=== PATIENT | female | born 1945 | race Caucasian/White ===

== ENCOUNTER → 2021-07-27 14:04 | Outpatient (BNVA) | payer OTHER, SELFPAY | PROVIDERS: PCP Internal Medicine; Visit Provider Nurse Practitioner Family | DX: R25.1 Tremor, unspecified (principal); R51.9 Headache, unspecified; R41.3 Other amnesia; R93.0 Abnormal findings on diagnostic imaging of skull and head, not elsewhere classified | CPT/HCPCS: 99212 ==

== ENCOUNTER 2024-04-16 05:37 | Emergency (ER) | payer MEDICARE, SELFPAY ==
--- NOTE | ~2024-04-16 | XR_ITS ---
EXAMINATION: XR RIGHT KNEE XR RIGHT HAND XR CHEST CLINICAL INFORMATION: Fall, patient unable to hold oblique or lateral view, angled sponge artifacts shown on oblique, best images obtained with tape and sponge to help hold per technologist's note. TECHNIQUE: 4 views right knee, 3 views right hand, AP upright view of the chest. COMPARISON: None available. FINDINGS: RIGHT KNEE: Small joint effusion. Diffuse demineralization. Vascular calcifications. Mild degenerative changes in the medial compartment with small medial marginal osteophytes. RIGHT HAND: There is a comminuted, displaced fracture at the proximal aspect of the first proximal phalanx with swelling of the adjacent soft tissues. Ulnar minus variance. Diffuse demineralization. Moderate degenerative changes in the first carpometacarpal joint with joint space narrowing and hypertrophic change. CHEST: Surgical clips in the left neck. Left electronic device with 3 leads overlying the heart. Cardiac silhouette and left base partially obscured by electronic device, limiting visualization. There is no gross pneumothorax. Mild prominence of the central vasculature and possible bibasilar hazy opacities are difficult to evaluate due to portable technique, low lung volumes and overlying devices, particularly on the left. XR/XR knee RT 3V IMPRESSION: 1. Small right knee joint effusion with mild degenerative changes. 2. Comminuted, displaced fracture at the proximal aspect of the right hand first proximal phalanx. 3. Left electronic device with 3 leads overlying the heart. Cardiac silhouette and left base partially obscured by an electronic device, limiting visualization. 4. Mild prominence of the central vasculature and possible bibasilar hazy opacities are difficult to evaluate due to portable technique, low lung volumes and overlying devices, particularly on the left. This study was presented today, April 16, 2024, for interpretation. Stat results provided at this time as requested by referring provider. Electronically signed by: Nancy Urbano MD 04/16/2024 11:03 AM [facility]
--- NOTE | ~2024-04-16 | CT_ITS ---
EXAMINATION: CT CERVICAL SPINE WITHOUT CONTRAST CLINICAL INFORMATION: Neck pain, trauma. COMPARISON: None available. TECHNIQUE: Multiple helical unenhanced images were acquired through the cervical spine. Multiplanar computer reformatted images were acquired from the dataset in the sagittal and coronal plane. This CT examination was performed using dose optimization techniques as appropriate, variously including the following: *Automated exposure control *Adjustment of mA and/or kV according to patient size (this includes techniques or standardized protocols for targeted exams where dose is matched to indication/reason for exam; i.e. extremities or head) *Use of iterative reconstruction technique DLP: 845 mGy-cm FINDINGS: CT examination of the cervical spine shows no prevertebral soft tissue swelling. Vertebral body height and alignment are maintained. No acute fracture or subluxation is evident. The odontoid process, cervicothoracic and cervical medullary junctions are normal. There are no bone lesions. Emphysematous changes are noted in both lung apices. Extensive atherosclerotic changes are noted within within great vessels of both the left and right neck. There are postsurgical changes in the left neck. CT/CT cervical spine wo IV con IMPRESSION: 1. No acute cervical spine fracture or subluxation. Fleischner guidelines were followed. Electronically signed by: Hilario Dao MD 04/16/2024 08:02 AM [facility]
--- NOTE | ~2024-04-16 | XR_ITS ---
EXAMINATION: XR RIGHT KNEE XR RIGHT HAND XR CHEST CLINICAL INFORMATION: Fall, patient unable to hold oblique or lateral view, angled sponge artifacts shown on oblique, best images obtained with tape and sponge to help hold per technologist's note. TECHNIQUE: 4 views right knee, 3 views right hand, AP upright view of the chest. COMPARISON: None available. FINDINGS: RIGHT KNEE: Small joint effusion. Diffuse demineralization. Vascular calcifications. Mild degenerative changes in the medial compartment with small medial marginal osteophytes. RIGHT HAND: There is a comminuted, displaced fracture at the proximal aspect of the first proximal phalanx with swelling of the adjacent soft tissues. Ulnar minus variance. Diffuse demineralization. Moderate degenerative changes in the first carpometacarpal joint with joint space narrowing and hypertrophic change. CHEST: Surgical clips in the left neck. Left electronic device with 3 leads overlying the heart. Cardiac silhouette and left base partially obscured by electronic device, limiting visualization. There is no gross pneumothorax. Mild prominence of the central vasculature and possible bibasilar hazy opacities are difficult to evaluate due to portable technique, low lung volumes and overlying devices, particularly on the left. XR/XR hand RT min 3V IMPRESSION: 1. Small right knee joint effusion with mild degenerative changes. 2. Comminuted, displaced fracture at the proximal aspect of the right hand first proximal phalanx. 3. Left electronic device with 3 leads overlying the heart. Cardiac silhouette and left base partially obscured by an electronic device, limiting visualization. 4. Mild prominence of the central vasculature and possible bibasilar hazy opacities are difficult to evaluate due to portable technique, low lung volumes and overlying devices, particularly on the left. This study was presented today, April 16, 2024, for interpretation. Stat results provided at this time as requested by referring provider. Electronically signed by: Nancy Urbano MD 04/16/2024 11:03 AM [facility]
--- NOTE | ~2024-04-16 | CT_ITS ---
EXAMINATION: CT HEAD WITHOUT CONTRAST CLINICAL INFORMATION: Head trauma COMPARISON: 08/31/2021 TECHNIQUE: Contiguous axial imaging was performed from the skull base to vertex without intravenous administration of contrast. This CT examination was performed using dose optimization techniques as appropriate, variously including the following: *Automated exposure control *Adjustment of mA and/or kV according to patient size (this includes techniques or standardized protocols for targeted exams where dose is matched to indication/reason for exam; i.e. extremities or head) *Use of iterative reconstruction technique DLP: 845 mGy-cm FINDINGS: CT examination of the brain again shows ventriculomegaly disproportionate atrophy, suggesting communicating hydrocephalus. No acute hemorrhage, mass effect or shift is detected. Mild periventricular white matter disease is again noted, likely on the basis of microvascular angiopathy. In the posterior fossa, the brainstem and cerebellum are stable. Considerable vertebrobasilar and carotid arterial calcifications are noted. No acute hemorrhage, mass effect or shift is evident. In the posterior fossa, the brainstem, cerebellum and fourth ventricle are unremarkable. The orbits and bony calvarium are intact. The paranasal sinuses and mastoid air cells are well pneumatized and clear. CT/CT head/brain wo IV con IMPRESSION: 1. No acute hemorrhage, mass effect or shift. 2. Ventriculomegaly disproportionate to atrophy, suggesting communicating hydrocephalus. 3. Stable periventricular white matter disease, likely on the basis of microvascular angiopathy. Electronically signed by: Hilario Dao MD 04/16/2024 07:59 AM [facility]
--- NOTE | ~2024-04-16 | XR_ITS ---
EXAMINATION: XR RIGHT KNEE XR RIGHT HAND XR CHEST CLINICAL INFORMATION: Fall, patient unable to hold oblique or lateral view, angled sponge artifacts shown on oblique, best images obtained with tape and sponge to help hold per technologist's note. TECHNIQUE: 4 views right knee, 3 views right hand, AP upright view of the chest. COMPARISON: None available. FINDINGS: RIGHT KNEE: Small joint effusion. Diffuse demineralization. Vascular calcifications. Mild degenerative changes in the medial compartment with small medial marginal osteophytes. RIGHT HAND: There is a comminuted, displaced fracture at the proximal aspect of the first proximal phalanx with swelling of the adjacent soft tissues. Ulnar minus variance. Diffuse demineralization. Moderate degenerative changes in the first carpometacarpal joint with joint space narrowing and hypertrophic change. CHEST: Surgical clips in the left neck. Left electronic device with 3 leads overlying the heart. Cardiac silhouette and left base partially obscured by electronic device, limiting visualization. There is no gross pneumothorax. Mild prominence of the central vasculature and possible bibasilar hazy opacities are difficult to evaluate due to portable technique, low lung volumes and overlying devices, particularly on the left. XR/XR chest 1V IMPRESSION: 1. Small right knee joint effusion with mild degenerative changes. 2. Comminuted, displaced fracture at the proximal aspect of the right hand first proximal phalanx. 3. Left electronic device with 3 leads overlying the heart. Cardiac silhouette and left base partially obscured by an electronic device, limiting visualization. 4. Mild prominence of the central vasculature and possible bibasilar hazy opacities are difficult to evaluate due to portable technique, low lung volumes and overlying devices, particularly on the left. This study was presented today, April 16, 2024, for interpretation. Stat results provided at this time as requested by referring provider. Electronically signed by: Nancy Urbano MD 04/16/2024 11:03 AM [facility]
--- NOTE | ~2024-04-16 | XR_ITS ---
EXAMINATION: XR ELBOW, RIGHT CLINICAL INFORMATION: fall COMPARISON: None available. TECHNIQUE: AP, lateral, and oblique views of the right elbow. FINDINGS: No fracture, dislocation or destructive lesion or joint effusion. XR/XR elbow RT min 3V IMPRESSION: Negative Electronically signed by: Ra Anna MD 04/16/2024 10:45 AM [facility]
[2024-04-16 05:46] VITALS: BP 154/80; PULSE 65; O2SAT 98
[2024-04-16 05:51] VITALS: BMI 20.9
--- NOTE | 2024-04-16 05:51 | ECG_ITS ---
Test Reason : FALL Blood Pressure : / mmHG Vent. Rate : 060 BPM Atrial Rate : 060 BPM P-R Int : 000 ms QRS Dur : 144 ms QT Int : 526 ms P-R-T Axes : 000 233 083 degrees QTc Int : 526 ms Ventricular-paced rhythm Underlying AF Abnormal ECG No previous ECGs available Referred By: Aggie Nelson Electronically Signed By:CYNTHIA SERRA MD
[2024-04-16 05:57] VITALS: BP 187/74; PULSE 59; RESP 16; TEMP 36.6; O2SAT 96
--- NOTE | 2024-04-16 06:37 | ED_ITS ---
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 Unknown total downtime and unknown if she had LOC. + headstrike , patient has had many complaints such as neck pain, then wandering elbow pain that goes away, L rib pain, R knee pain. Staff did not to EMS she seems more confused. The patient has no recollection other than she fell but she states she fell at home not [facility]. MD complaint: fall Onset (ago): hour(s) (5am) Fall from: other Fall witnessed: no Place fall occurred: longterm[facility] Loss of consciousness: unsure Prolonged down time: no Symptoms prior to fall: none Context: history of frequent falls Location of injury: head and neck Location of injury - extremities: right: knee Severity: mild Quality: aching Associated symptoms (after fall): denies Related Data Home Medications ?Medication ?Instructions ?Recorded ?Confirmed aspirin 81 mg tablet,delayed 81 mg PO DAILY 07/27/21 07/27/21 release atorvastatin 40 mg tablet 40 mg PO BEDTIME 07/27/21 07/27/21 cholecalciferol (vitamin D3) 25 25 mcg PO DAILY 07/27/21 07/27/21 mcg (1,000 unit) tablet clopidogrel 75 mg tablet 75 mg PO DAILY 07/27/21 07/27/21 isosorbide mononitrate 30 mg 30 mg PO DAILY 07/27/21 07/27/21 tablet,extended release 24 hr loratadine 10 mg tablet 10 mg PO DAILY 07/27/21 07/27/21 metoprolol succinate 50 mg 50 mg PO DAILY 07/27/21 07/27/21 tablet,extended release 24 hr nitrofurantoin 1 cap PO DAILY 07/27/21 07/27/21 monohydrate/macrocrystals 100 mg capsule sacubitril 49 mg-valsartan 51 mg 1 tab PO BID 07/27/21 07/27/21 tablet (Entresto) spironolactone 25 mg tablet 25 mg PO DAILY 07/27/21 07/27/21 torsemide 20 mg tablet 20 mg PO DAILY 07/27/21 07/27/21 Previous Rx's ?Medication ?Instructions ?Recorded azelastine 137 mcg (0.1 %) nasal 2 spray intranasal BID 28 days #30 07/27/21 spray mL fluticasone propionate 50 2 spray intranasal DAILY 28 days 07/27/21 mcg/actuation nasal #16 grams spray,suspension (Flonase Allergy Relief) omfiucflgd-vakcxlwdsriph-jgyhosex 1 - 2 tab PO Q4-6H PRN post lumbar 09/02/21 50 mg-325 mg-40 mg tablet puncture headache 7 days #24 tabs magnesium oxide 400 mg (241.3 mg 400 mg PO BEDTIME 30 days #28 tabs 09/21/23 magnesium) tablet riboflavin (vitamin B2) 100 mg 200 mg (2 x 100 mg) PO BID 30 days 09/21/23 tablet (Vitamin B-2) #112 tabs cyclobenzaprine 5 mg tablet 5 mg PO BEDTIME 28 days #28 tabs 11/13/23 Allergies Allergy/AdvReac Type Severity Reaction Status Date / Time No Known Allergies Allergy Verified 04/16/24 05:55 Review of Systems 2 Review of Systems: ROS unable to be obtained due to altered mental status [facility] Past Medical History Attestation statement: The following information was validated with the patient. Source: old records reviewed Medical History Hydrocephalus Abnormal findings on diagnostic imaging of skull and head, not elsewhere classified Memory difficulties Headache Tremor Social History Social History Alcohol intake: never Patient Tobacco Use Status: Never used Tobacco Smoked in Last 30 Days: No Use of substances other than those prescribed or required for medical reasons: No Advance Directives: No Physical Exam 2 Vital Signs: Vital Signs: Last Vital Signs Temp 97.8 F 04/16/24 05:57 Pulse 60 04/16/24 07:49 Resp 18 04/16/24 07:49 BP 169/63 H 04/16/24 07:49 Pulse Ox 98 04/16/24 07:49 O2 Del Method Room Air 04/16/24 07:49 BMI result Body Mass Index 20.9 Appearance: Alert. confused. No acute distress. Eyes: Pupils equal, round and reactive to light. ENT: Pharynx normal. atraumatic Neck: c collar in place CVS: Normal heart rate and rhythm. Pulses normal. Respiratory: No respiratory distress. Breath sounds normal. Abdomen: Soft and non-tender. Skin: Skin warm and dry. Normal skin color. Extremities: No lower extremity edema. R knee ttp contusion noted, normal ROM of both arms, she reports ttp to R thumb Neuro: confused. No motor deficit. No sensory deficit. Course Course Course Narrative: just admitted to [facility] 03/23-03/25 for same thing falls, UTI, troponin was high as well at that time, Cr 1.6, L sided 2nd and 3rd rib fracture Reevaluation(s) Reevaluation #1: signed out to Nilson MCCLENDON pending further workup 840am Medications Administered Discontinued Medications Generic Name Dose Route Start Last Admin Trade Name Freq PRN Reason Stop Dose Admin Sodium Chloride 1,000 mls @ 999 mls/hr 04/16/24 07:16 04/16/24 08:02 Ns IV 04/16/24 08:16 999 mls/hr .Q1H1M ONE Administration Medical Decision Making Medical Decision Making [facility] Narrative: 79 yo female with PMH of headaches, hydrocephalus, cognitive impairmentHLD, HTN, UTI here with recurrent falls at this time plan for labs, CT scans of head and neck, trauma xrays of ext, UA, possible falls, syncope, rhabdo, encephalopathy Differential Diagnosis Differential Diagnoses: The differential diagnosis associated with the presentation includes falls, rhabdo, encephalopathy, head injury, neck injury, strain, ext trauma Admission/Observation Consideration of admission/observation: Escalation of care including admission/observation considered Lab Data [facility] [place] Lab Attestation statement: I reviewed the patient's lab results. 04/16/24 06:37 04/16/24 06:37 Labs: Lab Results 04/16/24 04/16/24 04/16/24 Range/Units 06:37 07:33 08:21 WBC 7.5 (4.8-10.8) X10*3/uL RBC 4.74 (4.20-5.50) X10*6/uL Hgb 12.6 (12.0-16.0) g/dl Hct 40.6 (37.0-47.0) % MCV 85.7 (80.0-98.0) fL MCH 26.6 L (27.0-33.0) pg MCHC 31.0 (31.0-35.0) g/dl RDW 16.6 H (11.0-16.0) % Plt Count 240 (160-400) X10*3/uL MPV 11.3 (9.4-12.3) fL Immature Gran % (Auto) 0.3 (0.0-0.4) % Neut % (Auto) 72.9 (45-73) % Lymph % (Auto) 14.6 L (20-40) % [place] % (Auto) 9.6 (2-11) % Eos % (Auto) 1.9 (0-4) % Baso % (Auto) 0.7 (0-2) % Lymph # (Auto) 1.1 L (1.2-4.9) X10*3/uL [place] # (Auto) 0.7 (0.1-1.2) X10*3/uL Eos # (Auto) 0.1 (0.0-0.4) X10*3/uL Baso # (Auto) 0.1 (0.0-0.2) X10*3/uL Abs Immat Gran (auto) 0.02 (0.00-0.03) X10*3/uL Absolute Neuts (auto) 5.5 (2.0-8.3) x10*3/uL Absolute Nucleated RBC 0.000 (0.0-0.012) X10*3/uL Nucleated RBC % (auto) 0.0 (0.0-0.2) /100WBC PT 17.8 H (10.9-12.4) SEC INR 1.5 H (0.9-1.1) Sodium 142 (135-145) mmol/L Potassium 4.4 (3.3-5.1) mmol/L Chloride 105 (96-108) mmol/L Carbon Dioxide 28 (22-29) mmol/L Anion Gap 13 (12-20) BUN 56 H (9-16) mg/dL Creatinine 1.68 H (0.5-1.4) mg/dL Estim Creat Clear Calc 23.4 Estimated GFR 29 Random Glucose 156 H (60-115) mg/dL Calcium 10.0 (8.4-10.2) mg/dL Magnesium 2.4 (1.6-2.6) mg/dL Total Bilirubin 0.5 (0.0-1.0) mg/dL Direct Bilirubin 0.2 (0.0-0.5) mg/dL AST 32 H (5-31) U/L ALT 23 (0-31) U/L Alkaline Phosphatase 132 H (39-117) U/L Total Creatine Kinase 38 (26-140) U/L Troponin I High Sens 56.7 H* 51.3 H* (<3.5-17.0) ng/L Total Protein 7.8 (6.5-8.0) g/dL Albumin 3.6 (3.5-5.0) g/dL Lipase 17 (8-78) U/L Urine Color Yellow Urine Appearance Cloudy Urine pH 6.5 (5.0-9.0) Ur Specific [place] 1.015 (1.005-1.025) Urine Protein 30 (1+) H (Neg-Trace) mg/dL Urine Glucose (UA) Negative (Negative) mg/dL Urine Ketones Negative (Negative) mg/dL Urine Blood Small (1+) H (Negative) Urine Nitrite Negative (Negative) Ur Leukocyte Esterase Large (3+) H (Negative) Independent Interpretation I performed an independent interpretation of an: EKG, Plain X-Ray and CT Scan Interpretation: Rate: 60 Rhythm: paced [place]: left wide QRS complex. ST T wave : no DEBRA, poor tracking qTC: 526 prior studies: hx of paced rhythm The study has been interpreted contemporaneously by me. . Discharge Plan Discharge Clinical Impression: Fall Qualifiers: Encounter type: initial encounter Qualified Code(s): W19.XXXA - Unspecified fall, initial encounter Patient Disposition: Still a Patient Instructions: Fall Prevention (ED) Additional Instructions: CT head, cspine negative no acute change from baseline kidney function Prescriptions: No Action iyqhdixkal-kgczisiyozjsg-ndsz 50-325-40 mg tablet 1 - 2 tab PO Q4-6H PRN (Reason: post lumbar puncture headache) 7 Days Qty: 24 1RF Rx Instructions: do not exceed 6 tabs per 24 hrs magnesium oxide 400 mg (241.3 mg magnesium) tablet 400 mg PO BEDTIME 30 Days Qty: 28 6RF Rx Instructions: may hold for loose stools riboflavin (vitamin B2) [Vitamin B-2] 100 mg tablet 200 mg PO BID 30 Days Qty: 112 6RF cyclobenzaprine 5 mg tablet 5 mg PO BEDTIME 28 Days Qty: 28 4RF cholecalciferol (vitamin D3) 25 mcg (1,000 unit) tablet 25 mcg PO DAILY Entresto 49-51 mg tablet 1 tab PO BID loratadine 10 mg tablet 10 mg PO DAILY spironolactone 25 mg tablet 25 mg PO DAILY aspirin 81 mg tablet,delayed release (DR/EC) 81 mg PO DAILY clopidogrel 75 mg tablet 75 mg PO DAILY isosorbide mononitrate 30 mg tablet extended release 24 hr 30 mg PO DAILY metoprolol succinate 50 mg tablet extended release 24 hr 50 mg PO DAILY torsemide 20 mg tablet 20 mg PO DAILY atorvastatin 40 mg tablet 40 mg PO BEDTIME nitrofurantoin monohyd/m-cryst 100 mg capsule 1 cap PO DAILY fluticasone propionate [Flonase Allergy Relief] 50 mcg/actuation spray,suspension 2 spray intranasal DAILY 28 Days Qty: 16 4RF Rx Instructions: administer into each nostril- qhs azelastine 137 mcg (0.1 %) aerosol,spray 2 spray intranasal BID 28 Days Qty: 30 4RF Rx Instructions: administer into each nostril Print Language: Macanese
[2024-04-16 06:41] LABS: MANUAL DIFF FLAG NO
[2024-04-16 06:42] LABS: Basophils Absolute Auto 0.1 X10*3/uL (0.0-0.2); Basophils Percent Auto 0.7 % (0-2); Eosinophils Absolute Auto 0.1 X10*3/uL (0.0-0.4); Eosinophils Percent Auto 1.9 % (0-4); Hematocrit 40.6 % (37.0-47.0); Hemoglobin 12.6 g/dl (12.0-16.0); Imm Gran Abs Auto 0.02 X10*3/uL (0.00-0.03); Imm Gran Pct Auto 0.3 % (0.0-0.4); Lymphocytes Absolute Auto 1.1 X10*3/uL (1.2-4.9); Lymphocytes Percent Auto 14.6 % (20-40); Mean Corpuscular Hemoglobin 26.6 pg (27.0-33.0); Mean Corpuscular Volume 85.7 fL (80.0-98.0); Mean Platelet Volume 11.3 fL (9.4-12.3); Monocytes Absolute Auto 0.7 X10*3/uL (0.1-1.2); Monocytes Percent Auto 9.6 % (2-11); Neutrophils Absolute Auto 5.5 x10*3/uL (2.0-8.3); Neutrophils Percent Auto 72.9 % (45-73); Platelet Count 240 X10*3/uL (160-400); Red Blood Count 4.74 X10*6/uL (4.20-5.50); Red Cell Distribution Width 16.6 % (11.0-16.0); White Blood Count 7.5 X10*3/uL (4.8-10.8)
[2024-04-16 06:50] LABS: INTERNATIONAL NORM RATIO 1.5 (0.9-1.1); Prothrombin Time 17.8 SEC (10.9-12.4)
[2024-04-16 07:02] LABS: Alanine Aminotransferase 23 U/L (0-31); Albumin Level 3.6 g/dL (3.5-5.0); Alkaline Phosphatase 132 U/L (39-117); Anion Gap 13 (12-20); Aspartate Amino Transferase 32 U/L (5-31); Bilirubin Direct 0.2 mg/dL (0.0-0.5); Bilirubin Total 0.5 mg/dL (0.0-1.0); Blood Urea Nitrogen 56 mg/dL (9-16); Carbon Dioxide 28 mmol/L (22-29); Chloride 105 mmol/L (96-108); Creatinine Clr Calc Pharmacy 23.4; Estimated Glomerular Filt Rate 29; Glucose Random 156 mg/dL (60-115); Lipase 17 U/L (8-78); Magnesium 2.4 mg/dL (1.6-2.6); Potassium 4.4 mmol/L (3.3-5.1); Sodium 142 mmol/L (135-145); Total Protein 7.8 g/dL (6.5-8.0)
[2024-04-16 07:05] LABS: Troponin-I High Sensitivity 56.7 ng/L (<3.5-17.0)
[2024-04-16 07:49] VITALS: BP 169/63; PULSE 60; RESP 18; O2SAT 98
[2024-04-16] MEDS: 0.9 % Sodium Chloride 1,000 ML 999 ML IV (08:02)
[2024-04-16 08:03] LABS: Troponin-I High Sensitivity 51.3 ng/L (<3.5-17.0)
[2024-04-16 08:27] LABS: Appearance Urine Cloudy; Color Urine Yellow; Glucose Urine UA Negative (Negative); Leukocyte Esterase Urine Large (3+) (Negative); Nitrite Urine Negative (Negative); PH 6.5 (5.0-9.0); Specific Gravity - Urine 1.015 (1.005-1.025); UMIC TRIGGER UACC YES; Urine Blood Small (1+) (Negative); Urine Ketones Negative (Negative); Urine Protein 30 (1+) mg/dL (Neg-Trace)
[2024-04-16 08:42] LABS: Bacteria Urine 3+ (None Seen); Hyaline Casts Urine 0-2 /LPF (0-2); Squamous Epithelial Cell Urine 0-2 /HPF (0-2); UACC Culture Trigger YES; WBC Clumps Urine Present; WBC Urine >50 /HPF (0-5)
[2024-04-16 10:29] VITALS: BP 125/99; PULSE 60; RESP 16; TEMP 36.8; O2SAT 96
[2024-04-16] MEDS: cefTRIAXone sodium 1 GM VIAL IVPUSH (10:41)
[2024-04-16 11:32] LABS: Influenza A PCR NEGATIVE (Negative); Influenza B PCR NEGATIVE (Negative); Resp Syncy Virus RNA Qual PCR NEGATIVE (Negative); SARS COV2 PCR INHOUSE NEGATIVE (Negative)
--- NOTE | 2024-04-16 11:54 | MHC.CM.ED ---
Addendum entered by Ernestina Bhagat 04/16/24 15:29: [facility] choice per daughter. [facility] would be 2nd choice. Addendum entered by Ernestina Bhagat 04/16/24 14:25: [facility], [facility], [facility], [facility], and [facility] are able to offer a bed. [facility], [facility], [facility] and [facility] are still reviewing. These options were discussed with Aisha. Aisha will review these facilities and provide CM with 1st choice. Original Note: Received case management consult from Julianne MCCLENDON. Patient came to the ER after a fall at [facility]. Family does not want patient to return. Met with patient and daughter, Aisha in regards to discharge planning. Patient has been at [facility] since d/c from [facility] on 03/25. Aisha does not patient to return to [facility] because she feels facility is short staffed and feels that's why patient fell. 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 Aisha also stated Covid is currently in the building and her mother hasn't been tested. Aisha stated on that patient c/o urinary burning and requested UA be performed. Per Aisha she is unsure if UA was done. Aisha states she didn't speak to anyone about her concerns because she hasn't met with the drug abuse social worker since patient was admitted to their facility. Patient has been to [facility] in the past. Aisha requesting referral there. Aisha aware referral will be made. If [facility] does not have a bed available, referral will be broadcasted and bed offers will be discussed with Aisha. Aisha verbalized understanding. Per Naomie at [facility], family did not attend plan of care meeting that they were invited to. UA was done and Covid swab was also done. Continue to monitor for d/c needs.
[2024-04-16 13:08] VITALS: BP 144/80; PULSE 60; RESP 18; O2SAT 97
--- NOTE | 2024-04-16 13:41 | PC.NURSE ---
Late entry: pt had presented to ED via EMS from [facility] after a fall at facility with positive head strike. Pt reported general body pain and burning with urination. Found to have UTI and right thumb fx here in ED. Pt is confused at baseline, breathing even and unlabored. Purewick used for incontinence. Paced rhythm on hospital monitor. Family had asked to speak with case management about new placement, CM consulted, per them plan is to be CM/PT in hospital while they find new placement.
[2024-04-16] MEDS: cefuroxime axetiL 250 MG TABLET PO ×2 (14:41→21:52)
--- NOTE | 2024-04-16 18:03 | MHC.CM.ED ---
PT evaluation obtained and uploaded to [facility]. Awaiting auth.
[2024-04-16 18:24] VITALS: BP 146/37; PULSE 64; RESP 18; TEMP 36.5; O2SAT 97
--- NOTE | 2024-04-16 21:29 | PHA.MEDREC ---
Pharmacy Consult ? Medication Reconciliation Pharmacy has completed the medication reconciliation. Med list obtained from Marybeth lizarraga [facility]
[2024-04-17 02:16] VITALS: BP 159/77; PULSE 69; RESP 16; TEMP 36.2; O2SAT 98
[2024-04-17 05:43] VITALS: BP 168/65; PULSE 67; RESP 16; TEMP 36.1; O2SAT 99
--- NOTE | 2024-04-17 07:18 | PC.NURSE ---
Resumed care of patient at 0700, She is up resting in ed comfortable at this time, pt remains at baseline neuro. Pt has call lovett within reach with frequent rounding to assess pt safety. Pt is awaiting PTCM at this time
--- NOTE | 2024-04-17 08:17 | PC.NURSE ---
report given to overflow RN pt to be transferred once room ready. Code status entered by SHOW WORKER
[2024-04-17] MEDS: cefuroxime axetiL 250 MG TABLET PO ×2 (09:12→21:57)
--- NOTE | 2024-04-17 09:12 | PC.NURSE ---
Pt. arrived from main ED to Overflow bed 2. Incontinence care provided and Purewick applied by Overflow [employer]. Pt. medicated per MAR with PO antibiotic. Denies any complaints and/or concerns at this time. Plan of care ongoing.
[2024-04-17 14:00] VITALS: BP 182/81; PULSE 60; RESP 18; TEMP 37; O2SAT 95
[2024-04-17 23:09] VITALS: BP 175/77; PULSE 59; RESP 19; O2SAT 95
--- NOTE | 2024-04-18 00:47 | MHC.EDTECH ---
Complete bed change. Patient incontinent of urine. Purewick placed.
[2024-04-18 06:23] VITALS: BP 166/77; PULSE 60; RESP 18; TEMP 36.6; O2SAT 96
--- NOTE | 2024-04-18 08:41 | MHC.CM.ED ---
Patient remains in ER overflow. Insurance auth has been obtained by Keily Corcoran. Patient can leave at 10am. Reta BOOTH booked. Patient, Belgica CAICEDO and Maria Victoria MCCLENDON aware. Spoke with patient's daughter/HCP, Aisha via telephone at [phone]. Aisha's daughter will meet patient at [facility]. Continue to monitor for d/c needs.
[2024-04-18 08:43] VITALS: BP 179/80; PULSE 62; RESP 18; TEMP 36.5; O2SAT 96
[2024-04-18 08:55] LABS: Glucose, Whole Blood 231 mg/dL (60-115)
[2024-04-18] MEDS: Lidocaine 4 % Patch ADH..PATCH 2 PATCH TRANSDERMA (10:22)
[2024-04-18] MEDS: Spironolactone 25 MG TABLET PO (10:23)
[2024-04-18] MEDS: Clopidogrel Bisulfate 75 MG TABLET PO (10:23)
[2024-04-18] MEDS: Loratadine 10 MG TABLET PO (10:23)
[2024-04-18] MEDS: Cholecalciferol (Vitamin D3) 25 MCG TABLET PO (10:24)
[2024-04-18] MEDS: Insulin Lispro 100 UNIT/ML 3 ML VIAL SUBCUT (10:24)
[2024-04-18] MEDS: cefuroxime axetiL 250 MG TABLET PO (10:25)
[2024-04-18] MEDS: Apixaban 5 MG TABLET PO (10:25)
[2024-04-18] MEDS: Ammonium Lactate 12 % Cream 140 GM TUBE 1 APPL TOPICAL (10:26)
[2024-04-18 10:27] VITALS: BP 162/82
[2024-04-18] MEDS: Torsemide 20 MG TABLET 40 MG PO (10:27)
[2024-04-18 10:54] VITALS: BP 162/82; PULSE 62; RESP 18; TEMP 36.5; O2SAT 96
== END 2024-04-18 10:51 | disposition skilled nursing facility (03) ==
PROVIDERS: Physician Assistant Medical; Emergency Provider Emergency Medicine; PCP Internal Medicine
DX: S62.511A Displaced fracture of proximal phalanx of right thumb, initial encounter for closed fracture (principal); W19.XXXA Unspecified fall, initial encounter; N39.0 Urinary tract infection, site not specified; R51.9 Headache, unspecified; M54.2 Cervicalgia; M25.561 Pain in right knee; R79.1 Abnormal coagulation profile; R29.6 Repeated falls; Z91.81 History of falling; I10 Essential (primary) hypertension; E78.5 Hyperlipidemia, unspecified; R25.1 Tremor, unspecified; G91.9 Hydrocephalus, unspecified; Z03.818 Encounter for observation for suspected exposure to other biological agents ruled out; Y93.9 Activity, unspecified; Y92.122 Bedroom in nursing home as the place of occurrence of the external cause; Y99.9 Unspecified external cause status; Z79.82 Long term (current) use of aspirin; Z79.02 Long term (current) use of antithrombotics/antiplatelets; Z79.899 Other long term (current) drug therapy
CPT/HCPCS: 0241U; 29130; 36415; 70450; 71045; 72125; 73080; 73130; 73562; 80048; 80076; 81001; 82550; 82947; 83690; 83735; 84484; 85025; 85610; 87040; 87086; 93005; 96361; 96374; 97162; 99285; J0696

== ENCOUNTER → 2024-04-16 05:51 | Outpatient (BNV) | payer MEDICARE, SELFPAY | PROVIDERS: Emergency Provider Emergency Medicine; PCP Internal Medicine; Visit Provider Internal Medicine Cardiovascular Disease | DX: R94.31 Abnormal electrocardiogram [ECG] [EKG] (principal) | CPT/HCPCS: 93010 ==

== ENCOUNTER 2024-05-08 08:16 | Outpatient (REF) | payer OTHER, SELFPAY ==
--- NOTE | ~2024-05-08 | XR_ITS ---
EXAMINATION: XR HAND 3 OR MORE VIEWS RIGHT HISTORY: M79.641 - Pain in right hand COMPARISON: Comparison is made with the prior examination dated 04/16/2024. FINDINGS: Three views of the right hand are submitted. Osseous mineralization is normal. Again seen is a fracture of the base of the proximal phalanx of the thumb. The appearance is not significantly changed from the prior study. The joint spaces are preserved. The soft tissues are unremarkable. XR/XR hand RT min 3V IMPRESSION: Fracture of the base of the proximal phalanx of the thumb without significant change. Electronically signed by: Roman Guerrero MD 05/14/2024 08:24 AM [facility]
== END 2024-05-08 08:17 | disposition home or self-care (01) ==
LOC: HO.HOSX 08:16
DX: M79.641 Pain in right hand (principal); S62.511A Displaced fracture of proximal phalanx of right thumb, initial encounter for closed fracture
CPT/HCPCS: 26720; 73130; 99202

== ENCOUNTER 2024-05-08 09:30 | Outpatient (AMB) | payer OTHER, SELFPAY ==
--- NOTE | 2024-05-08 09:37 | A.OFFVIS_ITS ---
Intake Visit Reasons: FC- RT thumb displaced fx DOI 04/16/24 Intake Note: Danisha is a 79 year old right hand dominant female who presents today as a new patient for a fracture care visit of her right hand first digit s/p fall DOI: 04/16/24. Patient states she does not have memory of how she fell. She has contusions on her right arm from the fall. She expresses she has mild discomfort when she over uses the right hand. Unable to lift heavy objects due to pain. Denies numbness and tingling. Allergies fish derived [fish] Allergy (Verified 05/08/24 09:41) Rash HPI HPI FC- RT thumb displaced fx DOI 04/16/24: Details: Patient is a 79-year-old female who presents for evaluation of fracture of the proximal phalanx of the right thumb, date of injury 04/16/2024. The patient reports that she did fall at that time, but is unable to recall any other details of her injury, and expresses surprise that she has a fracture of the thumb. Today, the patient reports that she is experiencing minimal discomfort in her right hand, and states that she is only experiencing very mild pain when she overuses her right hand. Patient expresses that she has noticed a mild deformity in her right thumb, but states she is unbothered by this. Patient expresses she would like to avoid surgical intervention if at all possible. No other acute complaints or concerns at this time. [facility] Medical History Hydrocephalus Abnormal findings on diagnostic imaging of skull and head, not elsewhere classified Memory difficulties Headache Tremor Social History Alcohol intake: never Patient Tobacco Use Status: Never used Tobacco Review of Systems Const All systems reviewed & are unremarkable except as noted in HPI and below Physical Exam Extrem Other: Patient is alert, oriented, and in no acute distress. Neuro: Normal sensation of the tips of all digits of the right hand at this time Vascular: Cap refill brisk Pain: No tenderness to palpation about the right thumb, particularly at the level of the fracture No pain with range of motion of the right hand ROM: Patient is able to make a closed fist and extend all digits of the right hand fully and without difficulty Skin: No lacerations or abrasions. General: No ecchymosis, erythema, or evidence of infection. There is noted to be a deformity of the right thumb consistent with apex volar fracture of the proximal phalanx. Psych: Appears grossly normal Affect normal Attitude cooperative Office Procedures AMB Fracture Care Details: Proximal phalanx of right thumb fracture Fracture Billing Code: Fracture Billing Code Casting/Splints 66049-Kdsq/Wrist Cast Application Procedure code (CPT) selection complete Results Reviewed Results Reviewed: X-rays obtained in the office today and independently reviewed by me, Umair Vences PA-C, demonstrate apex volar displaced fracture of the proximal phalanx of the right thumb with evidence of interval bony healing. Assessment & Plan Assessment & Plan (1) Displaced fracture of proximal phalanx of right thumb: Code(s): S62.511A - Displaced fracture of proximal phalanx of right thumb, initial encounter for closed fracture Category: Medical Plan 1. Displaced fracture of proximal phalanx of right thumb Date of injury 04/16/2024 After long discussion with both the patient and Dr. Betancourt, the decision was made that the patient can be managed nonoperatively Patient expresses that she is not bothered by the deformity of her right thumb, and would like to avoid surgery if at all possible Patient will replaced in the thumb spica cast for 2 weeks today Patient is educated on proper cast care and precautions Patient is also provided with a note to bring to Keily Corcoran describing proper cast care and precautions Patient was advised she should continue to avoid any heavy lifting in the right hand, but that she should work on range of motion of the other digits of the right hand Patient was amenable to this plan Patient will follow-up in 2 weeks with repeat x-rays for reassessment, sooner with any acute concerns Orders: Orders XR hand RT min 3V Today M79.641 - Pain in right hand Coding Level of Care Code New Pt Level 3 (32306) Diagnoses Displaced fracture of proximal phalanx of right thumb S62.511A CPT Codes Fracture Care - Fracture Billing Code: Fracture Billing Code ([id number]) Casting - CPT: 14258-Dfhe/Wrist Cast Application ([id number])
== END 2024-05-08 10:35 | disposition home or self-care (01) ==
PROVIDERS: PCP Internal Medicine
DX: S62.511A Displaced fracture of proximal phalanx of right thumb, initial encounter for closed fracture (principal)
CPT/HCPCS: 26720; 99203

== ENCOUNTER 2024-05-23 08:26 | Outpatient (REF) | payer OTHER, SELFPAY ==
--- NOTE | ~2024-05-23 | XR_ITS ---
EXAMINATION: XR HAND 3 OR MORE VIEWS RIGHT HISTORY: M79.641 - Pain in right hand COMPARISON: Comparison is made with the prior examination dated 05/08/2024. FINDINGS: Three views of the right hand are submitted. Osseous mineralization is normal. Again seen is a fracture of the proximal phalanx of the thumb. The appearance is not significantly changed from the prior study. The joint spaces are preserved. The soft tissues are unremarkable. XR/XR hand RT min 3V IMPRESSION: Fracture of the proximal phalanx of the right thumb without change. Electronically signed by: Roman Guerrero MD 05/26/2024 10:46 AM [facility]
== END 2024-05-23 08:27 | disposition home or self-care (01) ==
LOC: HO.HOSX 08:26
DX: M79.641 Pain in right hand (principal); S62.511A Displaced fracture of proximal phalanx of right thumb, initial encounter for closed fracture
CPT/HCPCS: 29085; 73130; 99212

== ENCOUNTER 2024-05-23 09:54 | Outpatient (AMB) | payer OTHER, SELFPAY ==
--- NOTE | 2024-05-23 10:08 | A.OFFVIS_ITS ---
Intake Visit Reasons: OV- RT thumb displaced fx DOI 04/16/24 Intake Note: Danisha is a 79 year old right hand dominant female who presents today for follow up status post displaced fracture of proximal phalanx of right thumb after taking a fall, DOI:04/16/24. At her last visit she was placed in a thumb spica cast. Cast removed and xrays updated in office. States she has some stiffness in wrist but has no pain. Allergies fish derived [fish] Allergy (Verified 05/23/24 10:09) Rash HPI HPI OV- RT thumb displaced fx DOI 04/16/24: Details: Patient is a 79-year-old female who presents for evaluation of fracture of the proximal phalanx of the right thumb, date of injury 04/16/2024. The patient reports that she did fall at that time, but is unable to recall any other details of her injury, and expresses surprise that she has a fracture of the thumb. Today, the patient reports that she is experiencing no discomfort in her right hand. Patient expresses that she has noticed a mild deformity in her right thumb, but states she is unbothered by this. Patient expresses she would like to avoid surgical intervention if at all possible. No other acute complaints or concerns at this time. [facility] Medical History Hydrocephalus Abnormal findings on diagnostic imaging of skull and head, not elsewhere classified Memory difficulties Headache Tremor Social History Alcohol intake: never Patient Tobacco Use Status: Never used Tobacco Review of Systems Const All systems reviewed & are unremarkable except as noted in HPI and below Physical Exam Extrem Other: Patient is alert, oriented, and in no acute distress. Neuro: Normal sensation of the tips of all digits of the right hand at this time Vascular: Cap refill brisk Pain: No tenderness to palpation about the right thumb, particularly at the level of the fracture No pain with range of motion of the right hand ROM: Patient is able to make a closed fist and extend all digits of the right hand fully and without difficulty Skin: No lacerations or abrasions. General: No ecchymosis, erythema, or evidence of infection. There is noted to be a deformity of the right thumb consistent with apex volar fracture of the proximal phalanx. Psych: Appears grossly normal Affect normal Attitude cooperative Office Procedures Casting/Splints 38442-Wpbx/Wrist Cast Application Procedure code (CPT) selection complete Results Reviewed Results Reviewed: X-rays obtained in the office today and independently reviewed by me, Umair Vences PA-C, demonstrate apex volar displaced fracture of the proximal phalanx of the right thumb with evidence of minimal interval bony healing. Assessment & Plan Assessment & Plan (1) Displaced fracture of proximal phalanx of right thumb: Code(s): S62.511A - Displaced fracture of proximal phalanx of right thumb, initial encounter for closed fracture Category: Medical Plan 1. Displaced fracture of proximal phalanx of right thumb Date of injury 04/16/2024 After long discussion with both the patient and Dr. Betancourt, the decision was made that the patient can be managed nonoperatively Patient expresses that she is not bothered by the deformity of her right thumb, and would like to avoid surgery if at all possible Patient will replaced in the thumb spica cast for a further 2 weeks today Patient is educated on proper cast care and precautions Patient is also provided with a note to bring to Keily Corcoran describing proper cast care and precautions Patient was advised she should continue to avoid any heavy lifting in the right hand, but that she should work on range of motion of the other digits of the right hand Patient was amenable to this plan Patient will follow-up in 2 weeks with repeat x-rays for reassessment, sooner with any acute concerns. Anticipate cast removal at that time Orders: Orders XR hand RT min 3V Today M79.641 - Pain in right hand Coding Level of Care Code Global (61723) Diagnoses Displaced fracture of proximal phalanx of right thumb S62.511A CPT Codes Casting - CPT: 73338-Ssob/Wrist Cast Application ([id number])
== END 2024-05-23 10:57 | disposition home or self-care (01) ==
PROVIDERS: PCP Internal Medicine
DX: S62.511A Displaced fracture of proximal phalanx of right thumb, initial encounter for closed fracture (principal)
CPT/HCPCS: 29085; 99024

== ENCOUNTER 2024-06-03 09:55 | Outpatient (REF) | payer OTHER, SELFPAY ==
--- NOTE | ~2024-06-03 | XR_ITS ---
CLINICAL HISTORY: M79.641 - Pain in right hand 3 view right hand Comparison: DX/SR - XR HAND RT MIN 3V - 05/23/24 09:56 EST Findings: Similar-appearing angulated fracture involving the base of the proximal phalanx of the right thumb. Early callus formation suggested. IMPRESSION: Similar-appearing angulated fracture of the base of the proximal phalanx of the right thumb. Early callus formation suggested. This document has been electronically signed by: Shar Collazo MD on 06/03/2024 12:59:30
--- OUTSIDE RECORDS SUMMARY | 2024-06-03 10:37 | XMS_ITS | Encounter Summary ---
Author Organization [facility] Address [address] [place] [address] Care Team Providers Care Audit Clerk Name Role Phone Aroldo Morgan MD Primary Care Provider Encounter Details Date Type Department Care Team (Late st Contact Info) Description 04/26/2024 Lab Requisition [facility] - Main Lab [address] [facility] [place] [address] Aroldo Morgan MD [address] [place] [address] [address] [facility] [id number] Chronic kidney disease, unspecified; Anemia, unspecified Social History Tobacco Use Types Packs/Day Years Used Date Smoking Tobacco: Never Assessed Sex and Gender Information Value Date Recorded Sex Assigned at Not on file Gender Identity Not on file Sexual Orientation Not on file documented as of this encounter Plan of Treatment Not on file documented as of this encounter Visit Diagnoses Diagnosis Chronic kidney disease, unspecified Anemia, unspecified documented in this encounter Care Teams Audit Clerk Relationship Specialty Start Date End Date Aroldo Morgan MD [address] [place] [address] [address] [place], [id number] PCP - General Family Medicine 03/31/24 documented as of this encounter
--- OUTSIDE RECORDS SUMMARY | 2024-06-03 10:37 | XMS_ITS | Encounter Summary ---
Author Organization [facility], Address [address] [place] [address] Phone Care Team Providers Care Glued Wood Tester Name Role Phone Bryan Fontanez MD Primary Care Provider [phone] Encounter Details Date Type Department Care Team ([facility] st Contact Info) Description 08/29/2023 Documentation Only [facility], [address] [place] [address] Osorio Burgos, [address] [place] [address] Social History Tobacco Use Types Packs/Day Years Used Date Smoking Tobacco: Never Smokeless Tobacco: Never Alcohol Use Standard Drinks/Week Comments No 0 (1 standard drink = 0.6 oz pur e alcohol) Comments Unknown Sex and Gender Information Value Date Recorded Sex Assigned at Not on file Legal Sex Female 4:56 PM EST Gender Identity Not on file Sexual Orientation Not on file documented as of this encounter Plan of Treatment Not on file documented as of this encounter Visit Diagnoses Not on filedocumented in this encounter Care Teams Glued Wood Tester Relationship Specialty Start Date End Date Bryan Fontanez MD [address] [place] [address] PCP - General 05/17/20 documented as of this encounter
--- OUTSIDE RECORDS SUMMARY | 2024-06-03 10:37 | XMS_ITS | Data Portability ---
Author Organization [facility], Main Office Address [address], [address] [place] [address] Care Team Providers Care Retail Grocer Name Role Phone PÉREZ SULTANA - 2ND FLOOR OTHER RACHAEL MAHMOOD Primary Care Provider Assessment No assessment recorded. Plan of Treatment Reminders Order Date Submit Date Provider Last Modified By Organization Details Last Modified Time Details Appointments None record ed. Lab None record ed. Referral None record ed. Procedures None record ed. Surgeries None record ed. Imaging None record ed. Medication Orders None record ed. Patient TargetsNo targets recorded. Patient InstructionsNo instructions recorded. Reason for Referral None Reported. Problems Name Problem SNOMED Code Status Onset Date Resolution Date Notes Provider Name and Address Organization Details Recorded Time Recurrent falls 606258244 Active 2023 Joan Shah NP [address], [address], [place], [address], [facility] 14:23:46 Asthenia 13040749 Active 2023 Joan Shah NP [address], [address], [place], [address], [facility] 14:23:52 Anemia 849805824 Active 2023 Joan Shah NP [address], [address], [place], [address], [facility] 14:23:59 Atrial flutter 4347231 Active 2023 Joan Shah NP [address], [address], [place], [address], [facility] 14:24:25 Dementia 69856539 Active 2023 Joan Shah NP [address], [place], [address], [facility] 4 14:24:42 Type 2 diabetes mellitus 94609420 Active 2023 Joan Shah NP [address], [address], [place], [address], [facility] 4 14:25:01 Depressive disorder 79291658 Active 2023 Joan Shah NP [address], [place], [address], [facility] 4 14:25:09 Fracture of multiple ribs 7985865 Active 2023 Joan Shah NP [address], [place], [address], [facility] 4 19:03:44 Peripheral vascular disease 348358355 Active 2023 Joan Shah NP [address], [address], [place], [address], [facility] 4 19:04:26 Congestive heart failure 33641000 Active 2023 Joan Shah NP [address], [address], [place], [address], [facility] 4 19:04:45 Hypertensive disorder 57503276 Active 2023 Joan Shah NP [address], [place], [address], [facility] 4 19:05:00 Hyperlipidemia 68167961 Active 2023 Joan Shah NP [address], [place], [address], [facility] 4 19:19:08 Seasonal allergy 424717198 Active 2023 Joan Shah NP [address], [place], [address], [place] - [facility] 4 19:25:46 Urinary tract infectious disease 50402213 Active 2023 Sammie Gamble MD [address], [address], [place], [address] , [facility] - [facility] 4 14:37:32 Problem Notes None recorded. Medical Equipment None Reported. Allergies Allergen ID Allergen Name Allergen Category Reaction Reaction Severity Criticality Documentation Date Start Date Code Code System Note Provider Name and Address Organization Details Recorded Time [id number] 29b50 erythromy tamara medicatio n other Not available unabletoasse ss 03/26/2024 4053 RxNorm unkno wn Not Available Not Available Not Available [id number] 29b50 Substance with sulfonami de structure and antibacte rial mechanism of action (substanc e) medicatio n other Not available unabletoasse ss 03/26/2024 84486 8003 SNOMED unkno wn Not Available Not Available Not Available [id number] 29b50 lactose food,medi cation other Not available unabletoasse ss 03/26/2024 6211 RxNorm unkno wn Not Available Not Available Not Available [id number] 29b50 shellfish derived food,medi cation other Not available unabletoasse ss 03/26/2024 92758 UNK seafo od Not Available Not Available Not Available Vitals Date Recorded Heart rate Respiratory rate Body temperature Oxygen saturation Oxygen saturation in Arterial blood by Pulse oximetry Systolic blood pressure Diastolic blood pressure Provider Name and Address Organization Details Last Updated DateTime 4 68 /min 17 /min 97.6 [degF] 94 % 94 % 104 mm[Hg] 78 mm[Hg] Joan Shah NP [address], [address], [place], [address], [place] - [facility] 4 14:22:12 Date Recorded Heart rate Respiratory rate Body temperature Oxygen saturation Oxygen saturation in Arterial blood by Pulse oximetry Systolic blood pressure Diastolic blood pressure Provider Name and Address Organization Details Last Updated DateTime 4 72 /min 16 /min 97.3 [degF] 92 % 92 % 104 mm[Hg] 74 mm[Hg] Joan Shah NP [address], [place], [address], [facility] 4 09:54:01 Date Recorded Heart rate Respiratory rate Body temperature Oxygen saturation Oxygen saturation in Arterial blood by Pulse oximetry Body weight Body mass index (BMI) Body height Systolic blood pressure Diastolic blood pressure Provider Name and Address Organization Details Last Updated DateTime 4 72 /min 18 /min 98.7 [degF] 96 % 96 % 67373.0 5 g 25.2 kg/m2 149.86 cm 104 mm[Hg] 74 mm[Hg] Sammie Gamble MD [address], [place], [address], [facility] 4 17:40:16 Date Recorded Body height Heart rate Respiratory rate Body temperature Oxygen saturation Oxygen saturation in Arterial blood by Pulse oximetry Body mass index (BMI) Body weight Systolic blood pressure Diastolic blood pressure Provider Name and Address Organization Details Last Updated DateTime 4 149.86 cm 76 /min 16 /min 97 [degF] 97 % 97 % 24 kg/m2 53992.4 9 g 142 mm[Hg] 81 mm[Hg] Sammie Gamble MD [address], [place], [address], [facility] 4 20:59:29 Date Recorded Body height Body weight Body mass index (BMI) Heart rate Respiratory rate Body temperature Oxygen saturation Oxygen saturation in Arterial blood by Pulse oximetry Systolic blood pressure Diastolic blood pressure Provider Name and Address Organization Details Last Updated DateTime 4 149.86 cm 74712.0 8 g 24.2 kg/m2 76 /min 16 /min 97.7 [degF] 97 % 97 % 142 mm[Hg] 81 mm[Hg] Joan Shah NP [address], [place], [address], [facility] 4 09:24:10 Social History Question Answer Notes LastModified by Organizat ion Details LastModified Time Tobacco Smoking Status Never Smoker Joan Shah NP [address], [address], [place], [address], [facility] 03/26/2024 18:41:14 Do You Have An Advance Directive? Yes Information not available 04/01/2024 What Is Your Level Of Alcohol Consumption? None Information not available 03/26/2024 What Is Your Code Status? DNR/DNI Information not available 04/01/2024 Where Do You Live? Apartment Information not available 03/26/2024 Legal Guardian? No Informati on not available 04/01/2024 Do You Have A Medical Power Of Obstetrician? Yes Invoked Information not available 04/01/2024 What Was The Date Of Your Most Recent Tobacco Screening? 03/26/2024 Information not available 03/26/2024 Do You Have An Out Of Hospital DNR? Yes Information not available 04/01/2024 What Is Your Relationship Status? Information not available 03/26/2024 Do You Use Any Illicit Or Recreational Drugs? No Information not available 03/26/2024 Has Tobacco Cessation Counseling Been Provided? No Information not available 03/26/2024 Do You Or Have You Ever Used Any Other Forms Of Tobacco Or Nicotine? No Information not available 03/26/2024 Sex: Unknown Functional Status None recorded. Mental Status None recorded. Family History Nothing Reported Notes:n/c Medical History No medical history recorded. Gynecological HistoryNo gynecological history recorded. Obstetrics History GPAL:G 0 P 0 0 0 0 Immunizations Vaccine Type Date Status Note Provider Nam e and Address Organization Details Recorded Time Respiratory syncytial virus (RSV) vaccine, unspecified 4 completed Stacey [facility] 03/26/2024 13:39:00 Tdap 4 completed Stacey [facility] 03/26/2024 13:39:14 Td(adult) unspecified formulation 2 completed Stacey [facility] 03/26/2024 13:39:28 Pneumococcal conjugate PCV20, polysaccharide [id number] conjugate, adjuvant, PF 3 [facility] 13:39:54 influenza, unspecified formulation 2 completed Stacey [facility]oul[facility] 03/26/2024 13:40:07 influenza, unspecified formulation 3 completed Staceysangeetha [facility] 03/26/2024 13:40:14 SARS-COV-2 (COVID-19) vaccine, UNSPECIFIED 1 completed Staceysangeetha [facility] 03/26/2024 13:40:26 SARS-COV-2 (COVID-19) vaccine, UNSPECIFIED 1 completed Stacey [facility] 03/26/2024 13:40:32 SARS-COV-2 (COVID-19) vaccine, UNSPECIFIED 1 completed Stacey [facility] 03/26/2024 13:40:40 SARS-COV-2 (COVID-19) vaccine, UNSPECIFIED 4 completed Stacey [facility] 03/26/2024 13:40:46 Past Encounters Encounter ID Performer Location Encounter Start Date Encounter Closed Date Diagnosis/Indication Diagnosis SNOMED-CT Code Diagnosis ICD10 Code Diagnosis Note [id number] Joan Shah NP [address] [address] 03/26/2024 14:19:37 03/27/2024 09:14:17 Fracture of multiple ribs 7250673 S22.42XD see hpi2nd and 3rd left rib fractures eval'd by trauma and rec conservati ve therapy, IS, acapella valve, and pain management and WBAT105/26a nd start lidocaine patch % to ribs and right thighcontt yl 975 mg po tidcyclobe nzaprine 5 mg po qhs and tyl prnoxycodo ne 5 mg po q 6 hours prn painmonito r Asthenia 05505550 R53.1 PT OT eval and treat for strengthen ing, gait, balance, mobility, romsupport evelin caremonito r Recurrent falls 09624087 2 R29.6 PT OT eval and treat for strengthen ing, gait, balance, mobility, romsupport evelin caremonito r Urinary tr act infectious disease 57577186 N39.0 treated with abx and will continue cefpodoxim e 200 mg po bid here for 7 daysmonito r for sequlae Dementia 19675049 F01.C2 with severe dementiamo nitor for improvemen t from uti or baselineda naya feels dementia may be baseline, although states she never refuses food or meds or states she is being held hostage today and now that daughter is here she is eating drinking and will see if she can take meds today, may be situationa l being new here, will need to monitor closelypys ch to eval and treatwill invokemoni tor Atrial flutter 1299867 I 48.92 clopidogre l 75 mg po dailymetop rolol xl 25 mg po dailyeliqu is 5 mg po bidmonitor Type 2 flora betes mellitus 92913918 E11.9 BS stable 100-200s todayinsul in decreased to lantus 15 units qhsmonitor bs with meals tid ac Depressive disorder 3548 9007 F32.A pt with hx ofsee dementia above Anemia 434671677 D64.9 vit b2 daily bidmonitor cbc weekly x3 for anemia with hx and recent fx on eliquis Congestive heart failure 53631863 I50.9 hx ofconttopr ol xl 25 mg qdentresto is on hold with cefpodoxim e(consider resuming)s pirolacton e 25 mg po qdtorsemid e 40 mg qdfu outpt cardiology 04/01/24 at 2:15 pm [facility] outpt device clinic 05/23/2024 07:40 am Peripheral vascular disease 762429870 I73.9 hx ofmonitor Fracture o f inferior pubic ramus 829888761 S32.592G pt with ? of fx of inferior left pubic ramussee hpi, felt not to be a fracture by ortho and WBATmontio rfu with Dr Haja burger at [facility] as needed in 1-2 weeks for ? pelvic fracture Hypertensive disorder 38 101140 I10 hx ofconttopr ol xl 25 mg qdentresto is on hold with cefpodoxim e(consider resuming)s pirolacton e 25 mg po qdtorsemid e 40 mg qdmonitor vitals, cardiac status Hyperlipidemia 30866764 E78.5 contliptor 40 mg po qdmonitor Seasonal allergy 4584162 04 J30.2 claritin 10 mg po dailymonit or [id number] Joan Shah NP [address] [place] [address] 03/27/2024 09:50:43 03/28/2024 10:17:23 Fracture of multiple ribs 2759474 S22.42XD see hpi2nd and 3rd left rib fractures eval'd by trauma and rec conservati ve therapy, IS, acapella valve, and pain management and WBAT1 nd start lidocaine patch % to ribs and right thighcontt yl 975 mg po tidcyclobe nzaprine 5 mg po qhs and tyl prnoxycodo ne 5 mg po q 6 hours prn painmonito r Fracture o f inferior pubic ramus 053114783 S32.592G pt with ? of fx of inferior left pubic ramussee hpi, felt not to be a fracture by ortho and WBATmontio rfu with Dr Haja burger at [facility] as needed in 1-2 weeks for ? pelvic fracture Asthenia 62856991 R53.1 PT OT eval and treat for strengthen ing, gait, balance, mobility, romsupport evelin caremonito r Recurrent falls 32554393 2 R29.6 PT OT eval and treat for strengthen ing, gait, balance, mobility, romsupport evelin caremonito r Urinary tr act infectious disease 23986975 N39.0 treated with abx and will continue cefpodoxim e 200 mg po bid here for 7 daysunclea r if dementia is worse with UTI and on abx?questi on if her not taking meds and delusions related to the UTI and seems to be more receptive to staff todaymonit or for sequlae Dementia 41620564 F01.C2 with severe dementiamo nitor for improvemen t from uti or baselineda naya feels dementia may be baseline,u nclear if dementia is worse with UTI and on abx?questi on if her not taking meds and delusions related to the UTI and seems to be more receptive to staff todaypysch to eval and treatwill invokemoni tor and supportive care and reassuranc e to take meds and eat, seems showing name badge and medication s from package also helpful to her today Atrial flutter 0176268 I 48.92 clopidogre l 75 mg po dailymetop rolol xl 25 mg po dailyeliqu is 5 mg po bidmonitor Type 2 flora betes mellitus 74548791 E11.9 BS stable 100-200s todayinsul in decreased to lantus 15 units qhsmonitor bs with meals tid ac Depressive disorder 3548 9007 F32.A pt with hx ofsee dementia above Anemia 498283508 D64.9 vit b2 daily bidmonitor cbc weekly x3 for anemia with hx and recent fx on eliquis Congestive heart failure 31661147 I50.9 hx ofconttopr ol xl 25 mg qdentresto is on hold with cefpodoxim e(consider resuming)s pirolacton e 25 mg po qdtorsemid e 40 mg qdfu outpt cardiology 04/01/24 at 2:15 pm [facility] cardiology [facility] outpt device clinic 05/23/2024 07:40 am Peripheral vascular disease 572529374 I73.9 hx ofmonitor Hypertensive disorder 38 995271 I10 bp stablecont toprol xl 25 mg qdentresto is on hold with cefpodoxim e(consider resuming)s pirolacton e 25 mg po qdtorsemid e 40 mg qdmonitor vitals, cardiac status Hyperlipidemia 15343369 E78.5 contliptor 40 mg po qdmonitor Seasonal allergy 9685503 04 J30.2 claritin 10 mg po dailymonit or [id number] Sammie Gamble MD [address] [address] 03/28/2024 15:02:00 04/02/2024 08:32:26 Dementia 52516072 F01.C2 Mod/severe at baseline.C ommunicati ng pretty well tonight.Co ntinue supportive care, expect decline.HC P invokedMon itor mood and behaviors. Psych consult. Urinary tr act infectious disease 63190878 N30.00 Urine cx grew mixed dwayne.Txed with cefpodoxim e 200 mg BID, will complete 7 day course on 03/30.Uncl ear if true UTI, but will complete tx.Monitor for sxs. Depressive disorder 4626 9007 F33.8 Tearful and worried.On no meds.Will get psych consult. Fracture o f multiple ribs 7946076 S22.42XD With continued pain.Destinee nue lidocaine patch % to ribs and right thigh, APAP 975 mg TID, cyclobenza gregg 5 mg qhs and oxycodone 5 mg q 6 hs prn.Encour age acappella, I jeremy, and cough and deep breaths.Mo nitor sxs. Fracture o f inferior pubic ramus 658869334 S32.592G Not thought to be fx per ortho.WBAT , pain meds as above and monitor.Ne eds PT/OT for strengthen ing, balance, gait training, safety and function.C ontinue fall precaution s.Monitor for safety. Asthenia 90572632 R53.1 As above. Recurrent falls 14571425 2 R29.6 As above. Atrial flutter 5266029 I 48.92 Rate in good control on metoprolol 25 mg qd.Continu e clopidogre l 75 mg po qd and eliquis 5 mg BIDMonitor HR and bleeding risk.F/U with cardio as planned. Type 2 flora betes mellitus 53839595 E11.9 BS in adequate control.Co ntinue lantus 15U qd and SSI.Monito r fingerstic ks TI and HgA1C q 3-6 months. Anemia 126331613 D64.89 Stable.Mon itor Congestive heart failure 16953929 I50.9 Appears euvolemic. Continue meds as above.Gale tor resp. status, fluid status, wts and labs.F/U with cardio 04/01/24 at 2:15 pm and at device clinic 05/23/2024 at 7:40 am Peripheral vascular disease 232963232 I73.89 hx ofmonitor Hypertensive disorder 38 715127 I10 BP in good control since here.Destinee nue metoprolol 25 mg qd, spironolac tone 25 mg qd and torsemide 40 mg qdMonitor BP and labs. Hyperlipidemia 54298636 E78.49 Continue atorvastat in 40 mg qdMonitor yearly. Seasonal allergy 0129243 04 J30.2 Continue claritin 10 mg qdMonitor sxs. [id number] Sammie Gamble MD [address] [address] 04/01/2024 14:21:58 05/02/2024 11:50:25 Dementia 84386378 F01.C2 Mod/severe at baseline.C ommunicati ng pretty well tonight.Co ntinue supportive care, expect decline.HC P invokedMon itor mood and behaviors. Psych consult. Urinary tr act infectious disease 51136658 N30.00 Urine cx grew mixed dwayne.Txed with cefpodoxim e 200 mg BID, will complete 7 day course on 03/30.Uncl ear if true UTI, but will complete tx.Monitor for sxs. Depressive disorder 3548 9007 F33.8 Tearful and worried.On no meds.Will get psych consult. Fracture o f multiple ribs 6337723 S22.42XD With continued pain.Destinee nue lidocaine patch % to ribs and right thigh, APAP 975 mg TID, cyclobenza gregg 5 mg qhs and oxycodone 5 mg q 6 hs prn.Encour age acappella, I jeremy, and cough and deep breaths.Mo nitor sxs. Fracture o f inferior pubic ramus 866328819 S32.592G Not thought to be fx per ortho.WBAT , pain meds as above and monitor.Ne eds PT/OT for strengthen ing, balance, gait training, safety and function.C ontinue fall precaution s.Monitor for safety. Asthenia 80518996 R53.1 As above. Recurrent falls 36406080 2 R29.6 As above. Atrial flutter 7368454 I 48.92 Rate in good control on metoprolol 25 mg qd.Continu e clopidogre l 75 mg po qd and eliquis 5 mg BIDMonitor HR and bleeding risk.F/U with cardio as planned. Type 2 flora betes mellitus 37732946 E11.9 BS in adequate control.Co ntinue lantus 15U qd and SSI.Monito r fingerstic ks TI and HgA1C q 3-6 months. Anemia 619824776 D64.89 Stable.Mon itor Hypertensive disorder 38 630086 I10 BP in good control since here.Destinee nue metoprolol 25 mg qd, spironolac tone 25 mg qd and torsemide 40 mg qdMonitor BP and labs. Congestive heart failure 37163370 I50.9 Appears euvolemic. Continue meds as above.Gale tor resp. status, fluid status, wts and labs.F/U with cardio 04/01/24 at 2:15 pm and at device clinic 05/23/2024 at 7:40 am Peripheral vascular disease 336718702 I73.89 hx ofmonitor Hyperlipidemia 67247333 E78.49 Continue atorvastat in 40 mg qdMonitor yearly. Seasonal allergy 8639259 04 J30.2 Continue claritin 10 mg qdMonitor sxs. [id number] Joan Shah, EVELYN [address] [address] 04/10/2024 09:23:02 04/11/2024 11:26:37 Dementia 46202681 F01.C2 Mod/severe at baseline. seems to be trusting staff and improvingC ontinue supportive care, expect decline.HC P invokedMon itor mood and behaviors. Psych consult. Depressive disorder 3548 9007 F33.8 appears tearful at times, improving while hereOn no meds.Will get psych consult. Has not seen her yet Fracture o f multiple ribs 3819576 S22.42XD pain managed and leaving her Contin uelidocain e patch % to ribs and right thigh, APAP 975 mg TID, cyclobenza gregg 5 mg qhs and oxycodone 5 mg q 6 hs prn.Encour age acappella, I jeremy, and cough and deep breaths.Mo nitor sxs. Fracture o f inferior pubic ramus 561972835 S32.592G Not thought to be fx per ortho.WBAT , pain meds as above and monitor.Ne eds PT/OT for strengthen ing, balance, gait training, safety and function.C ontinue fall precaution s.Monitor for safety. Asthenia 77304732 R53.1 As above. Recurrent falls 37985394 2 R29.6 As above. Atrial flutter 8449444 I 48.92 Rate in good control on metoprolol 25 mg qd.Continu eclopidogr el 75 mg po qd and eliquis 5 mg BIDMonitor HR and bleeding risk.F/U with cardio as planned. Type 2 flora betes mellitus 50540914 E11.9 BS in adequate control, 100s 200s mostlyCont inuelantus 15U qd and SSI.Monito r fingerstic ks TI and HgA1C q 3-6 months. Anemia 651748441 D64.89 Stable.Mon itor Hypertensive disorder 38 645234 I10 BP in good control since here.Destinee nuemetopro lol 25 mg qd, spironolac tone 25 mg qd and torsemide 40 mg qdMonitor BP and labs. Congestive heart failure 55100135 I50.9 Appears euvolemic. Continue meds as above.Gale tor resp. status, fluid status, wts and labs.F/U with cardio 04/01/24 at 2:15 pm and at device clinic 05/23/2024 at 7:40 am. ? if she went to this appt-need notes Health Concerns Section Related Observation LastModified by Organization Detai ls LastModified Time None Recorded Concern Status LastModified by Organization Details LastModified Time None Recorded Advance Directives Directive Y: Payers Encounter Date Sequence Insurance Name Policy Number Policy Vásquez Covered Member ID Vásquez Member ID Guarantor Name 03/26/2024 1 [employer] - DOS ON OR AFTER 2022 - MEDICARE [place]AGE [place]MEDICARE [place]ACEMENT/AD VANTAGE - PPO) Danisha Dan [id number] Danisha Dan 03/27/2024 1 [employer] - DOS ON OR AFTER 2022 - [place]ANTAGE - [place]PO) Danisha Dan [id number] Danisha Dan 03/28/2024 1 [employer] - DOS ON OR AFTER 2022 - [place]ANTAGE - [place]PO) Danisha Dan [id number] Danisha Dan 04/01/2024 1 [employer] - DOS ON OR AFTER 2022 - [place]ANTAGE - PPO) Danisha Dan [id number] Danisha Dan 04/10/2024 1 [employer] - DOS ON OR AFTER 2022 - [place]ANTAGE - PPO) Danisha Dan [id number] Danisha Sy Notes Date Note Type Note Provider Name and Address Organization Details Recorded Time 4 text/html Pt is seen for an initial intake visit. PMH: Afib on eliquis, dementia, DM, falls, HTN, HLD, PVD, UTI Danisha was seen at [facility] for a fall and sent to here for continued care and rehab diagnosed with UTI and Fracture to left ribs. Workup included labs, UA positive for UTI and treated with abx now continues on cefpodoxime.Xray shows left hip left inferior pubic rami fracture reviewed by ortho and felt no evidence of fracture and pt is WBAT. LEft sided second and third rib fracture. Evaluated by trauma and IS, acapella valve, and pain management On exam, Danisha is an elderly Tajik speaking female lying in bed with her daughter at bedside. Danisha is currently eating a peanut butter and jelly sandwich and drinking water. Her daughter is getting her to take her medications as Danisha told her daughter this am I am being held hostage here . She seems to be improving since daughter is familiar and here helping and she is cooperative and pleasant with this CRIMINAL INTELLIGENCE ANALYST. She states she hurts all over but refuses meds lately, muscle rub cream offered and she refuses as it burned her skin in the past. She is willing to trial 2 lidocaine patches today. She has scattered bruises to notable to her right thigh, right upper arm, left forearm. Left rib area without notable bruising or deformity. STEIN: High fall riskBIMS 11/18, will invoke todayMOLST: DNR/DNI/okay to transfer to hospital, no dialysis, short term feeding tube, IVF okay. per HCP daughter Joan Shah, CRIMINAL INTELLIGENCE ANALYST [address], [address], [place], [address], [facility] - [employer] 03/26/2024 19:34:16 4 text/html Pt is seen for an acute rounding visit. PMH: Afib on eliquis, dementia, DM, falls, HTN, HLD, PVD, UTI Danisha was seen at [facility] for a fall and sent to here for continued care and rehab diagnosed with UTI and Fracture to left ribs.-of note; Workup included labs, UA positive for UTI and treated with abx now continues on cefpodoxime.Xray shows left hip left inferior pubic rami fracture reviewed by ortho and felt no evidence of fracture and pt is WBAT. LEft sided second and third rib fracture. Evaluated by trauma and IS, acapella valve, and pain management She is seen today for refusing her pills this am and complaint of I will faster if I don't take them per nursing last night. After visiting with her this am and nurse at bedside she is open to taking all pills this am. She has ate most of her breakfast and seems to be doing a little better. On exam, She is alert and pleasant and smiles when she is reassured of her meds. This CRIMINAL INTELLIGENCE ANALYST went through each medication and reviewed it with her and showed her the name and she was satisfied with that and took all meds and ate breakfast. She is agreeable to lidocaine patch placed today to left rib area. STEIN: High fall riskBIMS 11/18, will invoke todayMOLST: DNR/DNI/okay to transfer to hospital, no dialysis, short term feeding tube, IVF okay. per HCP daughter Joan Chauslow, CRIMINAL INTELLIGENCE ANALYST [address], [address], [place], [address], [facility] [employer] 03/27/2024 10:02:06 4 text/html This is a woman who is here for rehab and possible LTC after an acute hospitalization for frequent falls, found to have UTI. Per d/c summary:79-year-old female with a past medical history of atrial flutter/fib, CKD stage III, depression, diabetes, dilated cardiomyopathy, failure with reduced ejection fraction, hypertension, hyperlipidemia, advanced dementia, frequent UTIs who is presenting to the hospital after fall at home. Patient was found on the floor of the bathroom by her daughter on the morning of 03/23.Because of patient's advanced dementia, difficult to obtain any reliable history from the patient. Patient does mention that she has been having frequent falls lately. She denies any significant pain or tenderness currently. Does not know whether she passed out or not. Trauma evaluation was completed in the ED with CT head, CT cervical spine, x-ray left shoulder, x-ray left hip, CT thoracic spine, CT lumbar spine. The only positive finding was left second and third rib fracture. There was mentioned that patient might have left inferior pubic rami fracture. Patient denies any pain or tenderness in that area. Trauma surgery recommended Ortho evaluation, requested Ortho to go through the scans. Ortho do not feel that she has any significant evidence of displaced fracture. Recommended weightbearing as tolerated. Blood work in the ED showed mild leukocytosis of 11.8. 3 sets of high-sensitivity troponin of 22-22-28 with nonsignificant delta. UA tested positive for pyuria, heavy bacteriuria, 3+ leukocyte esterase, nitrite was negative, 1+ hemoglobin consistent with UTI. Patient received cephalexin in the ED, changed to ceftriaxone on the morning of 03/23. U cultures, blood cultures negative till date. Patient's antibiotic changed to cefpodoxime on 03/25 which she will continue for 5 more days to complete course. Patient was cleared by trauma surgery, orthopedic surgery. Outpatient follow-up with orthopedic surgery. Plan for rehab discharge on 03/25/2024Fracture of rib of left side (S22.32XA):Fall (W19.XXXA): .Recurrent falls(R29.6):Trauma evaluation was completed, left-sided second and third rib fracture, Xray right humerus ordered by trauma on 03/24, will followX-ray left hip showed possible left inferior pubic rami fracture. Orthopedic evaluated the x-ray, scans, no evidence of fracture as per them, weightbearing as toleratedIncentive spirometry, Acapella valve, pain management with IV morphine 1 mg every 4 hours as needed for severe pain, oxycodone 5 mg every 6 hours as needed for moderate pain, Tylenol for mild painWas cleared by orthopedics for weightbearing as tolerated to left lower extremity, plan for SNF rehab placementUrinary tract infection(N39.0):UA tested positive for pyuria, 3+ leukocyte esterase, 1+ hemoglobin, nitrite was negativeAwait urine cultures, mild leukocytosis of 11.8 on presentation which is improved and leukocytosis has resolvedWas managed with IV ceftriaxone which was changed to cefpodoxime 200 mg 3 times a day which patient will continue for 7 more days to complete course.Dementia(F03.90): Delirium precaution, fall precautionsPVD (peripheral vascular disease) (I73.9):Continue Plavix, Eliquis, LipitorHeart failure with reduced ejection fractionContinue Toprol-XL, discontinued entresto, continue spironolactone, torsemide 20 mg dailyDoes not look to be in overt volume overload, BP within normal rangeHyperlipidemia(E78. 5):Continue LipitorHTN(hypertension) (I10): .Diabetes mellitus(E11.9): .Continue Lantus, lispro sliding scalePOCT AC, at bedtimeA-fib(I48.91):Rat e vcojwobcxi-Tfwbde-UDYlzm coagulation-on Eliquis Tonight she is in bed, awake. She tells me she's feeling ok, but is scared because she doesn't know if she's going to get better. Gets tearful at times.I see her with a sudanese speaking staff member, but she answers in beninese often, and sometimes answers my questions before he translates them. Her PMH includes HTN, Afib on Eliquis, dementia, AODM, HLD, PVD, UTIs and frequent falls. Sammie Gamble MD [address], [facility] [address], [place], [address], [employer] 04/01/2024 14:55:48 4 text/html I am seeing this 79 yo woman today for an acute visit to f/u rib pain and progress in rehab .She denies pain, but often gets tearful. When I ask her what kind of place this is, she tells me it's a place people come to .I see her with a sudanese speaking staff member, but she answers in beninese often, and sometimes answers my questions before he translates them. Her PMH includes HTN, Afib on Eliquis, dementia, AODM, HLD, PVD, UTIs and frequent falls. Sammie Gamble MD [address], [address], [place], [address], [employer] 05/01/2024 16:10:08 4 text/html Pt is seen for an acute rounding visit. Her PMH includes HTN, Afib on Eliquis, dementia, AODM, HLD, PVD, UTIs and frequent falls.I Danisha is a 79 yo woman who was seen at [facility] for a fall and sent to here for continued care and rehab diagnosed with UTI and Fracture to left ribs. Danisha is seen today in the activity room after lunch. She is smiling and happy her hair was washed and styled. She honestly seems like a different lady from a few weeks ago. She states she is okay and trusting staff to take her meds and meals. She reports the therapy team is wonderful and very nice. She reports her pain is controlled and leaving her A care plan meeting was had on 04/09: Danisha is currently incontinent of bowel/bladder, min assist with transfers and ambulating up to 150 feet with RW. She has had no recent falls. She is on a Heart Healthy diet, regular texture with thin liquids. She receives a supplement 1x daily and prefers chocolate. Her current weight is 120 lbs. Danisha has an order for barrier cream to her evan prominences, a lidocaine patch to her back/left thigh for pain and Oxycodone for sever pain.Danisha's mood and/or behaviors have been stable, She is on no psych medications and has had no [facility] [address] involvement. Ordered of note; [facility] Workup included labs, UA positive for UTI and treated with abx now continues on cefpodoxime.Xray shows left hip left inferior pubic rami fracture reviewed by ortho and felt no evidence of fracture and pt is WBAT. LEft sided second and third rib fracture. Evaluated by trauma and IS, acapella valve, and pain management STEIN: High fall riskBIMS 11/18, will invoke todayMOLST: DNR/DNI/okay to transfer to hospital, no dialysis, short term feeding tube, IVF okay. per HCP daughter Joan Shah, CRIMINAL INTELLIGENCE ANALYST [address], [address], [place], [address], [facility] - [employer] 04/10/2024 20:17:01 OBGyn Episode No OBEpisode recorded.
--- OUTSIDE RECORDS SUMMARY | 2024-06-03 10:37 | XMS_ITS | Encounter Summary ---
Author Organization [facility], Address [address] [place] [address] Phone Care Team Providers Care Bevel Operator Name Role Phone Bryan Fontanez MD Primary Care Provider [phone] Encounter Details Date Type Department Care Team (Late st Contact Info) Description 08/08/2022 Documentation Only [facility], [address] [place] [address] Bryan Fontanez MD [address] [place] [address] Social History Tobacco Use Types Packs/Day Years [...] on filedocumented in this encounter Care Teams Bevel Operator Relationship Specialty Start Date End Date Bryan Fontanez MD [address] [place] [address] PCP - General 05/17/20 documented as of this encounter
--- OUTSIDE RECORDS SUMMARY | 2024-06-03 10:37 | XMS_ITS | Encounter Summary ---
Author Organization [facility], Address [address] [place] [address] Phone Care Team Providers Care Rotary Engraver Name Role Phone Bryan Fontanez MD Primary Care Provider [phone] Encounter Details Date Type Department Care Team ([facility] st Contact Info) Description 08/29/2023 Documentation Only [facility], [address] [place] [address] Osorio Burgos, [address] [place] [address] Social History Tobacco Use Types [...] on filedocumented in this encounter Care Teams Rotary Engraver Relationship Specialty Start Date End Date Bryan Fontanez MD [address] [place] [address] PCP - General 05/17/20 documented as of this encounter
--- OUTSIDE RECORDS SUMMARY | 2024-06-03 10:37 | XMS_ITS | Encounter Summary ---
Author Organization [facility], Address [address] [place] [address] Phone Care Team Providers Care Program Manager Slp Name Role Phone Bryan Fontanez MD Primary Care Provider [phone] Encounter Details Date Type Department Care Team ([facility] st Contact Info) Description 08/29/2023 Documentation Only [facility], [address] [place] [address] Osorio Burgos, [address] [place] [address] Social History Tobacco Use Types [...] on filedocumented in this encounter Care Teams Program Manager Slp Relationship Specialty Start Date End Date Bryan Fontanez MD [address] [place] [address] PCP - General 05/17/20 documented as of this encounter
--- OUTSIDE RECORDS SUMMARY | 2024-06-03 10:37 | XMS_ITS | Encounter Summary ---
Author Organization [facility], Address [address] [place] [address] Phone Care Team Providers Care Medical Photographer Name Role Phone Bryan Fontanez MD Primary Care Provider [phone] Encounter Details Date Type Department Care Team ([facility] st Contact Info) Description 10/25/2023 Documentation Only [facility], [address] [place] [address] Osorio Burgos, [address] [place] [address] Social History Tobacco Use Types [...] on filedocumented in this encounter Care Teams Medical Photographer Relationship Specialty Start Date End Date Bryan Fontanez MD [address] [place] [address] PCP - General 05/17/20 documented as of this encounter
--- OUTSIDE RECORDS SUMMARY | 2024-06-03 10:37 | XMS_ITS | Clinical Summary ---
Author Organization [address] Address [address] [place] [phone] Phone Care Team Providers Care Database Security Administrator Name Role Phone Aroldo Morgan MD Primary Care Provider [phone] Encounters Date Type Department Care Team Description 04/26/2024 Lab Requisition [facility] [address] [place] [phone] Aroldo Morgan MD Chronic kidney disease, unspecified; Anemia, unspecified 04/18/2024 Lab Requisition [facility] [address] [place] [phone] Aroldo Morgan MD Chronic kidney disease, unspecified; Anemia, unspecified 04/16/2024 Lab Requisition [facility] [address] [place] [phone] Aroldo Morgan MD Urinary tract infection, site not specified 04/12/2024 Lab Requisition [facility] [address] [place] [phone] Aroldo Morgan MD Chronic kidney disease, unspecified; Anemia, unspecified 04/04/2024 Lab Requisition [facility] [address] [place] [phone] Aroldo Morgan MD Chronic kidney disease, unspecified; Anemia, unspecified 03/31/2024 Lab Requisition [facility] [address] [place] [phone] Aroldo Morgan MD Type 2 diabetes mellitus without complications (CMS/HCC) from Last 3 Months Social History Tobacco Use Types Packs/Day Years Used Date Smoking Tobacco: Never Assessed Sex and Gender Information Value Date Recorded Sex Assigned at Not on file Gender Identity Not on file Sexual Orientation Not on file Plan of Treatment Health Maintenance Due Date Last Done Comments Diabetes: Annual Foot Exam 1955 Diabetes: Annual Retina Eye Exam 1955 Zoster Vaccines (2 of 3) 06/06/2011 04/11/2011 RSV Immunization Patients 60+ Years Old (1 - 1-dose 75+ series) 02/03/2020 COVID-19 Vaccine ( - 2023- season) 2024 02/22/2021, 07/02/2020, 06/11/2020 Influenza Vaccine (#1) 2024 , 02/14/2022, 02/22/2021, Additional history exists Cholesterol Screening (Lipid Panel) 03/31/2024 Depression Screening 03/31/2024 Diabetes: Annual Urine Albumin-Creatinine Ratio (uACR) 03/31/2024 Falls Risk Assessment 03/31/2024 Hepatitis C Screening 03/31/2024 Osteoporosis Screening (Bone Density Screening) 03/31/2024 Social Influencers of Health Screening 03/31/2024 Diabetes: Blood Sugar Control Test (HGBA1C) 09/28/2024 03/31/2024, 05/12/2019 Diabetes: Annual GFR (Glomerular Filtration Rate) 04/14/2025 04/14/2024, 04/07/2024, 03/31/2024 Hypertension/CHF/CAD Annual BMP Blood Test 04/14/2025 04/14/2024, 04/07/2024, 03/31/2024 DTaP,Tdap,and Td Vaccines (4 - Td or Tdap) 12/30/2033 12/31/2023, 07/19/2018, 02/20/2012 Pneumococcal Vaccine: 65+ Years Completed 04/24/2023, 06/15/2017, 04/27/2015, Additional history exists HIB Vaccines Aged Out No longer eligi ble based on patient's age to complete this topic HPV Vaccines Aged Out No longer eligi ble based on patient's age to complete this topic Hepatitis A Vaccines Aged Out No long er eligible based on patient's age to complete this topic Hepatitis B Vaccines Aged Out No long er eligible based on patient's age to complete this topic IPV Vaccines Aged Out No longer eligi ble based on patient's age to complete this topic MMR Vaccines Aged Out No longer eligi ble based on patient's age to complete this topic Meningococcal ACWY Vaccine Aged Out N o longer eligible based on patient's age to complete this topic RSV Immunization Patients Under 20 months Aged Out No longer eligible based on patient's age to complete this topic Varicella Vaccines Aged Out No longer eligible based on patient's age to complete this topic Procedures Procedure Name Priority Date/Time Associated Diagnosis Comments FAUST URINE CULTURE TUBE Routine 04/16/2024 1:00 AM EST Urinary tract infection, site not specified URINALYSIS WITH REFLEX MICROSCOPIC Routine 04/16/2024 1:00 AM EST Urinary tract infection, site not specified URINALYSIS WITH REFLEX MICROSCOPIC Routine 04/16/2024 1:00 AM EST Urinary tract infection, site not specified BASIC METABOLIC PANEL Routine 04/14/2024 5:23 AM EST Chronic kidney disease, unspecified Anemia, unspecified COMPLETE BLOOD COUNT Routine 04/14/2024 5:23 AM EST Chronic kidney disease, unspecified Anemia, unspecified BASIC METABOLIC PANEL Routine 04/07/2024 4:55 AM EST Chronic kidney disease, unspecified Anemia, unspecified COMPLETE BLOOD COUNT Routine 04/07/2024 4:55 AM EST Chronic kidney disease, unspecified Anemia, unspecified HEMOGLOBIN A1C Routine 03/31/2024 6:29 AM EST Type 2 diabetes mellitus without complications (CMS/HCC) COMPREHENSIVE METABOLIC PANEL Routine 03/31/2024 6:29 AM EST Type 2 diabetes mellitus without complications (CMS/HCC) COMPLETE BLOOD COUNT Routine 03/31/2024 6:29 AM EST Type 2 diabetes mellitus without complications (CMS/HCC) from Last 3 Months Results * (ABNORMAL) Urinalysis with reflex microscopic (04/16/2024 1:00 AM EST) Specific [place] Urine 1.009 1.003 - 1.030 LAB URINALYSIS - AUTOMATED METHOD 04/16/2024 11:29 AM [facility] pH, Urine 5.5 5.0 - 8.0 pH LAB URINALYSIS - AUTOMATED METHOD 04/16/2024 11:29 AM [facility] Leukocytes, Urine Large(A) Negative LAB URINALYSIS - AUTOMATED METHOD 04/16/2024 11:29 AM [facility] Nitrite, Urine Negative Negative LAB URINALYSIS - AUTOMATED METHOD 04/16/2024 11:29 AM [facility] Protein, Urine Negative <=Trace mg/dL LAB URINALYSIS - AUTOMATED METHOD 04/16/2024 11:29 AM [facility] Glucose, Urine Negative Negative mg/dL LAB URINALYSIS - AUTOMATED METHOD 04/16/2024 11:29 AM [facility] Ketones, Urine Negative Negative mg/dL LAB URINALYSIS - AUTOMATED METHOD 04/16/2024 11:29 AM [facility] Urobilinogen, Urine 0.2 0.2 - 1.0 mg/dL LAB URINALYSIS - AUTOMATED METHOD 04/16/2024 11:29 AM [facility] Bilirubin, Urine Negative Negative LAB URINALYSIS - AUTOMATED METHOD 04/16/2024 11:29 AM [facility] Blood, Urine Negative Negative LAB URINALYSIS - AUTOMATED METHOD 04/16/2024 11:29 AM [facility] RBC, Urine 1.0 0 - 4 /HPF LAB URINALYSIS - AUTOMATED METHOD 04/16/2024 11:29 AM [facility] WBC, Urine 152.9(H) 0 - 4 /HPF LAB URINALYSIS - AUTOMATED METHOD 04/16/2024 11:29 AM [facility] Squamous Epithelial, Urine 8 0 - 60 /LPF LAB URINALYSIS - AUTOMATED METHOD 04/16/2024 11:29 AM [facility] Bacteria, Urine Few(A) Negative /HPF LAB URINALYSIS - AUTOMATED METHOD 04/16/2024 11:29 AM [facility] Hyaline Casts, Urine 2.5 0 - 3 /LPF LAB URINALYSIS - AUTOMATED METHOD 04/16/2024 11:29 AM [facility] Urine Urine specimen obtained by clean catch procedure / Unknown Non-blood Collection / Unknown 04/16/2024 1:00 AM EST 04/16/2024 11:02 AM EST Aroldo Morgan MD LAB URINE ORDERABLES Performing Organization Address City/[facility]/ZIP Co de Phone Number [facility] [address] [place] [address], [place] [phone] * Faust urine culture tube (04/16/2024 1:00 AM EST) Extra Tube Hold for add-ons. 04/16/2024 1:01 PM [facility] Comment:Auto resulted. Urine Urine specimen obtained by clean catch procedure / Unknown 04/16/2024 1:00 AM EST 04/16/2024 11:03 AM EST Aroldo Morgan MD LAB URINE ORDERABLES [facility] [address] [place] [address], [place] [phone] * (ABNORMAL) Complete blood count (04/14/2024 5:23 AM EST) Only the most recent of3 resultswithin the time period is included. WBC 6.2 4.8 - 10.8 K/mcL LAB HEMETOLOGY METHOD 04/14/2024 9:43 AM [facility] RBC 4.50 3.80 - 4.80 M/mcL LAB HEMETOLOGY METHOD 04/14/2024 9:43 AM [facility] Hemoglobin 11.8 11.5 - 16.0 g/dL LAB HEMETOLOGY METHOD 04/14/2024 9:43 AM [facility] Hematocrit 40.5 35.0 - 47.0 % LAB HEMETOLOGY METHOD 04/14/2024 9:43 AM [facility] MCV 89.2 79.0 - 98.0 FL LAB HEMETOLOGY METHOD 04/14/2024 9:43 AM [facility] MCH 26.0(L) 27.0 - 32.0 pcg LAB HEMETOLOGY METHOD 04/14/2024 9:43 AM [facility] MCHC 29.1(L) 32.0 - 37.0 g/dL LAB HEMETOLOGY METHOD 04/14/2024 9:43 AM [facility] RDW 16.7(H) 11.0 - 15.0 % LAB HEMETOLOGY METHOD 04/14/2024 9:43 AM [facility] Platelets 273 130 - 400 K/mcL LAB HEMETOLOGY METHOD 04/14/2024 9:43 AM [facility] MPV 12.3(H) 7.0 - 11.0 FL LAB HEMETOLOGY METHOD 04/14/2024 9:43 AM [facility] NRBC 0.0 <1.0 % LAB HEMETOLOGY METHOD 04/14/2024 9:43 AM [facility] NRBC Absolute 0.00 <0.10 K/mcL LAB HEMETOLOGY METHOD 04/14/2024 9:43 AM [facility] Blood Venous blood specimen / Unknown Venipuncture / Unknown 04/14/2024 5:23 AM EST 04/14/2024 9:14 AM EST Aroldo Morgan MD LAB BLOOD ORDERABLES [facility] [address] [place] [address], * (ABNORMAL) Basic metabolic panel (04/14/2024 5:23 AM EST) Only the most recent of2 resultswithin the time period is included. Sodium 139 133 - 145 mmol/L LAB CHEMISTRY METHOD 04/14/2024 10:07 AM [facility] Potassium 4.5 3.5 - 5.5 mmol/L LAB CHEMISTRY METHOD 04/14/2024 10:07 AM [facility] Chloride 102 96 - 110 mmol/L LAB CHEMISTRY METHOD 04/14/2024 10:07 AM [facility] CO2 31 21 - 32 mmol/L LAB CHEMISTRY METHOD 04/14/2024 10:07 AM [facility] Anion Gap 6 3 - 11 LAB CHEMISTRY METHOD 04/14/2024 10:07 AM [facility] Glucose 230(H) 70 - 100 mg/dL LAB CHEMISTRY METHOD 04/14/2024 10:07 AM [facility] BUN 53(H) 5 - 25 mg/dL LAB CHEMISTRY METHOD 04/14/2024 10:07 AM [facility] Creatinine 1.69(H) 0.50 - 1.10 mg/dL LAB CHEMISTRY METHOD 04/14/2024 10:07 AM [facility] eGFR 31(L) >=60 mL/min/1. 73m2 LAB CHEMISTRY METHOD 04/14/2024 10:07 AM [facility] Comment:Calculation based on the??Chronic Kidney Disease Epidemiology Collaboration (CKD-EPI) equation refit??without adjustment for race. BUN/Creatinine Ratio 31.4 LAB CHEMISTRY METHOD 04/14/2024 10:07 AM [facility] Calcium 9.6 8.5 - 10.5 mg/dL LAB CHEMISTRY METHOD 04/14/2024 10:07 AM EST [facility] Blood Venous blood specimen / Unknown Venipuncture / Unknown 04/14/2024 5:23 AM EST 04/14/2024 9:12 AM EST Aroldo Morgan MD LAB BLOOD ORDERABLES Performing Organization Address City/[facility]/ZIP Co de Phone Number [facility] [address] [place] [address], [place] [phone] * (ABNORMAL) Hemoglobin A1c (03/31/2024 6:29 AM EST) Hemoglobin A1C 6.5(H) <6.5 % LAB CHEMISTRY METHOD 03/31/2024 1:59 PM EST [facility] Mean Bld Glu Estim. 140 mg/dL LAB CHEMISTRY METHOD 03/31/2024 1:59 PM [facility] Blood Venous blood specimen / Unknown Venipuncture / Unknown 03/31/2024 6:29 AM EST 03/31/2024 9:47 AM EST Aroldo Morgan MD LAB BLOOD ORDERABLES Performing Organization Address [facility]/ZIP Co de Phone Number [facility] [address] [place] [address], [place] [phone] * (ABNORMAL) Comprehensive metabolic panel (03/31/2024 6:29 AM EST) Sodium 140 133 - 145 mmol/L LAB CHEMISTRY METHOD 03/31/2024 12:08 PM [facility] Potassium 5.0 3.5 - 5.5 mmol/L LAB CHEMISTRY METHOD 03/31/2024 12:08 PM [facility] Chloride 104 96 - 110 mmol/L LAB CHEMISTRY METHOD 03/31/2024 12:08 PM [facility] CO2 30 21 - 32 mmol/L LAB CHEMISTRY METHOD 03/31/2024 12:08 PM [facility] Anion Gap 6 3 - 11 LAB CHEMISTRY METHOD 03/31/2024 12:08 PM [facility] Glucose 137(H) 70 - 100 mg/dL LAB CHEMISTRY METHOD 03/31/2024 12:08 PM [facility] BUN 37(H) 5 - 25 mg/dL LAB CHEMISTRY METHOD 03/31/2024 12:08 PM [facility] Creatinine 1.33(H) 0.50 - 1.10 mg/dL LAB CHEMISTRY METHOD 03/31/2024 12:08 PM [facility] eGFR 41(L) >=60 mL/min/1. 73m2 LAB CHEMISTRY METHOD 03/31/2024 12:08 PM [facility] Comment:Calculation based on the??Chronic Kidney Disease Epidemiology Collaboration (CKD-EPI) equation refit??without adjustment for race. BUN/Creatinine Ratio 27.8 LAB CHEMISTRY METHOD 03/31/2024 12:08 PM [facility] Calcium 9.8 8.5 - 10.5 mg/dL LAB CHEMISTRY METHOD 03/31/2024 12:08 PM [facility] AST (SGOT) 21 10 - 42 unit/L LAB CHEMISTRY METHOD 03/31/2024 12:08 PM [facility] ALT (SGPT) 11 10 - 60 unit/L LAB CHEMISTRY METHOD 03/31/2024 12:08 PM [facility] Alkaline Phosphatase 110 42 - 121 unit/L LAB CHEMISTRY METHOD 03/31/2024 12:08 PM [facility] Total Protein 6.7 6.0 - 8.0 g/dL LAB CHEMISTRY METHOD 03/31/2024 12:08 PM [facility] Albumin 2.8(L) 3.2 - 5.0 g/dL LAB CHEMISTRY METHOD 03/31/2024 12:08 PM EST [facility] Total Bilirubin 0.6 0.0 - 1.4 mg/dL LAB CHEMISTRY METHOD 03/31/2024 12:08 PM EST [facility] Blood Venous blood specimen / Unknown Venipuncture / Unknown 03/31/2024 6:29 AM EST 03/31/2024 9:47 AM EST Aroldo Morgan MD LAB BLOOD ORDERABLES [facility] [address] [place] [address], from Last 3 Months Care Teams Database Security Administrator Relationship Specialty Start Date End Date Aroldo Morgan MD [address] [place] [address] [address] [place], [phone] PCP - General Family Medicine 03/31/24
--- OUTSIDE RECORDS SUMMARY | 2024-06-03 10:37 | XMS_ITS | Encounter Summary ---
Author Organization [facility] Address [address] [place] [address] Care Team Providers Care Able Seaman Name Role Phone Aroldo Morgan MD Primary Care Provider [phone] Encounter Details Date Type Department Care Team (Late st Contact Info) Description 04/16/2024 Lab Requisition [facility] [address] [place] [phone] Aroldo Morgan MD [address] [facility] [address] [facility] [phone] Urinary tract infection, site not specified Social History Tobacco Use Types Packs/Day Years Used Date Smoking Tobacco: Never Assessed Sex and Gender Information Value Date Recorded Sex Assigned at Not on file Gender Identity Not on file Sexual Orientation Not on file documented as of this encounter Plan of Treatment Not on file documented as of this encounter Procedures Procedure Name Priority Date/Time Associated Diagnosis Comments URINALYSIS WITH REFLEX MICROSCOPIC Routine 04/16/2024 1:00 AM EST Urinary tract infection, site not specified FAUST URINE CULTURE TUBE Routine 04/16/2024 1:00 AM EST Urinary tract infection, site not specified URINALYSIS WITH REFLEX MICROSCOPIC Routine 04/16/2024 1:00 AM EST Urinary tract infection, site not specified documented in this encounter Results * Faust urine culture tube (04/16/2024 1:00 AM EST) Extra Tube Hold for add-ons. 04/16/2024 1:01 PM EST [facility] Comment:Auto resulted. Urine Urine specimen obtained by clean catch procedure / Unknown 04/16/2024 1:00 AM EST 04/16/2024 11:03 AM EST Aroldo Morgan MD LAB URINE ORDERABLES [facility] [address] [place] [address], * (ABNORMAL) Urinalysis with reflex microscopic (04/16/2024 1:00 AM EST) Specific [address] Urine 1.009 1.003 - 1.030 LAB URINALYSIS - AUTOMATED METHOD 04/16/2024 11:29 AM [facility] pH, Urine 5.5 5.0 - 8.0 pH LAB URINALYSIS - AUTOMATED METHOD 04/16/2024 11:29 AM [facility] Leukocytes, Urine Large(A) Negative LAB URINALYSIS - AUTOMATED METHOD 04/16/2024 11:29 AM [facility] Nitrite, Urine Negative Negative LAB URINALYSIS - AUTOMATED METHOD 04/16/2024 11:29 AM [facility] Protein, Urine Negative <=Trace mg/dL LAB URINALYSIS - AUTOMATED METHOD 04/16/2024 11:29 AM [facility] Glucose, Urine Negative Negative mg/dL LAB URINALYSIS - AUTOMATED METHOD 04/16/2024 11:29 AM [facility] Ketones, Urine Negative Negative mg/dL LAB URINALYSIS - AUTOMATED METHOD 04/16/2024 11:29 AM [facility] Urobilinogen, Urine 0.2 0.2 - 1.0 mg/dL LAB URINALYSIS - AUTOMATED METHOD 04/16/2024 11:29 AM [facility] Bilirubin, Urine Negative Negative LAB URINALYSIS - AUTOMATED METHOD 04/16/2024 11:29 AM [facility] Blood, Urine Negative Negative LAB URINALYSIS - AUTOMATED METHOD 04/16/2024 11:29 AM [facility] RBC, Urine 1.0 0 - 4 /HPF LAB URINALYSIS - AUTOMATED METHOD 04/16/2024 11:29 AM [facility] WBC, Urine 152.9(H) 0 - 4 /HPF LAB URINALYSIS - AUTOMATED METHOD 04/16/2024 11:29 AM [facility] Squamous Epithelial, Urine 8 0 - 60 /LPF LAB URINALYSIS - AUTOMATED METHOD 04/16/2024 11:29 AM [facility] Bacteria, Urine Few(A) Negative /HPF LAB URINALYSIS - AUTOMATED METHOD 04/16/2024 11:29 AM [facility] Hyaline Casts, Urine 2.5 0 - 3 /LPF LAB URINALYSIS - AUTOMATED METHOD 04/16/2024 11:29 AM [facility] Urine Urine specimen obtained by clean catch procedure / Unknown Non-blood Collection / Unknown 04/16/2024 1:00 AM EST 04/16/2024 11:02 AM EST Aroldo Morgan MD LAB URINE ORDERABLES [facility] [address] [place] [address], documented in this encounter Visit Diagnoses Diagnosis Urinary tract infection, site not specified documented in this encounter Care Teams Able Seaman Relationship Specialty Start Date End Date Aroldo Morgan MD [address] [place] [address], [phone] PCP - General Family Medicine 03/31/24 documented as of this encounter
--- OUTSIDE RECORDS SUMMARY | 2024-06-03 10:37 | XMS_ITS ---
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) ACTIVE 08/22/2023 TYPE 2 DIABETES MELLITUS WIT H DIABETIC CHRONIC KIDNEY DISEASE (E11.22 - ICD-10-CM) ACTIVE 08/22/2023 CHRONIC ATRIAL FIBRILLATION, UNSPECIFIED (I48.20 - ICD-10-CM) ACTIVE 08/22/2023 ESSENTIAL (PRIMARY) HYPERTENSION (I10 - ICD-10-CM) ACT TANIA 08/22/2023 HYPERLIPIDEMIA, UNSPECIFIED (E78.5 - ICD-10-CM) ACTIVE 08/22/2023 CONSTIPATION, UNSPECIFIED (K59.00 - ICD-10-CM) ACTIVE 08/22/2023 ACUTE SYSTOLIC (CONGESTIVE) HEART FAILURE (I50.21 - ICD-10-CM) ACTIVE 08/22/2023 OCCLUSION AND STENOSIS OF UN SPECIFIED CAROTID ARTERY (I65.29 - ICD-10-CM) ACTIVE 08/22/2023 PERIPHERAL VASCULAR DISEASE, UNSPECIFIED (I73.9 - ICD-10-CM) ACTIVE 08/22/2023 CHRONIC KIDNEY DISEASE, STAG E 3 UNSPECIFIED (N18.30 - ICD-10-CM) ACTIVE 08/22/2023 ACUTE PULMONARY EDEMA (J81.0 - ICD-10-CM) ACTIVE 08/22/2023 HYPOTENSION, UNSPECIFIED (I95.9 - ICD-10-CM) ACTIVE 08/22/2023 PRESENCE OF CARDIAC AND VASC ULAR IMPLANT AND GRAFT, UNSPECIFIED (Z95.9 - ICD-10-CM) ACTIVE 08/22/2023 ANEMIA, UNSPECIFIED (D64.9 - ICD-10-CM) ACTIVE 0 08/22/2023 ACUTE RESPIRATORY FAILURE WI TH HYPOXIA (J96.01 - ICD-10-CM) ACTIVE 08/22/2023 STRESS INCONTINENCE (FEMALE) (MALE) (N39.3 - ICD-10-CM) ACTIVE 08/22/2023 DIFFICULTY IN WALKING, NOT E LSEWHERE CLASSIFIED (R26.2 - ICD-10-CM) ACTIVE 08/22/2023 NEED FOR ASSISTANCE WITH PER YUDY CARE (Z74.1 - ICD-10-CM) ACTIVE 08/22/2023 URINARY TRACT INFECTION, SIT E NOT SPECIFIED (N39.0 - ICD-10-CM) ACTIVE 08/22/2023 Encounters Encounter Performer Performer Role Encounter Diagnoses Location Date Discharge - Discharged to home or self care - [facility] - Private home/apt. with home health services [facility] 08/22/2023 06:20 pm EDT - 08/30/2023 03:12 pm EDT Immunizations Vaccine Date Pneumococcal Conjugate Vaccine (PCV13) 0 06/15/2017 12:00 am EST Pneumococcal Polysaccharide Vaccine (PPS V23) 09/12/2010 12:00 am EDT Prevnar 20 Pneumococcal conjugate (PCV20 ) 04/24/2023 12:00 am EST Influenza vaccine, quadrivalent, adjuvan guy 04/24/2023 12:00 am EST COVID-19, mRNA, LNP-S, bivalent, PF, 30 mcg/0.3 mL dose 02/14/2022 12:00 am EDT COVID-19, mRNA, LNP-S, bivalent, PF, 30 mcg/0.3 mL dose 02/22/2021 12:00 am EDT COVID-19, mRNA, LNP-S, bivalent, PF, 30 mcg/0.3 mL dose 07/02/2020 12:00 am EST COVID-19, mRNA, LNP-S, bivalent, PF, 30 mcg/0.3 mL dose 06/11/2020 12:00 am EST Social History
--- OUTSIDE RECORDS SUMMARY | 2024-06-03 10:37 | XMS_ITS | Encounter Summary ---
Author Organization [facility] Address [address] [place] [address] Care Team Providers Care Machine Edge Bander Name Role Phone Aroldo Morgan MD Primary Care Provider [phone] Encounter Details Date Type Department Care Team (Late st Contact Info) Description 04/12/2024 Lab Requisition [facility] - Main Lab 299 [facility] [place] [address] Aroldo Morgan MD 38 [facility] 204 [facility] [address] Chronic kidney disease, unspecified; Anemia, unspecified Social [...] Procedure Name Priority Date/Time Associated Diagnosis Comments COMPLETE BLOOD COUNT Routine 04/14/2024 5:23 AM EST Chronic kidney disease, unspecified Anemia, unspecified BASIC METABOLIC PANEL Routine 04/14/2024 5:23 AM EST Chronic kidney disease, unspecified Anemia, unspecified documented in this encounter Results * (ABNORMAL) Basic metabolic panel (04/14/2024 5:23 AM EST) Sodium 139 133 - 145 mmol/L LAB CHEMISTRY METHOD 04/14/2024 10:07 AM EST [facility] ([facility] LAB Potassium 4.5 3.5 - 5.5 mmol/L LAB CHEMISTRY METHOD 04/14/2024 10:07 AM [facility] LAB Chloride 102 96 - 110 mmol/L LAB CHEMISTRY METHOD 04/14/2024 10:07 AM [facility] LAB CO2 31 21 - 32 mmol/L LAB CHEMISTRY METHOD 04/14/2024 10:07 AM [facility] LAB Anion Gap 6 3 - 11 LAB CHEMISTRY METHOD 04/14/2024 10:07 AM [facility] LAB Glucose 230(H) 70 - 100 mg/dL LAB CHEMISTRY METHOD 04/14/2024 10:07 AM [facility] LAB BUN 53(H) 5 - 25 mg/dL LAB CHEMISTRY METHOD 04/14/2024 10:07 AM [facility] LAB Creatinine 1.69(H) 0.50 - 1.10 mg/dL LAB CHEMISTRY METHOD 04/14/2024 10:07 AM [facility] LAB eGFR 31(L) >=60 mL/min/1. 73m2 LAB CHEMISTRY METHOD 04/14/2024 10:07 AM [facility] LAB Comment:Calculation based on the??Chronic Kidney Disease Epidemiology Collaboration (CKD-EPI) equation refit??without adjustment for race. BUN/Creatinine Ratio 31.4 LAB CHEMISTRY METHOD 04/14/2024 10:07 AM [facility] LAB Calcium 9.6 8.5 - 10.5 mg/dL LAB CHEMISTRY METHOD 04/14/2024 10:07 AM [facility] LAB Blood Venous blood specimen / Unknown Venipuncture / Unknown 04/14/2024 5:23 AM EST 04/14/2024 9:12 AM EST Aroldo Morgan MD LAB BLOOD ORDERABLES [facility] LAB [address] [place] [address], * (ABNORMAL) Complete blood count (04/14/2024 5:23 AM EST) WBC 6.2 4.8 - 10.8 K/mcL LAB HEMETOLOGY METHOD 04/14/2024 9:43 AM [facility] LAB RBC 4.50 3.80 - 4.80 M/mcL LAB HEMETOLOGY METHOD 04/14/2024 9:43 AM [facility] LAB Hemoglobin 11.8 11.5 - 16.0 g/dL LAB HEMETOLOGY METHOD 04/14/2024 9:43 AM [facility] LAB Hematocrit 40.5 35.0 - 47.0 % LAB HEMETOLOGY METHOD 04/14/2024 9:43 AM [facility] LAB MCV 89.2 79.0 - 98.0 FL LAB HEMETOLOGY METHOD 04/14/2024 9:43 AM [facility] LAB MCH 26.0(L) 27.0 - 32.0 pcg LAB HEMETOLOGY METHOD 04/14/2024 9:43 AM [facility] LAB MCHC 29.1(L) 32.0 - 37.0 g/dL LAB HEMETOLOGY METHOD 04/14/2024 9:43 AM [facility] LAB RDW 16.7(H) 11.0 - 15.0 % LAB HEMETOLOGY METHOD 04/14/2024 9:43 AM [facility] LAB Platelets 273 130 - 400 K/[facility] LAB HEMETOLOGY METHOD 04/14/2024 9:43 AM [facility] LAB MPV 12.3(H) 7.0 - 11.0 FL LAB HEMETOLOGY METHOD 04/14/2024 9:43 AM [facility] LAB NRBC 0.0 <1.0 % LAB HEMETOLOGY METHOD 04/14/2024 9:43 AM [facility] LAB NRBC Absolute 0.00 <0.10 K/[facility] LAB HEMETOLOGY METHOD 04/14/2024 9:43 AM [facility] LAB Blood Venous blood specimen / Unknown Venipuncture / Unknown 04/14/2024 5:23 AM EST 04/14/2024 9:14 AM EST Aroldo Morgan MD LAB BLOOD ORDERABLES [facility] [address] [place], [place] [address] [phone] documented in this encounter Visit Diagnoses Diagnosis Chronic kidney disease, unspecified Anemia, unspecified documented in this encounter Care Teams Machine Edge Bander Relationship Specialty Start Date End Date Aroldo Morgan MD [address] [place] [address] [phone] PCP - General Family Medicine 03/31/24 documented as of this encounter
--- OUTSIDE RECORDS SUMMARY | 2024-06-03 10:37 | XMS_ITS | Encounter Summary ---
Author Organization [facility], Address [address] [place] [address] Phone Care Team Providers Care Superintendent Construction Name Role Phone Bryan Fontanez MD Primary Care Provider [phone] Encounter Details Date Type Department Care Team ([facility] st Contact Info) Description 11/21/2022 Documentation Only [facility], [address] [place] [address] Osorio Burgos, [address] [place] [address] Social History Tobacco Use Types [...] on filedocumented in this encounter Care Teams Superintendent Construction Relationship Specialty Start Date End Date Bryan Fontanez MD [address] [place] [address] PCP - General 05/17/20 documented as of this encounter
--- OUTSIDE RECORDS SUMMARY | 2024-06-03 10:37 | XMS_ITS | Encounter Summary ---
Author Organization [facility], Address [address] [place] [address] Phone Care Team Providers Care Veterinary Dentist Name Role Phone Bryan Fontanez MD Primary Care Provider [phone] Encounter Details Date Type Department Care Team (Late st Contact Info) Description 05/26/2024 Office Communication [facility] - [address] [place] [address] Francesca Gentile, MARIFER [address] [facility] [place] [address] Social History Tobacco Use Types Packs/Day Years [...] on filedocumented in this encounter Care Teams Veterinary Dentist Relationship Specialty Start Date End Date Bryan Fontanez MD [address] [place] [address] PCP - General 05/17/20 documented as of this encounter
--- OUTSIDE RECORDS SUMMARY | 2024-06-03 10:37 | XMS_ITS | Encounter Summary ---
Author Organization [facility] Address [address] [place] [address] Care Team Providers Care B2B Sales Representative Name Role Phone Aroldo Morgan MD Primary Care Provider [phone] Encounter Details Date Type Department Care Team (Late st Contact Info) Description 03/31/2024 Lab Requisition [facility] - Main Lab 299 [facility] [place] [address] Aroldo Morgan MD 38 [facility] 204 [facility] [address] Type 2 diabetes mellitus without complications (CMS/HCC) Social History Tobacco Use Types Packs/Day Years [...] Associated Diagnosis Comments COMPLETE BLOOD COUNT Routine 03/31/2024 6:29 AM EST Type 2 diabetes mellitus without complications (CMS/HCC) HEMOGLOBIN A1C Routine 03/31/2024 6:29 AM EST Type 2 diabetes mellitus without complications (CMS/HCC) COMPREHENSIVE METABOLIC PANEL Routine 03/31/2024 6:29 AM EST Type 2 diabetes mellitus without complications (CMS/HCC) documented in this encounter Results * (ABNORMAL) Hemoglobin A1c (03/31/2024 6:29 AM EST) Hemoglobin A1C 6.5(H) <6.5 % LAB CHEMISTRY METHOD 03/31/2024 1:59 PM [facility] LAB Mean Bld Glu Estim. 140 mg/dL LAB CHEMISTRY METHOD 03/31/2024 1:59 PM [facility] LAB Blood Venous blood specimen / Unknown Venipuncture / Unknown 03/31/2024 6:29 AM EST 03/31/2024 9:47 AM EST Aroldo Morgan MD LAB BLOOD ORDERABLES [facility] LAB [address] [place] [address], * (ABNORMAL) Comprehensive metabolic panel (03/31/2024 6:29 [...] 12:08 PM [facility] LAB Total Bilirubin 0.6 0.0 - 1.4 mg/dL LAB CHEMISTRY METHOD 03/31/2024 12:08 PM [facility] LAB Blood Venous blood specimen / Unknown Venipuncture / Unknown 03/31/2024 6:29 AM EST 03/31/2024 9:47 AM EST Aroldo Morgan MD LAB BLOOD ORDERABLES [facility] LAB [address] [place] [address], * (ABNORMAL) Complete blood count (03/31/2024 6:29 AM EST) WBC 6.6 4.8 - 10.8 K/mcL LAB HEMETOLOGY METHOD 03/31/2024 10:40 AM [facility] LAB RBC 4.60 3.80 - 4.80 M/mcL LAB HEMETOLOGY METHOD 03/31/2024 10:40 AM [facility] LAB Hemoglobin 11.9 11.5 - 16.0 g/dL LAB HEMETOLOGY METHOD 03/31/2024 10:40 AM [facility] LAB Hematocrit 41.5 35.0 - 47.0 % LAB HEMETOLOGY METHOD 03/31/2024 10:40 AM [facility] LAB MCV 91.0 79.0 - 98.0 FL LAB HEMETOLOGY METHOD 03/31/2024 10:40 AM [facility] LAB MCH 26.1(L) 27.0 - 32.0 pcg LAB HEMETOLOGY METHOD 03/31/2024 10:40 AM [facility] LAB MCHC 28.7(L) 32.0 - 37.0 g/dL LAB HEMETOLOGY METHOD 03/31/2024 10:40 AM [facility] LAB RDW 18.0(H) 11.0 - 15.0 % LAB HEMETOLOGY METHOD 03/31/2024 10:40 AM [facility] LAB Platelets 309 130 - 400 K/mcL LAB HEMETOLOGY METHOD 03/31/2024 10:40 AM [facility] LAB MPV 11.6(H) 7.0 - 11.0 FL LAB HEMETOLOGY METHOD 03/31/2024 10:40 AM [facility] LAB NRBC 0.0 <1.0 % LAB HEMETOLOGY METHOD 03/31/2024 10:40 AM [facility] LAB NRBC Absolute 0.00 <0.10 K/mcL LAB HEMETOLOGY METHOD 03/31/2024 10:40 AM [facility] LAB Blood Venous blood specimen / Unknown Venipuncture / Unknown 03/31/2024 6:29 AM EST 03/31/2024 9:47 AM EST Aroldo Morgan MD LAB BLOOD ORDERABLES [facility] ([facility] LAB [address] [place] [address], documented in this encounter Visit Diagnoses Diagnosis Type 2 diabetes mellitus without complications (CMS/HCC) documented in this encounter Care Teams B2B Sales Representative Relationship Specialty Start Date End Date Aroldo Morgan MD [address] [place] [address], [phone] PCP - General Family Medicine 03/31/24 documented as of this encounter
--- OUTSIDE RECORDS SUMMARY | 2024-06-03 10:37 | XMS_ITS | Encounter Summary ---
Author Organization [facility] Address [address] [place] [address] Care Team Providers Care Quad Stayer Name Role Phone Aroldo Morgan MD Primary Care Provider [phone] Encounter Details Date Type Department Care Team (Late st Contact Info) Description 04/04/2024 Lab Requisition [facility] - Main Lab 299 [facility] [place] [address] Aroldo Morgan MD 38 [facility] 204 [facility] [address] Chronic kidney disease, unspecified; Anemia, [...] Associated Diagnosis Comments COMPLETE BLOOD COUNT Routine 04/07/2024 4:55 AM EST Chronic kidney disease, unspecified Anemia, unspecified BASIC METABOLIC PANEL Routine 04/07/2024 4:55 AM EST Chronic kidney disease, unspecified Anemia, unspecified documented in this encounter Results * (ABNORMAL) Basic metabolic panel (04/07/2024 4:55 AM EST) Sodium 138 133 - 145 mmol/L LAB CHEMISTRY METHOD 04/07/2024 9:18 AM EST [facility] LAB Potassium 4.5 3.5 - 5.5 mmol/L LAB CHEMISTRY METHOD 04/07/2024 9:18 AM [facility] LAB Chloride 103 96 - 110 mmol/L LAB CHEMISTRY METHOD 04/07/2024 9:18 AM [facility] LAB CO2 30 21 - 32 mmol/L LAB CHEMISTRY METHOD 04/07/2024 9:18 AM [facility] LAB Anion Gap 5 3 - 11 LAB CHEMISTRY METHOD 04/07/2024 9:18 AM [facility] LAB Glucose 235(H) 70 - 100 mg/dL LAB CHEMISTRY METHOD 04/07/2024 9:18 AM [facility] LAB BUN 57(H) 5 - 25 mg/dL LAB CHEMISTRY METHOD 04/07/2024 9:18 AM [facility] LAB Creatinine 1.66(H) 0.50 - 1.10 mg/dL LAB CHEMISTRY METHOD 04/07/2024 9:18 AM [facility] LAB eGFR 31(L) >=60 mL/min/1. 73m2 LAB CHEMISTRY METHOD 04/07/2024 9:18 AM [facility] LAB Comment:Calculation based on the??Chronic Kidney Disease Epidemiology Collaboration (CKD-EPI) equation refit??without adjustment for race. BUN/Creatinine Ratio 34.3 LAB CHEMISTRY METHOD 04/07/2024 9:18 AM [facility] LAB Calcium 9.2 8.5 - 10.5 mg/dL LAB CHEMISTRY METHOD 04/07/2024 9:18 AM [facility] LAB Blood Venous blood specimen / Unknown Venipuncture / Unknown 04/07/2024 4:55 AM EST 04/07/2024 8:09 AM EST Aroldo Morgan MD LAB BLOOD ORDERABLES [facility] LAB [address] [place] [address], * (ABNORMAL) Complete blood count (04/07/2024 4:55 AM EST) WBC 5.9 4.8 - 10.8 K/mcL LAB HEMETOLOGY METHOD 04/07/2024 8:34 AM [facility] LAB RBC 4.20 3.80 - 4.80 M/mcL LAB HEMETOLOGY METHOD 04/07/2024 8:34 AM [facility] LAB Hemoglobin 11.0(L) 11.5 - 16.0 g/dL LAB HEMETOLOGY METHOD 04/07/2024 8:34 AM [facility] LAB Hematocrit 38.0 35.0 - 47.0 % LAB HEMETOLOGY METHOD 04/07/2024 8:34 AM [facility] LAB MCV 90.7 79.0 - 98.0 FL LAB HEMETOLOGY METHOD 04/07/2024 8:34 AM [facility] LAB MCH 26.3(L) 27.0 - 32.0 pcg LAB HEMETOLOGY METHOD 04/07/2024 8:34 AM [facility] LAB MCHC 28.9(L) 32.0 - 37.0 g/dL LAB HEMETOLOGY METHOD 04/07/2024 8:34 AM [facility] LAB RDW 17.4(H) 11.0 - 15.0 % LAB HEMETOLOGY METHOD 04/07/2024 8:34 AM [facility] LAB Platelets 305 130 - 400 K/[facility] LAB HEMETOLOGY METHOD 04/07/2024 8:34 AM [facility] LAB MPV 11.5(H) 7.0 - 11.0 FL LAB HEMETOLOGY METHOD 04/07/2024 8:34 AM [facility] LAB NRBC 0.0 <1.0 % LAB HEMETOLOGY METHOD 04/07/2024 8:34 AM [facility] LAB NRBC Absolute 0.00 <0.10 K/[facility] LAB HEMETOLOGY METHOD 04/07/2024 8:34 AM [facility] LAB Blood Venous blood specimen / Unknown Venipuncture / Unknown 04/07/2024 4:55 AM EST 04/07/2024 8:09 AM EST Aroldo Morgan MD LAB BLOOD ORDERABLES [facility] LAB [address] [place], [place] [address] [phone] documented in this encounter Visit Diagnoses Diagnosis Chronic kidney disease, unspecified Anemia, unspecified documented in this encounter Care Teams Quad Stayer Relationship Specialty Start Date End Date Aroldo Morgan MD [address] [place] [phone] PCP - General Family Medicine 03/31/24 documented as of this encounter
--- OUTSIDE RECORDS SUMMARY | 2024-06-03 10:37 | XMS_ITS | Encounter Summary ---
Author Organization [facility] Address [address] [place] [address] Care Team Providers Care High School Band Teacher Name Role Phone Aroldo Morgan MD Primary Care Provider [phone] Encounter Details Date Type Department Care Team (Late st Contact Info) Description 04/18/2024 Lab Requisition [facility] - Main Lab 299 [facility] [place] [address] Aroldo Morgan MD [address] [place] [address] 204 [facility] [phone] Chronic kidney disease, unspecified; Anemia, unspecified Social [...] unspecified documented in this encounter Care Teams High School Band Teacher Relationship Specialty Start Date End Date Aroldo Morgan MD [address] [place] [address] 204 [place], [phone] PCP - General Family Medicine 03/31/24 documented as of this encounter
--- OUTSIDE RECORDS SUMMARY | 2024-06-03 10:37 | XMS_ITS | Clinical Summary ---
Author Organization [facility], Address [address] [place] [address] [place] [address] Phone Care Team Providers Care Machine Turner Name Role Phone Bryan Fontanez MD Primary Care Provider [phone] Allergies Active Allergy Reactions Criticality Noted Date Comments Erythromycin Other (see comments) 05/24/2021 Fish Allergy Other (see comments) 05/24/2021 Lactose Other (see comments) 05/24/2021 Other 05/25/2021 Sulfa Antibiotics Other (see comments) 05/24/19 22 Medications aspirin (ST COLETTE) 81 MG EC tablet Take 1 tablet by mouth 1 (one) time each day Active atorvastatin (LIPITOR) 80 MG tablet Take 80 mg by mouth at bed time Active clopidogrel (PLAVIX) 75 MG tablet Take 1 tablet by mouth 1 (one) time each day Active sacubitril-valsa rtan (Entresto) 49-51 MG per tablet Take 1 tablet by mouth 2 (two) times a day Active insulin aspart (NovoLOG) 100 UNIT/ML injection 40 Units Active torsemide (DEMADEX) 20 MG tablet Take 2 tablets by mouth 1 (one) time each day Active spironolactone (ALDACTONE) 25 MG tablet Take 1 tablet by mouth 1 (one) time each day Active metOLazone 2.5 MG tablet Take 2.5 mg by mouth Active loratadine (CLARITIN) 10 MG tablet Take 10 mg by mouth 1 (one) time each day Active isosorbide mononitrate (IMDUR) 30 MG 24 hr tablet Take 30 mg by mouth 1 (one) time each day Do not crush or chew. Active Riboflavin (Vitamin B-2) 100 MG tablet 2 Active magnesium oxide 400 (240 Mg) MG tablet 2 Active loperamide (IMODIUM) 2 MG capsule 2 Active lidocaine (XYLOCAINE) 5 % ointment 1 Active ammonium lactate (AMLACTIN) 12 % cream Apply 1 applicator topically 9 Active Eliquis 5 MG tablet 3 Active cholecalciferol (VITAMIN D-3) 25 MCG (1000 UT) capsule Take 1,000 Units by mouth 1 (one) time each day Active Empagliflozin (Jardiance) 10 MG tablet Take 10 mg by mouth 1 (one) time each day in the morning Active insulin glargine (LANTUS) 100 UNIT/ML injection Inject 10 Units under the skin 1 (one) time each day Active insulin glargine (Lantus SoloStar) 100 UNIT/ML injection Inject 25 Units under the skin every night Active Insulin Lispro 100 UNIT/ML solution Inject under the skin 3 (three) times a day before meals 3-8 units-- sliding scale Active metoprolol tartrate 25 MG tablet Take 12.5 mg by mouth in the morning and 12.5 mg in the evening. Active polyethylene glycol (GLYCOLAX) 17 g packet Take 17 g by mouth in the morning and 17 g in the evening. Active Active Problems Problem Noted Date Diagnosed Date Recurrent urinary tract infection 01/31/2023 Stage 3a chronic kidney disease 05/24/2021 Chronic systolic heart failure 05/24/2021 Essential hypertension 05/24/2021 Encounters Date Type Department Care Team Description 05/26/2024 Office Communication [facility] - [address] [place] [address] Francesca Gentile RN from Last 3 Months Family History Relation Status Comments Father Mother Social History Tobacco Use Types Packs/Day Years Used Date Smoking Tobacco: Never Smokeless Tobacco: Never Tobacco Cessation:Counseling Given: Not Answered Alcohol Use Standard Drinks/Week Comments No 0 (1 standard drink = 0.6 oz pur e alcohol) Comments Unknown Sex and Gender Information Value Date Recorded Sex Assigned at Not on file Legal Sex Female 4:56 PM EST Gender Identity Not on file Sexual Orientation Not on file Last Filed Vital Signs Vital Sign Reading Time Taken Comments Blood Pressure 114/68 10/18/2022 3:32 PM EDT Pulse 72 10/18/2022 3:32 PM EDT Temperature - - Respiratory Rate - - Oxygen Saturation 83% 08/10/2021 3:44 PM EDT Inhaled Oxygen Concentration - - Weight 72.2 kg (159 lb 3.2 oz) 08/10/2021 3:44 P M EDT Height 149.9 cm (4' 11 ) 05/25/2021 3:42 PM EST Body Mass Index 32.15 05/25/2021 3:42 PM EST Plan of Treatment Health Maintenance Due Date Last Done Comments Diabetes: Ophthalmology Exam 10/10/2023 Diabetes: Pedal Pulse Checked 10/10/2023 Diabetes: Sensory Foot Exam 10/10/2023 Diabetes: Visual Foot Exam 10/10/2023 Influenza Vaccine (#1) 2024 3, 02/09/2020 Diabetes: Hemoglobin A1C 07/01/2024 024, 05/12/2019 Pneumococcal Vaccine: 65+ Years Completed 06/15/2017, 04/27/2015, 09/12/2010 Hepatitis B Vaccine Aged Out No longe r eligible based on patient's age to complete this topic Procedures Procedure Name Priority Date/Time Associated Diagnosis Comments HEMOGLOBIN A1C Routine 05/12/2019 12:38 PM EST from Last 3 Months or Most Recently Relevant to Health Maintenance Results * (ABNORMAL) Hemoglobin A1c (05/12/2019 12:38 PM EST) Hemoglobin A1C 6.2(H) (4-6) % [facility] 3 Comment: HEMOGLOBIN A1C(%) ?? GLUCOSE CONTROL INDEX ?<6% ? EXCELLENT ?6-7% ?VERY GOOD ?7-8% ?GOOD ?8-10% ? FAIR ?>10% ?POOR Hemoglobin (Hb) A1c testing is performed by Robert Ashleigh-quant immunoassay. Any cause of shortened erythrocyte survival will reduce exposure of erythrocytes to glucose with a consequent decrease in Hb A1c (%). Testing performed or reported by ~[facility], ~a Service of [facility], ~[address] [place] [address]~ Iván Wolf MD, Sewing Machine Operator Zipper~ 05/12/2019 12:3 8 PM EST us Harlan Doss MD LAB BLOOD ORDERABLES Final Res ult [facility] 3 from Last 3 Months or Most Recently Relevant to Health Maintenance Insurance ([id number]) HAKAN CAMPOS [id number] [facility] ([id number]) Care Teams Machine Turner Relationship Specialty Start Date End Date Bryan Fontanez MD [address] [place] [address] PCP - General 05/17/20
== END 2024-06-03 09:56 | disposition home or self-care (01) ==
LOC: HO.HOSX 09:55
DX: M79.641 Pain in right hand (principal); S62.511A Displaced fracture of proximal phalanx of right thumb, initial encounter for closed fracture
CPT/HCPCS: 29085; 73130; 99212

== ENCOUNTER 2024-06-03 10:10 | Outpatient (AMB) | payer OTHER, SELFPAY ==
--- NOTE | 2024-06-03 10:13 | A.OFFVIS_ITS ---
Intake Visit Reasons: OV- RT thumb displaced fx DOI 04/16/24 Intake Note: Danisha is a 79 year old right hand dominant female who presents today for a follow up of right thumb displaced fracture of proximal phalanx s/p fall, DOI:04/16/24. Cast off and x-rays updated. Patient reports that she is doing well, states hav ing pain with moving her thumb. Allergies fish derived [fish] Allergy (Verified 06/03/24 10:31) Rash HPI HPI OV- RT thumb displaced fx DOI 04/16/24: Details: Patient is a 79 year old right hand dominant female who presents today for a follow up of right thumb displaced fracture of proximal phalanx s/p fall, DOI:04/16/24. Cast off and x-rays updated. Patient reports that she is doing well, states having pain with moving her thumb. Patient also reports that she is still having tenderness to palpation of the right thumb at the level of the deformity. Denies any numbness or tingling in the right hand. No other acute complaints or concerns at this time. [facility] Medical History Hydrocephalus Abnormal findings on diagnostic imaging of skull and head, not elsewhere classified Memory difficulties Headache Tremor Social History Alcohol intake: never Patient Tobacco Use Status: Never used Tobacco Review of Systems Const All systems reviewed & are unremarkable except as noted in HPI and below Physical Exam Extrem Other: Patient is alert, oriented, and in no acute distress. Neuro: Normal sensation of the tips of all digits of the right hand at this time Vascular: Cap refill brisk Pain: Very mild tenderness to palpation about the right thumb, particularly at the level of the fracture Minimal pain with range of motion of the right hand ROM: Patient is able to make a closed fist and extend all digits of the right hand fully and without difficulty Skin: No lacerations or abrasions. General: No ecchymosis, erythema, or evidence of infection. There is noted to be a deformity of the right thumb consistent with apex volar fracture of the proximal phalanx. Psych: Appears grossly normal Affect normal Attitude cooperative Office Procedures Casting/Splints 40494-Rvcd/Wrist Cast Application Procedure code (CPT) selection complete Assessment & Plan Assessment & Plan (1) Displaced fracture of proximal phalanx of right thumb: Code(s): S62.511A - Displaced fracture of proximal phalanx of right thumb, initial encounter for closed fracture Category: Medical Plan 1. Displaced fracture of proximal phalanx of right thumb Date of injury 04/16/2024 Patient is educated about this injury Patient was educated about the typical recovery course At this time, due to being almost 7 weeks out from date of injury and demonstrating very limited evidence of healing on x-rays, patient was once again placed into thumb spica cast Patient will also follow up with Dr. Betancourt in 1-2 weeks to acute concern for potential delayed healing of this fracture Patient was amenable Patient was pre educated on proper cast care and precautions Orders: Orders XR hand RT min 3V Today M79.641 - Pain in right hand Coding Level of Care Code Global (56272) Diagnoses Displaced fracture of proximal phalanx of right thumb S62.511A CPT Codes Casting - CPT: 13471-Mfwv/Wrist Cast Application ([id number])
--- OUTSIDE RECORDS SUMMARY | 2024-06-03 10:59 | XMS_ITS | Encounter Summary ---
Author Organization [facility], Address [address] [place] [address] Phone Care Team Providers Care Caramel Candy Maker Name Role Phone Bryan Fontanez MD Primary Care Provider [phone] Encounter Details Date Type Department Care Team ([facility] st Contact Info) Description 08/29/2023 Documentation Only [facility], [address] [place] [address] Osorio Burgos, [address] [place] [address] Social History Tobacco Use Types [...] on filedocumented in this encounter Care Teams Caramel Candy Maker Relationship Specialty Start Date End Date Bryan Fontanez MD [address] [place] [address] PCP - General 05/17/20 documented as of this encounter
--- OUTSIDE RECORDS SUMMARY | 2024-06-03 10:59 | XMS_ITS | Clinical Summary ---
Author Organization [facility], Address [address] [place] [address] [place] [address] Phone Care Team Providers Care Block Mechanic Name Role Phone Bryan Fontanez MD Primary Care Provider [phone] Allergies Active Allergy Reactions Criticality Noted Date [...] Communication [facility] - [address] [place] [address] Francesca Gentile RN from Last 3 Months [...] PM EST) Hemoglobin A1C 6.2(H) (4-6) % [facility] 3 Comment: HEMOGLOBIN A1C(%) ?? GLUCOSE CONTROL INDEX ?<6% ? EXCELLENT ?6-7% ?VERY GOOD ?7-8% ?GOOD ?8-10% ? FAIR ?>10% ?POOR Hemoglobin (Hb) A1c testing is performed by Robert Ashleigh-quant immunoassay. Any cause of shortened erythrocyte survival will reduce exposure of erythrocytes to glucose with a consequent decrease in Hb A1c (%). Testing performed or reported by ~[facility], ~a Service of [facility], ~[address] [place] [address]~ Iván Wolf MD, Grader Meat~ 05/12/2019 12:3 8 PM EST us Harlan Doss MD LAB BLOOD ORDERABLES Final Res ult [facility] 3 from Last 3 Months or Most Recently Relevant to Health Maintenance Insurance ([id number]) [place] [id number] [facility] ([id number]) Care Teams Block Mechanic Relationship Specialty Start Date End Date Bryan Fontanez MD [address] [place] [address] PCP - General 05/17/20
--- OUTSIDE RECORDS SUMMARY | 2024-06-03 10:59 | XMS_ITS | Clinical Summary ---
Author Organization [address] Address [address] [place] [address] Phone Care Team Providers Care Vinyl Welder And Fabricator Name Role Phone Aroldo Morgan MD Primary Care Provider [phone] Encounters Date Type Department Care Team Description 04/26/2024 Lab Requisition [facility] [address] [place] [phone] Aroldo Morgan MD Chronic kidney disease, unspecified; Anemia, unspecified 04/18/2024 Lab Requisition [facility] Lab [address] [place] [phone] Aroldo Morgan MD Chronic kidney disease, unspecified; Anemia, unspecified 04/16/2024 Lab Requisition [facility] Lab [address] [place] [phone] Aroldo Morgan MD Urinary tract infection, site not specified 04/12/2024 Lab Requisition [facility] Lab [address] [place] [phone] Aroldo Morgan MD Chronic kidney disease, unspecified; Anemia, unspecified 04/04/2024 Lab Requisition [facility] Lab [address] [place] [phone] Aroldo Morgan MD Chronic kidney disease, unspecified; Anemia, unspecified 03/31/2024 Lab Requisition [facility] Lab [address] [place] [phone] Aroldo Morgan MD Type 2 diabetes mellitus [...] reflex microscopic (04/16/2024 1:00 AM EST) Specific [place] Urine 1.009 1.003 - 1.030 LAB URINALYSIS - AUTOMATED METHOD 04/16/2024 11:29 AM [facility] pH, Urine 5.5 5.0 - 8.0 pH LAB URINALYSIS - AUTOMATED METHOD 04/16/2024 11:29 AM [facility] Leukocytes, Urine Large(A) Negative LAB URINALYSIS - AUTOMATED METHOD 04/16/2024 11:29 AM [facility] Nitrite, Urine Negative Negative LAB URINALYSIS - AUTOMATED METHOD 04/16/2024 11:29 AM [facility] Protein, Urine Negative <=Trace mg/dL LAB URINALYSIS - AUTOMATED METHOD 04/16/2024 11:29 AM [facility] Glucose, Urine Negative Negative mg/dL LAB URINALYSIS - AUTOMATED METHOD 04/16/2024 11:29 AM [facility] Ketones, Urine Negative Negative mg/dL LAB URINALYSIS - AUTOMATED METHOD 04/16/2024 11:29 AM [facility] Urobilinogen, Urine 0.2 0.2 - 1.0 mg/dL LAB URINALYSIS - AUTOMATED METHOD 04/16/2024 11:29 AM [facility] Bilirubin, Urine Negative Negative LAB URINALYSIS - AUTOMATED METHOD 04/16/2024 11:29 AM [facility] Blood, Urine Negative Negative LAB URINALYSIS - AUTOMATED METHOD 04/16/2024 11:29 AM [facility] RBC, Urine 1.0 0 - 4 /HPF LAB URINALYSIS - AUTOMATED METHOD 04/16/2024 11:29 AM [facility] WBC, Urine 152.9(H) 0 - 4 /HPF LAB URINALYSIS - AUTOMATED METHOD 04/16/2024 11:29 AM [facility] Squamous Epithelial, Urine 8 0 - 60 /LPF LAB URINALYSIS - AUTOMATED METHOD 04/16/2024 11:29 AM [facility] Bacteria, Urine Few(A) Negative /HPF LAB URINALYSIS - AUTOMATED METHOD 04/16/2024 11:29 AM [facility] Hyaline Casts, Urine 2.5 0 - 3 /LPF LAB URINALYSIS - AUTOMATED METHOD 04/16/2024 11:29 AM [facility] Urine Urine specimen obtained by clean catch procedure / Unknown Non-blood Collection / Unknown 04/16/2024 1:00 AM EST 04/16/2024 11:02 AM EST Aroldo Morgan MD LAB URINE ORDERABLES Performing Organization Address City/[facility]/ZIP Co de Phone Number [facility] [address] [place] [address], [place] [phone] * Faust urine culture tube (04/16/2024 1:00 AM EST) Extra Tube Hold for add-ons. 04/16/2024 1:01 PM [facility] Comment:Auto resulted. Urine Urine specimen obtained by clean catch procedure / Unknown 04/16/2024 1:00 AM EST 04/16/2024 11:03 AM EST Aroldo Morgan MD LAB URINE ORDERABLES [facility] [address] [place] [address], [place] [phone] * (ABNORMAL) Complete blood count (04/14/2024 5:23 AM EST) Only the most recent of3 resultswithin the time period is included. WBC 6.2 4.8 - 10.8 K/mcL LAB HEMETOLOGY METHOD 04/14/2024 9:43 AM [facility] RBC 4.50 3.80 - 4.80 M/mcL LAB HEMETOLOGY METHOD 04/14/2024 9:43 AM [facility] Hemoglobin 11.8 11.5 - 16.0 g/dL LAB HEMETOLOGY METHOD 04/14/2024 9:43 AM [facility] Hematocrit 40.5 35.0 - 47.0 % LAB HEMETOLOGY METHOD 04/14/2024 9:43 AM [facility] MCV 89.2 79.0 - 98.0 FL LAB HEMETOLOGY METHOD 04/14/2024 9:43 AM [facility] MCH 26.0(L) 27.0 - 32.0 pcg LAB HEMETOLOGY METHOD 04/14/2024 9:43 AM [facility] MCHC 29.1(L) 32.0 - 37.0 g/dL LAB HEMETOLOGY METHOD 04/14/2024 9:43 AM [facility] RDW 16.7(H) 11.0 - 15.0 % LAB HEMETOLOGY METHOD 04/14/2024 9:43 AM [facility] Platelets 273 130 - 400 K/mcL LAB HEMETOLOGY METHOD 04/14/2024 9:43 AM [facility] MPV 12.3(H) 7.0 - 11.0 FL LAB HEMETOLOGY METHOD 04/14/2024 9:43 AM [facility] NRBC 0.0 <1.0 % LAB HEMETOLOGY METHOD 04/14/2024 9:43 AM [facility] NRBC Absolute 0.00 <0.10 K/mcL LAB HEMETOLOGY METHOD 04/14/2024 9:43 AM [facility] Blood Venous blood specimen / Unknown Venipuncture / Unknown 04/14/2024 5:23 AM EST 04/14/2024 9:14 AM EST Aroldo Morgan MD LAB BLOOD ORDERABLES [facility] [address] [place] [address], * (ABNORMAL) Basic metabolic panel (04/14/2024 5:23 AM EST) Only the most recent of2 resultswithin the time period is included. Sodium 139 133 - 145 mmol/L LAB CHEMISTRY METHOD 04/14/2024 10:07 AM [facility] Potassium 4.5 3.5 - 5.5 mmol/L LAB CHEMISTRY METHOD 04/14/2024 10:07 AM [facility] Chloride 102 96 - 110 mmol/L LAB CHEMISTRY METHOD 04/14/2024 10:07 AM [facility] CO2 31 21 - 32 mmol/L LAB CHEMISTRY METHOD 04/14/2024 10:07 AM [facility] Anion Gap 6 3 - 11 LAB CHEMISTRY METHOD 04/14/2024 10:07 AM [facility] Glucose 230(H) 70 - 100 mg/dL LAB CHEMISTRY METHOD 04/14/2024 10:07 AM [facility] BUN 53(H) 5 - 25 mg/dL LAB CHEMISTRY METHOD 04/14/2024 10:07 AM [facility] Creatinine 1.69(H) 0.50 - 1.10 mg/dL LAB CHEMISTRY METHOD 04/14/2024 10:07 AM [facility] eGFR 31(L) >=60 mL/min/1. 73m2 LAB CHEMISTRY METHOD 04/14/2024 10:07 AM [facility] Comment:Calculation based on the??Chronic Kidney Disease Epidemiology Collaboration (CKD-EPI) equation refit??without adjustment for race. BUN/Creatinine Ratio 31.4 LAB CHEMISTRY METHOD 04/14/2024 10:07 AM [facility] Calcium 9.6 8.5 - 10.5 mg/dL LAB CHEMISTRY METHOD 04/14/2024 10:07 AM EST [facility] Blood Venous blood specimen / Unknown Venipuncture / Unknown 04/14/2024 5:23 AM EST 04/14/2024 9:12 AM EST Aroldo Morgan MD LAB BLOOD ORDERABLES Performing Organization Address City/[facility]/ZIP Co de Phone Number [facility] [address] [place] [address], [place] [phone] * (ABNORMAL) Hemoglobin A1c (03/31/2024 6:29 AM EST) Hemoglobin A1C 6.5(H) <6.5 % LAB CHEMISTRY METHOD 03/31/2024 1:59 PM EST [facility] Mean Bld Glu Estim. 140 mg/dL LAB CHEMISTRY METHOD 03/31/2024 1:59 PM [facility] Blood Venous blood specimen / Unknown Venipuncture / Unknown 03/31/2024 6:29 AM EST 03/31/2024 9:47 AM EST Aroldo Morgan MD LAB BLOOD ORDERABLES Performing Organization Address [facility]/ZIP Co de Phone Number [facility] [address] [place] [address], [place] [phone] * (ABNORMAL) Comprehensive metabolic panel (03/31/2024 6:29 AM EST) Sodium 140 133 - 145 mmol/L LAB CHEMISTRY METHOD 03/31/2024 12:08 PM [facility] Potassium 5.0 3.5 - 5.5 mmol/L LAB CHEMISTRY METHOD 03/31/2024 12:08 PM [facility] Chloride 104 96 - 110 mmol/L LAB CHEMISTRY METHOD 03/31/2024 12:08 PM [facility] CO2 30 21 - 32 mmol/L LAB CHEMISTRY METHOD 03/31/2024 12:08 PM [facility] Anion Gap 6 3 - 11 LAB CHEMISTRY METHOD 03/31/2024 12:08 PM [facility] Glucose 137(H) 70 - 100 mg/dL LAB CHEMISTRY METHOD 03/31/2024 12:08 PM [facility] BUN 37(H) 5 - 25 mg/dL LAB CHEMISTRY METHOD 03/31/2024 12:08 PM [facility] Creatinine 1.33(H) 0.50 - 1.10 mg/dL LAB CHEMISTRY METHOD 03/31/2024 12:08 PM [facility] eGFR 41(L) >=60 mL/min/1. 73m2 LAB CHEMISTRY METHOD 03/31/2024 12:08 PM [facility] Comment:Calculation based on the??Chronic Kidney Disease Epidemiology Collaboration (CKD-EPI) equation refit??without adjustment for race. BUN/Creatinine Ratio 27.8 LAB CHEMISTRY METHOD 03/31/2024 12:08 PM [facility] Calcium 9.8 8.5 - 10.5 mg/dL LAB CHEMISTRY METHOD 03/31/2024 12:08 PM [facility] AST (SGOT) 21 10 - 42 unit/L LAB CHEMISTRY METHOD 03/31/2024 12:08 PM [facility] ALT (SGPT) 11 10 - 60 unit/L LAB CHEMISTRY METHOD 03/31/2024 12:08 PM [facility] Alkaline Phosphatase 110 42 - 121 unit/L LAB CHEMISTRY METHOD 03/31/2024 12:08 PM [facility] Total Protein 6.7 6.0 - 8.0 g/dL LAB CHEMISTRY METHOD 03/31/2024 12:08 PM [facility] Albumin 2.8(L) 3.2 - 5.0 g/dL LAB CHEMISTRY METHOD 03/31/2024 12:08 PM EST [facility] Total Bilirubin 0.6 0.0 - 1.4 mg/dL LAB CHEMISTRY METHOD 03/31/2024 12:08 PM EST [facility] Blood Venous blood specimen / Unknown Venipuncture / Unknown 03/31/2024 6:29 AM EST 03/31/2024 9:47 AM EST Aroldo Morgan MD LAB BLOOD ORDERABLES [facility] [address] [place] [address], from Last 3 Months Care Teams Vinyl Welder And Fabricator Relationship Specialty Start Date End Date Aroldo Morgan MD [address] [place] [address] [address] [place], [phone] PCP - General Family Medicine 03/31/24
--- OUTSIDE RECORDS SUMMARY | 2024-06-03 10:59 | XMS_ITS | Encounter Summary ---
Author Organization [facility], Address [address] [place] [address] Phone Care Team Providers Care Photographic Double Name Role Phone Bryan Fontanez MD Primary Care Provider [phone] Encounter Details Date Type Department Care Team (Late st Contact Info) Description 08/08/2022 Documentation Only [facility], [address] [place] [address] Bryan Fontanez MD [address] [place] [address] Social History Tobacco Use Types Packs/Day Years [...] on filedocumented in this encounter Care Teams Photographic Double Relationship Specialty Start Date End Date Bryan Fontanez MD [address] [place] [address] PCP - General 05/17/20 documented as of this encounter
--- OUTSIDE RECORDS SUMMARY | 2024-06-03 10:59 | XMS_ITS | Encounter Summary ---
Author Organization [facility], Address [address] [place] [address] Phone Care Team Providers Care Orthotic Finish Grinding Technician Name Role Phone Bryan Fontanez MD Primary Care Provider [phone] Encounter Details Date Type Department Care Team ([facility] st Contact Info) Description 08/29/2023 Documentation Only [facility], [address] [place] [address] Osorio Burgos, [address] [place] [address] Social History Tobacco Use Types [...] on filedocumented in this encounter Care Teams Orthotic Finish Grinding Technician Relationship Specialty Start Date End Date Bryan Fontanez MD [address] [place] [address] PCP - General 05/17/20 documented as of this encounter
--- OUTSIDE RECORDS SUMMARY | 2024-06-03 11:00 | XMS_ITS | Encounter Summary ---
Author Organization [facility] Address [address] [place] [address] Care Team Providers Care Wet Process Technician Name Role Phone Aroldo Morgan MD Primary Care Provider [phone] Encounter Details Date Type Department Care Team (Late st Contact Info) Description 04/26/2024 Lab Requisition [facility] - Main Lab [address] [facility] [place] [address] Aroldo Morgan MD [address] [place] [address] 204 [facility] [id number] Chronic kidney disease, unspecified; Anemia, unspecified Social [...] unspecified documented in this encounter Care Teams Wet Process Technician Relationship Specialty Start Date End Date Aroldo Morgan MD [address] [place] [address] [address] [place], [phone] PCP - General Family Medicine 03/31/24 documented as of this encounter
--- OUTSIDE RECORDS SUMMARY | 2024-06-03 11:00 | XMS_ITS | Encounter Summary ---
Author Organization [facility], Address [address] [place] [address] Phone Care Team Providers Care Name Plate Stamping Machine Operator Name Role Phone Bryan Fontanez MD Primary Care Provider [phone] Encounter Details Date Type Department Care Team (Late st Contact Info) Description 05/26/2024 Office Communication [facility] - [address] [place] [address] Francesca Gentile, MARIFER [address] [facility] [place] [address] Social History Tobacco Use Types Packs/Day Years [...] on filedocumented in this encounter Care Teams Name Plate Stamping Machine Operator Relationship Specialty Start Date End Date Bryan Fontanez MD [address] [place] [address] PCP - General 05/17/20 documented as of this encounter
--- OUTSIDE RECORDS SUMMARY | 2024-06-03 11:00 | XMS_ITS | Encounter Summary ---
Author Organization [facility], Address [address] [place] [address] Phone Care Team Providers Care Wooden Barrel Mechanic Name Role Phone Bryan Fontanez MD Primary Care Provider [phone] Encounter Details Date Type Department Care Team ([facility] st Contact Info) Description 10/25/2023 Documentation Only [facility], [address] [place] [address] Osorio Burgos, [address] [place] [address] Social History Tobacco Use Types [...] on filedocumented in this encounter Care Teams Wooden Barrel Mechanic Relationship Specialty Start Date End Date Bryan Fontanez MD [address] [place] [address] PCP - General 05/17/20 documented as of this encounter
--- OUTSIDE RECORDS SUMMARY | 2024-06-03 11:00 | XMS_ITS | Encounter Summary ---
Author Organization [facility], Address [address] [place] [address] Phone Care Team Providers Care Street Roller Engineer Name Role Phone Bryan Fontanez MD Primary Care Provider [phone] Encounter Details Date Type Department Care Team ([facility] st Contact Info) Description 08/29/2023 Documentation Only [facility], [address] [place] [address] Osorio Burgos, [address] [place] [address] Social History Tobacco Use Types [...] on filedocumented in this encounter Care Teams Street Roller Engineer Relationship Specialty Start Date End Date Bryan Fontanez MD [address] [place] [address] PCP - General 05/17/20 documented as of this encounter
--- OUTSIDE RECORDS SUMMARY | 2024-06-03 11:00 | XMS_ITS | Encounter Summary ---
Author Organization [facility], Address [address] [place] [address] Phone Care Team Providers Care Briquette Maker Name Role Phone Bryan Fontanez MD Primary Care Provider [phone] Encounter Details Date Type Department Care Team ([facility] st Contact Info) Description 11/21/2022 Documentation Only [facility], [address] [place] [address] Osorio Burogs, [address] [place] [address] Social History Tobacco Use Types [...] on filedocumented in this encounter Care Teams Briquette Maker Relationship Specialty Start Date End Date Bryan Fontanez MD [address] [place] [address] PCP - General 05/17/20 documented as of this encounter
--- OUTSIDE RECORDS SUMMARY | 2024-06-03 11:00 | XMS_ITS | Encounter Summary ---
Author Organization [facility] Address [address] [place] [address] Care Team Providers Care Carton Filling Machine Operator Name Role Phone Aroldo Morgan MD Primary Care Provider [phone] Encounter Details Date Type Department Care Team (Late st Contact Info) Description 03/31/2024 Lab Requisition [facility] - Main Lab [address] [facility] [place] [address] Aroldo Morgan MD [address] [facility] 204 [facility] [address] Type 2 diabetes mellitus [...] % LAB CHEMISTRY METHOD 03/31/2024 1:59 PM [facility] Mean Bld Glu Estim. 140 mg/dL LAB CHEMISTRY METHOD 03/31/2024 1:59 PM [facility] Blood Venous blood specimen / Unknown Venipuncture / Unknown 03/31/2024 6:29 AM EST 03/31/2024 9:47 AM EST Aroldo Morgan MD LAB BLOOD ORDERABLES [facility] [address] [place] [address], * (ABNORMAL) Comprehensive metabolic panel (03/31/2024 6:29 AM EST) Sodium 140 133 - 145 mmol/L LAB CHEMISTRY METHOD 03/31/2024 12:08 PM [facility] Potassium 5.0 3.5 - 5.5 mmol/L LAB CHEMISTRY METHOD 03/31/2024 12:08 PM [facility] Chloride 104 96 - 110 mmol/L LAB CHEMISTRY METHOD 03/31/2024 12:08 PM [facility] CO2 30 21 - 32 mmol/L LAB CHEMISTRY METHOD 03/31/2024 12:08 PM [facility] Anion Gap 6 3 - 11 LAB CHEMISTRY METHOD 03/31/2024 12:08 PM [facility] Glucose 137(H) 70 - 100 mg/dL LAB CHEMISTRY METHOD 03/31/2024 12:08 PM [facility] BUN 37(H) 5 - 25 mg/dL LAB CHEMISTRY METHOD 03/31/2024 12:08 PM [facility] Creatinine 1.33(H) 0.50 - 1.10 mg/dL LAB CHEMISTRY METHOD 03/31/2024 12:08 PM [facility] eGFR 41(L) >=60 mL/min/1. 73m2 LAB CHEMISTRY METHOD 03/31/2024 12:08 PM [facility] Comment:Calculation based on the??Chronic Kidney Disease Epidemiology Collaboration (CKD-EPI) equation refit??without adjustment for race. BUN/Creatinine Ratio 27.8 LAB CHEMISTRY METHOD 03/31/2024 12:08 PM [facility] Calcium 9.8 8.5 - 10.5 mg/dL LAB CHEMISTRY METHOD 03/31/2024 12:08 PM [facility] AST (SGOT) 21 10 - 42 unit/L LAB CHEMISTRY METHOD 03/31/2024 12:08 PM [facility] ALT (SGPT) 11 10 - 60 unit/L LAB CHEMISTRY METHOD 03/31/2024 12:08 PM [facility] Alkaline Phosphatase 110 42 - 121 unit/L LAB CHEMISTRY METHOD 03/31/2024 12:08 PM [facility] Total Protein 6.7 6.0 - 8.0 g/dL LAB CHEMISTRY METHOD 03/31/2024 12:08 PM [facility] Albumin 2.8(L) 3.2 - 5.0 g/dL LAB CHEMISTRY METHOD 03/31/2024 12:08 PM [facility] Total Bilirubin 0.6 0.0 - 1.4 mg/dL LAB CHEMISTRY METHOD 03/31/2024 12:08 PM [facility] Blood Venous blood specimen / Unknown Venipuncture / Unknown 03/31/2024 6:29 AM EST 03/31/2024 9:47 AM EST Aroldo Morgan MD LAB BLOOD ORDERABLES [facility] [address] [place] [address], * (ABNORMAL) Complete blood count (03/31/2024 6:29 AM EST) WBC 6.6 4.8 - 10.8 K/mcL LAB HEMETOLOGY METHOD 03/31/2024 10:40 AM [facility] RBC 4.60 3.80 - 4.80 M/mcL LAB HEMETOLOGY METHOD 03/31/2024 10:40 AM [facility] Hemoglobin 11.9 11.5 - 16.0 g/dL LAB HEMETOLOGY METHOD 03/31/2024 10:40 AM [facility] Hematocrit 41.5 35.0 - 47.0 % LAB HEMETOLOGY METHOD 03/31/2024 10:40 AM [facility] MCV 91.0 79.0 - 98.0 FL LAB HEMETOLOGY METHOD 03/31/2024 10:40 AM [facility] MCH 26.1(L) 27.0 - 32.0 pcg LAB HEMETOLOGY METHOD 03/31/2024 10:40 AM [facility] MCHC 28.7(L) 32.0 - 37.0 g/dL LAB HEMETOLOGY METHOD 03/31/2024 10:40 AM [facility] RDW 18.0(H) 11.0 - 15.0 % LAB HEMETOLOGY METHOD 03/31/2024 10:40 AM [facility] Platelets 309 130 - 400 K/mcL LAB HEMETOLOGY METHOD 03/31/2024 10:40 AM [facility] MPV 11.6(H) 7.0 - 11.0 FL LAB HEMETOLOGY METHOD 03/31/2024 10:40 AM [facility] NRBC 0.0 <1.0 % LAB HEMETOLOGY METHOD 03/31/2024 10:40 AM [facility] NRBC Absolute 0.00 <0.10 K/mcL LAB HEMETOLOGY METHOD 03/31/2024 10:40 AM [facility] Blood Venous blood specimen / Unknown Venipuncture / Unknown 03/31/2024 6:29 AM EST 03/31/2024 9:47 AM EST Aroldo Morgan MD LAB BLOOD ORDERABLES [facility] [address] [place] [address], documented in this encounter Visit Diagnoses Diagnosis Type 2 diabetes mellitus without complications (CMS/HCC) documented in this encounter Care Teams Carton Filling Machine Operator Relationship Specialty Start Date End Date Aroldo Morgan MD [address] [place] [address], [phone] PCP - General Family Medicine 03/31/24 documented as of this encounter
--- OUTSIDE RECORDS SUMMARY | 2024-06-03 11:00 | XMS_ITS | Encounter Summary ---
Author Organization [facility] Address [address] [place] [address] Care Team Providers Care Cloth Bolt Bander Name Role Phone Aroldo Morgan MD Primary Care Provider [phone] Encounter Details Date Type Department Care Team (Late st Contact Info) Description 04/16/2024 Lab Requisition [facility] - Main Lab [address] [place] [address] Aroldo Morgan MD [address] [facility] 204 [facility] [address] Urinary tract infection, site not specified [...] Hold for add-ons. 04/16/2024 1:01 PM EST [facility] LAB Comment:Auto resulted. Urine Urine specimen obtained by clean catch procedure / Unknown 04/16/2024 1:00 AM EST 04/16/2024 11:03 AM EST Aroldo Morgan MD LAB URINE ORDERABLES [facility] LAB [address] [place] [address], * (ABNORMAL) Urinalysis with reflex microscopic (04/16/2024 1:00 AM EST) Specific [place] Urine 1.009 1.003 - 1.030 LAB URINALYSIS - AUTOMATED METHOD 04/16/2024 11:29 AM [facility] LAB pH, Urine 5.5 5.0 - 8.0 pH LAB URINALYSIS - AUTOMATED METHOD 04/16/2024 11:29 AM [facility] LAB Leukocytes, Urine Large(A) Negative LAB URINALYSIS - AUTOMATED METHOD 04/16/2024 11:29 AM [facility] LAB Nitrite, Urine Negative Negative LAB URINALYSIS - AUTOMATED METHOD 04/16/2024 11:29 AM [facility] LAB Protein, Urine Negative <=Trace mg/dL LAB URINALYSIS - AUTOMATED METHOD 04/16/2024 11:29 AM [facility] LAB Glucose, Urine Negative Negative mg/dL LAB URINALYSIS - AUTOMATED METHOD 04/16/2024 11:29 AM [facility] LAB Ketones, Urine Negative Negative mg/dL LAB URINALYSIS - AUTOMATED METHOD 04/16/2024 11:29 AM [facility] LAB Urobilinogen, Urine 0.2 0.2 - 1.0 mg/dL LAB URINALYSIS - AUTOMATED METHOD 04/16/2024 11:29 AM [facility] LAB Bilirubin, Urine Negative Negative LAB URINALYSIS - AUTOMATED METHOD 04/16/2024 11:29 AM [facility] LAB Blood, Urine Negative Negative LAB URINALYSIS - AUTOMATED METHOD 04/16/2024 11:29 AM [facility] LAB RBC, Urine 1.0 0 - 4 /HPF LAB URINALYSIS - AUTOMATED METHOD 04/16/2024 11:29 AM [facility] LAB WBC, Urine 152.9(H) 0 - 4 /HPF LAB URINALYSIS - AUTOMATED METHOD 04/16/2024 11:29 AM [facility] LAB Squamous Epithelial, Urine 8 0 - 60 /LPF LAB URINALYSIS - AUTOMATED METHOD 04/16/2024 11:29 AM [facility] LAB Bacteria, Urine Few(A) Negative /HPF LAB URINALYSIS - AUTOMATED METHOD 04/16/2024 11:29 AM [facility] LAB Hyaline Casts, Urine 2.5 0 - 3 /LPF LAB URINALYSIS - AUTOMATED METHOD 04/16/2024 11:29 AM [facility] LAB Urine Urine specimen obtained by clean catch procedure / Unknown Non-blood Collection / Unknown 04/16/2024 1:00 AM EST 04/16/2024 11:02 AM EST Aroldo Morgan MD LAB URINE ORDERABLES [facility] [address] [place] [address], documented in this encounter Visit Diagnoses Diagnosis Urinary tract infection, site not specified documented in this encounter Care Teams Cloth Bolt Bander Relationship Specialty Start Date End Date Aroldo Morgan MD [address] [place] [address], [phone] PCP - General Family Medicine 03/31/24 documented as of this encounter
--- OUTSIDE RECORDS SUMMARY | 2024-06-03 11:00 | XMS_ITS | Encounter Summary ---
Author Organization [facility] Address [address] [place] [address] Care Team Providers Care Phlebotomy Supervisor Name Role Phone Aroldo Morgan MD Primary Care Provider [phone] Encounter Details Date Type Department Care Team (Late st Contact Info) Description 04/04/2024 Lab Requisition [facility] - Main Lab 299 [facility] [place] [address] Aroldo Morgan MD 38 [facility] 204 [facility] [address] Chronic kidney disease, unspecified; Anemia, [...] LAB CHEMISTRY METHOD 04/07/2024 9:18 AM EST [facility] ([facility] LAB Potassium 4.5 3.5 - 5.5 mmol/L LAB CHEMISTRY METHOD 04/07/2024 9:18 AM [facility] LAB Chloride 103 96 - 110 mmol/L LAB CHEMISTRY METHOD 04/07/2024 9:18 AM [facility] LAB CO2 30 21 - 32 mmol/L LAB CHEMISTRY METHOD 04/07/2024 9:18 AM [facility] LAB Anion Gap 5 3 - 11 LAB CHEMISTRY METHOD 04/07/2024 9:18 AM [facility] LAB Glucose 235(H) 70 - 100 mg/dL LAB CHEMISTRY METHOD 04/07/2024 9:18 AM [facility] LAB BUN 57(H) 5 - 25 mg/dL LAB CHEMISTRY METHOD 04/07/2024 9:18 AM [facility] LAB Creatinine 1.66(H) 0.50 - 1.10 mg/dL LAB CHEMISTRY METHOD 04/07/2024 9:18 AM [facility] LAB eGFR 31(L) >=60 mL/min/1. 73m2 LAB CHEMISTRY METHOD 04/07/2024 9:18 AM [facility] LAB Comment:Calculation based on the??Chronic Kidney Disease Epidemiology Collaboration (CKD-EPI) equation refit??without adjustment for race. BUN/Creatinine Ratio 34.3 LAB CHEMISTRY METHOD 04/07/2024 9:18 AM [facility] LAB Calcium 9.2 8.5 - 10.5 mg/dL LAB CHEMISTRY METHOD 04/07/2024 9:18 AM [facility] LAB Blood Venous blood specimen / Unknown Venipuncture / Unknown 04/07/2024 4:55 AM EST 04/07/2024 8:09 AM EST Aroldo Morgan MD LAB BLOOD ORDERABLES [facility] LAB [address] [place] [address], * (ABNORMAL) Complete blood count (04/07/2024 4:55 AM EST) WBC 5.9 4.8 - 10.8 K/mcL LAB HEMETOLOGY METHOD 04/07/2024 8:34 AM [facility] LAB RBC 4.20 3.80 - 4.80 M/mcL LAB HEMETOLOGY METHOD 04/07/2024 8:34 AM [facility] LAB Hemoglobin 11.0(L) 11.5 - 16.0 g/dL LAB HEMETOLOGY METHOD 04/07/2024 8:34 AM [facility] LAB Hematocrit 38.0 35.0 - 47.0 % LAB HEMETOLOGY METHOD 04/07/2024 8:34 AM [facility] LAB MCV 90.7 79.0 - 98.0 FL LAB HEMETOLOGY METHOD 04/07/2024 8:34 AM [facility] LAB MCH 26.3(L) 27.0 - 32.0 pcg LAB HEMETOLOGY METHOD 04/07/2024 8:34 AM [facility] LAB MCHC 28.9(L) 32.0 - 37.0 g/dL LAB HEMETOLOGY METHOD 04/07/2024 8:34 AM [facility] LAB RDW 17.4(H) 11.0 - 15.0 % LAB HEMETOLOGY METHOD 04/07/2024 8:34 AM [facility] LAB Platelets 305 130 - 400 K/[facility] LAB HEMETOLOGY METHOD 04/07/2024 8:34 AM [facility] LAB MPV 11.5(H) 7.0 - 11.0 FL LAB HEMETOLOGY METHOD 04/07/2024 8:34 AM [facility] LAB NRBC 0.0 <1.0 % LAB HEMETOLOGY METHOD 04/07/2024 8:34 AM [facility] LAB NRBC Absolute 0.00 <0.10 K/[facility] LAB HEMETOLOGY METHOD 04/07/2024 8:34 AM [facility] LAB Blood Venous blood specimen / Unknown Venipuncture / Unknown 04/07/2024 4:55 AM EST 04/07/2024 8:09 AM EST Aroldo Morgan MD LAB BLOOD ORDERABLES [facility] LAB [address] [place], [place] [address] [phone] documented in this encounter Visit Diagnoses Diagnosis Chronic kidney disease, unspecified Anemia, unspecified documented in this encounter Care Teams Phlebotomy Supervisor Relationship Specialty Start Date End Date Aroldo Morgan MD [address] [place] [phone] PCP - General Family Medicine 03/31/24 documented as of this encounter
--- OUTSIDE RECORDS SUMMARY | 2024-06-03 11:00 | XMS_ITS | Encounter Summary ---
Author Organization [facility] Address [address] [place] [address] Care Team Providers Care Roustabout Crew Name Role Phone Aroldo Morgan MD Primary Care Provider [phone] Encounter Details Date Type Department Care Team (Late st Contact Info) Description 04/18/[address] [facility] - Main Lab 299 [facility] [place] [address] Aroldo Morgan MD [address] [place] [address] 204 [facility] [phone] Chronic kidney disease, unspecified; Anemia, unspecified Social [...] unspecified documented in this encounter Care Teams Roustabout Crew Relationship Specialty Start Date End Date Aroldo Morgan MD [address] [place] [address] 204 [place], [phone] PCP - General Family Medicine 03/31/24 documented as of this encounter
--- OUTSIDE RECORDS SUMMARY | 2024-06-03 11:00 | XMS_ITS | Encounter Summary ---
Author Organization [facility] Address [address] [place] [address] Care Team Providers Care Certified Addiction Counselor Name Role Phone Aroldo Morgan MD Primary Care Provider [phone] Encounter Details Date Type Department Care Team (Late st Contact Info) Description 04/12/[address] [facility] - Main Lab 299 [facility] [place] [address] Aroldo Morgan MD 38 [facility] 204 [facility] [address] Chronic kidney disease, unspecified; Anemia, unspecified [...] LAB CHEMISTRY METHOD 04/14/2024 10:07 AM EST [facility] Potassium 4.5 3.5 - 5.5 mmol/L [...] EST Aroldo Morgan MD LAB BLOOD ORDERABLES [facility] LAB [address] [place] [address], * (ABNORMAL) Complete blood count (04/14/2024 5:23 [...] HOSPITAL LAB Platelets 273 130 - 400 K/[facility] LAB HEMETOLOGY METHOD 04/14/2024 9:43 AM [facility] LAB MPV 12.3(H) 7.0 - 11.0 FL LAB HEMETOLOGY METHOD 04/14/2024 9:43 AM [facility] LAB NRBC 0.0 <1.0 % LAB HEMETOLOGY METHOD 04/14/2024 9:43 AM [facility] LAB NRBC Absolute 0.00 <0.10 K/[facility] LAB HEMETOLOGY METHOD 04/14/2024 9:43 AM [facility] LAB Blood Venous blood specimen / Unknown Venipuncture / Unknown 04/14/2024 5:23 AM EST 04/14/2024 9:14 AM EST Aroldo Morgan MD LAB BLOOD ORDERABLES [facility] LAB [address] [place], [place] [address] [phone] documented in this encounter Visit Diagnoses Diagnosis Chronic kidney disease, unspecified Anemia, unspecified documented in this encounter Care Teams Certified Addiction Counselor Relationship Specialty Start Date End Date Aroldo Morgan MD [address] [place] [phone] PCP - General Family Medicine 03/31/24 documented as of this encounter
== END 2024-06-03 11:24 | disposition home or self-care (01) ==
DX: S62.511A Displaced fracture of proximal phalanx of right thumb, initial encounter for closed fracture (principal)
CPT/HCPCS: 29085; 99024

== ENCOUNTER → 2024-06-03 10:14 | Outpatient (BNV) | payer OTHER, SELFPAY | PROVIDERS: Visit Provider Radiology Vascular & Interventional Radiology | DX: S62.514A Nondisplaced fracture of proximal phalanx of right thumb, initial encounter for closed fracture (principal) | CPT/HCPCS: 73130 ==

== ENCOUNTER 2024-06-24 10:05 | Outpatient (REF) | payer OTHER, SELFPAY ==
--- NOTE | ~2024-06-24 | XR_ITS ---
EXAMINATION: XR HAND, RIGHT CLINICAL INFORMATION: M79.641 - Pain in right hand COMPARISON: 06/03/2024, 05/23/2024. TECHNIQUE: PA, lateral, and oblique views of the right hand. FINDINGS: Osseous mineralization is normal. Again seen is a fracture of the proximal phalanx of the thumb. The appearance and alignment is not significantly changed from the prior study. Mild sclerosis of the fracture margins with mild periostitis/new bone formation seen on the lateral projection. No additional fractures. No malalignment. The joint spaces are preserved. The soft tissues are unremarkable. XR/XR hand RT min 3V IMPRESSION: Fracture of the proximal phalanx of the right thumb without change in alignment. There is evidence for healing. Electronically signed by: Isiah Wagoner MD 06/25/2024 09:58 AM [facility]
--- OUTSIDE RECORDS SUMMARY | 2024-06-24 10:59 | XMS_ITS | Encounter Summary ---
Author Organization [facility], Address [address] [place] [address] Phone Care Team Providers Care Tank Builder Supervisor Name Role Phone Bryan Fontanez MD Primary Care Provider [phone] Encounter Details Date Type Department Care Team (Late st Contact Info) Description 08/08/2022 Documentation Only [facility], [address] [place] [address] Bryan Fontanez MD [address] [place] [address] Social History Tobacco Use Types Packs/Day Years [...] on filedocumented in this encounter Care Teams Tank Builder Supervisor Relationship Specialty Start Date End Date Bryan Fontanez MD [address] [place] [address] PCP - General 05/17/20 documented as of this encounter
--- OUTSIDE RECORDS SUMMARY | 2024-06-24 11:00 | XMS_ITS | Encounter Summary ---
Author Organization [facility], Address [address] [place] [address] Phone Care Team Providers Care Mainframe Developer Name Role Phone Bryan Fontanez MD Primary Care Provider [phone] Encounter Details Date Type Department Care Team ([facility] st Contact Info) Description 08/29/2023 Documentation Only [facility], [address] [place] [address] Osorio Burgos, [address] [place] [address] Social History Tobacco Use Types [...] on filedocumented in this encounter Care Teams Mainframe Developer Relationship Specialty Start Date End Date Bryan Fotnanez MD [address] [place] [address] PCP - General 05/17/20 documented as of this encounter
--- OUTSIDE RECORDS SUMMARY | 2024-06-24 11:00 | XMS_ITS | Encounter Summary ---
Author Organization [facility], Address [address] [place] [address] Phone Care Team Providers Care Tower Hoist Operator Name Role Phone Bryan Fontanez MD Primary Care Provider [phone] Encounter Details Date Type Department Care Team ([facility] st Contact Info) Description 08/29/2023 Documentation Only [facility], [address] [place] [address] Osorio Burgos, [address] [place] [address] Social History Tobacco Use Types [...] on filedocumented in this encounter Care Teams Tower Hoist Operator Relationship Specialty Start Date End Date Bryan Fontanez MD [address] [place] [address] PCP - General 05/17/20 documented as of this encounter
--- OUTSIDE RECORDS SUMMARY | 2024-06-24 11:00 | XMS_ITS | Encounter Summary ---
Author Organization [facility] Address [address] [place] [address] Care Team Providers Care Computer System Validation Specialist Name Role Phone Aroldo Morgan MD Primary Care Provider [phone] Encounter Details Date Type Department Care Team (Late st Contact Info) Description 03/31/2024 Lab Requisition [facility] - Main Lab 299 [facility] [place] [address] Aroldo Morgan MD 38 [facility] 204 [facility] [phone] Type 2 diabetes mellitus without complications (CMS/HCC) Social History Tobacco Use Types Packs/Day Years Used Date Smoking Tobacco: Never Assessed Comments Unknown Sex and Gender Information Value Date Recorded Sex Assigned at Not on file Legal Sex Female 4:50 AM EST Gender Identity Not on file Sexual [...] % LAB CHEMISTRY METHOD 03/31/2024 1:59 PM [facility] LAB Mean Bld Glu Estim. 140 mg/dL LAB CHEMISTRY METHOD 03/31/2024 1:59 PM [facility] LAB Blood Venous blood specimen / Unknown Venipuncture / Unknown 03/31/2024 6:29 AM EST 03/31/2024 9:47 AM EST us Aroldo Morgan MD LAB BLOOD ORDERABLES Final Resul t [facility] LAB [address] [place] [address], [place] [phone] * (ABNORMAL) Comprehensive metabolic panel (03/31/2024 6:29 AM EST) Sodium 140 133 - 145 mmol/L LAB CHEMISTRY METHOD 03/31/2024 12:08 PM [facility] Potassium 5.0 3.5 - 5.5 mmol/L LAB CHEMISTRY METHOD 03/31/2024 12:08 PM [facility] Chloride 104 96 - 110 mmol/L LAB CHEMISTRY METHOD 03/31/2024 12:08 PM [facility] LAB CO2 30 21 - 32 mmol/L LAB CHEMISTRY METHOD 03/31/2024 12:08 PM [facility] LAB Anion Gap 6 3 - 11 LAB CHEMISTRY METHOD 03/31/2024 12:08 PM [facility] Glucose 137(H) 70 - 100 mg/dL LAB CHEMISTRY METHOD 03/31/2024 12:08 PM [facility] BUN 37(H) 5 - 25 mg/dL LAB CHEMISTRY METHOD 03/31/2024 12:08 PM [facility] LAB Creatinine 1.33(H) 0.50 - 1.10 mg/dL LAB CHEMISTRY METHOD 03/31/2024 12:08 PM [facility] LAB eGFR 41(L) >=60 mL/min/1. 73m2 LAB CHEMISTRY METHOD 03/31/2024 12:08 PM [facility] LAB Comment:Calculation based on the??Chronic Kidney Disease Epidemiology Collaboration (CKD-EPI) equation refit??without adjustment for race. BUN/Creatinine Ratio 27.8 LAB CHEMISTRY METHOD 03/31/2024 12:08 PM [facility] LAB Calcium 9.8 8.5 - 10.5 mg/dL LAB CHEMISTRY METHOD 03/31/2024 12:08 PM [facility] AST (SGOT) 21 10 - 42 unit/L LAB CHEMISTRY METHOD 03/31/2024 12:08 PM [facility] ALT (SGPT) 11 10 - 60 unit/L LAB CHEMISTRY METHOD 03/31/2024 12:08 PM [facility] Alkaline Phosphatase 110 42 - 121 unit/L LAB CHEMISTRY METHOD 03/31/2024 12:08 PM [facility] Total Protein 6.7 6.0 - 8.0 g/dL LAB CHEMISTRY METHOD 03/31/2024 12:08 PM [facility] Albumin 2.8(L) 3.2 - 5.0 g/dL LAB CHEMISTRY METHOD 03/31/2024 12:08 PM [facility] Total Bilirubin 0.6 0.0 - 1.4 mg/dL LAB CHEMISTRY METHOD 03/31/2024 12:08 PM [facility] LAB Blood Venous blood specimen / Unknown Venipuncture / Unknown 03/31/2024 6:29 AM EST 03/31/2024 9:47 AM EST us Aroldo Morgan MD LAB BLOOD ORDERABLES Final Resul t [facility] [address] [place] [address], * (ABNORMAL) Complete blood count (03/31/2024 6:29 AM EST) [facility] WBC 6.6 4.8 - 10.8 K/mcL LAB HEMETOLOGY METHOD 03/31/2024 10:40 AM [facility] RBC 4.60 3.80 - 4.80 M/mcL LAB HEMETOLOGY METHOD 03/31/2024 10:40 AM [facility] LAB Hemoglobin 11.9 11.5 - 16.0 g/dL LAB HEMETOLOGY METHOD 03/31/2024 10:40 AM [facility] LAB Hematocrit 41.5 35.0 - 47.0 % LAB HEMETOLOGY METHOD 03/31/2024 10:40 AM [facility] LAB MCV 91.0 79.0 - 98.0 FL LAB HEMETOLOGY METHOD 03/31/2024 10:40 AM [facility] LAB MCH 26.1(L) 27.0 - 32.0 pcg LAB HEMETOLOGY METHOD 03/31/2024 10:40 AM [facility] LAB MCHC 28.7(L) 32.0 - 37.0 g/dL LAB HEMETOLOGY METHOD 03/31/2024 10:40 AM [facility] LAB RDW 18.0(H) 11.0 - 15.0 % LAB HEMETOLOGY METHOD 03/31/2024 10:40 AM [facility] LAB Platelets 309 130 - 400 K/mcL LAB HEMETOLOGY METHOD 03/31/2024 10:40 AM [facility] LAB MPV 11.6(H) 7.0 - 11.0 FL LAB HEMETOLOGY METHOD 03/31/2024 10:40 AM [facility] LAB NRBC 0.0 <1.0 % LAB HEMETOLOGY METHOD 03/31/2024 10:40 AM [facility] LAB NRBC Absolute 0.00 <0.10 K/mcL LAB HEMETOLOGY METHOD 03/31/2024 10:40 AM EST [facility] LAB Blood Venous blood specimen / Unknown Venipuncture / Unknown 03/31/2024 6:29 AM EST 03/31/2024 9:47 AM EST us Aroldo Morgan MD LAB BLOOD ORDERABLES Final Resul t [facility] [address] [place] [address], documented in this encounter Visit Diagnoses Diagnosis Type 2 diabetes mellitus without complications (CMS/HCC) documented in this encounter Care Teams Computer System Validation Specialist Relationship Specialty Start Date End Date Aroldo Morgan MD [address] [place] [address], [phone] PCP - General Family Medicine 03/31/24 documented as of this encounter
--- OUTSIDE RECORDS SUMMARY | 2024-06-24 11:00 | XMS_ITS | Encounter Summary ---
Author Organization [facility] Address [address] [place] [address] Care Team Providers Care Automotive Collision Estimator Name Role Phone Aroldo Morgan MD Primary Care Provider [phone] Encounter Details Date Type Department Care Team (Late st Contact Info) Description 04/16/2024 Lab Requisition [facility] - Main Lab 299 [facility] [place] [address] Aroldo Morgan MD [address] [facility] 204 [facility] [address] Urinary tract infection, site not specified [...] Tube Hold for add-ons. 04/16/2024 1:01 PM [facility] LAB Comment:Auto resulted. Urine Urine specimen obtained by clean catch procedure / Unknown 04/16/2024 1:00 AM EST 04/16/2024 11:03 AM EST us Aroldo Morgan MD LAB URINE ORDERABLES Final Resul t [facility] [address] [place] [address], * (ABNORMAL) Urinalysis with reflex microscopic (04/16/2024 1:00 AM EST) Specific [place] Urine 1.009 1.003 - 1.030 LAB URINALYSIS - AUTOMATED METHOD 04/16/2024 11:29 AM [facility] LAB pH, Urine 5.5 5.0 - 8.0 pH LAB URINALYSIS - AUTOMATED METHOD 04/16/2024 11:29 AM [facility] Leukocytes, Urine Large(A) Negative LAB URINALYSIS - AUTOMATED METHOD 04/16/2024 11:29 AM [facility] Nitrite, Urine Negative Negative LAB URINALYSIS - AUTOMATED METHOD 04/16/2024 11:29 AM [facility] Protein, Urine Negative <=Trace mg/dL LAB URINALYSIS - AUTOMATED METHOD 04/16/2024 11:29 AM [facility] Glucose, Urine Negative Negative mg/dL LAB URINALYSIS - AUTOMATED METHOD 04/16/2024 11:29 AM [facility] Ketones, Urine Negative Negative mg/dL LAB URINALYSIS - AUTOMATED METHOD 04/16/2024 11:29 AM [facility] Urobilinogen, Urine 0.2 0.2 - 1.0 mg/dL LAB URINALYSIS - AUTOMATED METHOD 04/16/2024 11:29 AM [facility] Bilirubin, Urine Negative Negative LAB URINALYSIS - AUTOMATED METHOD 04/16/2024 11:29 AM [facility] Blood, Urine Negative Negative LAB URINALYSIS - AUTOMATED METHOD 04/16/2024 11:29 AM [facility] RBC, Urine 1.0 0 - 4 /HPF LAB URINALYSIS - AUTOMATED METHOD 04/16/2024 11:29 AM [facility] WBC, Urine 152.9(H) 0 - 4 /HPF LAB URINALYSIS - AUTOMATED METHOD 04/16/2024 11:29 AM [facility] Squamous Epithelial, Urine 8 0 - 60 /LPF LAB URINALYSIS - AUTOMATED METHOD 04/16/2024 11:29 AM [facility] Bacteria, Urine Few(A) Negative /HPF LAB URINALYSIS - AUTOMATED METHOD 04/16/2024 11:29 AM [facility] Hyaline Casts, Urine 2.5 0 - 3 /LPF LAB URINALYSIS - AUTOMATED METHOD 04/16/2024 11:29 AM [facility] Urine Urine specimen obtained by clean catch procedure / Unknown Non-blood Collection / Unknown 04/16/2024 1:00 AM EST 04/16/2024 11:02 AM EST us Aroldo Morgan MD LAB URINE ORDERABLES Final Resul t [facility] [address] [place] [address], documented in this encounter Visit Diagnoses Diagnosis Urinary tract infection, site not specified documented in this encounter Care Teams Automotive Collision Estimator Relationship Specialty Start Date End Date Aroldo Morgan MD [address] [place] [address], [phone] PCP - General Family Medicine 03/31/24 documented as of this encounter
--- OUTSIDE RECORDS SUMMARY | 2024-06-24 11:00 | XMS_ITS | Encounter Summary ---
Author Organization [facility], Address [address] [place] [address] Phone Care Team Providers Care Strategy Consultant Name Role Phone Bryan Fontanez MD Primary Care Provider [phone] Encounter Details Date Type Department Care Team ([facility] st Contact Info) Description 10/25/2023 Documentation Only [facility], [address] [place] [address] Osorio Burgos, [address] [place] [address] Social History Tobacco Use Types [...] on filedocumented in this encounter Care Teams Strategy Consultant Relationship Specialty Start Date End Date Bryan Fontanez MD [address] [place] [address] PCP - General 05/17/20 documented as of this encounter
--- OUTSIDE RECORDS SUMMARY | 2024-06-24 11:00 | XMS_ITS | Encounter Summary ---
Author Organization [facility], Address [address] [place] [address] Phone Care Team Providers Care Wood Chopper Name Role Phone Bryan Fontanez MD Primary Care Provider [phone] Encounter Details Date Type Department Care Team ([facility] st Contact Info) Description 11/21/2022 Documentation Only [facility], [address] [place] [address] Osorio Burgos, [address] [place] [address] Social History Tobacco Use Types [...] on filedocumented in this encounter Care Teams Wood Chopper Relationship Specialty Start Date End Date Bryan Fontanez MD [address] [place] [address] PCP - General 05/17/20 documented as of this encounter
--- OUTSIDE RECORDS SUMMARY | 2024-06-24 11:00 | XMS_ITS | Encounter Summary ---
Author Organization [facility], Address [address] [place] [address] Phone Care Team Providers Care Supervisor Feed Mill Name Role Phone Bryan Fontanez MD Primary Care Provider [phone] Encounter Details Date Type Department Care Team ([facility] [place] st Contact Info) Description 08/29/2023 Documentation Only [facility], [address] [place] [place] [address] Osorio Burgos, [address] [place] [address] Social History Tobacco Use Types [...] on filedocumented in this encounter Care Teams Supervisor Feed Mill Relationship Specialty Start Date End Date Bryan Fontanez MD [address] [place] [address] PCP - General 05/17/20 documented as of this encounter
--- OUTSIDE RECORDS SUMMARY | 2024-06-24 11:00 | XMS_ITS | Encounter Summary ---
Author Organization [facility] Address [address] [place] [address] Care Team Providers Care Raw Silk Grader Name Role Phone Aroldo Morgan MD Primary Care Provider [phone] Encounter Details Date Type Department Care Team (Late st Contact Info) Description 04/12/2024 Lab Requisition [facility] - Main Lab [address] [place] [address] Aroldo Morgan MD 38 [facility] 204 [facility] [address] Chronic kidney disease, unspecified; Anemia, [...] LAB CHEMISTRY METHOD 04/14/2024 10:07 AM EST [facility] ([facility]) [facility] Potassium 4.5 3.5 - 5.5 mmol/L LAB CHEMISTRY METHOD 04/14/2024 10:07 AM [facility] Chloride 102 96 - 110 mmol/L LAB CHEMISTRY METHOD 04/14/2024 10:07 AM [facility] CO2 31 21 - 32 mmol/L LAB CHEMISTRY METHOD 04/14/2024 10:07 AM [facility] Anion Gap 6 3 - 11 LAB CHEMISTRY METHOD 04/14/2024 10:07 AM [facility] Glucose 230(H) 70 - 100 mg/dL LAB CHEMISTRY METHOD 04/14/2024 10:07 AM [facility] BUN 53(H) 5 - 25 mg/dL LAB CHEMISTRY METHOD 04/14/2024 10:07 AM [facility] Creatinine 1.69(H) 0.50 - 1.10 mg/dL LAB CHEMISTRY METHOD 04/14/2024 10:07 AM [facility] eGFR 31(L) >=60 mL/min/1. 73m2 LAB CHEMISTRY METHOD 04/14/2024 10:07 AM [facility] Comment:Calculation based on the??Chronic Kidney Disease Epidemiology Collaboration (CKD-EPI) equation refit??without adjustment for race. BUN/Creatinine Ratio 31.4 LAB CHEMISTRY METHOD 04/14/2024 10:07 AM [facility] Calcium 9.6 8.5 - 10.5 mg/dL LAB CHEMISTRY METHOD 04/14/2024 10:07 AM [facility] Blood Venous blood specimen / Unknown Venipuncture / Unknown 04/14/2024 5:23 AM EST 04/14/2024 9:12 AM EST us Aroldo Morgan MD LAB BLOOD ORDERABLES Final Resul t [facility] [address] [place] [address], * (ABNORMAL) Complete blood count (04/14/2024 5:23 AM EST) [facility] [address] WBC 6.2 4.8 - 10.8 K/mcL LAB HEMETOLOGY METHOD 04/14/2024 9:43 AM [facility] RBC 4.50 3.80 - 4.80 M/mcL LAB HEMETOLOGY METHOD 04/14/2024 9:43 AM [facility] Hemoglobin 11.8 11.5 - 16.0 g/dL LAB HEMETOLOGY METHOD 04/14/2024 9:43 AM [facility] Hematocrit 40.5 35.0 - 47.0 % LAB HEMETOLOGY METHOD 04/14/2024 9:43 AM [facility] MCV 89.2 79.0 - 98.0 FL LAB HEMETOLOGY METHOD 04/14/2024 9:43 AM [facility] MCH 26.0(L) 27.0 - 32.0 pcg LAB HEMETOLOGY METHOD 04/14/2024 9:43 AM [facility] MCHC 29.1(L) 32.0 - 37.0 g/dL LAB HEMETOLOGY METHOD 04/14/2024 9:43 AM [facility] RDW 16.7(H) 11.0 - 15.0 % LAB HEMETOLOGY METHOD 04/14/2024 9:43 AM [facility] Platelets 273 130 - 400 K/mcL LAB HEMETOLOGY METHOD 04/14/2024 9:43 AM [facility] MPV 12.3(H) 7.0 - 11.0 FL LAB HEMETOLOGY METHOD 04/14/2024 9:43 AM [facility] NRBC 0.0 <1.0 % LAB HEMETOLOGY METHOD 04/14/2024 9:43 AM [facility] NRBC Absolute 0.00 <0.10 K/mcL LAB HEMETOLOGY METHOD 04/14/2024 9:43 AM EST [facility] Blood Venous blood specimen / Unknown Venipuncture / Unknown 04/14/2024 5:23 AM EST 04/14/2024 9:14 AM EST us Aroldo Morgan MD LAB BLOOD ORDERABLES Final Resul t [facility] [address] [place] [address], documented in this encounter Visit Diagnoses Diagnosis Chronic kidney disease, unspecified Anemia, unspecified documented in this encounter Care Teams Raw Silk Grader Relationship Specialty Start Date End Date Aroldo Morgan MD [address] [place] [address], [phone] PCP - General Family Medicine 03/31/24 documented as of this encounter
--- OUTSIDE RECORDS SUMMARY | 2024-06-24 11:00 | XMS_ITS | Encounter Summary ---
Author Organization [facility] Address [address] [place] [address] Care Team Providers Care Child Care Centre Manager Name Role Phone Aroldo Morgan MD Primary Care Provider [phone] Encounter Details Date Type Department Care Team (Late st Contact Info) Description 04/04/2024 Lab Requisition [facility] - Main Lab [address] [place] [address] Aroldo Morgan MD 38 [facility] 204 [facility] [address] Chronic kidney disease, unspecified; Anemia, unspecified [...] LAB CHEMISTRY METHOD 04/07/2024 9:18 AM EST [facility]) [facility] Potassium 4.5 3.5 - 5.5 mmol/L LAB CHEMISTRY METHOD 04/07/2024 9:18 AM [facility] Chloride 103 96 - 110 mmol/L LAB CHEMISTRY METHOD 04/07/2024 9:18 AM [facility] CO2 30 21 - 32 mmol/L LAB CHEMISTRY METHOD 04/07/2024 9:18 AM [facility] Anion Gap 5 3 - 11 LAB CHEMISTRY METHOD 04/07/2024 9:18 AM [facility] Glucose 235(H) 70 - 100 mg/dL LAB CHEMISTRY METHOD 04/07/2024 9:18 AM [facility] BUN 57(H) 5 - 25 mg/dL LAB CHEMISTRY METHOD 04/07/2024 9:18 AM [facility] Creatinine 1.66(H) 0.50 - 1.10 mg/dL LAB CHEMISTRY METHOD 04/07/2024 9:18 AM [facility] eGFR 31(L) >=60 mL/min/1. 73m2 LAB CHEMISTRY METHOD 04/07/2024 9:18 AM [facility] Comment:Calculation based on the??Chronic Kidney Disease Epidemiology Collaboration (CKD-EPI) equation refit??without adjustment for race. BUN/Creatinine Ratio 34.3 LAB CHEMISTRY METHOD 04/07/2024 9:18 AM [facility] Calcium 9.2 8.5 - 10.5 mg/dL LAB CHEMISTRY METHOD 04/07/2024 9:18 AM [facility] Blood Venous blood specimen / Unknown Venipuncture / Unknown 04/07/2024 4:55 AM EST 04/07/2024 8:09 AM EST us Aroldo Morgan MD LAB BLOOD ORDERABLES Final Resul t [facility] [address] [place] [address], * (ABNORMAL) Complete blood count (04/07/2024 4:55 AM EST) [facility] WBC 5.9 4.8 - 10.8 K/mcL LAB HEMETOLOGY METHOD 04/07/2024 8:34 AM [facility] RBC 4.20 3.80 - 4.80 M/mcL LAB HEMETOLOGY METHOD 04/07/2024 8:34 AM [facility] Hemoglobin 11.0(L) 11.5 - 16.0 g/dL LAB HEMETOLOGY METHOD 04/07/2024 8:34 AM [facility] Hematocrit 38.0 35.0 - 47.0 % LAB HEMETOLOGY METHOD 04/07/2024 8:34 AM [facility] MCV 90.7 79.0 - 98.0 FL LAB HEMETOLOGY METHOD 04/07/2024 8:34 AM [facility] MCH 26.3(L) 27.0 - 32.0 pcg LAB HEMETOLOGY METHOD 04/07/2024 8:34 AM [facility] MCHC 28.9(L) 32.0 - 37.0 g/dL LAB HEMETOLOGY METHOD 04/07/2024 8:34 AM [facility] RDW 17.4(H) 11.0 - 15.0 % LAB HEMETOLOGY METHOD 04/07/2024 8:34 AM [facility] Platelets 305 130 - 400 K/mcL LAB HEMETOLOGY METHOD 04/07/2024 8:34 AM [facility] MPV 11.5(H) 7.0 - 11.0 FL LAB HEMETOLOGY METHOD 04/07/2024 8:34 AM [facility] NRBC 0.0 <1.0 % LAB HEMETOLOGY METHOD 04/07/2024 8:34 AM [facility] NRBC Absolute 0.00 <0.10 K/mcL LAB HEMETOLOGY METHOD 04/07/2024 8:34 AM EST [facility] Blood Venous blood specimen / Unknown Venipuncture / Unknown 04/07/2024 4:55 AM EST 04/07/2024 8:09 AM EST us Aroldo Morgan MD LAB BLOOD ORDERABLES Final Resul t [facility] [address] [place] [address], documented in this encounter Visit Diagnoses Diagnosis Chronic kidney disease, unspecified Anemia, unspecified documented in this encounter Care Teams Child Care Centre Manager Relationship Specialty Start Date End Date Aroldo Morgan MD [address] [place] [address], [phone] PCP - General Family Medicine 03/31/24 documented as of this encounter
--- OUTSIDE RECORDS SUMMARY | 2024-06-24 11:00 | XMS_ITS | Clinical Summary ---
Author Organization [facility], Address [address] [place] [address] [place] [address] Phone Care Team Providers Care Matcher Offbearer Name Role Phone Bryan Fontanez MD Primary Care Provider [phone] Allergies Active Allergy Reactions Criticality Noted Date [...] Communication [facility] - [address] [place] [address] Francesca Gentile RN from Last 3 Months [...] PM EST) Hemoglobin A1C 6.2(H) (4-6) % [facility] 3 Comment: HEMOGLOBIN A1C(%) ?? GLUCOSE CONTROL INDEX ?<6% ? EXCELLENT ?6-7% ?VERY GOOD ?7-8% ?GOOD ?8-10% ? FAIR ?>10% ?POOR Hemoglobin (Hb) A1c testing is performed by Robert Ashleigh-quant immunoassay. Any cause of shortened erythrocyte survival will reduce exposure of erythrocytes to glucose with a consequent decrease in Hb A1c (%). Testing performed or reported by ~[facility], ~a Service of [facility], ~[address] [place] [id number]~ Iván Wolf MD, [employer]uminum [employer]rication Supervisor~ 05/12/2019 12:3 8 PM EST us Harlan Doss MD LAB BLOOD ORDERABLES Final Res ult [facility] 3 from Last 3 Months or Most Recently Relevant to Health Maintenance Insurance ([id number]) [place] [id number] [facility] ([id number]) Care Teams Matcher Offbearer Relationship Specialty Start Date End Date Bryan Fontanez MD [address] [place] [address] PCP - General 05/17/20
--- OUTSIDE RECORDS SUMMARY | 2024-06-24 11:00 | XMS_ITS | Clinical Summary ---
Author Organization [address] Address [address] [place] [phone] Phone Care Team Providers Care Lap Checker Name Role Phone Aroldo Morgan MD Primary Care Provider Encounters Date Type Department Care Team Description 04/26/2024 Lab Requisition [facility] [address] [place] [phone] Aroldo Morgan MD Chronic kidney disease, unspecified; Anemia, unspecified 04/18/2024 Lab Requisition [facility] [address] [place] [phone] Aroldo Morgan MD Chronic kidney disease, unspecified; Anemia, unspecified 04/16/2024 Lab Requisition [facility] [address] [place] [phone] Aroldo Morgan MD Urinary tract infection, site not specified 04/12/2024 Lab Requisition [facility] [address] [place] [phone] Aroldo Morgan MD Chronic kidney disease, unspecified; Anemia, unspecified 04/04/2024 Lab Requisition [facility] [address] [place] [phone] Aroldo Morgan MD Chronic kidney disease, unspecified; Anemia, unspecified 03/31/2024 Lab Requisition [facility] [address] [place] [phone] Aroldo Morgan MD Type 2 diabetes mellitus without complications ([facility]) from Last 3 Months Social History Tobacco [...] 1-dose 75+ series) 02/03/2020 COVID-19 Vaccine ( season) 2024 02/22/2021, 07/02/2020, 06/11/2020 Influenza Vaccine [...] Tdap) 12/30/2033 12/31/2023, 07/19/2018, 02/20/2012 Pneumococcal Vaccine: 50+ Years Completed 04/24/2023, 06/15/2017, 04/27/2015, Additional history [...] patient's age to complete this topic Meningococcal B Vacine Aged Out No lo nger eligible based on patient's age to complete [...] EST Type 2 diabetes mellitus without complications ([facility]) from Last 3 Months Results * (ABNORMAL) Urinalysis with reflex microscopic (04/16/2024 1:00 AM EST) Specific [place] Urine 1.009 1.003 - 1.030 LAB URINALYSIS - AUTOMATED METHOD 04/16/2024 11:29 AM [facility] pH, Urine 5.5 5.0 - 8.0 pH LAB URINALYSIS - AUTOMATED METHOD 04/16/2024 11:29 AM [facility] Leukocytes, Urine Large(A) Negative LAB URINALYSIS - AUTOMATED METHOD 04/16/2024 11:29 AM [facility] Nitrite, Urine Negative Negative LAB URINALYSIS - AUTOMATED METHOD 04/16/2024 11:29 AM [facility] Protein, Urine Negative <=Trace mg/dL LAB URINALYSIS - AUTOMATED METHOD 04/16/2024 11:29 AM [facility] Glucose, Urine Negative Negative mg/dL LAB URINALYSIS - AUTOMATED METHOD 04/16/2024 11:29 AM [facility] Ketones, Urine Negative Negative mg/dL LAB URINALYSIS - AUTOMATED METHOD 04/16/2024 11:29 AM [facility] Urobilinogen, Urine 0.2 0.2 - 1.0 mg/dL LAB URINALYSIS - AUTOMATED METHOD 04/16/2024 11:29 AM [facility] Bilirubin, Urine Negative Negative LAB URINALYSIS - AUTOMATED METHOD 04/16/2024 11:29 AM [facility] Blood, Urine Negative Negative LAB URINALYSIS - AUTOMATED METHOD 04/16/2024 11:29 AM [facility] RBC, Urine 1.0 0 - 4 /HPF LAB URINALYSIS - AUTOMATED METHOD 04/16/2024 11:29 AM [facility] WBC, Urine 152.9(H) 0 - 4 /HPF LAB URINALYSIS - AUTOMATED METHOD 04/16/2024 11:29 AM [facility] Squamous Epithelial, Urine 8 0 - 60 /LPF LAB URINALYSIS - AUTOMATED METHOD 04/16/2024 11:29 AM [facility] Bacteria, Urine Few(A) Negative /HPF LAB URINALYSIS - AUTOMATED METHOD 04/16/2024 11:29 AM [facility] Hyaline Casts, Urine 2.5 0 - 3 /LPF LAB URINALYSIS - AUTOMATED METHOD 04/16/2024 11:29 AM [facility] Urine Urine specimen obtained by clean catch procedure / Unknown Non-blood Collection / Unknown 04/16/2024 1:00 AM EST 04/16/2024 11:02 AM EST Aroldo Morgan MD LAB URINE ORDERABLES Final Resul t Performing Organization Address City/[facility]/ZIP Co de Phone Number [facility] [address] [place] [address], [place] [phone] * Faust urine culture tube (04/16/2024 1:00 AM EST) Extra Tube Hold for add-ons. 04/16/2024 1:01 PM [facility] Comment:Auto resulted. Urine Urine specimen obtained by clean catch procedure / Unknown 04/16/2024 1:00 AM EST 04/16/2024 11:03 AM EST Aroldo Morgan MD LAB URINE ORDERABLES Final Resul t Performing Organization Address City/[facility]/ZIP Co de Phone Number [facility] [address] [place] [address], [place] [phone] * (ABNORMAL) Complete blood count (04/14/2024 5:23 AM EST) Only the most recent of3 resultswithin the time period is included. [facility] Signature WBC 6.2 4.8 - 10.8 K/mcL LAB HEMETOLOGY METHOD 04/14/2024 9:43 AM [facility] RBC 4.50 3.80 - 4.80 M/mcL LAB HEMETOLOGY METHOD 04/14/2024 9:43 AM [facility] Hemoglobin 11.8 11.5 - 16.0 g/dL LAB HEMETOLOGY METHOD 04/14/2024 9:43 AM [facility] Hematocrit 40.5 35.0 - 47.0 % LAB HEMETOLOGY METHOD 04/14/2024 9:43 AM [facility] MCV 89.2 79.0 - 98.0 FL LAB HEMETOLOGY METHOD 04/14/2024 9:43 AM [facility] MCH 26.0(L) 27.0 - 32.0 pcg LAB HEMETOLOGY METHOD 04/14/2024 9:43 AM [facility] MCHC 29.1(L) 32.0 - 37.0 g/dL LAB HEMETOLOGY METHOD 04/14/2024 9:43 AM [facility] RDW 16.7(H) 11.0 - 15.0 % LAB HEMETOLOGY METHOD 04/14/2024 9:43 AM [facility] Platelets 273 130 - 400 K/mcL LAB HEMETOLOGY METHOD 04/14/2024 9:43 AM [facility] MPV 12.3(H) 7.0 - 11.0 FL LAB HEMETOLOGY METHOD 04/14/2024 9:43 AM [facility] NRBC 0.0 <1.0 % LAB HEMETOLOGY METHOD 04/14/2024 9:43 AM [facility] NRBC Absolute 0.00 <0.10 K/mcL LAB HEMETOLOGY METHOD 04/14/2024 9:43 AM [facility] Blood Venous blood specimen / Unknown Venipuncture / Unknown 04/14/2024 5:23 AM EST 04/14/2024 9:14 AM EST us Aroldo Morgan MD LAB BLOOD ORDERABLES Final Resul t [facility] [address] [place] [address], * (ABNORMAL) Basic metabolic panel (04/14/2024 5:23 AM EST) Only the most recent of2 resultswithin the time period is included. Sodium 139 133 - 145 mmol/L LAB CHEMISTRY METHOD 04/14/2024 10:07 AM [facility] Potassium 4.5 3.5 - 5.5 mmol/L LAB CHEMISTRY METHOD 04/14/2024 10:07 AM [facility] Chloride 102 96 - 110 mmol/L LAB CHEMISTRY METHOD 04/14/2024 10:07 AM [facility] CO2 31 21 - 32 mmol/L LAB CHEMISTRY METHOD 04/14/2024 10:07 AM [facility] Anion Gap 6 3 - 11 LAB CHEMISTRY METHOD 04/14/2024 10:07 AM [facility] Glucose 230(H) 70 - 100 mg/dL LAB CHEMISTRY METHOD 04/14/2024 10:07 AM [facility] BUN 53(H) 5 - 25 mg/dL LAB CHEMISTRY METHOD 04/14/2024 10:07 AM [facility] Creatinine 1.69(H) 0.50 - 1.10 mg/dL LAB CHEMISTRY METHOD 04/14/2024 10:07 AM [facility] eGFR 31(L) >=60 mL/min/1. 73m2 LAB CHEMISTRY METHOD 04/14/2024 10:07 AM EST [facility] Comment:Calculation based on the??Chronic Kidney Disease Epidemiology Collaboration (CKD-EPI) equation refit??without adjustment for race. BUN/Creatinine Ratio 31.4 LAB CHEMISTRY METHOD 04/14/2024 10:07 AM [facility] Calcium 9.6 8.5 - 10.5 mg/dL LAB CHEMISTRY METHOD 04/14/2024 10:07 AM [facility] Blood Venous blood specimen / Unknown Venipuncture / Unknown 04/14/2024 5:23 AM EST 04/14/2024 9:12 AM EST us Aroldo Morgan MD LAB BLOOD ORDERABLES Final Resul t Performing Organization Address [facility] Co de Phone Number [facility] [address] [place] [address], [place] [phone] * (ABNORMAL) Hemoglobin A1c (03/31/2024 6:29 AM EST) Hemoglobin A1C 6.5(H) <6.5 % LAB CHEMISTRY METHOD 03/31/2024 1:59 PM [facility] Mean Bld Glu Estim. 140 mg/dL LAB CHEMISTRY METHOD 03/31/2024 1:59 PM [facility] Blood Venous blood specimen / Unknown Venipuncture / Unknown 03/31/2024 6:29 AM EST 03/31/2024 9:47 AM EST us Aroldo Morgan MD LAB BLOOD ORDERABLES Final Resul t Performing Organization Address [facility]/ZIP Co de Phone Number [facility] [address] [place] [address], [place] [phone] * (ABNORMAL) Comprehensive metabolic panel (03/31/2024 6:29 AM EST) Sodium 140 133 - 145 mmol/L LAB CHEMISTRY METHOD 03/31/2024 12:08 PM [facility] Potassium 5.0 3.5 - 5.5 mmol/L LAB CHEMISTRY METHOD 03/31/2024 12:08 PM [facility] Chloride 104 96 - 110 mmol/L LAB CHEMISTRY METHOD 03/31/2024 12:08 PM [facility] CO2 30 21 - 32 mmol/L LAB CHEMISTRY METHOD 03/31/2024 12:08 PM [facility] Anion Gap 6 3 - 11 LAB CHEMISTRY METHOD 03/31/2024 12:08 PM [facility] Glucose 137(H) 70 - 100 mg/dL LAB CHEMISTRY METHOD 03/31/2024 12:08 PM [facility] BUN 37(H) 5 - 25 mg/dL LAB CHEMISTRY METHOD 03/31/2024 12:08 PM [facility] Creatinine 1.33(H) 0.50 - 1.10 mg/dL LAB CHEMISTRY METHOD 03/31/2024 12:08 PM [facility] eGFR 41(L) >=60 mL/min/1. 73m2 LAB CHEMISTRY METHOD 03/31/2024 12:08 PM [facility] Comment:Calculation based on the??Chronic Kidney Disease Epidemiology Collaboration (CKD-EPI) equation refit??without adjustment for race. BUN/Creatinine Ratio 27.8 LAB CHEMISTRY METHOD 03/31/2024 12:08 PM [facility] Calcium 9.8 8.5 - 10.5 mg/dL LAB CHEMISTRY METHOD 03/31/2024 12:08 PM [facility] AST (SGOT) 21 10 - 42 unit/L LAB CHEMISTRY METHOD 03/31/2024 12:08 PM [facility] ALT (SGPT) 11 10 - 60 unit/L LAB CHEMISTRY METHOD 03/31/2024 12:08 PM [facility] Alkaline Phosphatase 110 42 - 121 unit/L LAB CHEMISTRY METHOD 03/31/2024 12:08 PM [facility] Total Protein 6.7 6.0 - 8.0 g/dL LAB CHEMISTRY METHOD 03/31/2024 12:08 PM EST [facility] Albumin 2.8(L) 3.2 - 5.0 g/dL LAB CHEMISTRY METHOD 03/31/2024 12:08 PM EST [facility] Total Bilirubin 0.6 0.0 - 1.4 mg/dL LAB CHEMISTRY METHOD 03/31/2024 12:08 PM EST [facility] Blood Venous blood specimen / Unknown Venipuncture / Unknown 03/31/2024 6:29 AM EST 03/31/2024 9:47 AM EST us Aroldo Morgan MD LAB BLOOD ORDERABLES Final Resul t [facility] [address] [place] [address], from Last 3 Months Insurance Member Subscriber Plan / Payer (Ef fective 2014-Present) Name:Danisha Dan Relation to Subscriber:Self Name:Danisha Dan Payer ID:[id number] Group ID:[id number] Type:Not on file Address: [facility] [place] [phone] Care Teams Lap Checker Relationship Specialty Start Date End Date Aroldo Morgan MD [address] [place] [address], [phone] PCP - General Family Medicine 03/31/24
--- OUTSIDE RECORDS SUMMARY | 2024-06-24 11:00 | XMS_ITS | Data Portability ---
Author Organization [facility], Main Office Address [address], [address] [place] [address] Care Team Providers Care Health Care Administrator Name Role Phone PÉREZ SULTANA - 2ND [...] Address Organization Details Recorded Time Recurrent falls 593548111 Active 2023 Joan Shah NP [address], [address], [place], [address], [facility] [employer] 14:23:46 Asthenia 09737850 Active 2023 Joan Shah NP [address], [address], [place], [address], [facility] 14:23:52 Anemia 846021728 Active 2023 Joan Shah NP [address], [address], [place], [address], [facility] [employer] 14:23:59 Atrial flutter 9488320 Active 2023 Joan Shah NP [address], [address], [place], [address], [facility] [employer] 14:24:25 Dementia 00092940 Active 2023 Joan Shah NP [address], [address], [place], [address], [employer] [facility] 4 14:24:42 Type 2 diabetes mellitus 15264159 Active 2023 Joan Shah NP [address], [address], [place], [address], [facility] 4 14:25:01 Depressive disorder 88419878 Active 2023 Joan Shah NP [address], [address], [place], [address], [facility] - [facility] 4 14:25:09 Fracture of multiple ribs 3868385 Active 2023 Joan Shah NP [address], [address], [place], [address], [employer] [facility] 4 19:03:44 Peripheral vascular disease 583136259 Active 2023 Joan Shah NP [address], [address], [place], [address], [employer] - [facility] 4 19:04:26 Congestive heart failure 56300399 Active 2023 Joan Shah NP [address], [address], [place], [address], [employer] [facility] 4 19:04:45 Hypertensive disorder 38524358 Active 2023 Joan Shah NP [address], [address], [place], [address], [employer] - [facility] 4 19:05:00 Hyperlipidemia 81435849 Active 2023 Joan Shah NP [address], [address], [place], [address], [employer] - [facility] 4 19:19:08 Seasonal allergy 635193873 Active 2023 Joan Shah NP [address], [address], [place], [address], [place] - [facility] 4 19:25:46 Urinary tract infectious disease 75004715 Active 2023 Sammie Gamble MD [address], [address], [place], [address] [facility] 4 14:37:32 Problem Notes None recorded. Medical Equipment None Reported. Allergies Allergen ID Allergen Name Allergen Category Reaction Reaction Severity Criticality Documentation Date Start Date Code Code System Note Provider Name and Address Organization Details Recorded Time 08217 erythromy tamara medicatio n other Not available unabletoasse 03/26/2024 4053 RxNorm unkno wn Not Available Not Available Not Available 56864 Substance with sulfonami de structure and antibacte rial mechanism of action (substanc e) medicatio n other Not available unabletoasse 03/26/2024 20952 8003 SNOMED unkno wn Not Available Not Available Not Available 99654 lactose food,medi cation other Not available unabletoasse 03/26/2024 6211 RxNorm unkno wn Not Available Not Available Not Available 70230 shellfish derived food,medi cation other Not available unabletoasse 03/26/2024 84058 UNK seafo od Not Available Not Available Not Available Vitals Date Recorded Heart rate Respiratory rate Body temperature Oxygen saturation Oxygen saturation in Arterial blood by Pulse oximetry Systolic blood pressure Diastolic blood pressure Provider Name and Address Organization Details Last Updated DateTime 4 68 /min 17 /min 97.6 [degF] 94 % 94 % 104 mm[Hg] 78 mm[Hg] Joan Shah NP [address], [address], [place], [address] , [facility] 4 14:22:12 Date Recorded Heart rate Respiratory rate Body temperature Oxygen saturation Oxygen saturation in Arterial blood by Pulse oximetry Systolic blood pressure Diastolic blood pressure Provider Name and Address Organization Details Last Updated DateTime 4 72 /min 16 /min 97.3 [degF] 92 % 92 % 104 mm[Hg] 74 mm[Hg] Joan Shah NP [address], [address], [place], [address] , [facility] 4 09:54:01 Date Recorded Heart rate Respiratory rate Body temperature Oxygen saturation Oxygen saturation in Arterial blood by Pulse oximetry Body weight Body mass index (BMI) Body height Systolic blood pressure Diastolic blood pressure Provider Name and Address Organization Details Last Updated DateTime 4 72 /min 18 /min 98.7 [degF] 96 % 96 % 82629.0 5 g 25.2 kg/m2 149.86 cm 104 mm[Hg] 74 mm[Hg] Sammie Gamble MD [address], [facility] [address], [place], [address], [facility] 4 17:40:16 Date Recorded Body height Heart rate Respiratory rate Body temperature Oxygen saturation Oxygen saturation in Arterial blood by Pulse oximetry Body mass index (BMI) Body weight Systolic blood pressure Diastolic blood pressure Provider Name and Address Organization Details Last Updated DateTime 4 149.86 cm 76 /min 16 /min 97 [degF] 97 % 97 % 24 kg/m2 67692.4 9 g 142 mm[Hg] 81 mm[Hg] Sammie Gamble MD [address] [facility] [address], [place], [address], [facility] 4 20:59:29 Date Recorded Body height Body weight Body mass index (BMI) Heart rate Respiratory rate Body temperature Oxygen saturation Oxygen saturation in Arterial blood by Pulse oximetry Systolic blood pressure Diastolic blood pressure Provider Name and Address Organization Details Last Updated DateTime 4 149.86 cm 84360.0 8 g 24.2 kg/m2 76 /min 16 /min 97.7 [degF] 97 % 97 % 142 mm[Hg] 81 mm[Hg] Joan Shah NP [address] [facility] [address], [place], [address], [facility] 4 09:24:10 Social History Question Answer Notes LastModified by Organizat ion Details LastModified Time Tobacco Smoking Status Never Smoker Joan Shah NP [address] [facility] [address], [place], [address], [facility] 03/26/2024 18:41:14 Do You Have An Advance Directive? Yes Information not available 04/01/2024 What Is Your Level Of Alcohol Consumption? None Information not available 03/26/2024 What Is Your Code Status? DNR/DNI Information not available 04/01/2024 Where Do You Live? Apartment Information not available 03/26/2024 Legal Guardian? No Informati on not available 04/01/2024 Do You Have A Medical Power Of Brake Lining Maker? Yes Invoked Information not available 04/01/2024 What [...] (RSV) vaccine, unspecified 4 completed [facility] 03/26/2024 13:39:00 Tdap 4 completed [facility] 03/26/2024 13:39:14 Td(adult) unspecified formulation 2 completed [facility] 03/26/2024 13:39:28 Pneumococcal conjugate PCV20, polysaccharide SHP359 conjugate, adjuvant, PF 3 completed [facility] 03/26/2024 13:39:54 influenza, unspecified formulation 2 completed [facility] 03/26/2024 13:40:07 influenza, unspecified formulation 3 completed [facility] 03/26/2024 13:40:14 SARS-COV-2 (COVID-19) vaccine, UNSPECIFIED 1 completed [facility] 03/26/2024 13:40:26 SARS-COV-2 (COVID-19) vaccine, UNSPECIFIED 1 completed [facility] 03/26/2024 13:40:32 SARS-COV-2 (COVID-19) vaccine, UNSPECIFIED 1 completed [facility] 03/26/2024 13:40:40 SARS-COV-2 (COVID-19) vaccine, UNSPECIFIED 4 completed [facility] 03/26/2024 13:40:46 Past Encounters Encounter ID Performer Location Encounter Start Date Encounter Closed Date Diagnosis/Indication Diagnosis SNOMED-CT Code Diagnosis ICD10 Code Diagnosis Note [id number] Joan Shah NP [address] [address] 03/26/2024 14:19:37 03/27/2024 09:14:17 Fracture of multiple ribs 4316178 S22.42XD see hpi2nd and 3rd left rib fractures eval'd by trauma and rec conservati ve therapy, IS, acapella valve, and pain management and WBAT105/26a nd start lidocaine patch % to ribs and right thighcontt yl 975 mg po tidcyclobe nzaprine 5 mg po qhs and tyl prnoxycodo ne 5 mg po q 6 hours prn painmonito r Asthenia 04918663 R53.1 PT OT eval and treat for strengthen ing, gait, balance, mobility, romsupport evelin caremonito r Recurrent falls 65400563 2 R29.6 PT OT eval and treat for strengthen ing, gait, balance, mobility, romsupport evelin caremonito r Urinary tr act infectious disease 59259317 N39.0 treated with abx and will continue cefpodoxim e 200 mg po bid here for 7 daysmonito r for sequlae Dementia 20615842 F01.C2 with severe dementiamo nitor for improvemen t from uti or baselineda ughter feels dementia may be baseline, although states she never refuses food or meds or states she is being held hostage today and now that daughter is here she is eating drinking and will see if she can take meds today, may be situationa l being new here, will need to monitor closelypys ch to eval and treatwill invokemoni tor Atrial flutter 0522474 I 48.92 clopidogre l 75 mg po dailymetop rolol xl 25 mg po dailyeliqu is 5 mg po bidmonitor Type 2 flora betes mellitus 33956901 E11.9 BS stable 100-200s todayinsul in decreased to lantus 15 units qhsmonitor bs with meals tid ac Depressive disorder 3548 9007 F32.A pt with hx ofsee dementia above Anemia 671575581 D64.9 vit b2 daily bidmonitor cbc weekly x3 for anemia with hx and recent fx on eliquis Congestive heart failure 30102994 I50.9 hx ofconttopr ol xl 25 mg qdentresto is on hold with cefpodoxim e(consider resuming)s pirolacton e 25 mg po qdtorsemid e 40 mg qdfu outpt cardiology 04/01/24 at 2:15 pm [facility] outpt device clinic 05/23/2024 07:40 am Peripheral vascular disease 585391823 I73.9 hx ofmonitor Fracture o f inferior pubic ramus 705224226 S32.592G pt with ? of fx of inferior left pubic ramussee hpi, felt not to be a fracture by ortho and WBATmontio rfu with Dr Haja burger at [facility] as needed in 1-2 weeks for ? pelvic fracture Hypertensive disorder 38 731195 I10 hx ofconttopr ol xl 25 mg qdentresto is on hold with cefpodoxim e(consider resuming)s pirolacton e 25 mg po qdtorsemid e 40 mg qdmonitor vitals, cardiac status Hyperlipidemia 02018709 E78.5 contliptor 40 mg po qdmonitor Seasonal allergy 3626347 04 J30.2 claritin 10 mg po dailymonit or [id number] Joan Shah NP [address] [address] 03/27/2024 09:50:43 03/28/2024 10:17:23 Fracture of multiple ribs 6663327 S22.42XD see hpi2nd and 3rd left rib fractures eval'd by trauma and rec conservati ve therapy, IS, acapella valve, and pain management and WBAT1 nd start lidocaine patch % to ribs and right thighcontt yl 975 mg po tidcyclobe nzaprine 5 mg po qhs and tyl prnoxycodo ne 5 mg po q 6 hours prn painmonito r Fracture o f inferior pubic ramus 453286406 S32.592G pt with ? of fx of inferior left pubic ramussee hpi, felt not to be a fracture by ortho and WBATmontio rfu with Dr Haja burger at [facility] as needed in 1-2 weeks for ? pelvic fracture Asthenia 55791272 R53.1 PT OT eval and treat for strengthen ing, gait, balance, mobility, romsupport evelin caremonito r Recurrent falls 08875606 2 R29.6 PT OT eval and treat for strengthen ing, gait, balance, mobility, romsupport evelin caremonito r Urinary tr act infectious disease 77144830 N39.0 treated with abx and will continue cefpodoxim e 200 mg po bid here for 7 daysunclea r if dementia is worse with UTI and on abx?questi on if her not taking meds and delusions related to the UTI and seems to be more receptive to staff todaymonit or for sequlae Dementia 84978933 F01.C2 with severe dementiamo nitor for improvemen t from uti or baselineda ughter feels dementia may be baseline,u nclear if [...] also helpful to her today Atrial flutter 6602128 I 48.92 clopidogre l 75 mg po dailymetop rolol xl 25 mg po dailyeliqu is 5 mg po bidmonitor Type 2 flora betes mellitus 72752002 E11.9 BS stable 100-200s todayinsul in decreased to lantus 15 units qhsmonitor bs with meals tid ac Depressive disorder 3541 9007 F32.A pt with hx ofsee dementia above Anemia 838883968 D64.9 vit b2 daily bidmonitor cbc weekly x3 for anemia with hx and recent fx on eliquis Congestive heart failure 16072913 I50.9 hx ofconttopr ol xl 25 mg qdentresto is on hold with cefpodoxim e(consider resuming)s pirolacton e 25 mg po qdtorsemid e 40 mg qdfu outpt cardiology 04/01/24 at 2:15 pm [facility] cardi[facility] outpt device clinic 05/23/2024 07:40 am Peripheral vascular disease 783501074 I73.9 hx ofmonitor Hypertensive disorder 38 951650 I10 bp stablecont toprol xl 25 mg qdentresto is on hold with cefpodoxim e(consider resuming)s pirolacton e 25 mg po qdtorsemid e 40 mg qdmonitor vitals, cardiac status Hyperlipidemia 77442228 E78.5 contliptor 40 mg po qdmonitor Seasonal allergy 3696999 04 J30.2 claritin 10 mg po dailymonit or [id number] Sammie Gamble MD [address] [address] 03/28/2024 15:02:00 04/02/2024 08:32:26 Dementia 88104870 F01.C2 Mod/severe at baseline.C ommunicati ng pretty well tonight.Co ntinue supportive care, expect decline.HC P invokedMon itor mood and behaviors. Psych consult. Urinary tr act infectious disease 84965327 N30.00 Urine cx grew mixed dwayne.Txed with cefpodoxim e 200 mg BID, will complete 7 day course on 03/30.Uncl ear if true UTI, but will complete tx.Monitor for sxs. Depressive disorder 2358 5547 F33.8 Tearful and worried.On no meds.Will get psych consult. Fracture o f multiple ribs 2870127 S22.42XD With continued pain.Destinee nue lidocaine patch % to ribs and right thigh, APAP 975 mg TID, cyclobenza gregg 5 mg qhs and oxycodone 5 mg q 6 hs prn.Encour age acappella, I jeremy, and cough and deep breaths.Mo nitor sxs. Fracture o f inferior pubic ramus 070515802 S32.592G Not thought to be fx per ortho.WBAT , pain meds as above and monitor.Ne eds PT/OT for strengthen ing, balance, gait training, safety and function.C ontinue fall precaution s.Monitor for safety. Asthenia 99637202 R53.1 As above. Recurrent falls 37757637 2 R29.6 As above. Atrial flutter 3225849 I 48.92 Rate in good control on metoprolol 25 mg qd.Continu e clopidogre l 75 mg po qd and eliquis 5 mg BIDMonitor HR and bleeding risk.F/U with cardio as planned. Type 2 flora betes mellitus 47917030 E11.9 BS in adequate control.Co ntinue lantus 15U qd and SSI.Monito r fingerstic ks TI and HgA1C q 3-6 months. Anemia 462225548 D64.89 Stable.Mon itor Congestive heart failure 14728761 I50.9 Appears euvolemic. Continue meds as above.Gale tor resp. status, fluid status, wts and labs.F/U with cardio 04/01/24 at 2:15 pm and at device clinic 05/23/2024 at 7:40 am Peripheral vascular disease 592019680 I73.89 hx ofmonitor Hypertensive disorder 38 643529 I10 BP in good control since here.Destinee nue metoprolol 25 mg qd, spironolac tone 25 mg qd and torsemide 40 mg qdMonitor BP and labs. Hyperlipidemia 77688693 E78.49 Continue atorvastat in 40 mg qdMonitor yearly. Seasonal allergy 2103024 04 J30.2 Continue claritin 10 mg qdMonitor sxs. [id number] [facility] [address] 04/01/2024 14:21:58 05/02/2024 11:50:25 Dementia 66832025 F01.C2 Mod/severe at baseline.C ommunicati ng pretty well tonight.Co ntinue supportive care, expect decline.HC P invokedMon itor mood and behaviors. Psych consult. Urinary tr act infectious disease 35957099 N30.00 Urine cx grew mixed dwayne.Txed with cefpodoxim e 200 mg BID, will complete 7 day course on 03/30.Uncl ear if true UTI, but will complete tx.Monitor for sxs. Depressive disorder 3548 9007 F33.8 Tearful and worried.On no meds.Will get psych consult. Fracture o f multiple ribs 5243342 S22.42XD With continued pain.Destinee nue lidocaine patch % to ribs and right thigh, APAP 975 mg TID, cyclobenza gregg 5 mg qhs and oxycodone 5 mg q 6 hs prn.Encour age acappella, I jeremy, and cough and deep breaths.Mo nitor sxs. Fracture o f inferior pubic ramus 817217951 S32.592G Not thought to be fx per ortho.WBAT , pain meds as above and monitor.Ne eds PT/OT for strengthen ing, balance, gait training, safety and function.C ontinue fall precaution s.Monitor for safety. Asthenia 27423208 R53.1 As above. Recurrent falls 61112033 2 R29.6 As above. Atrial flutter 0043718 I 48.92 Rate in good control on metoprolol 25 mg qd.Continu e clopidogre l 75 mg po qd and eliquis 5 mg BIDMonitor HR and bleeding risk.F/U with cardio as planned. Type 2 flora betes mellitus 48552207 E11.9 BS in adequate control.Co ntinue lantus 15U qd and SSI.Monito r fingerstic ks TI and HgA1C q 3-6 months. Anemia 537324589 D64.89 Stable.Mon itor Hypertensive disorder 38 314744 I10 BP in good control since here.Destinee nue metoprolol 25 mg qd, spironolac tone 25 mg qd and torsemide 40 mg qdMonitor BP and labs. Congestive heart failure 47416890 I50.9 Appears euvolemic. Continue meds as above.Gale tor resp. status, fluid status, wts and labs.F/U with cardio 04/01/24 at 2:15 pm and at device clinic 05/23/2024 at 7:40 am Peripheral vascular disease 055820900 I73.89 hx ofmonitor Hyperlipidemia 94225623 E78.49 Continue atorvastat in 40 mg qdMonitor yearly. Seasonal allergy 7411232 04 J30.2 Continue claritin 10 mg qdMonitor sxs. [id number] Joan Shah, EVELYN [address] [address] 04/10/2024 09:23:02 04/11/2024 11:26:37 Dementia 74569361 F01.C2 Mod/severe at baseline. seems to be trusting staff and improvingC ontinue supportive care, expect decline.HC P invokedMon itor mood and behaviors. Psych consult. Depressive disorder 3548 9007 F33.8 appears tearful at times, improving while hereOn no meds.Will get psych consult. Has not seen her yet Fracture o f multiple ribs 0057571 S22.42XD pain managed and leaving her Contin uelidocain e patch % to ribs and right thigh, APAP 975 mg TID, cyclobenza gregg 5 mg qhs and oxycodone 5 mg q 6 hs prn.Encour age acappella, I jeremy, and cough and deep breaths.Mo nitor sxs. Fracture o f inferior pubic ramus 150044968 S32.592G Not thought to be fx per ortho.WBAT , pain meds as above and monitor.Ne eds PT/OT for strengthen ing, balance, gait training, safety and function.C ontinue fall precaution s.Monitor for safety. Asthenia 96157573 R53.1 As above. Recurrent falls 74462395 2 R29.6 As above. Atrial flutter 4372821 I 48.92 Rate in good control on metoprolol 25 mg qd.Continu eclopidogr el 75 mg po qd and eliquis 5 mg BIDMonitor HR and bleeding risk.F/U with cardio as planned. Type 2 flora betes mellitus 12635836 E11.9 BS in adequate control, 100s 200s mostlyCont inuelantus 15U qd and SSI.Monito r fingerstic ks TI and HgA1C q 3-6 months. Anemia 421742923 D64.89 Stable.Mon itor Hypertensive disorder 38 489641 I10 BP in good control since here.Destinee nuemetopro lol 25 mg qd, spironolac tone 25 mg qd and torsemide 40 mg qdMonitor BP and labs. Congestive heart failure 60111253 I50.9 Appears euvolemic. Continue meds as above.Gale [...] Vásquez Member ID Guarantor Name 03/26/2024 1 [facility] - DOS ON OR AFTER 2022 - MEDICARE ADVANTAGE [place] (MEDICARE REPLACEMENT/AD VANTAGE - PPO) Danisha Dan [id number] Danisha Dan 03/27/2024 1 [employer] CARE [employer]IANCE - DOS ON OR AFTER 2022 - MEDICARE [place]AGE [place]MEDIC[place]/AD VANTAGE - PPO) Danisha Dan [id number] Danisha Dan 03/28/2024 1 [employer] CARE ALLIANCE - DOS ON OR AFTER 2022 - [place]IC[place]MED[place]/AD VANTAGE - PPO) Danisha Dan [id number] Danisha Dan 04/01/2024 1 [employer] CARE ALLIANCE - DOS ON OR AFTER 2022 - [place]IC[place]AGE [place]MED[place]/AD VANTAGE - PPO) Danisha Dan [id number] Danisha Dan 04/10/2024 1 [employer] CARE ALLIANCE - DOS ON OR AFTER 2022 - MEDICARE [place]AGE [place] (MEDICARE [place]PLACEMENT/AD VANTAGE - PPO) Danisha Dan [id number] Danisha Dan Notes Date Note Type Note Provider Name and Address Organization Details Recorded Time 4 text/html Pt is seen for an initial intake visit. PMH: Afib on eliquis, dementia, DM, falls, HTN, HLD, PVD, UTI Danisha was seen at [facility] for a fall and sent to [...] management On exam, Danisha is an elderly Portuguese speaking female lying in bed with her [...] she is cooperative and pleasant with this [employer]. She states she hurts all over but [...] IVF okay. per HCP daughter Joan Shah, [employer] [address], [address], [place], [address], [facility] [employer] 03/26/2024 19:34:16 4 text/html Pt is seen for an acute rounding visit. PMH: Afib on eliquis, dementia, DM, falls, HTN, HLD, PVD, UTI Danisha was seen at [facility] for a fall and sent to [...] she is reassured of her meds. This [employer] went through each medication and reviewed it [...] IVF okay. per HCP daughter Joan Shah, [employer] [address] [facility], [address], [place], [address], [employer] 03/27/2024 10:02:06 4 text/html This is a [...] .Continue Lantus, lispro sliding scalePOCT AC, at bedtimeA-fib(I48.91):Radha e uzitmkpmsl-Jcejtd-CMIxsj coagulation-on Eliquis Tonight she is in bed, awake. She tells me she's feeling ok, but is scared because she doesn't know if she's going to get better. Gets tearful at times.I see her with a equatorial guinean speaking staff member, but she answers in nepalese often, and sometimes answers my questions before he translates them. Her PMH includes HTN, Afib on Eliquis, dementia, AODM, HLD, PVD, UTIs and frequent falls. Sammie Gamble MD [address] [place] [address], [facility] [address], [place], [address], [facility] 04/01/2024 14:55:48 4 text/html I am seeing this 79 yo woman today for an acute visit to f/u rib pain and progress in rehab .She denies pain, but often gets tearful. When I ask her what kind of place this is, she tells me it's a place people come to .I see her with a equatorial guinean speaking staff member, but she answers in nepalese often, and sometimes answers my questions before he translates them. Her PMH includes HTN, Afib on Eliquis, dementia, AODM, HLD, PVD, UTIs and frequent falls. Sammie Gamble MD [address] [place] [address], [address], [place], [address], [facility] 05/01/2024 16:10:08 4 text/html Pt is seen for an acute rounding visit. Her PMH includes HTN, Afib on Eliquis, dementia, AODM, HLD, PVD, UTIs and frequent falls.I Danisha is a 79 yo woman who was seen at [facility] for a fall and sent to [...] IVF okay. per HCP daughter Joan Shah, [employer] [address] [facility], [address], [place], [address], [facility] - [employer] 04/10/2024 20:17:01 OBGyn Episode No OBEpisode recorded.
--- OUTSIDE RECORDS SUMMARY | 2024-06-24 11:00 | XMS_ITS | Encounter Summary ---
Author Organization [facility], Address [address] [place] [address] Phone Care Team Providers Care Rn Surgical Name Role Phone Bryan Fontanez MD Primary Care Provider [phone] Encounter Details Date Type Department Care Team (Late st Contact Info) Description 05/26/2024 Office Communication [facility] - [address] [place] [address] Francesca Gentile, MARIFER [address] [facility] [place] [address] Social History Tobacco Use Types Packs/Day Years [...] on filedocumented in this encounter Care Teams Rn Surgical Relationship Specialty Start Date End Date Bryan Fontanez MD [address] [place] [address] PCP - General 05/17/20 documented as of this encounter
--- OUTSIDE RECORDS SUMMARY | 2024-06-24 11:00 | XMS_ITS | Encounter Summary ---
Author Organization [facility] Address [address] [place] [address] Care Team Providers Care Hat Finishing Materials Preparer Name Role Phone Aroldo Morgan MD Primary Care Provider [phone] Encounter Details Date Type Department Care Team (Late st Contact Info) Description 04/18/2024 Lab Requisition [facility] - Main Lab [address] [facility] [employer] [place] [address] Aroldo Morgan MD [address] [place] [address] 204 [facility] [phone] Chronic kidney disease, unspecified; Anemia, unspecified Social [...] unspecified documented in this encounter Care Teams Hat Finishing Materials Preparer Relationship Specialty Start Date End Date Aroldo Morgan MD [address] [facility] [address], [phone] PCP - General Family Medicine 03/31/24 documented as of this encounter
--- OUTSIDE RECORDS SUMMARY | 2024-06-24 11:00 | XMS_ITS | Encounter Summary ---
Author Organization [facility] Address [address] [place] [address] Care Team Providers Care Continuity Clerk Name Role Phone Aroldo Morgan MD Primary Care Provider [phone] Encounter Details Date Type Department Care Team (Late st Contact Info) Description 04/26/2024 Lab Requisition [facility] - Main Lab [address] [facility] [employer] [place] [address] Aroldo Morgan MD [address] [place] [address] 204 [facility] [phone] Chronic kidney disease, unspecified; Anemia, unspecified Social [...] unspecified documented in this encounter Care Teams Continuity Clerk Relationship Specialty Start Date End Date Aroldo Morgan MD [address] [place] [facility] [address], [phone] PCP - General Family Medicine 03/31/24 documented as of this encounter
== END 2024-06-24 10:06 | disposition home or self-care (01) ==
LOC: HO.HOSX 10:05
PROVIDERS: Visit Provider Orthopaedic Surgery
DX: M79.641 Pain in right hand (principal); S62.511A Displaced fracture of proximal phalanx of right thumb, initial encounter for closed fracture
CPT/HCPCS: 73130; 99212

== ENCOUNTER 2024-06-24 13:18 | Outpatient (AMB) | payer OTHER, SELFPAY ==
[2024-06-24 13:24] VITALS: BMI 20.8
--- NOTE | 2024-06-24 13:24 | A.OFFVIS_ITS ---
Vital Signs 06/24/24 13:24 Height 5 ft 4 in Weight 121 lb BMI 20.8 Intake Visit Reasons: OV- RT thumb displaced fx DOI 04/16/24 Intake Note: Danisha is a 79 year old right hand dominant female who presents today for a follow up of right thumb displaced fracture of proximal phalanx s/p fall, DOI:04/16/24. During the last visit the patient was once again placed into thumb spica cast. Patient was advised to follow up with Dr. Betancourt for concerns of potential delayed healing of her fracture. Today patient reports pain on her right thumb that only happens with certain movements. She takes Tylenol and Oxycodone for pain. Denies numbness, tingling, finger locking. Allergies fish derived [fish] Allergy (Verified 06/24/24 13:39) Rash HPI HPI OV- RT thumb displaced fx DOI 04/16/24: Details: Danisha is a 79 year old right hand dominant Diabetic Lebanese speaking woman who returns for her right thumb proximal phalanx fracture, from a fall, DOI: 04/16/24. She was 1st seen for this on 05/08/2024. This has been managed non- operatively. She is seen today with her daughter. She had originally been placed in a thumb spica splint but she, reportedly, kept removing the splint at her correction and not following her immobilization instructions. the workers at her home also were not aware of her restrictions. She has been managed in serial thumb spica casts since she was 1st seen on 05/08/2024. She denies any numbness or tingling. Regarding the oxycodone, it sounds like she was taking some after she fell and injured her hip about 2 months ago. She is no longer taking this medication. She resides in [facility]. [facility] Medical History Hydrocephalus Abnormal findings on diagnostic imaging of skull and head, not elsewhere classified Memory difficulties Headache Tremor Social History Alcohol intake: never Patient Tobacco Use Status: Never used Tobacco Review of Systems Const All systems reviewed & are unremarkable except as noted in HPI and below Physical Exam Vital Signs: BMI result Body Mass Index 20.8 Const General: no acute distress and alert Orientation/consciousness: patient oriented x3 Neuro General: patient oriented x3 Extrem Other: Evaluation of Right Upper Extremity: The patient is alert, oriented, and in no acute distress Neuro: Median, Ulnar, Radial nerves motor and sensory intact Vascular: Cap refill brisk ROM: Good flexion & extension at the IP joint She has flexion & extension at the MCP joint, the motion does not appear to be at the fracture site Fracture site non-tender No swelling or ecchymosis Considering she has been in a cast she has pretty good wrist range of motion without pain. She can flex her fingers to a fist and back into extension without difficulty Radiographs: 3 views of the right hand, with attention tot he thumb, were taken and viewed by me today in clinic. They show a displaced thumb proximal phalanx fracture, with about 25-30 degrees apex volar deformity, and about 10 degrees apex ulnar. It does appear that there is some early evidence of interval bony healing centrally within the fracture, but not so much at the cortices Psych Appearance: grossly normal Affect: normal affect Attitude: cooperative Assessment & Plan Assessment & Plan (1) Displaced fracture of proximal phalanx of right thumb: Code(s): S62.511A - Displaced fracture of proximal phalanx of right thumb, initial encounter for closed fracture Category: Medical Plan Assessment & Plan: 1. Right thumb displaced proximal phalanx fracture, with some angular deformity and delayed union From a fall, DOI: 04/16/24 First treated in our clinic and in a cast on 05/08/2024 I educated her about this condition I discussed operative and non-operative treatment options, and we are again going to try to manage this non operatively. I believe she is finally starting to heal. Evidently she has been removing her splint when at home, which likely affected her healing She was placed in a new thumb spica cast I discussed activity modification, she is to lift nothing heavier than a cellphone She should work on gentle finger ROM exercises She will follow up in 3 weeks, with X-rays, 3V R hand I am hopeful that we can get her out of the cast at next visit. Scribed for Keira Betancourt MD by Juan Luis Lucas, medical records supervisor, on 06/24/24 at 2:00 PM, EST. Orders: Orders XR hand RT min 3V Today M79.641 - Pain in right hand Coding Level of Care Code Global (49168) Diagnoses Displaced fracture of proximal phalanx of right thumb S62.511A
--- OUTSIDE RECORDS SUMMARY | 2024-06-24 14:14 | XMS_ITS | Clinical Summary ---
Author Organization [facility], Address [address] [place] [address] [place] [address] Phone Care Team Providers Care Esthetician/Owner Name Role Phone Bryan Fontanez MD Primary Care Provider [phone] Allergies Active Allergy Reactions Criticality Noted Date [...] Communication [facility] - [address] [place] [address] Francesca Gentile RN from Last 3 Months [...] PM EST) Hemoglobin A1C 6.2(H) (4-6) % [facility] 3 Comment: HEMOGLOBIN A1C(%) ?? GLUCOSE CONTROL INDEX ?<6% ? EXCELLENT ?6-7% ?VERY GOOD ?7-8% ?GOOD ?8-10% ? FAIR ?>10% ?POOR Hemoglobin (Hb) A1c testing is performed by Robert Ashleigh-quant immunoassay. Any cause of shortened erythrocyte survival will reduce exposure of erythrocytes to glucose with a consequent decrease in Hb A1c (%). Testing performed or reported by ~[facility], ~a Service of [facility], ~[address] [place] [id number]~ Iván Wolf MD, Director Of Sustainability Programs~ 05/12/2019 12:3 8 PM EST us Harlan Doss MD LAB BLOOD ORDERABLES Final Res ult [facility] 3 from Last 3 Months or Most Recently Relevant to Health Maintenance Insurance ([id number]) [place] [id number] [facility] ([id number]) Care Teams Esthetician/Owner Relationship Specialty Start Date End Date Bryan Fontanez MD [address] [place] [address] PCP - General 05/17/20
--- OUTSIDE RECORDS SUMMARY | 2024-06-24 14:14 | XMS_ITS | Encounter Summary ---
Author Organization [facility], Address [address] [place] [address] Phone Care Team Providers Care Lead Pharmacy Technician Name Role Phone Bryan Fontanez MD Primary Care Provider [phone] Encounter Details Date Type Department Care Team (Late st Contact Info) Description 08/08/2022 Documentation Only [facility], [address] [place] [address] Bryan Fontanez MD [address] [place] [address] Social History Tobacco Use Types Packs/Day Years [...] on filedocumented in this encounter Care Teams Lead Pharmacy Technician Relationship Specialty Start Date End Date Bryan Fontanez MD [address] [place] [address] PCP - General 05/17/20 documented as of this encounter
--- OUTSIDE RECORDS SUMMARY | 2024-06-24 14:14 | XMS_ITS | Clinical Summary ---
Author Organization [address] Address [address] [place] [address] Phone Care Team Providers Care Filenet Admin Name Role Phone Aroldo Morgan MD Primary Care Provider [phone] Encounters Date Type Department Care Team Description 04/26/2024 Lab Requisition [facility] Lab [address] [place] [phone] Aroldo Morgan MD Chronic kidney disease, unspecified; Anemia, unspecified 04/18/2024 Lab Requisition [facility] Lab [address] [place] [phone] Aroldo Morgan MD Chronic kidney disease, unspecified; Anemia, unspecified 04/16/2024 Lab Requisition [facility] Lab [address] [place] [phone] Aroldo Morgan MD Urinary tract infection, site not specified 04/12/2024 Lab Requisition [facility] Lab [address] [place] [phone] Aroldo Morgan MD Chronic kidney disease, unspecified; Anemia, unspecified 04/04/2024 Lab Requisition [facility] Lab [address] [place] [phone] Aroldo Morgan MD Chronic kidney disease, unspecified; Anemia, unspecified 03/31/2024 Lab Requisition [facility] Lab [address] [place] [phone] Aroldo Morgan MD Type 2 diabetes mellitus without complications ([facility]) from Last 3 Months Social History Tobacco [...] EST Type 2 diabetes mellitus without complications ([facility]) from Last 3 Months Results * (ABNORMAL) Urinalysis with reflex microscopic (04/16/2024 1:00 AM EST) Specific [place] Urine 1.009 1.003 - 1.030 LAB URINALYSIS - AUTOMATED METHOD 04/16/2024 11:29 AM [facility] LAB pH, Urine 5.5 5.0 - 8.0 pH LAB URINALYSIS - AUTOMATED METHOD 04/16/2024 11:29 AM [facility] LAB Leukocytes, Urine Large(A) Negative LAB URINALYSIS - AUTOMATED METHOD 04/16/2024 11:29 AM [facility] Nitrite, Urine Negative Negative LAB URINALYSIS - AUTOMATED METHOD 04/16/2024 11:29 AM [facility] Protein, Urine Negative <=Trace mg/dL LAB URINALYSIS - AUTOMATED METHOD 04/16/2024 11:29 AM [facility] LAB Glucose, Urine Negative Negative mg/dL LAB URINALYSIS - AUTOMATED METHOD 04/16/2024 11:29 AM [facility] Ketones, Urine Negative Negative mg/dL LAB URINALYSIS - AUTOMATED METHOD 04/16/2024 11:29 AM [facility] Urobilinogen, Urine 0.2 0.2 - 1.0 mg/dL LAB URINALYSIS - AUTOMATED METHOD 04/16/2024 11:29 AM [facility] Bilirubin, Urine Negative Negative LAB URINALYSIS - AUTOMATED METHOD 04/16/2024 11:29 AM [facility] Blood, Urine Negative Negative LAB URINALYSIS - AUTOMATED METHOD 04/16/2024 11:29 AM [facility] RBC, Urine 1.0 0 - 4 /HPF LAB URINALYSIS - AUTOMATED METHOD 04/16/2024 11:29 AM [facility] WBC, Urine 152.9(H) 0 - 4 /HPF LAB URINALYSIS - AUTOMATED METHOD 04/16/2024 11:29 AM [facility] Squamous Epithelial, Urine 8 0 - 60 /LPF LAB URINALYSIS - AUTOMATED METHOD 04/16/2024 11:29 AM [facility] Bacteria, Urine Few(A) Negative /HPF LAB URINALYSIS - AUTOMATED METHOD 04/16/2024 11:29 AM [facility] Hyaline Casts, Urine 2.5 0 - 3 /LPF LAB URINALYSIS - AUTOMATED METHOD 04/16/2024 11:29 AM [facility] Urine Urine specimen obtained by clean catch procedure / Unknown Non-blood Collection / Unknown 04/16/2024 1:00 AM EST 04/16/2024 11:02 AM EST Aroldo Morgan MD LAB URINE ORDERABLES Final Resul t Performing Organization Address City/[facility]/ZIP Co de Phone Number [facility] [address] [place] [address], [place] [phone] * Faust urine culture tube (04/16/2024 1:00 AM EST) Extra Tube Hold for add-ons. 04/16/2024 1:01 PM [facility] Comment:Auto resulted. Urine Urine specimen obtained by clean catch procedure / Unknown 04/16/2024 1:00 AM EST 04/16/2024 11:03 AM EST Aroldo Morgan MD LAB URINE ORDERABLES Final Resul t Performing Organization Address City/[facility]/ZIP Co de Phone Number [facility] [address] [place] [address], [place] [phone] * (ABNORMAL) Complete blood count (04/14/2024 5:23 AM EST) Only the most recent of3 resultswithin the time period is included. [facility] Signature WBC 6.2 4.8 - 10.8 K/mcL LAB HEMETOLOGY METHOD 04/14/2024 9:43 AM [facility] RBC 4.50 3.80 - 4.80 M/mcL LAB HEMETOLOGY METHOD 04/14/2024 9:43 AM [facility] Hemoglobin 11.8 11.5 - 16.0 g/dL LAB HEMETOLOGY METHOD 04/14/2024 9:43 AM [facility] Hematocrit 40.5 35.0 - 47.0 % LAB HEMETOLOGY METHOD 04/14/2024 9:43 AM [facility] MCV 89.2 79.0 - 98.0 FL LAB HEMETOLOGY METHOD 04/14/2024 9:43 AM [facility] MCH 26.0(L) 27.0 - 32.0 pcg LAB HEMETOLOGY METHOD 04/14/2024 9:43 AM [facility] LAB MCHC 29.1(L) 32.0 - 37.0 g/dL LAB HEMETOLOGY METHOD 04/14/2024 9:43 AM [facility] LAB RDW 16.7(H) 11.0 - 15.0 % LAB HEMETOLOGY METHOD 04/14/2024 9:43 AM [facility] Platelets 273 130 - 400 K/mcL LAB HEMETOLOGY METHOD 04/14/2024 9:43 AM [facility] MPV 12.3(H) 7.0 - 11.0 FL LAB HEMETOLOGY METHOD 04/14/2024 9:43 AM [facility] LAB NRBC 0.0 <1.0 % LAB HEMETOLOGY METHOD 04/14/2024 9:43 AM [facility] LAB NRBC Absolute 0.00 <0.10 K/mcL LAB HEMETOLOGY METHOD 04/14/2024 9:43 AM [facility] Blood Venous blood specimen / Unknown Venipuncture / Unknown 04/14/2024 5:23 AM EST 04/14/2024 9:14 AM EST us Aroldo Morgan MD LAB BLOOD ORDERABLES Final Resul t [facility] [address] [place] [address], * (ABNORMAL) Basic metabolic panel (04/14/2024 5:23 AM EST) Only the most recent of2 resultswithin the time period is included. Sodium 139 133 - 145 mmol/L LAB CHEMISTRY METHOD 04/14/2024 10:07 AM [facility] Potassium 4.5 3.5 - 5.5 mmol/L LAB CHEMISTRY METHOD 04/14/2024 10:07 AM [facility] Chloride 102 96 - 110 mmol/L LAB CHEMISTRY METHOD 04/14/2024 10:07 AM [facility] CO2 31 21 - 32 mmol/L LAB CHEMISTRY METHOD 04/14/2024 10:07 AM [facility] Anion Gap 6 3 - 11 LAB CHEMISTRY METHOD 04/14/2024 10:07 AM [facility] Glucose 230(H) 70 - 100 mg/dL LAB CHEMISTRY METHOD 04/14/2024 10:07 AM [facility] BUN 53(H) 5 - 25 mg/dL LAB CHEMISTRY METHOD 04/14/2024 10:07 AM [facility] Creatinine 1.69(H) 0.50 - 1.10 mg/dL LAB CHEMISTRY METHOD 04/14/2024 10:07 AM [facility] LAB eGFR 31(L) >=60 mL/min/1. 73m2 LAB CHEMISTRY METHOD 04/14/2024 10:07 AM EST [facility] Comment:Calculation based on the??Chronic Kidney Disease Epidemiology Collaboration (CKD-EPI) equation refit??without adjustment for race. BUN/Creatinine Ratio 31.4 LAB CHEMISTRY METHOD 04/14/2024 10:07 AM [facility] Calcium 9.6 8.5 - 10.5 mg/dL LAB CHEMISTRY METHOD 04/14/2024 10:07 AM [facility] Blood Venous blood specimen / Unknown Venipuncture / Unknown 04/14/2024 5:23 AM EST 04/14/2024 9:12 AM EST us Aroldo Morgan MD LAB BLOOD ORDERABLES Final Resul t Performing Organization Address [facility] Co de Phone Number [facility] [address] [place] [address], [place] [phone] * (ABNORMAL) Hemoglobin A1c (03/31/2024 6:29 AM EST) Hemoglobin A1C 6.5(H) <6.5 % LAB CHEMISTRY METHOD 03/31/2024 1:59 PM [facility] Mean Bld Glu Estim. 140 mg/dL LAB CHEMISTRY METHOD 03/31/2024 1:59 PM [facility] Blood Venous blood specimen / Unknown Venipuncture / Unknown 03/31/2024 6:29 AM EST 03/31/2024 9:47 AM EST us Aroldo Morgan MD LAB BLOOD ORDERABLES Final Resul t Performing Organization Address [facility]/ZIP Co de Phone Number [facility] [address] [place] [address], [place] [phone] * (ABNORMAL) Comprehensive metabolic panel (03/31/2024 6:29 AM EST) Sodium 140 133 - 145 mmol/L LAB CHEMISTRY METHOD 03/31/2024 12:08 PM [facility] Potassium 5.0 3.5 - 5.5 mmol/L LAB CHEMISTRY METHOD 03/31/2024 12:08 PM [facility] Chloride 104 96 - 110 mmol/L LAB CHEMISTRY METHOD 03/31/2024 12:08 PM [facility] CO2 30 21 - 32 mmol/L LAB CHEMISTRY METHOD 03/31/2024 12:08 PM [facility] Anion Gap 6 3 - 11 LAB CHEMISTRY METHOD 03/31/2024 12:08 PM [facility] Glucose 137(H) 70 - 100 mg/dL LAB CHEMISTRY METHOD 03/31/2024 12:08 PM [facility] BUN 37(H) 5 - 25 mg/dL LAB CHEMISTRY METHOD 03/31/2024 12:08 PM [facility] Creatinine 1.33(H) 0.50 - 1.10 mg/dL LAB CHEMISTRY METHOD 03/31/2024 12:08 PM [facility] eGFR 41(L) >=60 mL/min/1. 73m2 LAB CHEMISTRY METHOD 03/31/2024 12:08 PM [facility] Comment:Calculation based on the??Chronic Kidney Disease Epidemiology Collaboration (CKD-EPI) equation refit??without adjustment for race. BUN/Creatinine Ratio 27.8 LAB CHEMISTRY METHOD 03/31/2024 12:08 PM [facility] Calcium 9.8 8.5 - 10.5 mg/dL LAB CHEMISTRY METHOD 03/31/2024 12:08 PM [facility] AST (SGOT) 21 10 - 42 unit/L LAB CHEMISTRY METHOD 03/31/2024 12:08 PM [facility] ALT (SGPT) 11 10 - 60 unit/L LAB CHEMISTRY METHOD 03/31/2024 12:08 PM [facility] Alkaline Phosphatase 110 42 - 121 unit/L LAB CHEMISTRY METHOD 03/31/2024 12:08 PM [facility] Total Protein 6.7 6.0 - 8.0 g/dL LAB CHEMISTRY METHOD 03/31/2024 12:08 PM EST [facility] Albumin 2.8(L) 3.2 - 5.0 g/dL LAB CHEMISTRY METHOD 03/31/2024 12:08 PM EST [facility] Total Bilirubin 0.6 0.0 - 1.4 mg/dL LAB CHEMISTRY METHOD 03/31/2024 12:08 PM EST [facility] Blood Venous blood specimen / Unknown Venipuncture / Unknown 03/31/2024 6:29 AM EST 03/31/2024 9:47 AM EST us Aroldo Morgan MD LAB BLOOD ORDERABLES Final Resul t [facility] [address] [place] [address], from Last 3 Months Insurance Member Subscriber Plan / Payer (Ef fective 2014-Present) Name:Danisha Dan Relation to Subscriber:Self Name:Danisha Dan Payer ID:[id number] Group ID:[id number] Type:Not on file Address: [address] [facility] [place] [id number] Care Teams Filenet Admin Relationship Specialty Start Date End Date Aroldo Morgan MD [address] [place] [address], [phone] PCP - General Family Medicine 03/31/24
--- OUTSIDE RECORDS SUMMARY | 2024-06-24 14:14 | XMS_ITS | Encounter Summary ---
Author Organization [facility], Address [address] [place] [address] Phone Care Team Providers Care Datapower Consultant Name Role Phone Bryan Fontanez MD Primary Care Provider [phone] Encounter Details Date Type Department Care Team ([facility] st Contact Info) Description 08/29/2023 Documentation Only [facility], [address] [place] [address] Osorio Burgos, [address] [place] [place] [address] Social History Tobacco Use Types [...] on filedocumented in this encounter Care Teams Datapower Consultant Relationship Specialty Start Date End Date Bryan Fontanez MD [address] [place] [address] PCP - General 05/17/20 documented as of this encounter
--- OUTSIDE RECORDS SUMMARY | 2024-06-24 14:14 | XMS_ITS | Encounter Summary ---
Author Organization [facility], Address [address] [place] [address] Phone Care Team Providers Care Sheriff Name Role Phone Bryan Fontanez MD Primary Care Provider [phone] Encounter Details Date Type Department Care Team ([facility] st Contact Info) Description 08/29/2023 Documentation Only [facility], [address] [place] [address] Osorio Burgos, [address] [place] [address] Social History Tobacco Use Types [...] on filedocumented in this encounter Care Teams Sheriff Relationship Specialty Start Date End Date Bryan Fontanez MD [address] [place] [address] PCP - General 05/17/20 documented as of this encounter
--- OUTSIDE RECORDS SUMMARY | 2024-06-24 14:15 | XMS_ITS | Encounter Summary ---
Author Organization [facility], Address [address] [place] [address] Phone Care Team Providers Care Desk Monitor Name Role Phone Bryan Fontanez MD Primary Care Provider [phone] Encounter Details Date Type Department Care Team ([facility] st Contact Info) Description 10/25/2023 Documentation Only [facility], [address] [place] [address] Osorio Burgos, [address] [place] [address] Social History Tobacco Use Types [...] on filedocumented in this encounter Care Teams Desk Monitor Relationship Specialty Start Date End Date Bryan Fontanez MD [address] [place] [address] PCP - General 05/17/20 documented as of this encounter
--- OUTSIDE RECORDS SUMMARY | 2024-06-24 14:15 | XMS_ITS | Encounter Summary ---
Author Organization [facility] Address [address] [place] [address] Care Team Providers Care Epic [facility] Name Role Phone Aroldo Morgan MD Primary Care Provider [phone] Encounter Details Date Type Department Care Team (Late st Contact Info) Description 04/18/2024 Lab Requisition [facility] - Main Lab 299 [facility] [place] [address] Aroldo Morgan MD [address] [place] [address] 204 [facility] [phone] Chronic kidney disease, unspecified; Anemia, unspecified Social [...] unspecified documented in this encounter Care Teams Epic [facility] Relationship Specialty Start Date End Date Aroldo Morgan MD [address] [facility] [address], [phone] PCP - General Family Medicine 03/31/24 documented as of this encounter
--- OUTSIDE RECORDS SUMMARY | 2024-06-24 14:15 | XMS_ITS | Encounter Summary ---
Author Organization [facility], Address [address] [place] [address] Phone Care Team Providers Care Clinical Laboratory Science Professor Name Role Phone Bryan Fontanez MD Primary Care Provider [phone] Encounter Details Date Type Department Care Team (Late st Contact Info) Description 05/26/2024 Office Communication [facility] - [address] [place] [address] Francesca Gentile, MARIFER [address] [facility] [place] [address] Social History Tobacco Use Types Packs/Day Years [...] on filedocumented in this encounter Care Teams Clinical Laboratory Science Professor Relationship Specialty Start Date End Date Bryan Fontanez MD [address] [place] [address] PCP - General 05/17/20 documented as of this encounter
--- OUTSIDE RECORDS SUMMARY | 2024-06-24 14:15 | XMS_ITS | Encounter Summary ---
Author Organization [facility] Address [address] [place] [address] Care Team Providers Care Slag Mixer Name Role Phone Aroldo Morgan MD Primary Care Provider [phone] Encounter Details Date Type Department Care Team (Late st Contact Info) Description 03/31/[address] [facility] - Main Lab 299 [facility] [place] [address] Aroldo Morgan MD 38 [facility] 204 [facility] [address] Type 2 diabetes mellitus without complications [...] % LAB CHEMISTRY METHOD 03/31/2024 1:59 PM [facility] Mean Bld Glu Estim. 140 mg/dL LAB CHEMISTRY METHOD 03/31/2024 1:59 PM [facility] Blood Venous blood specimen / Unknown Venipuncture / Unknown 03/31/2024 6:29 AM EST 03/31/2024 9:47 AM EST us Aroldo Morgan MD LAB BLOOD ORDERABLES Final Resul t [facility] [address] [place] [address], [place] [phone] * (ABNORMAL) Comprehensive metabolic panel (03/31/2024 6:29 AM EST) Sodium 140 133 - 145 mmol/L LAB CHEMISTRY METHOD 03/31/2024 12:08 PM [facility] Potassium 5.0 3.5 - 5.5 mmol/L LAB CHEMISTRY METHOD 03/31/2024 12:08 PM [facility] Chloride 104 96 - 110 mmol/L LAB CHEMISTRY METHOD 03/31/2024 12:08 PM [facility] CO2 30 21 - 32 mmol/L LAB CHEMISTRY METHOD 03/31/2024 12:08 PM [facility] Anion Gap 6 3 - 11 LAB CHEMISTRY METHOD 03/31/2024 12:08 PM [facility] Glucose 137(H) 70 - 100 mg/dL LAB CHEMISTRY METHOD 03/31/2024 12:08 PM [facility] BUN 37(H) 5 - 25 mg/dL LAB CHEMISTRY METHOD 03/31/2024 12:08 PM [facility] Creatinine 1.33(H) 0.50 - 1.10 mg/dL LAB CHEMISTRY METHOD 03/31/2024 12:08 PM [facility] eGFR 41(L) >=60 mL/min/1. 73m2 LAB CHEMISTRY METHOD 03/31/2024 12:08 PM [facility] Comment:Calculation based on the??Chronic Kidney Disease Epidemiology Collaboration (CKD-EPI) equation refit??without adjustment for race. BUN/Creatinine Ratio 27.8 LAB CHEMISTRY METHOD 03/31/2024 12:08 PM [facility] Calcium 9.8 8.5 - 10.5 mg/dL LAB CHEMISTRY METHOD 03/31/2024 12:08 PM [facility] AST (SGOT) 21 10 - 42 unit/L LAB CHEMISTRY METHOD 03/31/2024 12:08 PM [facility] ALT (SGPT) 11 10 - 60 unit/L LAB CHEMISTRY METHOD 03/31/2024 12:08 PM [facility] Alkaline Phosphatase 110 42 - 121 unit/L LAB CHEMISTRY METHOD 03/31/2024 12:08 PM [facility] Total Protein 6.7 6.0 - 8.0 g/dL LAB CHEMISTRY METHOD 03/31/2024 12:08 PM [facility] Albumin 2.8(L) 3.2 - 5.0 g/dL LAB CHEMISTRY METHOD 03/31/2024 12:08 PM [facility] Total Bilirubin 0.6 0.0 - 1.4 mg/dL LAB CHEMISTRY METHOD 03/31/2024 12:08 PM [facility] Blood Venous blood specimen / Unknown Venipuncture / Unknown 03/31/2024 6:29 AM EST 03/31/2024 9:47 AM EST us Aroldo Morgan MD LAB BLOOD ORDERABLES Final Resul t [facility] [address] [place] [address], * (ABNORMAL) Complete blood count (03/31/2024 6:29 AM EST) [facility] WBC 6.6 4.8 - 10.8 K/mcL LAB HEMETOLOGY METHOD 03/31/2024 10:40 AM [facility] RBC 4.60 3.80 - 4.80 M/mcL LAB HEMETOLOGY METHOD 03/31/2024 10:40 AM [facility] Hemoglobin 11.9 11.5 - 16.0 g/dL LAB HEMETOLOGY METHOD 03/31/2024 10:40 AM [facility] Hematocrit 41.5 35.0 - 47.0 % LAB HEMETOLOGY METHOD 03/31/2024 10:40 AM [facility] MCV 91.0 79.0 - 98.0 FL LAB HEMETOLOGY METHOD 03/31/2024 10:40 AM [facility] MCH 26.1(L) 27.0 - 32.0 pcg LAB HEMETOLOGY METHOD 03/31/2024 10:40 AM [facility] MCHC 28.7(L) 32.0 - 37.0 g/dL LAB HEMETOLOGY METHOD 03/31/2024 10:40 AM [facility] RDW 18.0(H) 11.0 - 15.0 % LAB HEMETOLOGY METHOD 03/31/2024 10:40 AM [facility] Platelets 309 130 - 400 K/mcL LAB HEMETOLOGY METHOD 03/31/2024 10:40 AM [facility] MPV 11.6(H) 7.0 - 11.0 FL LAB HEMETOLOGY METHOD 03/31/2024 10:40 AM [facility] NRBC 0.0 <1.0 % LAB HEMETOLOGY METHOD 03/31/2024 10:40 AM [facility] NRBC Absolute 0.00 <0.10 K/mcL LAB HEMETOLOGY METHOD 03/31/2024 10:40 AM EST [facility] Blood Venous blood specimen / Unknown Venipuncture / Unknown 03/31/2024 6:29 AM EST 03/31/2024 9:47 AM EST us Aroldo Morgan MD LAB BLOOD ORDERABLES Final Resul t [facility] [address] [place] [address], documented in this encounter Visit Diagnoses Diagnosis Type 2 diabetes mellitus without complications (CMS/HCC) documented in this encounter Care Teams Slag Mixer Relationship Specialty Start Date End Date Aroldo Morgan MD [address] [place] [address], [phone] PCP - General Family Medicine 03/31/24 documented as of this encounter
--- OUTSIDE RECORDS SUMMARY | 2024-06-24 14:15 | XMS_ITS | Encounter Summary ---
Author Organization [facility] Address [address] [place] [address] Care Team Providers Care Business Excellence Manager Name Role Phone Aroldo Morgan MD Primary Care Provider [phone] Encounter Details Date Type Department Care Team (Late st Contact Info) Description 04/04/[address] [facility] - Main Lab [address] [place] [address] Aroldo Morgan MD 38 [facility] 204 [facility] [address] Chronic kidney disease, unspecified; Anemia, [...] LAB CHEMISTRY METHOD 04/07/2024 9:18 AM EST [facility] Potassium 4.5 3.5 - 5.5 mmol/L LAB CHEMISTRY METHOD 04/07/2024 9:18 AM [facility] Chloride 103 96 - 110 mmol/L LAB CHEMISTRY METHOD 04/07/2024 9:18 AM [facility] CO2 30 21 - 32 mmol/L LAB CHEMISTRY METHOD 04/07/2024 9:18 AM [facility] Anion Gap 5 3 - 11 LAB CHEMISTRY METHOD 04/07/2024 9:18 AM [facility] Glucose 235(H) 70 - 100 mg/dL LAB CHEMISTRY METHOD 04/07/2024 9:18 AM [facility] BUN 57(H) 5 - 25 mg/dL LAB CHEMISTRY METHOD 04/07/2024 9:18 AM [facility] Creatinine 1.66(H) 0.50 - 1.10 mg/dL LAB CHEMISTRY METHOD 04/07/2024 9:18 AM [facility] eGFR 31(L) >=60 mL/min/1. 73m2 LAB CHEMISTRY METHOD 04/07/2024 9:18 AM [facility] Comment:Calculation based on the??Chronic Kidney Disease Epidemiology Collaboration (CKD-EPI) equation refit??without adjustment for race. BUN/Creatinine Ratio 34.3 LAB CHEMISTRY METHOD 04/07/2024 9:18 AM [facility] Calcium 9.2 8.5 - 10.5 mg/dL LAB CHEMISTRY METHOD 04/07/2024 9:18 AM [facility] Blood Venous blood specimen / Unknown Venipuncture / Unknown 04/07/2024 4:55 AM EST 04/07/2024 8:09 AM EST us Aroldo Morgan MD LAB BLOOD ORDERABLES Final Resul t [facility] [address] [place] [address], * (ABNORMAL) Complete blood count (04/07/2024 4:55 AM EST) [facility] WBC 5.9 4.8 - 10.8 K/mcL LAB HEMETOLOGY METHOD 04/07/2024 8:34 AM [facility] RBC 4.20 3.80 - 4.80 M/mcL LAB HEMETOLOGY METHOD 04/07/2024 8:34 AM [facility] Hemoglobin 11.0(L) 11.5 - 16.0 g/dL LAB HEMETOLOGY METHOD 04/07/2024 8:34 AM [facility] Hematocrit 38.0 35.0 - 47.0 % LAB HEMETOLOGY METHOD 04/07/2024 8:34 AM [facility] MCV 90.7 79.0 - 98.0 FL LAB HEMETOLOGY METHOD 04/07/2024 8:34 AM [facility] MCH 26.3(L) 27.0 - 32.0 pcg LAB HEMETOLOGY METHOD 04/07/2024 8:34 AM [facility] MCHC 28.9(L) 32.0 - 37.0 g/dL LAB HEMETOLOGY METHOD 04/07/2024 8:34 AM [facility] RDW 17.4(H) 11.0 - 15.0 % LAB HEMETOLOGY METHOD 04/07/2024 8:34 AM [facility] Platelets 305 130 - 400 K/mcL LAB HEMETOLOGY METHOD 04/07/2024 8:34 AM [facility] MPV 11.5(H) 7.0 - 11.0 FL LAB HEMETOLOGY METHOD 04/07/2024 8:34 AM [facility] NRBC 0.0 <1.0 % LAB HEMETOLOGY METHOD 04/07/2024 8:34 AM [facility] NRBC Absolute 0.00 <0.10 K/mcL LAB HEMETOLOGY METHOD 04/07/2024 8:34 AM EST [facility] Blood Venous blood specimen / Unknown Venipuncture / Unknown 04/07/2024 4:55 AM EST 04/07/2024 8:09 AM EST us Aroldo Morgan MD LAB BLOOD ORDERABLES Final Resul t [facility] [address] [place] [address], documented in this encounter Visit Diagnoses Diagnosis Chronic kidney disease, unspecified Anemia, unspecified documented in this encounter Care Teams Business Excellence Manager Relationship Specialty Start Date End Date Aroldo Morgan MD [address] [place] [address], [phone] PCP - General Family Medicine 03/31/24 documented as of this encounter
--- OUTSIDE RECORDS SUMMARY | 2024-06-24 14:15 | XMS_ITS | Encounter Summary ---
Author Organization [facility], Address [address] [place] [address] Phone Care Team Providers Care Plug Assembler Name Role Phone Bryan Fontanez MD Primary Care Provider [phone] Encounter Details Date Type Department Care Team ([facility] st Contact Info) Description 08/29/2023 Documentation Only [facility], [address] [place] [address] Osorio Burgos, [address] [place] [address] Social History Tobacco Use Types [...] on filedocumented in this encounter Care Teams Plug Assembler Relationship Specialty Start Date End Date Bryan Fontanez MD [address] [place] [address] PCP - General 05/17/20 documented as of this encounter
--- OUTSIDE RECORDS SUMMARY | 2024-06-24 14:15 | XMS_ITS | Encounter Summary ---
Author Organization [facility] Address [address] [place] [address] Care Team Providers Care Paint Process Engineer Name Role Phone Aroldo Morgan MD Primary Care Provider [phone] Encounter Details Date Type Department Care Team (Late st Contact Info) Description 04/26/2024 Lab Requisition [facility] - Main Lab 299 [facility] [place] [address] Aroldo Morgan MD [address] [place] [address] 204 [facility] [phone] Chronic kidney disease, unspecified; Anemia, unspecified Social [...] unspecified documented in this encounter Care Teams Paint Process Engineer Relationship Specialty Start Date End Date Aroldo Morgan MD 38 [facility] [address], [phone] PCP - General Family Medicine 03/31/24 documented as of this encounter
--- OUTSIDE RECORDS SUMMARY | 2024-06-24 14:15 | XMS_ITS | Encounter Summary ---
Author Organization [facility], Address [address] [place] [address] Phone Care Team Providers Care Cellar Supervisor Name Role Phone Bryan Fontanez MD Primary Care Provider [phone] Encounter Details Date Type Department Care Team ([facility] st Contact Info) Description 11/21/2022 Documentation Only [facility], [address] [place] [address] Osorio Burgos, [address] [place] [address] Social History Tobacco Use Types [...] on filedocumented in this encounter Care Teams Cellar Supervisor Relationship Specialty Start Date End Date Bryan Fontanez MD [address] [place] [address] PCP - General 05/17/20 documented as of this encounter
--- OUTSIDE RECORDS SUMMARY | 2024-06-24 14:15 | XMS_ITS | Encounter Summary ---
Author Organization [facility] Address [address] [place] [address] Care Team Providers Care Distribution Sales Manager Name Role Phone Aroldo Morgan MD Primary Care Provider [phone] Encounter Details Date Type Department Care Team (Late st Contact Info) Description 04/16/2024 Lab Requisition [facility] - Main Lab 299 [facility] [place] [address] Aroldo Morgan MD [address] [facility] 204 [facility] [address] Urinary tract infection, site not [...] Tube Hold for add-ons. 04/16/2024 1:01 PM [facility] Comment:Auto resulted. Urine Urine specimen obtained by clean catch procedure / Unknown 04/16/2024 1:00 AM EST 04/16/2024 11:03 AM EST us Aroldo Morgan MD LAB URINE ORDERABLES Final Resul t [facility] [address] [place] [address], * (ABNORMAL) Urinalysis with reflex microscopic (04/16/2024 1:00 AM EST) Specific [facility] Urine 1.009 1.003 - 1.030 LAB URINALYSIS - AUTOMATED METHOD 04/16/2024 11:29 AM [facility] pH, Urine 5.5 5.0 - 8.0 pH LAB URINALYSIS - AUTOMATED METHOD 04/16/2024 11:29 AM [facility] Leukocytes, Urine Large(A) Negative LAB URINALYSIS - AUTOMATED METHOD 04/16/2024 11:29 AM [facility] Nitrite, Urine Negative Negative LAB URINALYSIS - AUTOMATED METHOD 04/16/2024 11:29 AM [facility] Protein, Urine Negative <=Trace mg/dL LAB URINALYSIS - AUTOMATED METHOD 04/16/2024 11:29 AM [facility] Glucose, Urine Negative Negative mg/dL LAB URINALYSIS - AUTOMATED METHOD 04/16/2024 11:29 AM [facility] Ketones, Urine Negative Negative mg/dL LAB URINALYSIS - AUTOMATED METHOD 04/16/2024 11:29 AM [facility] Urobilinogen, Urine 0.2 0.2 - 1.0 mg/dL LAB URINALYSIS - AUTOMATED METHOD 04/16/2024 11:29 AM [facility] Bilirubin, Urine Negative Negative LAB URINALYSIS - AUTOMATED METHOD 04/16/2024 11:29 AM [facility] Blood, Urine Negative Negative LAB URINALYSIS - AUTOMATED METHOD 04/16/2024 11:29 AM [facility] RBC, Urine 1.0 0 - 4 /HPF LAB URINALYSIS - AUTOMATED METHOD 04/16/2024 11:29 AM [facility] WBC, Urine 152.9(H) 0 - 4 /HPF LAB URINALYSIS - AUTOMATED METHOD 04/16/2024 11:29 AM [facility] Squamous Epithelial, Urine 8 0 - 60 /LPF LAB URINALYSIS - AUTOMATED METHOD 04/16/2024 11:29 AM [facility] Bacteria, Urine Few(A) Negative /HPF LAB URINALYSIS - AUTOMATED METHOD 04/16/2024 11:29 AM [facility] Hyaline Casts, Urine 2.5 0 - 3 /LPF LAB URINALYSIS - AUTOMATED METHOD 04/16/2024 11:29 AM [facility] Urine Urine specimen obtained by clean catch procedure / Unknown Non-blood Collection / Unknown 04/16/2024 1:00 AM EST 04/16/2024 11:02 AM EST us Aroldo Morgan MD LAB URINE ORDERABLES Final Resul t [facility] [address] [place] [address], documented in this encounter Visit Diagnoses Diagnosis Urinary tract infection, site not specified documented in this encounter Care Teams Distribution Sales Manager Relationship Specialty Start Date End Date Aroldo Morgan MD [address] [place] [address], [phone] PCP - General Family Medicine 03/31/24 documented as of this encounter
--- OUTSIDE RECORDS SUMMARY | 2024-06-24 14:15 | XMS_ITS | Encounter Summary ---
Author Organization [facility] Address [address] [place] [address] Care Team Providers Care Consulting Technical Director Name Role Phone Aroldo Morgan MD Primary Care Provider [phone] Encounter Details Date Type Department Care Team (Late st Contact Info) Description 04/12/2024 Lab Requisition [facility] - Main Lab [address] [place] [address] Aroldo Morgan MD 38 [facility] 204 [facility] [address] Chronic kidney disease, unspecified; Anemia, [...] LAB CHEMISTRY METHOD 04/14/2024 10:[address] [facility] Potassium 4.5 3.5 - 5.5 mmol/L LAB CHEMISTRY METHOD 04/14/2024 10:07 AM [facility] Chloride 102 96 - 110 mmol/L LAB CHEMISTRY METHOD 04/14/2024 10:07 AM [facility] CO2 31 21 - 32 mmol/L LAB CHEMISTRY METHOD 04/14/2024 10:07 AM [facility] Anion Gap 6 3 - 11 LAB CHEMISTRY METHOD 04/14/2024 10:07 AM [facility] Glucose 230(H) 70 - 100 mg/dL LAB CHEMISTRY METHOD 04/14/2024 10:07 AM [facility] BUN 53(H) 5 - 25 mg/dL LAB CHEMISTRY METHOD 04/14/2024 10:07 AM [facility] Creatinine 1.69(H) 0.50 - 1.10 mg/dL LAB CHEMISTRY METHOD 04/14/2024 10:07 AM [facility] eGFR 31(L) >=60 mL/min/1. 73m2 LAB CHEMISTRY METHOD 04/14/2024 10:07 AM [facility] Comment:Calculation based on the??Chronic Kidney Disease Epidemiology Collaboration (CKD-EPI) equation refit??without adjustment for race. BUN/Creatinine Ratio 31.4 LAB CHEMISTRY METHOD 04/14/2024 10:07 AM [facility] Calcium 9.6 8.5 - 10.5 mg/dL LAB CHEMISTRY METHOD 04/14/2024 10:07 AM [facility] Blood Venous blood specimen / Unknown Venipuncture / Unknown 04/14/2024 5:23 AM EST 04/14/2024 9:12 AM EST us Aroldo Morgan MD LAB BLOOD ORDERABLES Final Resul t [facility] [address] [place] [address], * (ABNORMAL) Complete blood count (04/14/2024 5:23 AM EST) [facility] WBC 6.2 4.8 - 10.8 K/mcL LAB HEMETOLOGY METHOD 04/14/2024 9:43 AM [facility] RBC 4.50 3.80 - 4.80 M/mcL LAB HEMETOLOGY METHOD 04/14/2024 9:43 AM [facility] Hemoglobin 11.8 11.5 - 16.0 g/dL LAB HEMETOLOGY METHOD 04/14/2024 9:43 AM [facility] Hematocrit 40.5 35.0 - 47.0 % LAB HEMETOLOGY METHOD 04/14/2024 9:43 AM [facility] MCV 89.2 79.0 - 98.0 FL LAB HEMETOLOGY METHOD 04/14/2024 9:43 AM [facility] MCH 26.0(L) 27.0 - 32.0 pcg LAB HEMETOLOGY METHOD 04/14/2024 9:43 AM [facility] MCHC 29.1(L) 32.0 - 37.0 g/dL LAB HEMETOLOGY METHOD 04/14/2024 9:43 AM [facility] RDW 16.7(H) 11.0 - 15.0 % LAB HEMETOLOGY METHOD 04/14/2024 9:43 AM [facility] Platelets 273 130 - 400 K/mcL LAB HEMETOLOGY METHOD 04/14/2024 9:43 AM [facility] MPV 12.3(H) 7.0 - 11.0 FL LAB HEMETOLOGY METHOD 04/14/2024 9:43 AM [facility] NRBC 0.0 <1.0 % LAB HEMETOLOGY METHOD 04/14/2024 9:43 AM [facility] NRBC Absolute 0.00 <0.10 K/mcL LAB HEMETOLOGY METHOD 04/14/2024 9:43 AM EST [facility] Blood Venous blood specimen / Unknown Venipuncture / Unknown 04/14/2024 5:23 AM EST 04/14/2024 9:14 AM EST us Aroldo Morgan MD LAB BLOOD ORDERABLES Final Resul t [facility] [address] [place] [address], documented in this encounter Visit Diagnoses Diagnosis Chronic kidney disease, unspecified Anemia, unspecified documented in this encounter Care Teams Consulting Technical Director Relationship Specialty Start Date End Date Aroldo Morgan MD [address] [place] [address], [phone] PCP - General Family Medicine 03/31/24 documented as of this encounter
== END 2024-06-24 14:24 | disposition home or self-care (01) ==
PROVIDERS: Visit Provider Orthopaedic Surgery
DX: S62.511A Displaced fracture of proximal phalanx of right thumb, initial encounter for closed fracture (principal)
CPT/HCPCS: 99024

== ENCOUNTER → 2024-06-24 13:20 | Outpatient (BNV) | payer OTHER, SELFPAY | PROVIDERS: Visit Provider Radiology Diagnostic Radiology | DX: S62.514D Nondisplaced fracture of proximal phalanx of right thumb, subsequent encounter for fracture with routine healing (principal) | CPT/HCPCS: 73130 ==

== ENCOUNTER 2024-07-16 10:15 | Outpatient (REF) | payer OTHER, SELFPAY ==
--- NOTE | ~2024-07-16 | XR_ITS ---
EXAMINATION: XR HAND 3 OR MORE VIEWS RIGHT HISTORY: M79.641 - Pain in right hand COMPARISON: Comparison is made with the prior examination dated 06/24/2024. FINDINGS: Three views of the right hand are submitted. Osseous mineralization is normal. Again seen is a fracture of the base of the proximal phalanx of the thumb. The fracture line remains visible. There is mild joint space narrowing involving the interphalangeal joint of the thumb. The soft tissues are unremarkable. XR/XR hand RT min 3V IMPRESSION: Fracture of the base of the proximal phalanx of the thumb without change. Electronically signed by: Roman Guerrero MD 07/17/2024 07:42 AM EDT
--- OUTSIDE RECORDS SUMMARY | 2024-07-16 11:44 | XMS_ITS | Encounter Summary ---
Author Organization [facility], Address [address] [place] [address] Phone Care Team Providers Care Automatic Gluing Machine Operator Name Role Phone Bryan Fontanez MD Primary Care Provider [phone] Encounter Details Date Type Department Care Team (Late st Contact Info) Description 08/08/2022 Documentation Only [facility], [address] [place] [address] Bryan Fontanez MD [address] [place] [address] Social History Tobacco Use Types Packs/Day Years [...] on filedocumented in this encounter Care Teams Automatic Gluing Machine Operator Relationship Specialty Start Date End Date Bryan Fontanez MD [address] [place] [address] PCP - General 05/17/20 documented as of this encounter
--- OUTSIDE RECORDS SUMMARY | 2024-07-16 11:44 | XMS_ITS | Encounter Summary ---
Author Organization [facility], Address [address] [place] [address] Phone Care Team Providers Care Radio Technician Name Role Phone Bryan Fontanez MD Primary Care Provider [phone] Encounter Details Date Type Department Care Team ([facility] st Contact Info) Description 08/29/2023 Documentation Only [facility], [address] [place] [address] Osorio Burgos, [address] [place] [address] Social History Tobacco Use Types [...] on filedocumented in this encounter Care Teams Radio Technician Relationship Specialty Start Date End Date Bryan Fontanez MD [address] [place] [address] PCP - General 05/17/20 documented as of this encounter
--- OUTSIDE RECORDS SUMMARY | 2024-07-16 11:44 | XMS_ITS | Encounter Summary ---
Author Organization [facility], Address [address] [place] [address] Phone Care Team Providers Care Beamster Name Role Phone Bryan Fontanez MD Primary Care Provider [phone] Encounter Details Date Type Department Care Team ([facility] st Contact Info) Description 08/29/2023 Documentation Only [facility], [address] [place] [address] Osorio Burgos, [address] [place] [address] Social History Tobacco Use Types [...] on filedocumented in this encounter Care Teams Beamster Relationship Specialty Start Date End Date Bryan Fontanez MD [address] [place] [address] PCP - General 05/17/20 documented as of this encounter
--- OUTSIDE RECORDS SUMMARY | 2024-07-16 11:44 | XMS_ITS | Clinical Summary ---
Author Organization [address] Address [address] [place] [address] Phone Care Team Providers Care Rn Hemodialysis Charge Name Role Phone Aroldo Morgan MD Primary Care Provider [phone] Encounters Date Type Department Care Team Description 04/26/2024 Lab Requisition [facility] [address] [place] [phone] Aroldo Morgan MD Chronic kidney disease, unspecified; Anemia, unspecified 04/18/2024 Lab Requisition [facility] [address] [place] [phone] Aroldo Morgan MD Chronic kidney disease, unspecified; Anemia, unspecified from Last 3 Months Social History Tobacco [...] Procedure Name Priority Date/Time Associated Diagnosis Comments BASIC METABOLIC PANEL Routine 04/14/2024 5:23 AM EST Chronic kidney disease, unspecified Anemia, unspecified HEMOGLOBIN A1C Routine 03/31/2024 6:29 AM EST Type 2 diabetes mellitus without complications (CMS/HCC) from Last 3 Months or Most Recently Relevant to Health Maintenance Results * (ABNORMAL) Basic metabolic panel (04/14/2024 5:23 AM EST) Sodium 139 133 - 145 mmol/L LAB CHEMISTRY METHOD 04/14/2024 10:07 AM [facility] Potassium 4.5 3.5 - 5.5 mmol/L LAB CHEMISTRY METHOD 04/14/2024 10:07 AM [facility] Chloride 102 96 - 110 mmol/L LAB CHEMISTRY METHOD 04/14/2024 10:07 AM [facility] CO2 31 21 - 32 mmol/L LAB CHEMISTRY METHOD 04/14/2024 10:07 AM [facility] Anion Gap 6 3 - 11 LAB CHEMISTRY METHOD 04/14/2024 10:07 AM [facility] Glucose 230(H) 70 - 100 mg/dL LAB CHEMISTRY METHOD 04/14/2024 10:07 AM [facility] BUN 53(H) 5 - 25 mg/dL LAB CHEMISTRY METHOD 04/14/2024 10:07 AM [facility] Creatinine 1.69(H) 0.50 - 1.10 mg/dL LAB CHEMISTRY METHOD 04/14/2024 10:07 AM [facility] eGFR 31(L) >=60 mL/min/1. 73m2 LAB CHEMISTRY METHOD 04/14/2024 10:07 AM [facility] Comment:Calculation based on the??Chronic Kidney Disease Epidemiology Collaboration (CKD-EPI) equation refit??without adjustment for race. BUN/Creatinine Ratio 31.4 LAB CHEMISTRY METHOD 04/14/2024 10:07 AM [facility] Calcium 9.6 8.5 - 10.5 mg/dL LAB CHEMISTRY METHOD 04/14/2024 10:07 AM [facility] Blood Venous blood specimen / Unknown Venipuncture / Unknown 04/14/2024 5:23 AM EST 04/14/2024 9:12 AM EST Aroldo Morgan MD LAB BLOOD ORDERABLES Final Resul t Performing Organization Address [facility] Co de Phone Number [facility] [address] [place] [address], [place] [phone] * (ABNORMAL) Hemoglobin A1c (03/31/2024 6:29 AM EST) Hemoglobin A1C 6.5(H) <6.5 % LAB CHEMISTRY METHOD 03/31/2024 1:59 PM EST [facility] Mean Bld Glu Estim. 140 mg/dL LAB CHEMISTRY METHOD 03/31/2024 1:59 PM EST [facility] Blood Venous blood specimen / Unknown Venipuncture / Unknown 03/31/2024 6:29 AM EST 03/31/2024 9:47 AM EST us Aroldo Morgan MD LAB BLOOD ORDERABLES Final Resul t Performing Organization Address [facility] Co de Phone Number [facility] [address] [place] [address], [place] [phone] from Last 3 Months or Most Recently Relevant to Health Maintenance Insurance [facility] Member Subscriber Plan / Payer (Ef fective 2014-Present) Name:Danisha Dan Relation to Subscriber:Self Name:Danisha Dan Payer ID:[id number] Group ID:[id number] Type:Not on file Address: [place] [address] [place] [id number] Care Teams Rn Hemodialysis Charge Relationship Specialty Start Date End Date Eddie, Aroldo, MD [address] [place] [address], [phone] PCP - General Family Medicine 03/31/24
--- OUTSIDE RECORDS SUMMARY | 2024-07-16 11:45 | XMS_ITS | Encounter Summary ---
Author Organization [facility], Address [address] [place] [address] Phone Care Team Providers Care Plumber Helper Name Role Phone Bryan Fontanez MD Primary Care Provider [phone] Encounter Details Date Type Department Care Team ([facility] st Contact Info) Description 08/29/2023 Documentation Only [facility], [address] [place] [address] Osorio Burgos, [address] [place] [address] Social History Tobacco Use Types [...] on filedocumented in this encounter Care Teams Plumber Helper Relationship Specialty Start Date End Date Bryan Fontanez MD [address] [place] [address] PCP - General 05/17/20 documented as of this encounter
--- OUTSIDE RECORDS SUMMARY | 2024-07-16 11:45 | XMS_ITS | Clinical Summary ---
Author Organization [facility], Address [address] [place] [address] [place] [address] Phone Care Team Providers Care Crane Crew Supervisor Name Role Phone Bryan Fontanez MD Primary Care Provider [phone] Allergies Active Allergy Reactions Criticality Noted Date [...] Communication [facility] - [address] [place] [address] Francesca Gentile RN from Last 3 Months [...] PM EST) Hemoglobin A1C 6.2(H) (4-6) % [facility] 3 Comment: HEMOGLOBIN A1C(%) ?? GLUCOSE CONTROL INDEX ?<6% ? EXCELLENT ?6-7% ?VERY GOOD ?7-8% ?GOOD ?8-10% ? FAIR ?>10% ?POOR Hemoglobin (Hb) A1c testing is performed by Robert Ashleigh-quant immunoassay. Any cause of shortened erythrocyte survival will reduce exposure of erythrocytes to glucose with a consequent decrease in Hb A1c (%). Testing performed or reported by ~[facility], ~a Service of [facility], ~[address] [place] [address]~ Iván Wolf MD, Sports Therapist~ 05/12/2019 12:3 8 PM EST us Harlan Doss MD LAB BLOOD ORDERABLES Final Res ult [facility] 3 from Last 3 Months or Most Recently Relevant to Health Maintenance Insurance ([id number]) [place] [id number] [facility] ([id number]) Care Teams Crane Crew Supervisor Relationship Specialty Start Date End Date Bryan Fontanez MD [address] [place] [address] PCP - General 05/17/20
--- OUTSIDE RECORDS SUMMARY | 2024-07-16 11:45 | XMS_ITS | Encounter Summary ---
Author Organization [facility], Address [address] [place] [address] Phone Care Team Providers Care Lens Cutter Name Role Phone Bryan Fontanez MD Primary Care Provider [phone] Encounter Details Date Type Department Care Team ([facility] st Contact Info) Description 11/21/2022 Documentation Only [facility], [address] [place] [address] Osorio Burgos, [address] [place] [address] Social History Tobacco Use Types [...] on filedocumented in this encounter Care Teams Lens Cutter Relationship Specialty Start Date End Date Bryan Fontanez MD [address] [place] [address] PCP - General 05/17/20 documented as of this encounter
--- OUTSIDE RECORDS SUMMARY | 2024-07-16 11:45 | XMS_ITS | Encounter Summary ---
Author Organization [facility] Address [address] [place] [address] Care Team Providers Care Multi Craft Maintenance Technician Name Role Phone Aroldo Morgan MD Primary Care Provider [phone] Encounter Details Date Type Department Care Team (Late st Contact Info) Description 04/16/2024 Lab Requisition [facility] - Main Lab [address] [facility] [place] [address] Aroldo Morgan MD [address] [facility] 204 [facility] [address] Urinary tract infection, site not [...] MD LAB URINE ORDERABLES Final Resul t [facility] [address] [place] [address], * (ABNORMAL) Urinalysis with reflex microscopic (04/16/2024 1:00 AM EST) Specific [place] Urine 1.009 1.003 - 1.030 LAB URINALYSIS [...] MD LAB URINE ORDERABLES Final Resul t [facility] [address] [place] [address], documented in this encounter Visit Diagnoses Diagnosis Urinary tract infection, site not specified documented in this encounter Care Teams Multi Craft Maintenance Technician Relationship Specialty Start Date End Date Aroldo Morgan MD [address] [place] [address], [phone] PCP - General Family Medicine 03/31/24 documented as of this encounter
--- OUTSIDE RECORDS SUMMARY | 2024-07-16 11:45 | XMS_ITS | Encounter Summary ---
Author Organization [facility] Address [address] [place] [address] Care Team Providers Care Decorator Mannequin Name Role Phone Aroldo Morgan MD Primary Care Provider [phone] Encounter Details Date Type Department Care Team (Late st Contact Info) Description 03/31/[address] [facility] - Main Lab [address] [facility] [place] [address] Aroldo Morgan MD 38 [facility] 204 [facility] [address] Type 2 diabetes mellitus without [...] % LAB CHEMISTRY METHOD 03/31/2024 1:59 PM [facility] Mean Bld Glu Estim. 140 mg/dL LAB CHEMISTRY METHOD 03/31/2024 1:59 PM [facility] Blood Venous blood specimen / Unknown Venipuncture / Unknown 03/31/2024 6:29 AM EST 03/31/2024 9:47 AM EST us Aroldo Morgan MD LAB BLOOD ORDERABLES Final Resul t [facility] [address] [place] [address], [place] [phone] * (ABNORMAL) Comprehensive metabolic panel (03/31/2024 6:29 AM EST) Sodium 140 133 - 145 mmol/L LAB CHEMISTRY METHOD 03/31/2024 12:08 PM [facility] Potassium 5.0 3.5 - 5.5 mmol/L LAB CHEMISTRY METHOD 03/31/2024 12:08 PM [facility] Chloride 104 96 - 110 mmol/L LAB CHEMISTRY METHOD 03/31/2024 12:08 PM [facility] CO2 30 21 - 32 mmol/L LAB CHEMISTRY METHOD 03/31/2024 12:08 PM [facility] Anion Gap 6 3 - 11 LAB CHEMISTRY METHOD 03/31/2024 12:08 PM [facility] Glucose 137(H) 70 - 100 mg/dL LAB CHEMISTRY METHOD 03/31/2024 12:08 PM [facility] BUN 37(H) 5 - 25 mg/dL LAB CHEMISTRY METHOD 03/31/2024 12:08 PM [facility] Creatinine 1.33(H) 0.50 - 1.10 mg/dL LAB CHEMISTRY METHOD 03/31/2024 12:08 PM [facility] eGFR 41(L) >=60 mL/min/1. 73m2 LAB CHEMISTRY METHOD 03/31/2024 12:08 PM [facility] Comment:Calculation based on the??Chronic Kidney Disease Epidemiology Collaboration (CKD-EPI) equation refit??without adjustment for race. BUN/Creatinine Ratio 27.8 LAB CHEMISTRY METHOD 03/31/2024 12:08 PM [facility] Calcium 9.8 8.5 - 10.5 mg/dL LAB CHEMISTRY METHOD 03/31/2024 12:08 PM [facility] AST (SGOT) 21 10 - 42 unit/L LAB CHEMISTRY METHOD 03/31/2024 12:08 PM [facility] ALT (SGPT) 11 10 - 60 unit/L LAB CHEMISTRY METHOD 03/31/2024 12:08 PM [facility] Alkaline Phosphatase 110 42 - 121 unit/L LAB CHEMISTRY METHOD 03/31/2024 12:08 PM [facility] Total Protein 6.7 6.0 - 8.0 g/dL LAB CHEMISTRY METHOD 03/31/2024 12:08 PM [facility] Albumin 2.8(L) 3.2 - 5.0 g/dL LAB CHEMISTRY METHOD 03/31/2024 12:08 PM [facility] Total Bilirubin 0.6 0.0 - 1.4 mg/dL LAB CHEMISTRY METHOD 03/31/2024 12:08 PM [facility] Blood Venous blood specimen / Unknown Venipuncture / Unknown 03/31/2024 6:29 AM EST 03/31/2024 9:47 AM EST us Aroldo Morgan MD LAB BLOOD ORDERABLES Final Resul t [facility] [address] [place] [address], * (ABNORMAL) Complete blood count (03/31/2024 6:29 AM EST) [facility] WBC 6.6 4.8 - 10.8 K/mcL LAB HEMETOLOGY METHOD 03/31/2024 10:40 AM [facility] RBC 4.60 3.80 - 4.80 M/mcL LAB HEMETOLOGY METHOD 03/31/2024 10:40 AM [facility] Hemoglobin 11.9 11.5 - 16.0 g/dL LAB HEMETOLOGY METHOD 03/31/2024 10:40 AM [facility] Hematocrit 41.5 35.0 - 47.0 % LAB HEMETOLOGY METHOD 03/31/2024 10:40 AM [facility] MCV 91.0 79.0 - 98.0 FL LAB HEMETOLOGY METHOD 03/31/2024 10:40 AM [facility] MCH 26.1(L) 27.0 - 32.0 pcg LAB HEMETOLOGY METHOD 03/31/2024 10:40 AM [facility] MCHC 28.7(L) 32.0 - 37.0 g/dL LAB HEMETOLOGY METHOD 03/31/2024 10:40 AM [facility] RDW 18.0(H) 11.0 - 15.0 % LAB HEMETOLOGY METHOD 03/31/2024 10:40 AM [facility] Platelets 309 130 - 400 K/mcL LAB HEMETOLOGY METHOD 03/31/2024 10:40 AM [facility] MPV 11.6(H) 7.0 - 11.0 FL LAB HEMETOLOGY METHOD 03/31/2024 10:40 AM [facility] NRBC 0.0 <1.0 % LAB HEMETOLOGY METHOD 03/31/2024 10:40 AM [facility] NRBC Absolute 0.00 <0.10 K/mcL LAB HEMETOLOGY METHOD 03/31/2024 10:40 AM EST [facility] Blood Venous blood specimen / Unknown Venipuncture / Unknown 03/31/2024 6:29 AM EST 03/31/2024 9:47 AM EST us Aroldo Morgan MD LAB BLOOD ORDERABLES Final Resul t [facility] [address] [place] [address], documented in this encounter Visit Diagnoses Diagnosis Type 2 diabetes mellitus without complications (CMS/HCC) documented in this encounter Care Teams Decorator Mannequin Relationship Specialty Start Date End Date Aroldo Morgan MD [address] [place] [address], [phone] PCP - General Family Medicine 03/31/24 documented as of this encounter
--- OUTSIDE RECORDS SUMMARY | 2024-07-16 11:45 | XMS_ITS | Encounter Summary ---
Author Organization [facility] Address [address] [place] [address] Care Team Providers Care Wet Process Assistant Head Miller Name Role Phone Aroldo Morgan MD Primary Care Provider [phone] Encounter Details Date Type Department Care Team (Late st Contact Info) Description 04/26/2024 Lab Requisition [facility] - Main Lab 299 [facility] [place] [address] Aroldo Morgan MD [address] [place] [address] 204 [facility] [phone] Chronic kidney disease, unspecified; Anemia, unspecified Social [...] in this encounter Care Teams Wet Process Assistant Head Miller Relationship Specialty Start Date End Date Aroldo Morgan MD 38 [facility] 204 [place], [phone] PCP - General Family Medicine 03/31/24 documented as of this encounter
--- OUTSIDE RECORDS SUMMARY | 2024-07-16 11:45 | XMS_ITS | Encounter Summary ---
Author Organization [facility] Address [address] [place] [address] Care Team Providers Care Commercial Attache Name Role Phone Aroldo Morgan MD Primary Care Provider [phone] Encounter Details Date Type Department Care Team (Late st Contact Info) Description 04/18/2024 Lab Requisition [facility] - Main Lab 299 [facility] [place] [address] Aroldo Morgan MD [address] [place] [address] 204 [facility] [phone] Chronic kidney disease, unspecified; Anemia, unspecified Social [...] unspecified documented in this encounter Care Teams Commercial Attache Relationship Specialty Start Date End Date Aroldo Morgan MD 38 [facility] 204 [place], [phone] PCP - General Family Medicine 03/31/24 documented as of this encounter
--- OUTSIDE RECORDS SUMMARY | 2024-07-16 11:45 | XMS_ITS | Data Portability ---
Author Organization [facility], Main Office Address [address], [address] [place] [address] Care Team Providers Care Panel Builder Name Role Phone PÉREZ SULTANA - 2ND [...] Address Organization Details Recorded Time Recurrent falls [id number] Active 2023 Joan Shah NP [address], [address], [place], [address], [facility] [employer] 14:23:46 Asthenia 93209515 Active 2023 Joan Shah NP [address], [address], [place], [address], [facility] 14:23:52 Anemia 144639586 Active 2023 Joan Shah NP [address], [address], [place], [address], [facility] [employer] 14:23:59 Atrial flutter 8205979 Active 2023 Joan Shah NP [address], [address], [place], [address], [facility] [employer] 14:24:25 Dementia 10997000 Active 2023 Joan Shah NP [address], [address], [place], [address], [facility] 4 14:24:42 Type 2 diabetes mellitus 18204268 Active 2023 Joan Shah NP [address], [address], [place], [address], [facility] 4 14:25:01 Depressive disorder 97606352 Active 2023 Joan Shah NP [address], [address], [place], [address], [facility] 4 14:25:09 Fracture of multiple ribs 9072345 Active 2023 Joan Shah NP [address], [address], [place], [address], [facility] 4 19:03:44 Peripheral vascular disease 418690348 Active 2023 Joan Shah NP [address], [address], [place], [address], [facility] 4 19:04:26 Congestive heart failure 04070429 Active 2023 Joan Shah NP [address], [address], [place], [address], [facility] 4 19:04:45 Hypertensive disorder 54374382 Active 2023 Joan Shah NP [address], [address], [place], [address], [facility] 4 19:05:00 Hyperlipidemia 11117219 Active 2023 Joan Shah NP [address], [address], [place], [address], [facility] 4 19:19:08 Seasonal allergy 836501026 Active 2023 Joan Shah NP [address], [address], [place], [address], [place] [facility] 4 19:25:46 Urinary tract infectious disease 92028640 Active 2023 Sammie Gamble MD [address], [address], [place], [address] [facility] 4 14:37:32 Problem Notes None recorded. Medical Equipment None Reported. Allergies Allergen ID Allergen Name Allergen Category Reaction Reaction Severity Criticality Documentation Date Start Date Code Code System Note Provider Name and Address Organization Details Recorded Time 57191 erythromy tamara medicatio n other Not available unabletoasse 03/26/2024 4053 RxNorm unkno wn Not Available Not Available Not Available 18938 Substance with sulfonami de structure and antibacte rial mechanism of action (substanc e) medicatio n other Not available unabletoasse 03/26/2024 69731 8003 SNOMED unkno wn Not Available Not Available Not Available 73181 lactose food,medi cation other Not available unabletoasse 03/26/2024 6211 RxNorm unkno wn Not Available Not Available Not Available 43638 shellfish derived food,medi cation other Not available unabletoasse 03/26/2024 10635 UNK seafo od Not Available Not Available Not Available Vitals Date Recorded Heart rate Respiratory rate Body temperature Oxygen saturation Oxygen saturation in Arterial blood by Pulse oximetry Systolic blood pressure Diastolic blood pressure Provider Name and Address Organization Details Last Updated DateTime 4 68 /min 17 /min 97.6 [degF] 94 % 94 % 104 mm[Hg] 78 mm[Hg] Joan Shah NP [address], [address], [place], [address] , [facility] 4 14:22:12 Date Recorded Heart rate Respiratory rate Body temperature Oxygen saturation Oxygen saturation in Arterial blood by Pulse oximetry Systolic blood pressure Diastolic blood pressure Provider Name and Address Organization Details Last Updated DateTime 4 72 /min 16 /min 97.3 [degF] 92 % 92 % 104 mm[Hg] 74 mm[Hg] Joan Shah NP [address], [address], [place], [address] , [facility] 4 09:54:01 Date Recorded Heart rate Respiratory rate Body temperature Oxygen saturation Oxygen saturation in Arterial blood by Pulse oximetry Body weight Body mass index (BMI) Body height Systolic blood pressure Diastolic blood pressure Provider Name and Address Organization Details Last Updated DateTime 4 72 /min 18 /min 98.7 [degF] 96 % 96 % 13758.0 5 g 25.2 kg/m2 149.86 cm 104 mm[Hg] 74 mm[Hg] Sammie Gamble MD [address], [facility] [address], [place], [address], [facility] 4 17:40:16 Date Recorded Body height Heart rate Respiratory rate Body temperature Oxygen saturation Oxygen saturation in Arterial blood by Pulse oximetry Body mass index (BMI) Body weight Systolic blood pressure Diastolic blood pressure Provider Name and Address Organization Details Last Updated DateTime 4 149.86 cm 76 /min 16 /min 97 [degF] 97 % 97 % 24 kg/m2 28211.4 9 g 142 mm[Hg] 81 mm[Hg] Sammie Gamble MD [address] [facility] [address], [place], [address], [facility] 4 20:59:29 Date Recorded Body height Body weight Body mass index (BMI) Heart rate Respiratory rate Body temperature Oxygen saturation Oxygen saturation in Arterial blood by Pulse oximetry Systolic blood pressure Diastolic blood pressure Provider Name and Address Organization Details Last Updated DateTime 4 149.86 cm 97643.0 8 g 24.2 kg/m2 76 /min 16 /min 97.7 [degF] 97 % 97 % 142 mm[Hg] 81 mm[Hg] Joan Shah NP [address] [facility] [address], [place], [address], [facility] 4 09:24:10 Social History Question Answer Notes LastModified by Organizat ion Details LastModified Time Tobacco Smoking Status Never Smoker Joan Shah NP [address] [facility] [address], [place], [address], [facility] 03/26/2024 18:41:14 Do You Have An Advance Directive? Yes Information not available 04/01/2024 What Is Your Level Of Alcohol Consumption? None Information not available 03/26/2024 What Is Your Code Status? DNR/DNI Information not available 04/01/2024 Where Do You Live? Apartment Information not available 03/26/2024 Legal Guardian? No Informati on not available 04/01/2024 Do You Have A Medical Power Of Retail Key Holder? Yes Invoked Information not available 04/01/2024 What [...] (RSV) vaccine, unspecified 4 completed Stacey [facility] 03/26/2024 13:39:00 Tdap 4 completed Stacey [facility] 03/26/2024 13:39:14 Td(adult) unspecified formulation 2 completed Stacey Moul[facility] 03/26/2024 13:39:28 Pneumococcal conjugate PCV20, polysaccharide [id number] conjugate, adjuvant, PF 3 completed Stacey [place] [facility] 03/26/2024 13:39:54 influenza, unspecified formulation 2 completed Stacey [place] [facility] 03/26/2024 13:40:07 influenza, unspecified formulation 3 completed Stacey [place] [facility] 03/26/2024 13:40:14 SARS-COV-2 (COVID-19) vaccine, UNSPECIFIED 1 completed [facility] 03/26/2024 13:40:26 SARS-COV-2 (COVID-19) vaccine, UNSPECIFIED 1 completed Stacey [facility] 03/26/2024 13:40:32 SARS-COV-2 (COVID-19) vaccine, UNSPECIFIED 1 completed Stacey [facility] 03/26/2024 13:40:40 SARS-COV-2 (COVID-19) vaccine, UNSPECIFIED 4 completed [facility] 03/26/2024 13:40:46 Past Encounters Encounter ID Performer Location Encounter Start Date Encounter Closed Date Diagnosis/Indication Diagnosis SNOMED-CT Code Diagnosis ICD10 Code Diagnosis Note [id number] Joan Shah NP [address] [address] 03/26/2024 14:19:37 03/27/2024 09:14:17 Fracture of multiple ribs 6741126 S22.42XD see hpi2nd and 3rd left rib fractures eval'd by trauma and rec conservati ve therapy, IS, acapella valve, and pain management and WBAT105/26a nd start lidocaine patch % to ribs and right thighcontt yl 975 mg po tidcyclobe nzaprine 5 mg po qhs and tyl prnoxycodo ne 5 mg po q 6 hours prn painmonito r Asthenia 69981023 R53.1 PT OT eval and treat for strengthen ing, gait, balance, mobility, romsupport evelin caremonito r Recurrent falls 39504851 2 R29.6 PT OT eval and treat for strengthen ing, gait, balance, mobility, romsupport evelin caremonito r Urinary tr act infectious disease 40669874 N39.0 treated with abx and will continue cefpodoxim e 200 mg po bid here for 7 daysmonito r for sequlae Dementia 80698139 F01.C2 with severe dementiamo nitor for improvemen [...] eval and treatwill invokemoni tor Atrial flutter 6536124 I 48.92 clopidogre l 75 mg po dailymetop rolol xl 25 mg po dailyeliqu is 5 mg po bidmonitor Type 2 flora betes mellitus 25041794 E11.9 BS stable 100-200s todayinsul in decreased to lantus 15 units qhsmonitor bs with meals tid ac Depressive disorder 3548 9007 F32.A pt with hx ofsee dementia above Anemia 866935887 D64.9 vit b2 daily bidmonitor cbc weekly x3 for anemia with hx and recent fx on eliquis Congestive heart failure 59439429 I50.9 hx ofconttopr ol xl 25 mg qdentresto is on hold with cefpodoxim e(consider resuming)s pirolacton e 25 mg po qdtorsemid e 40 mg qdfu outpt cardiology 04/01/24 at 2:15 pm [facility] outpt device clinic 05/23/2024 07:40 am Peripheral vascular disease 132347573 I73.9 hx ofmonitor Fracture o f inferior pubic ramus 648127964 S32.592G pt with ? of fx of inferior left pubic ramussee hpi, felt not to be a fracture by ortho and WBATmontio rfu with Dr Haja burger at [facility] as needed in 1-2 weeks for ? pelvic fracture Hypertensive disorder 38 543545 I10 hx ofconttopr ol xl 25 mg qdentresto is on hold with cefpodoxim e(consider resuming)s pirolacton e 25 mg po qdtorsemid e 40 mg qdmonitor vitals, cardiac status Hyperlipidemia 38350823 E78.5 contliptor 40 mg po qdmonitor Seasonal allergy 2012230 04 J30.2 claritin 10 mg po dailymonit or [id number] Joan Shah NP [address] [address] 03/27/2024 09:50:43 03/28/2024 10:17:23 Fracture of multiple ribs 1999091 S22.42XD see hpi2nd and 3rd left rib fractures eval'd by trauma and rec conservati ve therapy, IS, acapella valve, and pain management and WBAT1 nd start lidocaine patch % to ribs and right thighcontt yl 975 mg po tidcyclobe nzaprine 5 mg po qhs and tyl prnoxycodo ne 5 mg po q 6 hours prn painmonito r Fracture o f inferior pubic ramus 750928773 S32.592G pt with ? of fx of inferior left pubic ramussee hpi, felt not to be a fracture by ortho and WBATmontio rfu with Dr Haja burger at [facility] as needed in 1-2 weeks for ? pelvic fracture Asthenia 92562896 R53.1 PT OT eval and treat for strengthen ing, gait, balance, mobility, romsupport evelin caremonito r Recurrent falls 24543879 2 R29.6 PT OT eval and treat for strengthen ing, gait, balance, mobility, romsupport evelin caremonito r Urinary tr act infectious disease 37587060 N39.0 treated with abx and will continue cefpodoxim e 200 mg po bid here for 7 daysunclea r if dementia is worse with UTI and on abx?questi on if her not taking meds and delusions related to the UTI and seems to be more receptive to staff todaymonit or for sequlae Dementia 69939864 F01.C2 with severe dementiamo nitor for improvemen [...] also helpful to her today Atrial flutter 5423064 I 48.92 clopidogre l 75 mg po dailymetop rolol xl 25 mg po dailyeliqu is 5 mg po bidmonitor Type 2 flora betes mellitus 96574593 E11.9 BS stable 100-200s todayinsul in decreased to lantus 15 units qhsmonitor bs with meals tid ac Depressive disorder 3541 9007 F32.A pt with hx ofsee dementia above Anemia 415865485 D64.9 vit b2 daily bidmonitor cbc weekly x3 for anemia with hx and recent fx on eliquis Congestive heart failure 40722205 I50.9 hx ofconttopr ol xl 25 mg qdentresto is on hold with cefpodoxim e(consider resuming)s pirolacton e 25 mg po qdtorsemid e 40 mg qdfu outpt cardiology 04/01/24 at 2:15 pm [facility] cardiology [facility] outpt device clinic 05/23/2024 07:40 am Peripheral vascular disease 373388434 I73.9 hx ofmonitor Hypertensive disorder 38 319496 I10 bp stablecont toprol xl 25 mg qdentresto is on hold with cefpodoxim e(consider resuming)s pirolacton e 25 mg po qdtorsemid e 40 mg qdmonitor vitals, cardiac status Hyperlipidemia 08396104 E78.5 contliptor 40 mg po qdmonitor Seasonal allergy 9182855 04 J30.2 claritin 10 mg po dailymonit or [id number] Sammie Gamble MD [address] [address] 03/28/2024 15:02:00 04/02/2024 08:32:26 Dementia 16174575 F01.C2 Mod/severe at baseline.C ommunicati ng pretty well tonight.Co ntinue supportive care, expect decline.HC P invokedMon itor mood and behaviors. Psych consult. Urinary tr act infectious disease 35993883 N30.00 Urine cx grew mixed dwayne.Txed with cefpodoxim e 200 mg BID, will complete 7 day course on 03/30.Uncl ear if true UTI, but will complete tx.Monitor for sxs. Depressive disorder 5398 2757 F33.8 Tearful and worried.On no meds.Will get psych consult. Fracture o f multiple ribs 1554063 S22.42XD With continued pain.Destinee nue lidocaine patch % to ribs and right thigh, APAP 975 mg TID, cyclobenza gregg 5 mg qhs and oxycodone 5 mg q 6 hs prn.Encour age acappella, I jeremy, and cough and deep breaths.Mo nitor sxs. Fracture o f inferior pubic ramus 875861672 S32.592G Not thought to be fx per ortho.WBAT , pain meds as above and monitor.Ne eds PT/OT for strengthen ing, balance, gait training, safety and function.C ontinue fall precaution s.Monitor for safety. Asthenia 62176056 R53.1 As above. Recurrent falls 24631397 2 R29.6 As above. Atrial flutter 7723392 I 48.92 Rate in good control on metoprolol 25 mg qd.Continu e clopidogre l 75 mg po qd and eliquis 5 mg BIDMonitor HR and bleeding risk.F/U with cardio as planned. Type 2 flora betes mellitus 88730734 E11.9 BS in adequate control.Co ntinue lantus 15U qd and SSI.Monito r fingerstic ks TI and HgA1C q 3-6 months. Anemia 490082048 D64.89 Stable.Mon itor Congestive heart failure 26921850 I50.9 Appears euvolemic. Continue meds as above.Gale tor resp. status, fluid status, wts and labs.F/U with cardio 04/01/24 at 2:15 pm and at device clinic 05/23/2024 at 7:40 am Peripheral vascular disease 886909653 I73.89 hx ofmonitor Hypertensive disorder 38 215922 I10 BP in good control since here.Destinee nue metoprolol 25 mg qd, spironolac tone 25 mg qd and torsemide 40 mg qdMonitor BP and labs. Hyperlipidemia 58498794 E78.49 Continue atorvastat in 40 mg qdMonitor yearly. Seasonal allergy 4550651 04 J30.2 Continue claritin 10 mg qdMonitor sxs. [id number] [facility] [address] 04/01/2024 14:21:58 05/02/2024 11:50:25 Dementia 21314947 F01.C2 Mod/severe at baseline.C ommunicati ng pretty well tonight.Co ntinue supportive care, expect decline.HC P invokedMon itor mood and behaviors. Psych consult. Urinary tr act infectious disease 31290047 N30.00 Urine cx grew mixed dwayne.Txed with cefpodoxim e 200 mg BID, will complete 7 day course on 03/30.Uncl ear if true UTI, but will complete tx.Monitor for sxs. Depressive disorder 3548 9007 F33.8 Tearful and worried.On no meds.Will get psych consult. Fracture o f multiple ribs 4510747 S22.42XD With continued pain.Destinee nue lidocaine patch % to ribs and right thigh, APAP 975 mg TID, cyclobenza gregg 5 mg qhs and oxycodone 5 mg q 6 hs prn.Encour age acappella, I jeremy, and cough and deep breaths.Mo nitor sxs. Fracture o f inferior pubic ramus 248644878 S32.592G Not thought to be fx per ortho.WBAT , pain meds as above and monitor.Ne eds PT/OT for strengthen ing, balance, gait training, safety and function.C ontinue fall precaution s.Monitor for safety. Asthenia 52212282 R53.1 As above. Recurrent falls 54759345 2 R29.6 As above. Atrial flutter 4530632 I 48.92 Rate in good control on metoprolol 25 mg qd.Continu e clopidogre l 75 mg po qd and eliquis 5 mg BIDMonitor HR and bleeding risk.F/U with cardio as planned. Type 2 flora betes mellitus 12466334 E11.9 BS in adequate control.Co ntinue lantus 15U qd and SSI.Monito r fingerstic ks TI and HgA1C q 3-6 months. Anemia 965543380 D64.89 Stable.Mon itor Hypertensive disorder 38 170347 I10 BP in good control since here.Destinee nue metoprolol 25 mg qd, spironolac tone 25 mg qd and torsemide 40 mg qdMonitor BP and labs. Congestive heart failure 33341314 I50.9 Appears euvolemic. Continue meds as above.Gale tor resp. status, fluid status, wts and labs.F/U with cardio 04/01/24 at 2:15 pm and at device clinic 05/23/2024 at 7:40 am Peripheral vascular disease 750946496 I73.89 hx ofmonitor Hyperlipidemia 80382657 E78.49 Continue atorvastat in 40 mg qdMonitor yearly. Seasonal allergy 2516384 04 J30.2 Continue claritin 10 mg qdMonitor sxs. [id number] Joan Shah, EVELYN [address] [address] 04/10/2024 09:23:02 04/11/2024 11:26:37 Dementia 36948942 F01.C2 Mod/severe at baseline. seems to be trusting staff and improvingC ontinue supportive care, expect decline.HC P invokedMon itor mood and behaviors. Psych consult. Depressive disorder 3548 9007 F33.8 appears tearful at times, improving while hereOn no meds.Will get psych consult. Has not seen her yet Fracture o f multiple ribs 5446635 S22.42XD pain managed and leaving her Contin uelidocain e patch % to ribs and right thigh, APAP 975 mg TID, cyclobenza gregg 5 mg qhs and oxycodone 5 mg q 6 hs prn.Encour age acappella, I jeremy, and cough and deep breaths.Mo nitor sxs. Fracture o f inferior pubic ramus 922876609 S32.592G Not thought to be fx per ortho.WBAT , pain meds as above and monitor.Ne eds PT/OT for strengthen ing, balance, gait training, safety and function.C ontinue fall precaution s.Monitor for safety. Asthenia 57129471 R53.1 As above. Recurrent falls 85326448 2 R29.6 As above. Atrial flutter 6650814 I 48.92 Rate in good control on metoprolol 25 mg qd.Continu eclopidogr el 75 mg po qd and eliquis 5 mg BIDMonitor HR and bleeding risk.F/U with cardio as planned. Type 2 flora betes mellitus 84446538 E11.9 BS in adequate control, 100s 200s mostlyCont inuelantus 15U qd and SSI.Monito r fingerstic ks TI and HgA1C q 3-6 months. Anemia 503671218 D64.89 Stable.Mon itor Hypertensive disorder 38 649859 I10 BP in good control since here.Destinee nuemetopro lol 25 mg qd, spironolac tone 25 mg qd and torsemide 40 mg qdMonitor BP and labs. Congestive heart failure 50021660 I50.9 Appears euvolemic. Continue meds as above.Gale [...] Vásquez Member ID Guarantor Name 03/26/2024 1 [employer] - DOS ON OR AFTER 2022 - MEDICARE ADVANTAGE [place] (MEDICARE REPLACEMENT/AD VANTAGE - PPO) Danisha Dan [id number] Danisha Dan 03/27/2024 1 [employer] - DOS ON OR AFTER 2022 - MEDIC[place]AGE [place]MED[place]/AD [place]ANTAGE - PPO) Danisha Dan [id number] Danisha Dan 03/28/2024 1 [employer] - DOS ON OR AFTER 2022 - [place]ANTAGE - PPO) Danisha Dan [id number] Danisha Dan 04/01/2024 1 [employer] - DOS ON OR AFTER 2022 - [place]/AD VANTAGE - PPO) Danisha Dan [id number] Danisha Dan 04/10/2024 1 [employer] - DOS ON OR AFTER 2022 - MEDICARE [place]AGE [place] (MEDICARE [place]PLACEMENT/AD VANTAGE - PPO) Danisha Dan [id number] Danisha Dan Notes Date Note Type Note Provider Name and Address Organization Details Recorded Time 4 text/html Pt is seen for an initial intake visit. PMH: Afib on eliquis, dementia, DM, falls, HTN, HLD, PVD, UTI Danisha was seen at [facility] for a [place] and sent to [...] management On exam, Danisha is an elderly Korean speaking female lying in bed with her [...] she is cooperative and pleasant with this SENIOR TREASURY CONSULTANT. She states she hurts all over but [...] IVF okay. per HCP daughter Joan Shah, SENIOR TREASURY CONSULTANT [address], [address], [place], [address], [facility] [employer] 03/26/2024 19:34:16 4 text/html Pt is seen for an acute rounding visit. PMH: Afib on eliquis, dementia, DM, falls, HTN, HLD, PVD, UTI Danisha was seen at [facility] for a fall and sent to [...] she is reassured of her meds. This SENIOR TREASURY CONSULTANT went through each medication and reviewed it [...] IVF okay. per HCP daughter Joan Shah, SENIOR TREASURY CONSULTANT [address], [address], [place], [address], [employer] 03/27/2024 10:02:06 4 text/html This is a [...] lispro sliding scalePOCT AC, at bedtimeA-fib(I48.91):Radha e qvofkacgvi-Wubxyo-BENuqf coagulation-on Eliquis Tonight she is in bed, awake. She tells me she's feeling ok, but is scared because she doesn't know if she's going to get better. Gets tearful at times.I see her with a nauruan speaking staff member, but she answers in saudi arabian often, and sometimes answers my questions before he translates them. Her PMH includes HTN, Afib on Eliquis, dementia, AODM, HLD, PVD, UTIs and frequent falls. Sammie Gamble MD [address] [place] [address], [facility] [address], [place], [address], [facility] 04/01/2024 14:55:48 4 text/html I am seeing this 79 yo woman today for an acute visit to f/u rib pain and progress in rehab .She denies pain, but often gets tearful. When I ask her what kind of place this is, she tells me it's a place people come to .I see her with a nauruan speaking staff member, but she answers in saudi arabian often, and sometimes answers my questions before he translates them. Her PMH includes HTN, Afib on Eliquis, dementia, AODM, HLD, PVD, UTIs and frequent falls. Sammie Gamble MD [address] [place] [address], [address], [place], [address], [facility] 05/01/2024 16:10:08 4 text/html Pt is seen for an acute rounding visit. Her PMH includes HTN, Afib on Eliquis, dementia, AODM, HLD, PVD, UTIs and frequent falls.I Danisha is a 79 yo woman who was seen at [facility] for a fall and sent to [...] IVF okay. per HCP daughter Joan Shah, SENIOR TREASURY CONSULTANT [address], [address], [place], [address], [facility] [employer] 04/10/2024 20:17:01 OBGyn Episode No OBEpisode recorded.
--- OUTSIDE RECORDS SUMMARY | 2024-07-16 11:45 | XMS_ITS | Encounter Summary ---
Author Organization [facility] Address [address] [place] [address] Care Team Providers Care Roving Tester Laboratory Name Role Phone Aroldo Morgan MD Primary Care Provider [phone] Encounter Details Date Type Department Care Team (Late st Contact Info) Description 04/12/2024 Lab Requisition [facility] - Main Lab [address] [place] [address] Aroldo Morgan MD 38 [facility] 204 [facility] [address] Chronic kidney disease, unspecified; [...] LAB CHEMISTRY METHOD 04/14/2024 10:07 AM EST [facility] ([facility]) [facility] Potassium 4.5 3.5 - 5.5 [...] Final Resul t [facility] [address] [place] [address], * (ABNORMAL) Complete blood count (04/14/2024 5:23 AM EST) [facility] WBC 6.2 4.8 - 10.8 K/mcL LAB [...] [facility] NRBC Absolute 0.00 <0.10 K/mcL LAB HEMETOLOGY METHOD 04/14/2024 9:43 AM EST [facility] Blood Venous blood specimen / Unknown Venipuncture / Unknown 04/14/2024 5:23 AM EST 04/14/2024 9:14 AM EST us Aroldo Morgan MD LAB BLOOD ORDERABLES Final Resul t [facility] [address] [place] [address], documented in this encounter Visit Diagnoses Diagnosis Chronic kidney disease, unspecified Anemia, unspecified documented in this encounter Care Teams Roving Tester Laboratory Relationship Specialty Start Date End Date Aroldo Morgan MD [address] [place] [address], [phone] PCP - General Family Medicine 03/31/24 documented as of this encounter
--- OUTSIDE RECORDS SUMMARY | 2024-07-16 11:45 | XMS_ITS | Encounter Summary ---
Author Organization [facility], Address [address] [place] [address] Phone Care Team Providers Care Brand Manager Name Role Phone Bryan Fontanez MD Primary Care Provider [phone] Encounter Details Date Type Department Care Team ([facility] st Contact Info) Description 10/25/2023 Documentation Only [facility], [address] [place] [address] Osorio Burgos, [address] [place] [address] Social History Tobacco Use Types [...] on filedocumented in this encounter Care Teams Brand Manager Relationship Specialty Start Date End Date Bryan Fontanez MD [address] [place] [address] PCP - General 05/17/20 documented as of this encounter
--- OUTSIDE RECORDS SUMMARY | 2024-07-16 11:45 | XMS_ITS | Encounter Summary ---
Author Organization [facility] Address [address] [place] [address] Care Team Providers Care Absence Management Consultant Name Role Phone Aroldo Morgan MD Primary Care Provider [phone] Encounter Details Date Type Department Care Team (Late st Contact Info) Description 04/04/2024 Lab Requisition [facility] - Main Lab [address] [place] [address] Aroldo Morgan MD 38 [facility] 204 [facility] [address] Chronic kidney disease, unspecified; Anemia, [...] LAB CHEMISTRY METHOD 04/07/2024 9:18 AM EST [facility] ([facility]) [facility] Potassium 4.5 3.5 - 5.5 [...] LAB BLOOD ORDERABLES Final Resul t [facility] [address] [place] [address], * (ABNORMAL) Complete blood count (04/07/2024 4:55 AM EST) [facility] WBC 5.9 4.8 - 10.8 K/mcL LAB [...] LAB HEMETOLOGY METHOD 04/07/2024 8:34 AM EST [facility] Blood Venous blood specimen / Unknown Venipuncture / Unknown 04/07/2024 4:55 AM EST 04/07/2024 8:09 AM EST us Aroldo Morgan MD LAB BLOOD ORDERABLES Final Resul t [facility] [address] [place] [address], documented in this encounter Visit Diagnoses Diagnosis Chronic kidney disease, unspecified Anemia, unspecified documented in this encounter Care Teams Absence Management Consultant Relationship Specialty Start Date End Date Aroldo Morgan MD [address] [place] [address], [phone] PCP - General Family Medicine 03/31/24 documented as of this encounter
== END 2024-07-16 10:16 | disposition home or self-care (01) ==
LOC: HO.HOSX 10:15
DX: M79.641 Pain in right hand (principal); S62.511A Displaced fracture of proximal phalanx of right thumb, initial encounter for closed fracture
CPT/HCPCS: 29085; 73130; 99212

== ENCOUNTER 2024-07-16 13:22 | Outpatient (AMB) | payer OTHER, SELFPAY ==
--- NOTE | 2024-07-16 13:45 | MHC.OFFVIS ---
Intake Visit Reasons: OV- RT thumb displaced fx DOI 04/16/24-w/xrays Intake Note: Danisha is a 79 year old right hand dominant female who presents today for a follow up of right thumb displaced fracture of proximal phalanx s/p fall, DOI:04/16/24. Cast off and XR updated today in office. Today patient is coming from a facility ([facility]) and her daughter has met her in office for the visit. Patient reports that she has some pain at the base of the thumb when moving it . Allergies fish derived [fish] Allergy (Verified 06/24/24 13:39) Rash HPI HPI OV- RT thumb displaced fx DOI 04/16/24-w/xrays: Details: Danisha is a 79 year old right hand dominant female who presents today for a follow up of right thumb displaced fracture of proximal phalanx s/p fall, DOI:04/16/24. Cast off and XR updated today in office. Today patient is coming from a facility ([facility]) and her daughter has met her in office for the visit. Patient reports that she has some pain at the base of the thumb when moving it . [facility] Medical History Hydrocephalus Abnormal findings on diagnostic imaging of skull and head, not elsewhere classified Memory difficulties Headache Tremor Social History Alcohol intake: never Patient Tobacco Use Status: Never used Tobacco Review of Systems Const All systems reviewed & are unremarkable except as noted in HPI and below Physical Exam Const General: no acute distress and alert Orientation/consciousness: patient oriented x3 Neuro General: patient oriented x3 Extrem Other: Evaluation of Right Upper Extremity: The patient is alert, oriented, and in no acute distress Neuro: Median, Ulnar, Radial nerves motor and sensory intact Vascular: Cap refill brisk ROM: Good flexion & extension at the IP joint She has flexion & extension at the MCP joint, the motion does not appear to be at the fracture site Fracture site non-tender No swelling or ecchymosis Considering she has been in a cast she has pretty good wrist range of motion without pain. She can flex her fingers to a fist and back into extension without difficulty Radiographs: 3 views of the right hand, with attention tot he thumb, were taken and viewed by me today in clinic. They show a displaced thumb proximal phalanx fracture, with about 25-30 degrees apex volar deformity, and about 10 degrees apex ulnar. It does appear that there is some early evidence of interval bony healing centrally within the fracture, but not so much at the cortices Psych Appearance: grossly normal Affect: normal affect Attitude: cooperative Assessment & Plan Assessment & Plan (1) Displaced fracture of proximal phalanx of right thumb: Code(s): S62.511A - Displaced fracture of proximal phalanx of right thumb, initial encounter for closed fracture Category: Medical Plan Assessment & Plan: 1. Right thumb displaced proximal phalanx fracture, with some angular deformity and delayed union From a fall, DOI: 04/16/24 First treated in our clinic and in a cast on 05/08/2024 I educated her about this condition I discussed operative and non-operative treatment options, and we are again going to try to manage this non operatively. I believe she is finally starting to heal. Evidently she has been removing her splint when at home, which likely affected her healing She was placed in a new thumb spica cast Patient will be referred to occupational therapy for creation of thermal molded Velcro thumb spica splint I discussed activity modification, she is to lift nothing heavier than a cellphone She should work on gentle finger ROM exercises She will follow up in 4-6 weeks, with X-rays, 3V R hand I am hopeful that we can get her out of the splint at next visit. Scribed for Keira Betancourt MD by Juan Luis Lucas, medical office clerk, on 06/24/24 at 2:00 PM, EST. Orders: Orders XR hand RT min 3V Today M79.641 - Pain in right hand OT Evaluation and Treatment Today S62.511A - Displaced fracture of proximal phalanx of right thumb, initial encounter for closed fracture Coding Level of Care Code Est Pt Level 3 (95809) Global (54976) Diagnoses Displaced fracture of proximal phalanx of right thumb S62.511A
--- OUTSIDE RECORDS SUMMARY | 2024-07-16 15:41 | XMS_ITS | Encounter Summary ---
Author Organization [facility], Address [address] [place] [address] Phone Care Team Providers Care Echo Vascular Tech Name Role Phone Bryan Fontanez MD Primary Care Provider [phone] Encounter Details Date Type Department Care Team (Late st Contact Info) Description 08/08/2022 Documentation Only [facility], [address] [place] [address] Bryan Fontanez MD [address] [place] [address] Social History Tobacco Use Types Packs/Day Years [...] on filedocumented in this encounter Care Teams Echo Vascular Tech Relationship Specialty Start Date End Date Bryan Fontanez MD [address] [place] [address] PCP - General 05/17/20 documented as of this encounter
--- OUTSIDE RECORDS SUMMARY | 2024-07-16 15:42 | XMS_ITS | Encounter Summary ---
Author Organization [facility] Address [address] [place] [address] Care Team Providers Care Watch Leader Name Role Phone Aroldo Morgan MD Primary Care Provider [phone] Encounter Details Date Type Department Care Team (Late st Contact Info) Description 04/12/2024 Lab Requisition [facility] - Main Lab [address] [place] [address] Aroldo Morgan MD 38 [facility] 204 [facility] [address] Chronic kidney disease, unspecified; Anemia, unspecified [...] LAB CHEMISTRY METHOD 04/14/2024 10:07 AM EST [facility]) [facility] Potassium 4.5 3.5 - 5.5 mmol/L LAB CHEMISTRY METHOD 04/14/2024 10:07 AM [facility] Chloride 102 96 - 110 mmol/L LAB CHEMISTRY METHOD 04/14/2024 10:07 AM [facility] CO2 31 21 - 32 mmol/L LAB CHEMISTRY METHOD 04/14/2024 10:07 AM [facility] Anion Gap 6 3 - 11 LAB CHEMISTRY METHOD 04/14/2024 10:07 AM [facility] Glucose 230(H) 70 - 100 mg/dL LAB CHEMISTRY METHOD 04/14/2024 10:07 AM [facility] BUN 53(H) 5 - 25 mg/dL LAB CHEMISTRY METHOD 04/14/2024 10:07 AM [facility] Creatinine 1.69(H) 0.50 - 1.10 mg/dL LAB CHEMISTRY METHOD 04/14/2024 10:07 AM [facility] eGFR 31(L) >=60 mL/min/1. 73m2 LAB CHEMISTRY METHOD 04/14/2024 10:07 AM [facility] Comment:Calculation based on the??Chronic Kidney Disease Epidemiology Collaboration (CKD-EPI) equation refit??without adjustment for race. BUN/Creatinine Ratio 31.4 LAB CHEMISTRY METHOD 04/14/2024 10:07 AM [facility] Calcium 9.6 8.5 - 10.5 mg/dL LAB CHEMISTRY METHOD 04/14/2024 10:07 AM [facility] Blood Venous blood specimen / Unknown Venipuncture / Unknown 04/14/2024 5:23 AM EST 04/14/2024 9:12 AM EST us Aroldo Morgan MD LAB BLOOD ORDERABLES Final Resul t [facility] [address] [place] [address], * (ABNORMAL) Complete blood count (04/14/2024 5:23 AM EST) [facility] WBC 6.2 4.8 - 10.8 K/mcL LAB HEMETOLOGY METHOD 04/14/2024 9:43 AM [facility] RBC 4.50 3.80 - 4.80 M/mcL LAB HEMETOLOGY METHOD 04/14/2024 9:43 AM [facility] Hemoglobin 11.8 11.5 - 16.0 g/dL LAB HEMETOLOGY METHOD 04/14/2024 9:43 AM [facility] Hematocrit 40.5 35.0 - 47.0 % LAB HEMETOLOGY METHOD 04/14/2024 9:43 AM [facility] MCV 89.2 79.0 - 98.0 FL LAB HEMETOLOGY METHOD 04/14/2024 9:43 AM [facility] MCH 26.0(L) 27.0 - 32.0 pcg LAB HEMETOLOGY METHOD 04/14/2024 9:43 AM [facility] MCHC 29.1(L) 32.0 - 37.0 g/dL LAB HEMETOLOGY METHOD 04/14/2024 9:43 AM [facility] RDW 16.7(H) 11.0 - 15.0 % LAB HEMETOLOGY METHOD 04/14/2024 9:43 AM [facility] Platelets 273 130 - 400 K/mcL LAB HEMETOLOGY METHOD 04/14/2024 9:43 AM [facility] MPV 12.3(H) 7.0 - 11.0 FL LAB HEMETOLOGY METHOD 04/14/2024 9:43 AM [facility] NRBC 0.0 <1.0 % LAB HEMETOLOGY METHOD 04/14/2024 9:43 AM [facility] NRBC Absolute 0.00 <0.10 K/mcL LAB HEMETOLOGY METHOD 04/14/2024 9:43 AM EST [facility] Blood Venous blood specimen / Unknown Venipuncture / Unknown 04/14/2024 5:23 AM EST 04/14/2024 9:14 AM EST us Aroldo Morgan MD LAB BLOOD ORDERABLES Final Resul t [facility] [address] [place] [address], documented in this encounter Visit Diagnoses Diagnosis Chronic kidney disease, unspecified Anemia, unspecified documented in this encounter Care Teams Watch Leader Relationship Specialty Start Date End Date Aroldo Morgan MD [address] [place] [address], [phone] PCP - General Family Medicine 03/31/24 documented as of this encounter
--- OUTSIDE RECORDS SUMMARY | 2024-07-16 15:42 | XMS_ITS | Encounter Summary ---
Author Organization [facility] Address [address] [place] [address] Care Team Providers Care Adjuster Leader Name Role Phone Aroldo Morgan MD Primary Care Provider [phone] Encounter Details Date Type Department Care Team (Late st Contact Info) Description 04/18/2024 Lab Requisition [facility] - Main Lab 299 [facility] [place] [address] Aroldo Morgan MD [address] [place] [address] 204 [facility] [phone] Chronic kidney disease, unspecified; Anemia, unspecified Social [...] unspecified documented in this encounter Care Teams Adjuster Leader Relationship Specialty Start Date End Date Aroldo Morgan MD 38 [facility] 204 [place], [phone] PCP - General Family Medicine 03/31/24 documented as of this encounter
--- OUTSIDE RECORDS SUMMARY | 2024-07-16 15:42 | XMS_ITS | Encounter Summary ---
Author Organization [facility] Address [address] [place] [address] Care Team Providers Care Court Of Appeals Judge Name Role Phone Aroldo Morgan MD Primary Care Provider [phone] Encounter Details Date Type Department Care Team (Late st Contact Info) Description 03/31/2024 Lab Requisition [facility] - Main Lab 299 [facility] [place] [address] Aroldo Morgan MD 38 [facility] 204 [facility] [address] Type 2 diabetes mellitus without [...] % LAB CHEMISTRY METHOD 03/31/2024 1:59 PM [facility] Mean Bld Glu Estim. 140 mg/dL LAB CHEMISTRY METHOD 03/31/2024 1:59 PM [facility] Blood Venous blood specimen / Unknown Venipuncture / Unknown 03/31/2024 6:29 AM EST 03/31/2024 9:47 AM EST us Aroldo Morgan MD LAB BLOOD ORDERABLES Final Resul t [facility] [address] [place] [address], [place] [phone] * (ABNORMAL) Comprehensive metabolic panel (03/31/2024 6:29 AM EST) Sodium 140 133 - 145 mmol/L LAB CHEMISTRY METHOD 03/31/2024 12:08 PM [facility] Potassium 5.0 3.5 - 5.5 mmol/L LAB CHEMISTRY METHOD 03/31/2024 12:08 PM [facility] Chloride 104 96 - 110 mmol/L LAB CHEMISTRY METHOD 03/31/2024 12:08 PM [facility] CO2 30 21 - 32 mmol/L LAB CHEMISTRY METHOD 03/31/2024 12:08 PM [facility] Anion Gap 6 3 - 11 LAB CHEMISTRY METHOD 03/31/2024 12:08 PM [facility] Glucose 137(H) 70 - 100 mg/dL LAB CHEMISTRY METHOD 03/31/2024 12:08 PM [facility] BUN 37(H) 5 - 25 mg/dL LAB CHEMISTRY METHOD 03/31/2024 12:08 PM [facility] Creatinine 1.33(H) 0.50 - 1.10 mg/dL LAB CHEMISTRY METHOD 03/31/2024 12:08 PM [facility] eGFR 41(L) >=60 mL/min/1. 73m2 LAB CHEMISTRY METHOD 03/31/2024 12:08 PM [facility] Comment:Calculation based on the??Chronic Kidney Disease Epidemiology Collaboration (CKD-EPI) equation refit??without adjustment for race. BUN/Creatinine Ratio 27.8 LAB CHEMISTRY METHOD 03/31/2024 12:08 PM [facility] Calcium 9.8 8.5 - 10.5 mg/dL LAB CHEMISTRY METHOD 03/31/2024 12:08 PM [facility] AST (SGOT) 21 10 - 42 unit/L LAB CHEMISTRY METHOD 03/31/2024 12:08 PM [facility] ALT (SGPT) 11 10 - 60 unit/L LAB CHEMISTRY METHOD 03/31/2024 12:08 PM [facility] Alkaline Phosphatase 110 42 - 121 unit/L LAB CHEMISTRY METHOD 03/31/2024 12:08 PM [facility] Total Protein 6.7 6.0 - 8.0 g/dL LAB CHEMISTRY METHOD 03/31/2024 12:08 PM [facility] Albumin 2.8(L) 3.2 - 5.0 g/dL LAB CHEMISTRY METHOD 03/31/2024 12:08 PM [facility] Total Bilirubin 0.6 0.0 - 1.4 mg/dL LAB CHEMISTRY METHOD 03/31/2024 12:08 PM [facility] Blood Venous blood specimen / Unknown Venipuncture / Unknown 03/31/2024 6:29 AM EST 03/31/2024 9:47 AM EST us Aroldo Morgan MD LAB BLOOD ORDERABLES Final Resul t [facility] [address] [place] [address], * (ABNORMAL) Complete blood count (03/31/2024 6:29 AM EST) [facility] WBC 6.6 4.8 - 10.8 K/mcL LAB HEMETOLOGY METHOD 03/31/2024 10:40 AM [facility] RBC 4.60 3.80 - 4.80 M/mcL LAB HEMETOLOGY METHOD 03/31/2024 10:40 AM [facility] Hemoglobin 11.9 11.5 - 16.0 g/dL LAB HEMETOLOGY METHOD 03/31/2024 10:40 AM [facility] Hematocrit 41.5 35.0 - 47.0 % LAB HEMETOLOGY METHOD 03/31/2024 10:40 AM [facility] MCV 91.0 79.0 - 98.0 FL LAB HEMETOLOGY METHOD 03/31/2024 10:40 AM [facility] MCH 26.1(L) 27.0 - 32.0 pcg LAB HEMETOLOGY METHOD 03/31/2024 10:40 AM [facility] MCHC 28.7(L) 32.0 - 37.0 g/dL LAB HEMETOLOGY METHOD 03/31/2024 10:40 AM [facility] RDW 18.0(H) 11.0 - 15.0 % LAB HEMETOLOGY METHOD 03/31/2024 10:40 AM [facility] Platelets 309 130 - 400 K/mcL LAB HEMETOLOGY METHOD 03/31/2024 10:40 AM [facility] MPV 11.6(H) 7.0 - 11.0 FL LAB HEMETOLOGY METHOD 03/31/2024 10:40 AM [facility] NRBC 0.0 <1.0 % LAB HEMETOLOGY METHOD 03/31/2024 10:40 AM [facility] NRBC Absolute 0.00 <0.10 K/mcL LAB HEMETOLOGY METHOD 03/31/2024 10:40 AM EST [facility] Blood Venous blood specimen / Unknown Venipuncture / Unknown 03/31/2024 6:29 AM EST 03/31/2024 9:47 AM EST us Aroldo Morgan MD LAB BLOOD ORDERABLES Final Resul t [facility] [address] [place] [address], documented in this encounter Visit Diagnoses Diagnosis Type 2 diabetes mellitus without complications (CMS/HCC) documented in this encounter Care Teams Court Of Appeals Judge Relationship Specialty Start Date End Date Aroldo Morgan MD [address] [place] [address], [phone] PCP - General Family Medicine 03/31/24 documented as of this encounter
--- OUTSIDE RECORDS SUMMARY | 2024-07-16 15:42 | XMS_ITS | Encounter Summary ---
Author Organization [facility], Address [address] [place] [address] Phone Care Team Providers Care Houseman Name Role Phone Bryan Fontanez MD Primary Care Provider [phone] Encounter Details Date Type Department Care Team ([facility] st Contact Info) Description 08/29/2023 Documentation Only [facility], [address] [place] [address] Osorio Burgos, [address] [place] [address] Social History Tobacco Use Types [...] on filedocumented in this encounter Care Teams Houseman Relationship Specialty Start Date End Date Bryan Fontanez MD [address] [place] [address] PCP - General 05/17/20 documented as of this encounter
--- OUTSIDE RECORDS SUMMARY | 2024-07-16 15:42 | XMS_ITS | Clinical Summary ---
Author Organization [address] Address [address] [place] [address] Phone Care Team Providers Care Manager Ecommerce Name Role Phone Aroldo Morgan MD Primary Care Provider [phone] Encounters Date Type Department Care Team Description 04/26/2024 Lab Requisition [facility] Lab [address] [place] [address] Aroldo Morgan MD Chronic kidney disease, unspecified; Anemia, unspecified 04/18/2024 Lab Requisition [facility] [address] [place] [address] Aroldo Morgan MD Chronic kidney disease, unspecified; [...] 04/14/2024 10:07 AM [facility] Blood Venous blood specimen / Unknown Venipuncture / Unknown 04/14/2024 5:23 AM EST 04/14/2024 9:12 AM EST Aroldo Morgan MD LAB BLOOD ORDERABLES Final Resul t Performing Organization Address [facility] Co de Phone Number [facility] [address] [place] [address], [place] [phone] * (ABNORMAL) Hemoglobin A1c (03/31/2024 6:29 AM EST) Hemoglobin A1C 6.5(H) <6.5 % LAB CHEMISTRY METHOD 03/31/2024 1:59 PM EST [facility] Mean Bld Glu Estim. 140 mg/dL LAB CHEMISTRY METHOD 03/31/2024 1:59 PM EST [facility] Blood Venous blood specimen / Unknown Venipuncture / Unknown 03/31/2024 6:29 AM EST 03/31/2024 9:47 AM EST us Aroldo Morgan MD LAB BLOOD ORDERABLES Final Resul t Performing Organization Address [facility] Co de Phone Number [facility] [address] [place] [address], [place] [phone] from Last 3 Months or Most Recently Relevant to Health Maintenance Insurance [facility] [employer] Member Subscriber Plan / Payer (Ef fective 2014-Present) Name:Danisha Dan Relation to Subscriber:Self Name:Danisha Dan Payer ID:[id number] Group ID:[id number] Type:Not on file Address: [place] [address] [address] [address] Care Teams Manager Ecommerce Relationship Specialty Start Date End Date Eddie, Aroldo, MD [address] [place] [address], [phone] PCP - General Family Medicine 03/31/24
--- OUTSIDE RECORDS SUMMARY | 2024-07-16 15:42 | XMS_ITS | Encounter Summary ---
Author Organization [facility], Address [address] [place] [address] Phone Care Team Providers Care Power Lineman Technician Name Role Phone Bryan Fontanez MD Primary Care Provider [phone] Encounter Details Date Type Department Care Team ([facility] st Contact Info) Description 10/25/2023 Documentation Only [facility], [address] [place] [address] Osorio Burgos, [address] [place] [address] Social History Tobacco Use Types [...] on filedocumented in this encounter Care Teams Power Lineman Technician Relationship Specialty Start Date End Date Bryan Fontanez MD [address] [place] [address] PCP - General 05/17/20 documented as of this encounter
--- OUTSIDE RECORDS SUMMARY | 2024-07-16 15:42 | XMS_ITS | Encounter Summary ---
Author Organization [facility], Address [address] [place] [address] Phone Care Team Providers Care Gang Ripsaw Operator Name Role Phone Bryan Fontanez MD Primary Care Provider [phone] Encounter Details Date Type Department Care Team (Late st Contact Info) Description 07/16/2024 Telephone [facility] - [address] [place] [address] Francesca Gentile, MARIFER [address] [place] [address] [place] [phone] Social History Tobacco Use Types Packs/Day Years [...] on file documented as of this encounter Miscellaneous Notes * Telephone Encounter - Francesca Gentile RN - 07/16/2024 12:41 PM EDT I spoke with pt on 07/06/24 and reminded her to get her blood drawn because labs are over-due. Pt told me she would go to lab on 07/10/24. Pt has not gone to lab as of today. I called her, but no answer and unable to leave message because mail box full. documented in this encounter Plan of Treatment Not on file documented as of this encounter Visit Diagnoses Not on filedocumented in this encounter Care Teams Gang Ripsaw Operator Relationship Specialty Start Date End Date Bryan Fontanez MD [address] [place] [address] PCP - General 05/17/20 documented as of this encounter
--- OUTSIDE RECORDS SUMMARY | 2024-07-16 15:42 | XMS_ITS | Encounter Summary ---
Author Organization [facility], Address [address] [place] [address] Phone Care Team Providers Care Precipitator Supervisor Name Role Phone Bryan Fontanez MD Primary Care Provider [phone] Encounter Details Date Type Department Care Team ([facility] st Contact Info) Description 08/29/2023 Documentation Only [facility], [address] [place] [address] Osorio Burgos, [address] [place] [address] Social History Tobacco Use Types [...] on filedocumented in this encounter Care Teams Precipitator Supervisor Relationship Specialty Start Date End Date Bryan Fontanez MD [address] [place] [address] PCP - General 05/17/20 documented as of this encounter
--- OUTSIDE RECORDS SUMMARY | 2024-07-16 15:42 | XMS_ITS | Encounter Summary ---
Author Organization [facility] Address [address] [place] [address] Care Team Providers Care Nature Photographer Name Role Phone Aroldo Morgan MD Primary Care Provider [phone] Encounter Details Date Type Department Care Team (Late st Contact Info) Description 04/04/2024 Lab Requisition [facility] - Main Lab [address] [place] [address] Aroldo Morgan MD [address] [facility] 204 [facility] [address] Chronic kidney disease, unspecified; Anemia, [...] LAB CHEMISTRY METHOD 04/07/2024 9:18 AM EST [facility] LAB Potassium 4.5 3.5 - 5.5 mmol/L LAB CHEMISTRY METHOD 04/07/2024 9:18 AM [facility] Chloride 103 96 - 110 mmol/L LAB CHEMISTRY METHOD 04/07/2024 9:18 AM [facility] CO2 30 21 - 32 mmol/L LAB CHEMISTRY METHOD 04/07/2024 9:18 AM [facility] Anion Gap 5 3 - 11 LAB CHEMISTRY METHOD 04/07/2024 9:18 AM [facility] Glucose 235(H) 70 - 100 mg/dL LAB CHEMISTRY METHOD 04/07/2024 9:18 AM [facility] BUN 57(H) 5 - 25 mg/dL LAB CHEMISTRY METHOD 04/07/2024 9:18 AM [facility] Creatinine 1.66(H) 0.50 - 1.10 mg/dL LAB CHEMISTRY METHOD 04/07/2024 9:18 AM [facility] LAB eGFR 31(L) >=60 mL/min/1. 73m2 LAB CHEMISTRY METHOD 04/07/2024 9:18 AM [facility] Comment:Calculation based on the??Chronic Kidney Disease Epidemiology Collaboration (CKD-EPI) equation refit??without adjustment for race. BUN/Creatinine Ratio 34.3 LAB CHEMISTRY METHOD 04/07/2024 9:18 AM [facility] Calcium 9.2 8.5 - 10.5 mg/dL LAB CHEMISTRY METHOD 04/07/2024 9:18 AM [facility] Blood Venous blood specimen / Unknown Venipuncture / Unknown 04/07/2024 4:55 AM EST 04/07/2024 8:09 AM EST us Aroldo Morgan MD LAB BLOOD ORDERABLES Final Resul t [facility] [address] [place] [address], * (ABNORMAL) Complete blood count (04/07/2024 4:55 AM EST) [facility] WBC 5.9 4.8 - 10.8 K/mcL LAB HEMETOLOGY METHOD 04/07/2024 8:34 AM [facility] RBC 4.20 3.80 - 4.80 M/mcL LAB HEMETOLOGY METHOD 04/07/2024 8:34 AM [facility] Hemoglobin 11.0(L) 11.5 - 16.0 g/dL LAB HEMETOLOGY METHOD 04/07/2024 8:34 AM [facility] Hematocrit 38.0 35.0 - 47.0 % LAB HEMETOLOGY METHOD 04/07/2024 8:34 AM [facility] MCV 90.7 79.0 - 98.0 FL LAB HEMETOLOGY METHOD 04/07/2024 8:34 AM [facility] MCH 26.3(L) 27.0 - 32.0 pcg LAB HEMETOLOGY METHOD 04/07/2024 8:34 AM [facility] MCHC 28.9(L) 32.0 - 37.0 g/dL LAB HEMETOLOGY METHOD 04/07/2024 8:34 AM [facility] RDW 17.4(H) 11.0 - 15.0 % LAB HEMETOLOGY METHOD 04/07/2024 8:34 AM [facility] Platelets 305 130 - 400 K/mcL LAB HEMETOLOGY METHOD 04/07/2024 8:34 AM [facility] MPV 11.5(H) 7.0 - 11.0 FL LAB HEMETOLOGY METHOD 04/07/2024 8:34 AM [facility] NRBC 0.0 <1.0 % LAB HEMETOLOGY METHOD 04/07/2024 8:34 AM [facility] NRBC Absolute 0.00 <0.10 K/mcL LAB HEMETOLOGY METHOD 04/07/2024 8:34 AM EST [facility] LAB Blood Venous blood specimen / Unknown Venipuncture / Unknown 04/07/2024 4:55 AM EST 04/07/2024 8:09 AM EST us Aroldo Morgan MD LAB BLOOD ORDERABLES Final Resul t [facility] [address] [place] [address], documented in this encounter Visit Diagnoses Diagnosis Chronic kidney disease, unspecified Anemia, unspecified documented in this encounter Care Teams Nature Photographer Relationship Specialty Start Date End Date Aroldo Morgan MD [address] [place] [address], [phone] PCP - General Family Medicine 03/31/24 documented as of this encounter
--- OUTSIDE RECORDS SUMMARY | 2024-07-16 15:42 | XMS_ITS | Clinical Summary ---
Author Organization [facility], Address [address] [place] [address] [place] [address] Phone Care Team Providers Care Drafter Refrigeration Name Role Phone Bryan Fontanez MD Primary Care Provider [phone] Allergies Active Allergy Reactions Criticality Noted Date [...] Encounters Date Type Department Care Team Description 07/16/2024 Telephone [facility] [address] [place] [address] Francesca Gentile, MARIFER 05/26/2024 Office Communication [facility] [address] [place] [address] Francesca Gentile, RN from Last 3 Months Family History [...] PM EST) Hemoglobin A1C 6.2(H) (4-6) % [facility] 3 Comment: HEMOGLOBIN A1C(%) ?? GLUCOSE CONTROL INDEX ?<6% ? EXCELLENT ?6-7% ?VERY GOOD ?7-8% ?GOOD ?8-10% ? FAIR ?>10% ?POOR Hemoglobin (Hb) A1c testing is performed by Robert Ashleigh-quant immunoassay. Any cause of shortened erythrocyte survival will reduce exposure of erythrocytes to glucose with a consequent decrease in Hb A1c (%). Testing performed or reported by ~[facility], ~a Service of [facility], ~[address] [place] [address]~ Iván Wolf MD, Electronic Funds Transfer Coordinator~ 05/12/2019 12:3 8 PM EST us Harlan Doss MD LAB BLOOD ORDERABLES Final Res ult [facility] 3 from Last 3 Months or Most Recently Relevant to Health Maintenance Insurance [facility] ([id number]) [place] [id number] [facility] ([id number]) Care Teams Drafter Refrigeration Relationship Specialty Start Date End Date Bryan Fontanez MD [address] [place] [address] PCP - General 05/17/20
--- OUTSIDE RECORDS SUMMARY | 2024-07-16 15:42 | XMS_ITS | Encounter Summary ---
Author Organization [facility] Address [address] [place] [address] Care Team Providers Care Mall Manager Name Role Phone Aroldo Morgan MD Primary Care Provider [phone] Encounter Details Date Type Department Care Team (Late st Contact Info) Description 04/26/2024 Lab Requisition [facility] - Main Lab [address] [facility] [place] [address] Aroldo Morgan MD [address] [place] [address] 204 [facility] [phone] Chronic kidney disease, unspecified; Anemia, unspecified Social [...] unspecified documented in this encounter Care Teams Mall Manager Relationship Specialty Start Date End Date Aroldo Morgan MD [address] [facility] 204 [place], [phone] PCP - General Family Medicine 03/31/24 documented as of this encounter
--- OUTSIDE RECORDS SUMMARY | 2024-07-16 15:42 | XMS_ITS | Encounter Summary ---
Author Organization [facility], Address [address] [place] [address] Phone Care Team Providers Care Seed And Fertilizer Specialist Name Role Phone Bryan Fontanez MD Primary Care Provider [phone] Encounter Details Date Type Department Care Team ([facility] st Contact Info) Description 11/21/2022 Documentation Only [facility], [address] [place] [address] Osorio Burgos, [address] [place] [address] Social History Tobacco Use Types [...] on filedocumented in this encounter Care Teams Seed And Fertilizer Specialist Relationship Specialty Start Date End Date Bryan Fontanez MD [address] [place] [address] PCP - General 05/17/20 documented as of this encounter
--- OUTSIDE RECORDS SUMMARY | 2024-07-16 15:42 | XMS_ITS | Encounter Summary ---
Author Organization [facility] Address [address] [place] [address] Care Team Providers Care Nursery Rn Name Role Phone Aroldo Morgan MD Primary Care Provider [phone] Encounter Details Date Type Department Care Team (Late st Contact Info) Description 04/16/2024 Lab Requisition [facility] - Main Lab 299 [facility] [place] [address] Aroldo Morgan MD [address] [facility] 204 [facility] [address] Urinary tract infection, site [...] MD LAB URINE ORDERABLES Final Resul t [facility] [address] [place] [address], * (ABNORMAL) Urinalysis with reflex microscopic (04/16/2024 1:00 AM EST) Specific [place] Urine 1.009 1.003 - 1.030 LAB URINALYSIS [...] MD LAB URINE ORDERABLES Final Resul t [facility] [address] [place] [address], documented in this encounter Visit Diagnoses Diagnosis Urinary tract infection, site not specified documented in this encounter Care Teams Nursery Rn Relationship Specialty Start Date End Date Aroldo Morgan MD [address] [place] [address], [phone] PCP - General Family Medicine 03/31/24 documented as of this encounter
--- OUTSIDE RECORDS SUMMARY | 2024-07-16 15:42 | XMS_ITS | Encounter Summary ---
Author Organization [facility], Address [address] [place] [address] Phone Care Team Providers Care Glove Cleaner Name Role Phone Bryan Fontanez MD Primary Care Provider [phone] Encounter Details Date Type Department Care Team ([facility] st Contact Info) Description 08/29/2023 Documentation Only [facility], [address] [place] [address] Osorio Burgos, [address] [place] [address] Social History Tobacco Use Types [...] on filedocumented in this encounter Care Teams Glove Cleaner Relationship Specialty Start Date End Date Bryan Fontanez MD [address] [place] [address] PCP - General 05/17/20 documented as of this encounter
== END 2024-07-16 14:08 | disposition home or self-care (01) ==
LOC: HO.HOS 13:23
DX: S62.511A Displaced fracture of proximal phalanx of right thumb, initial encounter for closed fracture (principal)
CPT/HCPCS: 29085; 99024

== ENCOUNTER → 2024-07-16 13:31 | Outpatient (BNV) | payer OTHER, SELFPAY | PROVIDERS: Visit Provider Radiology Diagnostic Radiology | DX: S62.511A Displaced fracture of proximal phalanx of right thumb, initial encounter for closed fracture (principal) | CPT/HCPCS: 73130 ==

== ENCOUNTER 2024-07-23 10:54 | Outpatient (RCR) | payer OTHER, SELFPAY ==
--- NOTE | 2024-07-23 11:53 | MHC.OT.EP ---
[address] [phone] Occupational Therapy Plan of Care Patient Name: Danisha Dan Date of Evaluation: 07/23/24 Diagnosis: Right thumb prox phalanx fx Pain Location: Pain free in hand/thumb Pain Score: 1 Pain Scale Used: Aggravating Factors: Alleviating Factors: Assessment: 79 yo female fell onto her right hand with proximal phalanx fx, 04/16/24. She was casted in ortho and cast removed June 2024. She is now referred to OT for hand based orthosis for continued support and healing. Seen in clinic today w/ fabrication of custom hand based orthosis w/ CMC, MP and IP immobilization, educated on removing for hygiene and will have follow up next week for splint check and gentle AROM. Frequency and Duration: The patient will be seen 1x/wk for 4 weeks Short Term Goals: Ind w/ orthosis wear and care Ind w/ gentle AROM w/ HEP Retirement Goals: Treatment Plan: Therapeutic Exercise Therapeutic Activity Home Exercise Program Splinting Patient Education Fluidotherapy MHP Cold Packs Kinesiotaping Electronically Signed By: ANSELMO Tubbs/Lashay CHT Please Sign and return to therapist. Thank you once again for your referral.
--- NOTE | 2024-08-21 11:49 | MHC.OT.DC ---
[address] [phone] F: [phone] Occupational Therapy Discharge Note Patient Name: Danisha Dan Provider: Umair Vences PA-C Diagnosis: Right thumb prox phalanx fx Date of Surgery: Date of Evaluation: 07/23/24 Date of Discharge: 08/21/24 Treatments to Date: 1 Cancellations to Date: 1 No Shows to Date: Discharge Status: Patient Elected to Stop Discharge Summary: Danisha was referred to OT s/p fall w/ proximal phalanx fracture. We fabricated hand based orthosis and educated on splint care and hygiene. She cancelled follow up visit for splint check and has not rescheduled after a month. We will be discharging from services at this time. Please refer back if needed for progression of range and strength. Electronically Signed By: ANSELMO Tubbs/Lashay [place] Reviewed/agree with student documentation: Therapist: Please Sign and return to therapist, thank you for your referral.
== END 2024-08-21 11:50 | disposition home or self-care (01) ==
LOC: HO.OT 10:54
PROVIDERS: PCP Internal Medicine
DX: S62.511D Displaced fracture of proximal phalanx of right thumb, subsequent encounter for fracture with routine healing (principal)
CPT/HCPCS: 29130; 97165; 97760

== ENCOUNTER 2024-08-27 09:19 | Outpatient (REF) | payer OTHER, SELFPAY ==
--- OUTSIDE RECORDS SUMMARY | 2024-08-27 10:20 | XMS_ITS | Encounter Summary ---
Author Organization [facility], Address [address] [place] [address] Phone Care Team Providers Care Technical Support Assistant Name Role Phone Bryan Fontanez MD Primary Care Provider [phone] Encounter Details Date Type Department Care Team ([facility] st Contact Info) Description 08/29/2023 Documentation Only [facility], [address] [place] [address] Osorio Burgos, [address] [place] [address] Social History Tobacco Use Types [...] on filedocumented in this encounter Care Teams Technical Support Assistant Relationship Specialty Start Date End Date Bryan Fontanez MD [address] [place] [address] PCP - General 05/17/20 documented as of this encounter
--- OUTSIDE RECORDS SUMMARY | 2024-08-27 10:20 | XMS_ITS | Encounter Summary ---
Author Organization [facility] Address [address] [facility] [address] [place] [address] Care Team Providers Care Roll Grinder Operator Name Role Phone Bobbi Barillas MD Primary Care Provider [phone] Encounter Details Date Type Department Care Team ([facility] st Contact Info) Description 06/05/2023 Orders Only [facility] [address] [place], [place] [phone] Bobbi Barillas MD [address] [place], [place] [phone] Social History Tobacco Use Types Packs/Day Years Used Date Smoking Tobacco: Former Cigarettes Passive Smoke Exposure: Past Smokeless Tobacco: Never PHQ-2 Answer Date Recorded Patient Health Questionnaire-2 Score 2 08/15/2022 Housing Stability Answer Date Recorded What is your housing situation today? I have chani guerra 02/19/[address] you li ve. Do you have problems with any of the following? None of the above 02/19/2023 Food Insecurity Answer Date Recorded Within the past 12 months, y ou worried that your food would run out before you got money to buy more: Never True 02/19/2023 Within the past 12 months,th e food you bought just didn't last and you didn't have enough money to get more: Never True Transportation Answer Date Recorded In the past 12 months, has l ack of transportation kept you from medical appts, meetings, work or from getting things needed for daily living? No 02/19/2023 Utilities Answer Date Recorded In the past 12 months, has t he electric, gas, oil or water company threatened to shut off services in your home? No 02/19/2023 Depression Answer Date Recorded Patient Health Questionnaire-2 Score 2 08/15/2022 Comments Unknown Sex and Gender Information Value Date Recorded Sex Assigned at Female 03/06/2022 10:17 AM EDT Legal Sex Female 10:17 AM EDT Gender Identity Female 03/06/2022 10:17 AM EDT Sexual Orientation Choose not to disclose 2021 10:17 AM EDT documented as of this encounter Plan of Treatment Not on file documented as of this encounter Goals Goal Patient Goal Type Associated Problems Recent Progress Patient-Stated? Author Blood Pressure < 140/90 Blood Pressure 115/70(2024 10:06 AM EDT) No Howie Larry, PharmAlonso Hemoglobin A1c < 7 Result Component 7.7( 10:10 AM EDT) No Howie Larry PharmD documented as of this encounter Visit Diagnoses Not on filedocumented in this encounter Care Teams Roll Grinder Operator Relationship Specialty Start Date End Date Bobbi Barillas MD [address] [place] [address] PCP - General Family Medicine 05/07/18 documented as of this encounter
--- OUTSIDE RECORDS SUMMARY | 2024-08-27 10:20 | XMS_ITS | Data Portability ---
Author Organization [facility], Main Office Address [address], [address] [place] [address] Care Team Providers Care Spindle Maker Name Role Phone PÉREZ SULTANA - 2ND [...] Address Organization Details Recorded Time Recurrent falls 048836424 Active 2023 Joan Shah NP [address] [facility], [address], [place], [address], [facility] [employer] 14:23:46 Asthenia 82568612 Active 2023 Joan Shah NP [address] [facility], [address], [place], [address], [facility] [employer] 14:23:52 Anemia 259568451 Active 2023 Joan Shah NP [address] [facility], [address], [place], [address], [facility] [employer] 14:23:59 Atrial flutter 2230788 Active 2023 Joan Shah NP [address] [facility], [address], [place], [address], [facility] [employer] 14:24:25 Dementia 43191382 Active 2023 Joan Shah NP [address], [address], [place], [address], [facility] [facility] 4 14:24:42 Type 2 diabetes mellitus 48633547 Active 2023 Joan Shah NP [address], [address], [place], [address], [facility] 4 14:25:01 Depressive disorder 69190169 Active 2023 Joan Shah NP [address], [address], [place], [address], [facility] 4 14:25:09 Fracture of multiple ribs 6524895 Active 2023 Joan Shah NP [address], [address], [place], [address], [facility] [facility] 4 19:03:44 Peripheral vascular disease 644846750 Active 2023 Joan Shah NP [address], [address], [place], [address], [facility] [facility] 4 19:04:26 Congestive heart failure 67433587 Active 2023 Joan Shah NP [address], [address], [place], [address], [facility] 4 19:04:45 Hypertensive disorder 77670420 Active 2023 Joan Shah NP [address], [address], [place], [address], [facility] [facility] 4 19:05:00 Hyperlipidemia 64142950 Active 2023 Joan Shah NP [address], [address], [place], [address], [facility] [employer] 4 19:19:08 Seasonal allergy 925754498 Active 2023 Joan Shah NP [address], [address], [place], [address], [place] - [facility] 4 19:25:46 Urinary tract infectious disease 91463923 Active 2023 Sammie Gamble MD [address] [facility], [address], [place], [address] [facility] 4 14:37:32 Problem Notes None recorded. Medical Equipment None Reported. Allergies Allergen ID Allergen Name Allergen Category Reaction Reaction Severity Criticality Documentation Date Start Date Code Code System Note Provider Name and Address Organization Details Recorded Time 94696 erythromy tamara medicatio n other Not available unabletoasse 03/26/2024 4053 RxNorm unkno wn Not Available Not Available Not Available 74116 Substance with sulfonami de structure and antibacte rial mechanism of action (substanc e) medicatio n other Not available unabletoasse 03/26/2024 69855 8003 SNOMED unkno wn Not Available Not Available Not Available 96181 lactose food,medi cation other Not available unabletoasse 03/26/2024 6211 RxNorm unkno wn Not Available Not Available Not Available 84557 shellfish derived food,medi cation other Not available unabletoasse 03/26/2024 85595 UNK seafo od Not Available Not Available Not Available Vitals Date Recorded Heart rate Respiratory rate Body temperature Oxygen saturation Oxygen saturation in Arterial blood by Pulse oximetry Systolic blood pressure Diastolic blood pressure Provider Name and Address Organization Details Last Updated DateTime 4 68 /min 17 /min 97.6 [degF] 94 % 94 % 104 mm[Hg] 78 mm[Hg] Joan Shah NP [address] [facility], [address], [place], [address] , [facility] 4 14:22:12 Date Recorded Heart rate Respiratory rate Body temperature Oxygen saturation Oxygen saturation in Arterial blood by Pulse oximetry Systolic blood pressure Diastolic blood pressure Provider Name and Address Organization Details Last Updated DateTime 4 72 /min 16 /min 97.3 [degF] 92 % 92 % 104 mm[Hg] 74 mm[Hg] Joan Shah NP [address] [facility], [address], [place], [address] , [facility] 4 09:54:01 Date Recorded Heart rate Respiratory rate Body temperature Oxygen saturation Oxygen saturation in Arterial blood by Pulse oximetry Body weight Body mass index (BMI) Body height Systolic blood pressure Diastolic blood pressure Provider Name and Address Organization Details Last Updated DateTime 4 72 /min 18 /min 98.7 [degF] 96 % 96 % 77497.0 5 g 25.2 kg/m2 149.86 cm 104 mm[Hg] 74 mm[Hg] Sammie Gamble MD [address] [facility], [facility] [address], [place], [address], [facility] 4 17:40:16 Date Recorded Body height Heart rate Respiratory rate Body temperature Oxygen saturation Oxygen saturation in Arterial blood by Pulse oximetry Body mass index (BMI) Body weight Systolic blood pressure Diastolic blood pressure Provider Name and Address Organization Details Last Updated DateTime 4 149.86 cm 76 /min 16 /min 97 [degF] 97 % 97 % 24 kg/m2 87835.4 9 g 142 mm[Hg] 81 mm[Hg] Sammie Gamble MD [address] [facility] [address], [place], [address], [facility] 4 20:59:29 Date Recorded Body height Body weight Body mass index (BMI) Heart rate Respiratory rate Body temperature Oxygen saturation Oxygen saturation in Arterial blood by Pulse oximetry Systolic blood pressure Diastolic blood pressure Provider Name and Address Organization Details Last Updated DateTime 4 149.86 cm 53366.0 8 g 24.2 kg/m2 76 /min 16 /min 97.7 [degF] 97 % 97 % 142 mm[Hg] 81 mm[Hg] Joan Shah NP [address] [facility] [address], [place], [address], [facility] 4 09:24:10 Social History Question Answer Notes LastModified by Organizat ion Details LastModified Time Tobacco Smoking Status Never Smoker Joan Shah NP [address] [facility] [address], [place], [address], [facility] 03/26/2024 18:41:14 Do You Have An Advance Directive? Yes Information not available 04/01/2024 What Is Your Level Of Alcohol Consumption? None Information not available 03/26/2024 What Is Your Code Status? DNR/DNI Information not available 04/01/2024 Where Do You Live? Apartment Information not available 03/26/2024 Legal Guardian? No Informati on not available 04/01/2024 Do You Have A Medical Power Of Discharge Specialist? Yes Invoked Information not available 04/01/2024 What [...] (RSV) vaccine, unspecified 4 completed [facility] 03/26/2024 13:39:00 Tdap 4 completed [facility]acey [facility] 03/26/2024 13:39:14 Td(adult) unspecified formulation 2 completed Stacey [facility] 03/26/2024 13:39:28 Pneumococcal conjugate PCV20, polysaccharide CPO996 conjugate, adjuvant, PF 3 completed Stacey [facility] 03/26/2024 13:39:54 influenza, unspecified formulation 2 completed Stacey [facility] 03/26/2024 13:40:07 influenza, unspecified formulation 3 completed Stacey [facility] 03/26/2024 13:40:14 SARS-COV-2 (COVID-19) vaccine, UNSPECIFIED 1 completed [facility] 03/26/2024 13:40:26 SARS-COV-2 (COVID-19) vaccine, UNSPECIFIED 1 completed [facility] 03/26/2024 13:40:32 SARS-COV-2 (COVID-19) vaccine, UNSPECIFIED 1 completed [facility] 03/26/2024 13:40:40 SARS-COV-2 (COVID-19) vaccine, UNSPECIFIED 4 completed [facility] 03/26/2024 13:40:46 Past Encounters Encounter ID Performer Location Encounter Start Date Encounter Closed Date Diagnosis/Indication Diagnosis SNOMED-CT Code Diagnosis ICD10 Code Diagnosis Note [id number] Joan Shah NP [address] [address] 03/26/2024 14:19:37 03/27/2024 09:14:17 Fracture of multiple ribs 8426273 S22.42XD see hpi2nd and 3rd left rib fractures eval'd by trauma and rec conservati ve therapy, IS, acapella valve, and pain management and WBAT105/26a nd start lidocaine patch % to ribs and right thighcontt yl 975 mg po tidcyclobe nzaprine 5 mg po qhs and tyl prnoxycodo ne 5 mg po q 6 hours prn painmonito r Asthenia 93343587 R53.1 PT OT eval and treat for strengthen ing, gait, balance, mobility, romsupport evelin caremonito r Recurrent falls 51063441 2 R29.6 PT OT eval and treat for strengthen ing, gait, balance, mobility, romsupport evelin caremonito r Urinary tr act infectious disease 53246785 N39.0 treated with abx and will continue cefpodoxim e 200 mg po bid here for 7 daysmonito r for sequlae Dementia 42014966 F01.C2 with severe dementiamo nitor for improvemen [...] eval and treatwill invokemoni tor Atrial flutter 4609178 I 48.92 clopidogre l 75 mg po dailymetop rolol xl 25 mg po dailyeliqu is 5 mg po bidmonitor Type 2 flora betes mellitus 77777719 E11.9 BS stable 100-200s todayinsul in decreased to lantus 15 units qhsmonitor bs with meals tid ac Depressive disorder 3548 9007 F32.A pt with hx ofsee dementia above Anemia 228088245 D64.9 vit b2 daily bidmonitor cbc weekly x3 for anemia with hx and recent fx on eliquis Congestive heart failure 10229141 I50.9 hx ofconttopr ol xl 25 mg qdentresto is on hold with cefpodoxim e(consider resuming)s pirolacton e 25 mg po qdtorsemid e 40 mg qdfu outpt cardiology 04/01/24 at 2:15 pm [facility] outpt device clinic 05/23/2024 07:40 am Peripheral vascular disease 396982724 I73.9 hx ofmonitor Fracture o f inferior pubic ramus 352980640 S32.592G pt with ? of fx of inferior left pubic ramussee hpi, felt not to be a fracture by ortho and WBATmontio rfu with Dr Haja burger at [facility] as needed in 1-2 weeks for ? pelvic fracture Hypertensive disorder 38 444860 I10 hx ofconttopr ol xl 25 mg qdentresto is on hold with cefpodoxim e(consider resuming)s pirolacton e 25 mg po qdtorsemid e 40 mg qdmonitor vitals, cardiac status Hyperlipidemia 04070717 E78.5 contliptor 40 mg po qdmonitor Seasonal allergy 3306548 04 J30.2 claritin 10 mg po dailymonit or [id number] Joan Shah NP [address] [address] 03/27/2024 09:50:43 03/28/2024 10:17:23 Fracture of multiple ribs 0252872 S22.42XD see hpi2nd and 3rd left rib fractures eval'd by trauma and rec conservati ve therapy, IS, acapella valve, and pain management and WBAT1 nd start lidocaine patch % to ribs and right thighcontt yl 975 mg po tidcyclobe nzaprine 5 mg po qhs and tyl prnoxycodo ne 5 mg po q 6 hours prn painmonito r Fracture o f inferior pubic ramus 740154776 S32.592G pt with ? of fx of inferior left pubic ramussee hpi, felt not to be a fracture by ortho and WBATmontio rfu with Dr Haja burger at [facility] as needed in 1-2 weeks for ? pelvic fracture Asthenia 86383499 R53.1 PT OT eval and treat for strengthen ing, gait, balance, mobility, romsupport evelin caremonito r Recurrent falls 77663210 2 R29.6 PT OT eval and treat for strengthen ing, gait, balance, mobility, romsupport evelin caremonito r Urinary tr act infectious disease 42253821 N39.0 treated with abx and will continue cefpodoxim e 200 mg po bid here for 7 daysunclea r if dementia is worse with UTI and on abx?questi on if her not taking meds and delusions related to the UTI and seems to be more receptive to staff todaymonit or for sequlae Dementia 48239534 F01.C2 with severe dementiamo nitor for improvemen [...] also helpful to her today Atrial flutter 7835902 I 48.92 clopidogre l 75 mg po dailymetop rolol xl 25 mg po dailyeliqu is 5 mg po bidmonitor Type 2 flora betes mellitus 00199947 E11.9 BS stable 100-200s todayinsul in decreased to lantus 15 units qhsmonitor bs with meals tid ac Depressive disorder 3546 9007 F32.A pt with hx ofsee dementia above Anemia 979887609 D64.9 vit b2 daily bidmonitor cbc weekly x3 for anemia with hx and recent fx on eliquis Congestive heart failure 83303245 I50.9 hx ofconttopr ol xl 25 mg qdentresto is on hold with cefpodoxim e(consider resuming)s pirolacton e 25 mg po qdtorsemid e 40 mg qdfu outpt cardiology 04/01/24 at 2:15 pm [facility] cardiology [facility] outpt device clinic 05/23/2024 07:40 am Peripheral vascular disease 403732823 I73.9 hx ofmonitor Hypertensive disorder 38 384405 I10 bp stablecont toprol xl 25 mg qdentresto is on hold with cefpodoxim e(consider resuming)s pirolacton e 25 mg po qdtorsemid e 40 mg qdmonitor vitals, cardiac status Hyperlipidemia 84483896 E78.5 contliptor 40 mg po qdmonitor Seasonal allergy 9217979 04 J30.2 claritin 10 mg po dailymonit or [id number] Sammie Gamble MD [address] [address] 03/28/2024 15:02:00 04/02/2024 08:32:26 Dementia 63655267 F01.C2 Mod/severe at baseline.C ommunicati ng pretty well tonight.Co ntinue supportive care, expect decline.HC P invokedMon itor mood and behaviors. Psych consult. Urinary tr act infectious disease 92558996 N30.00 Urine cx grew mixed dwayne.Txed with cefpodoxim e 200 mg BID, will complete 7 day course on 03/30.Uncl ear if true UTI, but will complete tx.Monitor for sxs. Depressive disorder 9736 1407 F33.8 Tearful and worried.On no meds.Will get psych consult. Fracture o f multiple ribs 8842511 S22.42XD With continued pain.Destinee nue lidocaine patch % to ribs and right thigh, APAP 975 mg TID, cyclobenza gregg 5 mg qhs and oxycodone 5 mg q 6 hs prn.Encour age acappella, I jeremy, and cough and deep breaths.Mo nitor sxs. Fracture o f inferior pubic ramus 128178622 S32.592G Not thought to be fx per ortho.WBAT , pain meds as above and monitor.Ne eds PT/OT for strengthen ing, balance, gait training, safety and function.C ontinue fall precaution s.Monitor for safety. Asthenia 09244727 R53.1 As above. Recurrent falls 33951626 2 R29.6 As above. Atrial flutter 7907016 I 48.92 Rate in good control on metoprolol 25 mg qd.Continu e clopidogre l 75 mg po qd and eliquis 5 mg BIDMonitor HR and bleeding risk.F/U with cardio as planned. Type 2 flora betes mellitus 51113666 E11.9 BS in adequate control.Co ntinue lantus 15U qd and SSI.Monito r fingerstic ks TI and HgA1C q 3-6 months. Anemia 366680384 D64.89 Stable.Mon itor Congestive heart failure 18614878 I50.9 Appears euvolemic. Continue meds as above.Gale tor resp. status, fluid status, wts and labs.F/U with cardio 04/01/24 at 2:15 pm and at device clinic 05/23/2024 at 7:40 am Peripheral vascular disease 374351384 I73.89 hx ofmonitor Hypertensive disorder 38 587344 I10 BP in good control since here.Destinee nue metoprolol 25 mg qd, spironolac tone 25 mg qd and torsemide 40 mg qdMonitor BP and labs. Hyperlipidemia 96404809 E78.49 Continue atorvastat in 40 mg qdMonitor yearly. Seasonal allergy 5124644 04 J30.2 Continue claritin 10 mg qdMonitor sxs. [id number] [facility] [address] 04/01/2024 14:21:58 05/02/2024 11:50:25 Dementia 90298133 F01.C2 Mod/severe at baseline.C ommunicati ng pretty well tonight.Co ntinue supportive care, expect decline.HC P invokedMon itor mood and behaviors. Psych consult. Urinary tr act infectious disease 32256969 N30.00 Urine cx grew mixed dwayne.Txed with cefpodoxim e 200 mg BID, will complete 7 day course on 03/30.Uncl ear if true UTI, but will complete tx.Monitor for sxs. Depressive disorder 3548 9007 F33.8 Tearful and worried.On no meds.Will get psych consult. Fracture o f multiple ribs 9503522 S22.42XD With continued pain.Destinee nue lidocaine patch % to ribs and right thigh, APAP 975 mg TID, cyclobenza gregg 5 mg qhs and oxycodone 5 mg q 6 hs prn.Encour age acappella, I jeremy, and cough and deep breaths.Mo nitor sxs. Fracture o f inferior pubic ramus 958895861 S32.592G Not thought to be fx per ortho.WBAT , pain meds as above and monitor.Ne eds PT/OT for strengthen ing, balance, gait training, safety and function.C ontinue fall precaution s.Monitor for safety. Asthenia 66116702 R53.1 As above. Recurrent falls 83625183 2 R29.6 As above. Atrial flutter 6894321 I 48.92 Rate in good control on metoprolol 25 mg qd.Continu e clopidogre l 75 mg po qd and eliquis 5 mg BIDMonitor HR and bleeding risk.F/U with cardio as planned. Type 2 flora betes mellitus 88692450 E11.9 BS in adequate control.Co ntinue lantus 15U qd and SSI.Monito r fingerstic ks TI and HgA1C q 3-6 months. Anemia 806653474 D64.89 Stable.Mon itor Hypertensive disorder 38 729473 I10 BP in good control since here.Destinee nue metoprolol 25 mg qd, spironolac tone 25 mg qd and torsemide 40 mg qdMonitor BP and labs. Congestive heart failure 39554603 I50.9 Appears euvolemic. Continue meds as above.Gale tor resp. status, fluid status, wts and labs.F/U with cardio 04/01/24 at 2:15 pm and at device clinic 05/23/2024 at 7:40 am Peripheral vascular disease 812322774 I73.89 hx ofmonitor Hyperlipidemia 71828917 E78.49 Continue atorvastat in 40 mg qdMonitor yearly. Seasonal allergy 0336102 04 J30.2 Continue claritin 10 mg qdMonitor sxs. [id number] Joan Shah, EVELYN [address] [address] 04/10/2024 09:23:02 04/11/2024 11:26:37 Dementia 36320869 F01.C2 Mod/severe at baseline. seems to be trusting staff and improvingC ontinue supportive care, expect decline.HC P invokedMon itor mood and behaviors. Psych consult. Depressive disorder 3548 9007 F33.8 appears tearful at times, improving while hereOn no meds.Will get psych consult. Has not seen her yet Fracture o f multiple ribs 1280756 S22.42XD pain managed and leaving her Contin uelidocain e patch % to ribs and right thigh, APAP 975 mg TID, cyclobenza gregg 5 mg qhs and oxycodone 5 mg q 6 hs prn.Encour age acappella, I jeremy, and cough and deep breaths.Mo nitor sxs. Fracture o f inferior pubic ramus 216805492 S32.592G Not thought to be fx per ortho.WBAT , pain meds as above and monitor.Ne eds PT/OT for strengthen ing, balance, gait training, safety and function.C ontinue fall precaution s.Monitor for safety. Asthenia 54819081 R53.1 As above. Recurrent falls 44630568 2 R29.6 As above. Atrial flutter 5246483 I 48.92 Rate in good control on metoprolol 25 mg qd.Continu eclopidogr el 75 mg po qd and eliquis 5 mg BIDMonitor HR and bleeding risk.F/U with cardio as planned. Type 2 flora betes mellitus 89129760 E11.9 BS in adequate control, 100s 200s mostlyCont inuelantus 15U qd and SSI.Monito r fingerstic ks TI and HgA1C q 3-6 months. Anemia 702865488 D64.89 Stable.Mon itor Hypertensive disorder 38 962327 I10 BP in good control since here.Destinee nuemetopro lol 25 mg qd, spironolac tone 25 mg qd and torsemide 40 mg qdMonitor BP and labs. Congestive heart failure 10696584 I50.9 Appears euvolemic. Continue meds as above.Gale [...] Vásquez Member ID Guarantor Name 03/26/2024 1 [facility] - DOS ON OR AFTER 2022 - MEDICARE ADVANTAGE [place] (MEDICARE REPLACEMENT/AD VANTAGE - PPO) Danisha Dan [id number] Danisha Dan 03/27/2024 1 [employer] - DOS ON OR AFTER 2022 - MEDICARE ADVANTAGE [place] (MEDIC[place]ACEMENT/AD VANTAGE - PPO) Danisha Dan [id number] Danisha Dna 03/28/2024 1 [employer] [facility] - DOS ON OR AFTER 2022 - MEDIC[place]MED[place]ANTAGE - PPO) Danisha Dan [id number] Danisha Dan 04/01/2024 1 [employer] [facility] - DOS ON OR AFTER 2022 - MEDIC[place]AGE [place]/AD VANTAGE - PPO) Danisha Dan [id number] Danisha Dan 04/10/2024 1 [employer] - DOS ON OR AFTER 2022 - MEDICARE AD[place]ANTAGE [place] (MEDICARE [place]PLACEMENT/AD VANTAGE - PPO) Danisha Dan [id number] Danisha Dan Notes Date Note Type Note Provider Name and Address Organization Details Recorded Time 4 text/html Pt is seen for an initial intake visit. PMH: Afib on eliquis, dementia, DM, falls, HTN, HLD, PVD, UTI Danisha was seen at [facility] for a fall and sent to [...] management On exam, Danisha is an elderly Ukrainian speaking female lying in bed with her [...] she is cooperative and pleasant with this [employer]AVE BOARD ASSEMBLER. She states she hurts all over but [...] IVF okay. per HCP daughter Joan Shah, OCTAVE BOARD ASSEMBLER [address] [facility], [address], [place], [address], [facility] [employer] 03/26/2024 19:34:16 4 text/html Pt is seen for an acute rounding visit. PMH: Afib on eliquis, dementia, DM, falls, HTN, HLD, PVD, UTI Danisha was seen at [facility] for a fall and sent to [...] she is reassured of her meds. This OCTAVE BOARD ASSEMBLER went through each medication and reviewed it [...] IVF okay. per HCP daughter Joan Shah, [employer]AVE BOARD ASSEMBLER [address] [facility], [address], [place], [address], [employer] [facility] 03/27/2024 10:02:06 4 text/html This is a [...] lispro sliding scalePOCT AC, at bedtimeA-fib(I48.91):Radha e ennuqhhkub-Eaobhm-ZBVxpn coagulation-on Eliquis Tonight she is in bed, awake. She tells me she's feeling ok, but is scared because she doesn't know if she's going to get better. Gets tearful at times.I see her with a [place] of [place] speaking staff member, but she answers in chilean often, and sometimes answers my questions before he translates them. Her PMH includes HTN, Afib on Eliquis, dementia, AODM, HLD, PVD, UTIs and frequent falls. Sammie Gamble MD [address] [place] [address], [facility] [address], [place], [address], [facility] 04/01/2024 14:55:48 4 text/html I am seeing this 79 yo woman today for an acute visit to f/u rib pain and progress in rehab .She denies pain, but often gets tearful. When I ask her what kind of place this is, she tells me it's a place people come to .I see her with a citizen of [place] speaking staff member, but she answers in chilean often, and sometimes answers my questions before he translates them. Her PMH includes HTN, Afib on Eliquis, dementia, AODM, HLD, PVD, UTIs and frequent falls. Sammie Gamble MD [address] [place] [address], [address], [place], [address], [facility] 05/01/2024 16:10:08 4 text/html Pt is seen for an acute rounding visit. Her PMH includes HTN, Afib on Eliquis, dementia, AODM, HLD, PVD, UTIs and frequent falls.I Danisha is a 79 yo woman who was seen at [facility] for a fall and sent to [...] IVF okay. per HCP daughter Joan Shah, OCTAVE BOARD ASSEMBLER [address] [facility], [address], [place], [address], [facility] - [employer] 04/10/2024 20:17:01 OBGyn Episode No OBEpisode recorded.
--- OUTSIDE RECORDS SUMMARY | 2024-08-27 10:20 | XMS_ITS | Encounter Summary ---
Author Organization [employer] Address [address] [facility] 7t [place] [address] Care Team Providers Care Necktie Maker Name Role Phone Bobbi Barillas MD Primary Care Provider [phone] Reason for Visit * Reason Onset Date Comments Med Refill 07/02/2023 Encounter Details Date Type Department Care Team ([facility] st Contact Info) Description 07/02/2023 Telephone [facility] MEDICINE [address] [place], [place] [phone] Bobbi Barillas MD [address] [place], [place] [phone] Med Refill Social History Tobacco Use Types Packs/Day Years [...] t he electric, gas, oil or water [employer] threatened to shut off services in your [...] AM EDT documented as of this encounter Miscellaneous Notes * Telephone Encounter - Patricia Mace LPN - 07/02/2023 11:33 AM EST Magnesium was sent to [facility] on 06/05/23 #45 with 1 refill other meds pended to PCP. * Telephone Encounter - Jessica Juárez - 07/02/2023 11:27 AM EST TC from pt requesting medication refill. Medications needing refill : magnesium oxide (Mag-Ox) 400 MG tablet Alcohol pads albuterol (2.5 MG/3ML) 0.083% nebulizer solution albuterol 108 (90 Base) MCG/ACT inhaler Acetaminophen Extra Strength 500 MG tablet To be sent to: [facility] - [place], [place] - [address] [facility] documented in this encounter Plan of Treatment [...] on filedocumented in this encounter Care Teams Necktie Maker Relationship Specialty Start Date End Date Bobbi Barillas MD [address] [facility] [place] [address] PCP - General Family Medicine 05/07/18 documented as of this encounter
--- OUTSIDE RECORDS SUMMARY | 2024-08-27 10:20 | XMS_ITS | Encounter Summary ---
Author Organization [employer] Address [address] [facility] 7t [place] [address] Care Team Providers Care Stacker Operator Name Role Phone Bobbi Barillas MD Primary Care Provider [phone] Reason for Visit * Reason Onset Date Comments Lab Orders 04/11/2022 Encounter Details Date Type Department Care Team (Late st Contact Info) Description 04/11/2022 Telephone [facility] MEDICINE [address] [place], [place] [phone] Bobbi Barillas MD [address] [place], [place] [phone] Lab Orders Social History Tobacco Use Types Packs/Day Years [...] encounter Miscellaneous Notes * Telephone Encounter - Marisol Chowdary - 04/18/2022 12:25 PM EST Called pt back regarding personal alarm her ins doesn't cover it on cell phones only land line if she wants one for her cell phone she would have to pay out of pocket. She said no thank you. * Telephone Encounter - Corrina Ibanez RN - 04/18/2022 9:10 AM EST T/C returned to pt re below message. Informed labs not ordered by us, must have been one of her specialists. Inquired about her urinary Sx. Pt states it is resolved, no urinalysis needed. Pt inquiring about getting a Life Alert or similar emergency button product. States her children have cameras in her house to keep an eye on her but she would like to have the button for emergencies. Pt states she is unsteady on her feet and is scared if she has a fall, they wont see her in time. States she previously had it but it needed to be connected to a house phone and she couldn't afford to pay for the house phone so she cancelled. Is wondering if theres a kind that can be connected to her cell phone. Informed we would look into it. Pt verbalized understanding and denied having any further questions or concerns at this time. * Telephone Encounter - Yodit Bui - 04/11/2022 10:15 AM EST Tc from pt requesting lab order to be sent to [facility] . . Pt informed received a call about 2 weeks ago to get labs done down stairs . House Parent was unable to find orders. documented in this encounter Plan of Treatment Not on file documented as of this encounter Visit Diagnoses Not on filedocumented in this encounter Care Teams Stacker Operator Relationship Specialty Start Date End Date Bobbi Barillas MD [address] [place] [id number] PCP - General Family Medicine 05/07/18 documented as of this encounter
--- OUTSIDE RECORDS SUMMARY | 2024-08-27 10:20 | XMS_ITS ---
Author Name [facility] Organization Unknown History of Medication Use Medication Directions Dispensed Refills Start Date End Date Stat atorvastatin (LIPITOR) tablet 40 mg Take 1 tablet (40 mg total) by mouth every night at bedtime. 02/25/2024 active aspirin 81 MG EC tablet Take 1 tablet (81 mg total) by mouth every night at bedtime. 01/08/2024 active montelukast (SINGULAIR) 10 MG tablet Take 1 tablet (10 mg total) by mouth every evening. 12/11/2023 active magnesium oxide (MAG-OX) 400 MG tablet TAKE 1 TABLET BY MOUTH EVERY OTHER DAY IN THE EVENING 11/20/2023 active pantoprazole (PROTONIX) 40 MG tablet Take 1 tablet (40 mg total) by mouth daily. 11/13/2023 active acetaminophen (TYLENOL EXTRA STRENGTH) 500 MG tablet TAKE 2 TABLETS BY MOUTH EVERY 8 HOURS NEEDED 07/02/2023 active metoprolol tartrate (LOPRESSOR) 25 MG tablet Take 1 tablet (25 mg total) by mouth. 08/09/2022 active Problems Problem Status Onset Date Problem Type Date of Resolution Source Headache active EncounterDiagnosisAct CTTHNEMG Chronic migraine with aura and with status migrainosus, not intractable active EncounterDiagnosisAct CTT HNEMG
--- OUTSIDE RECORDS SUMMARY | 2024-08-27 10:20 | XMS_ITS | Clinical Summary ---
Author Organization [facility], Address [address] [place] [address] [place] [address] Phone Care Team Providers Care Intern Retail Name Role Phone Bryan Fontanez MD Primary Care Provider [phone] Allergies Active Allergy Reactions Criticality Noted Date [...] Telephone [facility] [address] [place] [address] Francesca Gentile RN from Last 3 Months [...] Exam 10/10/2023 Diabetes: Visual Foot Exam 10/10/2023 Diabetes: Hemoglobin A1C 07/01/2024 024, 05/12/2019 Influenza Vaccine (Season Ended) 2025 04/24/2023, 02/09/2020 Pneumococcal Vaccine: 50+ Years Completed 06/15/2017, 04/27/2015, 09/12/2010 Pneumococcal Vaccine: Peds ( 0 to 5 Years) and At-Risk Patients (6 to 49 Years) Discontinued 06/15/2017, 04/27/2015, 09/12/2010 Hepatitis B Vaccine Aged Out No longe r eligible based on patient's age to complete this topic Procedures Procedure Name Priority Date/Time Associated Diagnosis Comments HEMOGLOBIN A1C Routine 05/12/2019 12:38 PM EST from Last 3 Months or Most Recently Relevant to Health Maintenance Results * (ABNORMAL) Hemoglobin A1c (05/12/2019 12:38 PM EST) Hemoglobin A1C 6.2(H) (4-6) % [facility] 3 Comment: HEMOGLOBIN A1C(%) ?? GLUCOSE CONTROL INDEX ?<6% ? EXCELLENT ?6-7% ?VERY GOOD ?7-8% ?GOOD ?8-10% ? FAIR ?>10% ?POOR Hemoglobin (Hb) A1c testing is performed by Robert Ashleigh-quant immunoassay. Any cause of shortened erythrocyte survival will reduce exposure of erythrocytes to glucose with a consequent decrease in Hb A1c (%). Testing performed or reported by ~[facility], ~a Service of [facility], ~[address] [place] [address]~ Iván Wolf MD, Fiberglass Product Tester~ 05/12/2019 12:3 8 PM EST us Harlan Doss MD LAB BLOOD ORDERABLES Final Res ult [facility] 3 from Last 3 Months or Most Recently Relevant to Health Maintenance Insurance [facility] PAM ([id number]) [place]AMPOS [id number] [facility] [address] ([id number]) Care Teams Intern Retail Relationship Specialty Start Date End Date Bryan Fontanez MD [address] [place] [address] PCP - General 05/17/20
--- OUTSIDE RECORDS SUMMARY | 2024-08-27 10:20 | XMS_ITS | Encounter Summary ---
Author Organization [facility], Address [address] [place] [address] Phone Care Team Providers Care Billing Department Supervisor Name Role Phone Bryan Fontanez MD Primary Care Provider [phone] Encounter Details Date Type Department Care Team ([facility] st Contact Info) Description 08/29/2023 Documentation Only [facility], [address] [place] [address] Osorio Burgos, [address] [place] [address] Social History Tobacco Use Types [...] on filedocumented in this encounter Care Teams Billing Department Supervisor Relationship Specialty Start Date End Date Bryan Fontanez MD [address] [place] [address] PCP - General 05/17/20 documented as of this encounter
--- OUTSIDE RECORDS SUMMARY | 2024-08-27 10:20 | XMS_ITS | Encounter Summary ---
Author Organization [employer] Address [address] [facility] 7t [place] [address] Care Team Providers Care Manager Of Housekeeping Name Role Phone Bobbi Barillas MD Primary Care Provider Reason for Visit * Reason Onset Date Comments uber transportation needed 04/07/2024 Encounter Details Date Type Department Care Team ([facility] st Contact Info) Description 04/07/2024 Telephone [facility] MEDICINE [address] [place], [place] [phone] Bobbi Barillas MD [address] [place], [place] [phone] uber transportation needed Social History Tobacco Use Types Packs/Day Years Used Date Smoking Tobacco: Former Cigarettes Passive Smoke Exposure: Past Smokeless Tobacco: Never Depression Answer Date Recorded Patient Health Questionnaire-9 Score 0 09/27/2023 Patient Health Questionnaire-9 Score 0 09/27/2023 Last PHQ-9: Questionnaire Data Not on file 0 09/27/2023 Housing Stability Answer Date Recorded What is [...] Answer Date Recorded Patient Health Questionnaire-2 Score 0 09/27/2023 Comments Unknown Sex and Gender Information Value Date Recorded Sex Assigned at Female 03/06/2022 10:17 AM EDT Legal Sex Female 10:17 AM EDT Gender Identity Female 03/06/2022 10:17 AM EDT Sexual Orientation Choose not to disclose 2021 10:17 AM EDT documented as of this encounter Miscellaneous Notes * Telephone Encounter - Batsheva Way RN - 04/10/2024 9:58 AM EST Telephone call to pt to advise Uber is not available for scheduled follow up appts with PCP. Pt verbalized understanding, then stated that her sugars have been around 208 regularly for the last monthand she is concerned. Denied excessive thirst, urination, nausea, vomiting, abdominal pain. Advisedher that PCP would review BS log and A1C at appt on 04/29 however pt concerned about sugars not being addressed before then. Advised her message can be sent to PCP and walk in clinic is available if any symptoms of hyperglycemia develop. Pt verbalized understanding. * Telephone Encounter - Aroldo Ding - 04/07/2024 11:42 AM EST TC from pt needs uber transportation for 04/29 11:15am visit with Dr Barillas documented in this encounter Plan of Treatment Not on file documented as of this encounter Goals Goal Patient Goal Type Associated Problems Recent Progress Patient-Stated? Author Blood Pressure < 140/90 Blood Pressure 115/70(2024 10:06 AM EDT) No Howie Larry, PharmAlonso Hemoglobin A1c < 7 Result Component 7.7( 10:10 AM EDT) No Howie Larry, Fanta documented as of this encounter Visit Diagnoses Not on filedocumented in this encounter Additional Health Concerns Assessment Noted Time PHQ-9 Depression Total Score: 0 09/27/19 24 11:13 AM EDT documented as of this encounter Care Teams Manager Of Housekeeping Relationship Specialty Start Date End Date Bobbi Barillas MD [address] [place] [address] PCP - General Family Medicine 05/07/18 documented as of this encounter
--- OUTSIDE RECORDS SUMMARY | 2024-08-27 10:20 | XMS_ITS | Encounter Summary ---
Author Organization [employer] Address [address] [facility] 7t [place] [address] Care Team Providers Care Vendor Management Specialist Name Role Phone Bobbi Barillas MD Primary Care Provider [phone] Encounter Details Date Type Department Care Team ([facility] st Contact Info) Description 08/18/2022 Orders Only [facility] MEDICINE [address] [place], [place] [phone] Bobbi Barillas MD [address] [place], [place] [phone] Social History Tobacco Use Types Packs/Day Years Used Date Smoking Tobacco: Never Smokeless Tobacco: Never PHQ-2 Answer Date Recorded Patient Health Questionnaire-2 Score 2 08/15/2022 Depression Answer Date Recorded Patient Health Questionnaire-2 Score 2 08/15/2022 Comments Unknown Sex and Gender Information Value Date Recorded Sex Assigned at Female 03/06/2022 10:17 AM EDT Legal Sex Female 10:17 AM EDT Gender Identity Female 03/06/2022 10:17 AM EDT Sexual Orientation Choose not to disclose 2021 10:17 AM EDT COVID-19 Exposure Response Date Recorded In the last 10 days, have yo u been in contact with someone who was confirmed or suspected to have Coronavirus/COVID-19? No / Unsure 08/15/2022 11:08 AM EDT documented as of this encounter Plan of Treatment Not on file documented as of this encounter Visit Diagnoses Not on filedocumented in this encounter Care Teams Vendor Management Specialist Relationship Specialty Start Date End Date Bobbi Barillas MD [address] [place] [phone] PCP - General Family Medicine 05/07/18 documented as of this encounter
--- OUTSIDE RECORDS SUMMARY | 2024-08-27 10:20 | XMS_ITS | Encounter Summary ---
Author Organization [employer] Address [address] [facility] 7t [place] [address] Care Team Providers Care Marine Chronometer Assembler Name Role Phone Bobbi Barillas MD Primary Care Provider [phone] Reason for Visit * Reason Onset Date Comments Medication 06/01/2023 Encounter Details Date Type Department Care Team ([facility] st Contact Info) Description 06/01/2023 Telephone [facility] MEDICINE [address] [place] [address] Bobbi Barillas MD [address] [place], [place] [phone] Medication Social History Tobacco Use Types Packs/Day Years [...] encounter Miscellaneous Notes * Telephone Encounter - Kendrick Dan - 06/01/2023 10:36 AM EST Tc from pt requesting medication Senna. Pt stated medication was prescribed to her at the ER 04/13/23 and has spoken about this medication with pcp last visit 05/29/23. Any questions you can contact pt at [phone]. documented in this encounter Plan of Treatment Not on file documented as of this encounter Goals Goal Patient Goal Type Associated Problems Recent Progress Patient-Stated? Author Blood Pressure < 140/90 Blood Pressure 115/70(2024 10:06 AM EDT) No Howie Larry, PharmD Hemoglobin A1c < 7 Result Component 7.7( 10:10 AM EDT) No Howie Larry, PharmD documented as of this encounter Visit Diagnoses Not on filedocumented in this encounter Care Teams Marine Chronometer Assembler Relationship Specialty Start Date End Date Bobbi Barillas MD [address] [place] [address] PCP - General Family Medicine 05/07/18 documented as of this encounter
--- OUTSIDE RECORDS SUMMARY | 2024-08-27 10:20 | XMS_ITS | Encounter Summary ---
Author Organization [facility] Address [address] [place] [address] Care Team Providers Care Education Diagnostician Name Role Phone Aroldo Morgan MD Primary Care Provider [phone] Encounter Details Date Type Department Care Team (Late st Contact Info) Description 04/26/2024 Lab Requisition [facility] - Main Lab [address] [facility] [place] [address] Aroldo Morgan MD [address] [place] [address] [address] [facility] [phone] Chronic kidney disease, unspecified; Anemia, unspecified Social [...] unspecified documented in this encounter Care Teams Education Diagnostician Relationship Specialty Start Date End Date Aroldo Morgan MD [address] [facility] [address] [place], [phone] PCP - General Family Medicine 03/31/24 documented as of this encounter
--- OUTSIDE RECORDS SUMMARY | 2024-08-27 10:20 | XMS_ITS | Data Portability ---
Author Organization [employer] [facility], [facility] Address [address] [place] [address] Care Team Providers Care Bowling Ball Marker Name Role Phone HIM MOUSTAPHA OTHER Assessment Encounter Date Assessment Date Assessment LastModified by Organization Details LastModified Time 10/10/2023 10/10/2023 I provided real -time medical direction via phone for this encounter and was available for additional phone-based assistance as needed. I have reviewed and agree with the Assessment and Plan as documented by the Conveyor System Operator. Patient given the opportunity to ask questions. Our service contacted for an assessment of: hyperglycemia As per above, patient on insulin pump with elevated BG this am. Denies F/C/dysuria, frequency or urgency. Per getter operator on the scene, VSS, non-toxic, NAD. POC testing noted Impression and plan: DM with hyperglycemia but no evidence of DKA. Current BG is 168. Continue with current plan. We discussed the diagnostic uncertainty of home visits and the risk associated with this. In this case, the patient and I felt this to be an acceptable and reasonable amount of risk given the benefit of avoiding an ED visit. We discussed the need to seek care urgently/emergen tly in the setting of any new or worsening serious symptoms [email or web address] Not available 10/10/2023 16:07:54 Plan of Treatment Reminders Order Date Submit Date Provider Last Modified By Organization Details Last Modified Time Details Appointments None recorded. Lab urinalysis , dipstick 2023 024 JESSENIA [facility], [address] [place] [address], [place], [address] 08:29:07 Referral None recorded. Procedures None recorded. Surgeries None recorded. Imaging None recorded. Medication Orders None recorded. Patient TargetsNo targets recorded. Patient InstructionsNo instructions recorded. Reason for Referral None Reported. Results Created Date Observation Date Name Description Value Unit Range Abnormal Flag Note LastModifiedBy Organization Detail LastModifiedTime Result Notes None recorded. Medical Equipment None Reported. Allergies Allergen ID Allergen Name Allergen Category Reaction Reaction Severity Criticality Documentation Date Start Date Code Code System Note Provider Name and Address Organization Details Recorded Time 7353 Bactrim medicatio n Not available Not available Not available 03/04/2024 13591 9 RxNorm Not Available [facility] - production 4 03:36:50 Medications Name Sig Start Date Stop Date Status Note LastModified by Organization Details LastModified Time delivery fee active Not Available Not Available Not Available Anti-Diarrheal (loperamide) 2 mg tablet active Not Available Not Available Not Available atorvastatin 40 mg tablet active Not Available Not Available No t Available Vitamin B-2 100 mg tablet active Not Available Not Available No t Available torsemide 20 mg tablet active Not Available Not Available Not Available loperamide 2 mg capsule active Not Available Not Available Not Available amiodarone 200 mg tablet active Not Available Not Available Not Available metoprolol succinate ER 50 mg tablet,extended release 24 hr active Not Available Not Availabl e Not Available FreeStyle Lancets 28 gauge active Not Available Not Available Not Available ondansetron HCl 4 mg tablet active Not Available Not Available No t Available isosorbide mononitrate ER 30 mg tablet,extended release 24 hr active Not Available Not Availabl e Not Available clopidogrel 75 mg tablet active Not Available Not Available Not Available aspirin 81 mg tablet,delayed release active Not Available Not Available Not Available spironolactone 25 mg tablet active Not Available Not Available No t Available magnesium oxide 400 mg (241.3 mg magnesium) tablet active Not Available Not Avai lable Not Available nitrofurantoin macrocrystal 100 mg capsule active Not Available Not Available N ot Available Novolog U-100 Insulin aspart 100 unit/mL subcutaneous solution active Not Available Not Available Not Available azelastine 137 mcg (0.1 %) nasal spray active Not Available Not Available Not Available carbidopa 25 mg-levodopa 100 mg tablet active Not Available Not Available No t Available fluticasone propionate 50 mcg/actuation nasal spray,suspension active Not Available Not Avail able Not Available loratadine 10 mg tablet active Not Available Not Available Not Available amoxicillin 875 mg-potassium clavulanate 125 mg tablet active Not Available Not Available No t Available cyclobenzaprine 5 mg tablet active Not Available Not Available No t Available nitrofurantoin monohydrate/macro crystals 100 mg capsule active Not Available Not Available Not Available cholecalciferol (vitamin D3) 25 mcg (1,000 unit) tablet active Not Available Not Available Not Available cholecalciferol (vitamin D3) 50 mcg (2,000 unit) capsule active Not Available Not Available Not Available Entresto 49 mg-51 mg tablet active Not Available Not Available No t Available Vitals Date Recorded Body temperature Respiratory rate Oxygen saturation Oxygen saturation in Arterial blood by Pulse oximetry Body weight Heart rate Systolic blood pressure Diastolic blood pressure Provider Name and Address Organization Details Last Updated DateTime 4 97.6 [degF] 16 /min 98 % 98 % 09343.1 44 g 80 /min 130 mm[Hg] 72 mm[Hg] Not Available [facility] - production 4 15:57:37 Date Recorded Heart rate Respiratory rate Oxygen saturation Oxygen saturation in Arterial blood by Pulse oximetry Systolic blood pressure Diastolic blood pressure Provider Name and Address Organization Details Last Updated DateTime 2 60 /min 16 /min 96 % 96 % 149 mm[Hg] 65 mm[Hg] Not Available [facility] - production 2 15:26:00 Social History None recorded. Functional Status None recorded. Mental Status None recorded. Family History Nothing Reported. Medical History No medical history recorded. Gynecological HistoryNo gynecological history recorded. Obstetrics History GPAL:G 0 P 0 0 0 0 Past Encounters Encounter ID Performer Location Encounter Start Date Encounter Closed Date Diagnosis/Indication Diagnosis SNOMED-CT Code Diagnosis ICD10 Code Diagnosis Note [id number] Keegan Figueroa MD Main - [address] [address] 03/09/2022 15:25:58 03/09/2022 15:27:45 Accidental fall [id number].XXXA Patient presents with progressiv e rib pain following a hard fall on 03/03. She has not been evaluated medically or had imaging. SHe was hoping symptoms would improve but they have not. She was transferre d to the ED for evaluation including imaging. [id number] Beth Brewer MD Main - [address] [address] 10/10/2023 15:57:32 10/10/2023 21:44:41 Hyperglycemia due to type 2 diabetes mellitus [id number] 41961 E11.65 Health Concerns Section Related Observation LastModified by Organization Detai ls LastModified Time None Recorded Concern Status LastModified by Organization Details LastModified Time None Recorded Advance Directives Directive None Recorded Payers Encounter Date Sequence Insurance Name Policy Number Policy Vásquez Covered Member ID Vásquez Member ID Guarantor Name 03/09/2022 1 [facility] - DOS PRIOR TO 2022 - DUAL ELIGIBLE (MEDICARE REPLACEMENT/AD VANTAGE - HMO) Danisha Dna [id number] Danisha Dan 10/10/2023 1 [facility] - DOS ON OR AFTER 2022 - DUAL ELIGIBLE - CORRECTION OPTIONS AND ONE CARE (MEDICARE REPLACEMENT/AD VANTAGE - HMO) Danisha Dan [id number] Danisha Dan Notes Date Note Type Note Provider Name and Address Organization Details Recorded Time 03/09/2022 text/html [facility] Nursing Assessment: Reason For Request: Patient suffered a fall on 03/03/22. Patient was recently seen by [facility] over the past weekend. Patient symptoms include severe pain on her left side near her ribs. Patient describes pain in going up her arm as well. Chief Complaints: Falls, Pain PMH: Heart Disease, Diabetes Allergies: Bactrim Comments: Spoke to daughter, per her member had a fall 03/03, called 911 but refused to go to the ED for eval and xrays. Pain to her left side; arm ribs and leg have been getting increasingly worse. She does have bruises on her left side. Daughter tried to convince her to go to the ED, but member is still refusing, she is hoping we can encourage her to go if they feel it is warranted. Member has a walker that she doesn't usually need around the house and she is now using for stability. Keegan Figueroa MD [address] [facility],[address], [place], [address], [facility] - [facility] 03/09/2022 15:27:42 10/10/2023 text/html [facility] Nurse Triage Notes (Marian Callahan): Reason For Request: Diabetic problems, general weakness and blurred vision. Chief Complaints: Diabetes Related, Weakness/Lethargy, ENT PMH: Heart Disease, Diabetes Allergies: Bactrim Comments: Members granddaughter calling in to place a referral, member identified via name and . Member who is diabetic and on a insulin pump, basal rate unknown and gives 6 units with meals. Member morning blood sugar was 415 and gave 6 units, after breakfast blood sugar was 452 and gave 7 units, during call blood sugar was 362. Member does not take any long acting or po anit-diabetic medications. Granddaughter states blood sugars were elevated yesterday, question compliance with giving insulin. Member with dizziness, vision changes and fatigue, denies n/v/d, no abdominal pain, no increased thirst or urination. Member use to have an document control associate, however, member stopped going to all of her doctors appts, [facility] provided granddaughter with a list and she is in the process of setting up appts. Member in the hospital 2 months ago for septic shock, ?urosepsis. Member has recurrent UTIs for 2 years. Member potentially has an infection currently, +burning with urination, itchiness, malodor and intermittent flank pain, denies urgency/frequency, blood and no fever/chills. Member agreeable to being evaluated. ................... ................... ................... ................... ................... ................... ................... ........ Conveyor System Operator Note From Raymond Szymanski: Pt co high BS and foul smelling urine with some pain. Pt denies fever. , confusion, frequent urination, cp sob dizziness headache or NVD. Baseline vitals assessed, BS 168, urine dip benign. Urine yellow in color , not cloudy. Afebrile. C contacted and advised to pt to follow up with pcp. Pt education on signs indicating the ER. Conveyor System Operator Allergies: Bactrim ................... ................... ................... ................... ................... ................... ................... ........ Disposition: Fulfilled Beth Brewer MD [address] [facility],[address] [facility], [place], [address], [employer] [facility] 10/10/2023 16:08:19 OBGyn Episode No OBEpisode recorded.
--- OUTSIDE RECORDS SUMMARY | 2024-08-27 10:20 | XMS_ITS | Encounter Summary ---
Author Organization [employer] Address [address] [facility] 7t [place] [address] Care Team Providers Care Order Entry Name Role Phone Bobbi Barillas MD Primary Care Provider [phone] Encounter Details Date Type Department Care Team (Late st Contact Info) Description 06/15/2022 Orders Only [facility] [address] [place], [place] [phone] Patricia Mace LPN Social History Tobacco Use Types Packs/Day Years Used Date Smoking Tobacco: Never Smokeless Tobacco: Never Comments Unknown Sex and Gender Information Value [...] on filedocumented in this encounter Care Teams Order Entry Relationship Specialty Start Date End Date Bobbi Barillas MD [address] [place] [address] PCP - General Family Medicine 05/07/18 documented as of this encounter
--- OUTSIDE RECORDS SUMMARY | 2024-08-27 10:20 | XMS_ITS | Encounter Summary ---
Author Organization [employer] Address [address] [facility] [address] [place] [address] Care Team Providers Care Material Manager Name Role Phone Bobbi Barillas MD Primary Care Provider [phone] Reason for Visit * Reason Onset Date Comments PT1 10/05/2023 Encounter Details Date Type Department Care Team ([facility] st Contact Info) Description 10/05/2023 Telephone [facility] MEDICINE [address] [place], [place] [phone] Bobbi Barillas MD [address] [place], [place] [phone] PT1 Social History Tobacco Use Types Packs/Day Years [...] encounter Miscellaneous Notes * Telephone Encounter - Yodit Bui - 10/05/2023 10:39 AM EDT Patient calling requesting PT1 Home Address verified: Y/N: Yes Provider name or facility name: [facility] Facility Address: [address] [place] [address] Escort needed: Y/N: No Do you have a wheelchair: Y/N: No If yes- Manual or electric: Visits: 3-4 times a month Pt has an appt for 10/11/23 @1PM documented in this encounter Plan of Treatment [...] documented as of this encounter Care Teams Material Manager Relationship Specialty Start Date End Date Bobbi Barillas MD [address] [place] [address] PCP - General Family Medicine 05/07/18 documented as of this encounter
--- OUTSIDE RECORDS SUMMARY | 2024-08-27 10:20 | XMS_ITS | Encounter Summary ---
Author Organization [employer] Address [address] [facility] [address]t [place] [address] Care Team Providers Care Photoengraving Apprentice Name Role Phone Bobbi Barillas MD Primary Care Provider [phone] Encounter Details Date Type Department Care Team ([facility] st Contact Info) Description 02/26/2024 Orders Only [facility] MEDICINE [address] [place], [place] [phone] Bobbi Barillas MD [address] [place], [place] [phone] Social History Tobacco Use Types Packs/Day Years [...] Pressure 115/70(2024 10:06 AM EDT) No Howie Larry PharmD Hemoglobin A1c < 7 Result Component 7.7( 10:10 AM EDT) No Howie Larry PharmD documented as of this encounter Visit Diagnoses Not on filedocumented in this encounter Additional Health Concerns Assessment Noted Time PHQ-9 Depression Total Score: 0 09/27/19 24 11:13 AM EDT documented as of this encounter Care Teams Photoengraving Apprentice Relationship Specialty Start Date End Date Bobbi Barillas MD [address] [place] [address] PCP - General Family Medicine 05/07/18 documented as of this encounter
--- OUTSIDE RECORDS SUMMARY | 2024-08-27 10:20 | XMS_ITS | Encounter Summary ---
Author Organization [employer] Address [address] [facility] 7t [place] [address] Care Team Providers Care Work Counselor Name Role Phone Bobbi Barillas MD Primary Care Provider [phone] Reason for Visit * Reason Onset Date Comments Reschedule 08/31/2023 Encounter Details Date Type Department Care Team ([facility] st Contact Info) Description 08/31/2023 Telephone [facility] MEDICINE [address] [place], [place] [phone] Bobbi Barillas MD [address] [place], [place] [phone] Reschedule Social History Tobacco Use Types Packs/Day Years [...] t he electric, gas, oil or water Exposed Vocals threatened to shut off services in your [...] encounter Miscellaneous Notes * Telephone Encounter - Jessica Juárez - 08/31/2023 10:26 AM EDT Tc from pt requesting r/s appt with PCP stated need a morning appt but not to early in the morning,commercial underwriter offer 2 different appts to pt on October but pt doesn't accept them. documented in this encounter Plan of Treatment [...] on filedocumented in this encounter Care Teams Work Counselor Relationship Specialty Start Date End Date Bobbi Barillas MD [address] [place] [address] PCP - General Family Medicine 05/07/18 documented as of this encounter
--- OUTSIDE RECORDS SUMMARY | 2024-08-27 10:20 | XMS_ITS | Encounter Summary ---
Author Organization [facility], Address [address] [place] [address] Phone Care Team Providers Care Granite Cutter Apprentice Name Role Phone Bryan Fontanez MD Primary Care Provider [phone] Encounter Details Date Type Department Care Team ([facility] st Contact Info) Description 11/21/2022 Documentation Only [facility], [address] [place] [address] Osorio Burgos, [address] [place] [address] Social History Tobacco Use Types [...] on filedocumented in this encounter Care Teams Granite Cutter Apprentice Relationship Specialty Start Date End Date Bryan Fontanez MD [address] [place] [address] PCP - General 05/17/20 documented as of this encounter
--- OUTSIDE RECORDS SUMMARY | 2024-08-27 10:20 | XMS_ITS | Encounter Summary ---
Author Organization [employer] Address [address] [facility] 7t [place] [address] Care Team Providers Care Hydraulic Jack Operator Name Role Phone Bobbi Barillas MD Primary Care Provider [phone] Encounter Details Date Type Department Care Team ([facility] st Contact Info) Description 06/12/2023 Orders Only [facility] MEDICINE [address] [place], [place] [phone] Bobbi Barillas MD [address] [place], [place] [phone] Social History Tobacco Use Types Packs/Day Years [...] on filedocumented in this encounter Care Teams Hydraulic Jack Operator Relationship Specialty Start Date End Date Bobbi Barillas MD [address] [place] [address] PCP - General Family Medicine 05/07/18 documented as of this encounter
--- OUTSIDE RECORDS SUMMARY | 2024-08-27 10:20 | XMS_ITS | Encounter Summary ---
Author Organization [facility], Address [address] [place] [address] Phone Care Team Providers Care Porcelain Enamel Sprayer Name Role Phone Bryan Fontanez MD Primary Care Provider [phone] Encounter Details Date Type Department Care Team ([facility] st Contact Info) Description 10/25/2023 Documentation Only [facility], [address] [place] [address] Osorio Burgos, [address] [place] [address] Social History Tobacco Use Types [...] on filedocumented in this encounter Care Teams Porcelain Enamel Sprayer Relationship Specialty Start Date End Date Bryan Fontanez MD [address] [place] [address] PCP - General 05/17/20 documented as of this encounter
--- OUTSIDE RECORDS SUMMARY | 2024-08-27 10:20 | XMS_ITS ---
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 no angeles mas de 8 tabletas en 24 ho Oral for 3 Active amLODIPine Besylate 2.5 MG 1 tablet Oral ly Once a day for 30 day(s) Active Magnesium Oxide 400 MG TAKE 1 TABLET BY MOUTH TWICE DAILY Oral for 15 Active Cholestyramine Activ e Metoprolol Tartrate 25 MG 1 tablet with food Orally Twice a day for 30 day(s) Active Montelukast Sodium 10 MG 1 tablet in the evening Orally Once a day Active Aspir-81 81 MG 1 tablet Orally Once a day Active Multi Vitamin/Minerals - as directed Ora lly once a day Active Flovent HFA 220 MCG/ACT 1 puff Inhalatio n Twice a day PRN Active Atorvastatin Calcium 40 MG 1 tablet Oral ly Once a day Active metFORMIN HCl 1000 MG 1 tablet with meal s Orally Twice a day Active Lidoderm 5 % 1 patch on the right upper abdomen for the pain and then remove after 12 hours Externally Once a day for 30 days 05/10/2023 Active Levothyroxine Sodium 88 MCG 1 tablet Ora lly Once a day Active Problems Problem Type SNOMED Code ICD Code Onset Dates Problem Status W/U Status Risk Notes Problem [id number] RUQ pain (R10.11) Active confirmed Vital Signs Temperature 97.3 degrees Fahrenheit 05/10/19 24 Blood pressure systolic 00 mm Hg 05/10/19 24 Blood pressure diastolic 00 mm Hg 024 Height 60 in 05/10/2023 Weight 163 lbs 05/10/2023 BMI 31.83 kg/m2 05/10/2023 Encounters Encounter Location Date Provider Diagnosis [facility] [address] [place] [address] 05/10/2023 Roman Nobles RUQ pain R10.11 and Irritable bowel syndrome without diarrhea K58.9 Assessments Encounter Date Diagnosis (ICD Code) Assessment Notes Treatment Notes Treatment Clinical Notes Section Notes 05/10/2023 RUQ pain (ICD-10 - R10.11) Try Tylenol and a heating pad for the right upper abdominal pain. I will try send a prescription for a patch to put on the area to see if that helps. Overall, Danisha appears quite well from a clinical standpoint. We did review her negative colonoscopy in 2020 and I advised her that she would not need any further screening colonoscopies based on her age and the negative findings. In regard to the right upper quadrant pain and tenderness. I did review her recent workup in the ER and did reassure her in that regard. I advised her that I do not think this is reflective of anything such as peptic ulcer disease, neoplasm, nor choledocholithiasi s. It seems to be more of a musculoskeletal issue based on her history, or perhaps some neuropathic issue given the very superficial tenderness. Based on her recent negative workup I don't think she needs any further imaging studies nor any other endoscopic evaluation. I did recommend she try some Tylenol and a heating pad to see if that can give her some relief. I will also send over a prescription for a lidocaine patch to see if that can give her some symptomatic relief as well. I have advised her to see me on a p.r.n. basis, but told her to certainly call me should she have any further problems or questions I can be of assistance with. Danisha was comfortable with this plan. Thank you again for allowing me to have participated in Danisha's care. Please do not hesitate to contact me if I can be of any further assistance in the future. 05/10/2023 Irritable bowel syndrome without diarrhea (ICD-10 - K58.9) Overall, Danisha appears quite well from a clinical standpoint. We did review her negative colonoscopy in 2020 and I advised her that she would not need any further screening colonoscopies based on her age and the negative findings. In regard to the right upper quadrant pain and tenderness. I did review her recent workup in the ER and did reassure her in that regard. I advised her that I do not think this is reflective of anything such as peptic ulcer disease, neoplasm, nor choledocholithiasi s. It seems to be more of a musculoskeletal issue based on her history, or perhaps some neuropathic issue given the very superficial tenderness. Based on her recent negative workup I don't think she needs any further imaging studies nor any other endoscopic evaluation. I did recommend she try some Tylenol and a heating pad to see if that can give her some relief. I will also send over a prescription for a lidocaine patch to see if that can give her some symptomatic relief as well. I have advised her to see me on a p.r.n. basis, but told her to certainly call me should she have any further problems or questions I can be of assistance with. Danisha was comfortable with this plan. Thank you again for allowing me to have participated in Danisha's care. Please do not hesitate to contact me if I can be of any further assistance in the future. Plan Of Treatment Medication Medication Name Sig Start Date Stop Date Notes Lidoderm 5 % 1 patch on the right upper abdomen for the pain and then remove after 12 hours Externally Once a day for 30 days 05/10/2023 Treatment Notes Assessment Notes RUQ pain Try Tylenol and a he ating pad for the right upper abdominal pain. I will try send a prescription for a patch to put on the area to see if that helps. Next Appt Details Follow Up: prn, Reason: Progress Notes * DANISHA MURPHY IDOB:[birth year] (78 yo F)Acc No.[id number]:05/10/2023 Progress Notes Patient:?DANISHA MURPHY I Provider:?Roman Nobles MD :1945???Age:78 Y???Sex:Female D ate:05/10/2023 Address:[address] [place] [address] Pcp:Bobbi Barillas MD Subjective: * Chief Complaints: * ???Patient presents today fo r abd pain /constipation * HPI: ???incontinence:? I saw Danisha in followup today in regard to her right upper quadrant pain, as well as her underlying history of irritable bowel syndrome. ?I last saw Danisha in June of 2020, at which time she underwent a negative colonoscopy. There was no evidence of any polyps or inflammatory bowel disease. Biopsies were negative for any underlying microscopic colitis. At that time she had been having some diarrhea but presently reports that her bowel movements have been fairly regular with about 2 or 3 soft formed stools per day. She denies any significant diarrhea nor constipation at the present time. She denies any hematochezia nor melena. ?She describes a good appetite without any significant heartburn or dysphagia. She denies any nausea, vomiting, nor early satiety. ?She has been having a long-standing history of a right upper quadrant pain that is very tender when she palpates it. She has had a cholecystectomy many years ago. She has had MRCP's in the past, with the most recent one in 2016 negative for any sign of choledocholithiasis. She denies any jaundice, fevers, nor weight loss. She denies any worsening nor improvement with eating. ?Her only activity that exacerbates it is bending over or laying on that right side. ?She was seen in the ER last month for this right upper quadrant pain. The ER exam described some tenderness to palpation in that area. The workup that day with ultrasound, CT scan, and laboratories was all nonrevealing. Specifically, LFTs and lipase were normal. The ultrasound showed a common bile duct of 1.1 cm, although the CT scan described no evidence of any biliary dilatation nor any other significant abnormalities in that regard. Again, previous MRCP's were negative in regard to choledocholithiasis. ?She has tried some Tylenol without much improvement in her right upper quadrant pain. She describes that it is currently fairly constant although again will be exacerbated by bending over or laying on that side. Of note, she does describe a lot of aches and pains throughout her body in relation to arthritis. * ROS:?General/Constitutional:?Change in appetite?denies.?Chills?denies.?Fatigue?denies.?Ophthalmologic:?Patient denies? Negative..?ENT:?Patient denies?Negative..?Respiratory:?Patient denies?No coughing/hemoptysis..?Cardiovascular:?Patient denies? No chest pain/orthopnea..?Gastrointestinal:?Comments?See HPI for details.?Genitourinary:?Patient denies? No dysuria/hematuria..?Incontinence?denies.?Musculoskeletal:?Patient complaining of?She describes a lot of aches and pains in relation to arthritisthroughout her body.?Skin:?Patient denies?No rash/pruritus..?Neurologic:?Patient denies? No headaches/seizures..?Psychiatric:?Patient denies?Negative..? * Medical History:? 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 Miner Hemorrhoids in 2012-Dr. Nuñez Bladder stimulator from Dr. French, III * Hospitalization/Major Diagno stic Procedure:?No Hospitalization History. * Family History:?Father: dece ased.?Mother: , diagnosed with HTN (hypertension), Diabetes, Heart disease.?Siblings: , diagnosed with Colon cancer.? The patient does relate that her brother developed colon cancer in his mi-50's with associated liver metastasis. There is no other family history of GI malignancy. * Social History:?Tobacco Use:?Tobacco Use/Smoking?Are you a: former smoker , How long has it been since you last smoked?: > 10 years.?Drugs/Alcohol:?Alcohol Screen?Points: 0, Interpretation: Negative.?Miscellaneous:?Marital status: single/. Occupation: retired. ???Nonsmoker >10 yrs ago; no sig. alcohol. * Medications:?TakingmetFORMIN HCl 1000 MG Tablet 1 tablet with meals Orally Twice a dayLevothyroxine Sodium 88 MCG Tablet 1 tablet Orally Once a dayAtorvastatin Calcium 40 MG Tablet 1 tablet Orally Once a dayAspir-81 81 MG Tablet Delayed Release 1 tablet Orally Once a dayMontelukast Sodium 10 MG Tablet 1 tablet in the evening Orally Once a dayMulti Vitamin/Minerals - Tablet as directed Orally once a dayFlovent HFA 220 MCG/ACT Aerosol 1 puff Inhalation Twice a day, Notes: PRNSM Anti-Diarrheal 2 MG Tablet angeles 2 tabletas con la primera escreta blanda y angeles 1 tableta despues de cada movimiento instestinal. no angeles mas de 8 tabletas en 24 ho Oral Magnesium Oxide 400 MG Tablet TAKE 1 TABLET BY MOUTH TWICE DAILY Oral amLODIPine Besylate 2.5 MG Tablet 1 tablet Orally Once a dayMetoprolol Tartrate 25 MG Tablet 1 tablet with food Orally Twice a dayCholestyramine Medication List reviewed and reconciled with the patientTaking metFORMIN HCl 1000 MG Tablet 1 tablet with meals Orally Twice a dayTaking Levothyroxine Sodium 88 MCG Tablet 1 tablet Orally Once a dayTaking Atorvastatin Calcium 40 MG Tablet 1 tablet Orally Once a dayTaking Aspir-81 81 MG Tablet Delayed Release 1 tablet Orally Once a dayTaking Montelukast Sodium 10 MG Tablet 1 tablet in the evening Orally Once a dayTaking Multi Vitamin/Minerals - Tablet as directed Orally once a dayTaking Flovent HFA 220 MCG/ACT Aerosol 1 puff Inhalation Twice a day, Notes: PRNTaking SM Anti-Diarrheal 2 MG Tablet angeles 2 tabletas con la primera escreta blanda y angeles 1 tableta despues de cada movimiento instestinal. no angeles mas de 8 tabletas en 24 ho Oral Taking Magnesium Oxide 400 MG Tablet TAKE 1 TABLET BY MOUTH TWICE DAILY Oral Taking amLODIPine Besylate 2.5 MG Tablet 1 tablet Orally Once a dayTaking Metoprolol Tartrate 25 MG Tablet 1 tablet with food Orally Twice a dayTaking Cholestyramine Medication List reviewed and reconciled with the patient * Allergies:?N.K.D.A.yes[Aller gies Verified] Objective: * Vitals:?Wt: 163 lbs, Ht: 60 in, BMI:31.83 Index, BP: 00/00 mm Hg, Temp: 97.3. * Examination: ???General Examination: ?GENERAL APPEARANCE:?pleasant, well nourished, well developed, in no acute distress.?EYES:?sclera non-icteric.?ORAL CAVITY:?mucosa moist.?NECK/THYROID:?no cervical lymphadenopathy, neck supple.?SKIN:?nonjaundiced, no spider angiomata..?HEART:?S1, S2 normal.?LUNGS:?clear to auscultation bilaterally.?ABDOMEN:?Normal bowel sounds, no guarding or rigidity, no hepatosplenomegaly, no masses palpable, soft, nondistended. She does have some very superficial and what seems to be some significant tenderness along the right upper quadrant but when I am able to do a deep palpation it does not seem to worsen that..?EXTREMITIES:?no edema.?NEUROLOGIC:?alert and oriented.? Assessment: * Assessment: 1.?RUQ pain - R10.11 (Primar y)?2.?Irritable bowel syndrome without diarrhea - K58.9? Overall, Danisha appears quite w ell from a clinical standpoint. We did review her negative colonoscopy in 2020 and I advised her that she would not need any further screening colonoscopies based on her age and the negative findings. In regard to the right upper quadrant pain and tenderness. I did review her recent workup in the ER and did reassure her in that regard. I advised her that I do not think this is reflective of anything such as peptic ulcer disease, neoplasm, nor choledocholithiasis. It seems to be more of a musculoskeletal issue based on her history, or perhaps some neuropathic issue given the very superficial tenderness. Based on her recent negative workup I don't think she needs any further imaging studies nor any other endoscopic evaluation. I did recommend she try some Tylenol and a heating pad to see if that can give her some relief. I will also send over a prescription for a lidocaine patch to see if that can give her some symptomatic relief as well. I have advised her to see me on a p.r.n. basis, but told her to certainly call me should she have any further problems or questions I can be of assistance with. Danisha was comfortable with this plan. Thank you again for allowing me to have participated in Danisha's care. Please do not hesitate to contact me if I can be of any further assistance in the future. Plan: * Treatment: * Procedure Codes:?1036F TOBAC CO [id number] BP SCR NOT PRFRM REC REASON NOS * Preventive Medicine:? ??Counseling:?Care goal follow-up plan:?Above Normal BMI Follow-up?Giving encouragement to exercise,?BMI management provided?Yes.? ??Urinary Incontinence:?Urinary Incontinence?Assessment:?Present,?Plan of care documented:?Yes,?Type of plan of care:?Lifestyle interventions.? * Follow Up:?prn * * Sign off status: Completed true * Provider:?Roman Nobles MD Date:? 024 Generated for Claudia lubin/Florina/Moe on:?08/27/2024 10:20 AM EDT History and Physical Notes * HPI (History of Present Illness) Category Sub-Category Detail Notes Category Not es incontinence I saw Danisha in followup today in regard to her right upper quadrant pain, as well as her underlying history of irritable bowel syndrome. I last saw Danisha in June of 2020, at which time she underwent a negative colonoscopy. There was no evidence of any polyps or inflammatory bowel disease. Biopsies were negative for any underlying microscopic colitis. At that time she had been having some diarrhea but presently reports that her bowel movements have been fairly regular with about 2 or 3 soft formed stools per day. She denies any significant diarrhea nor constipation at the present time. She denies any hematochezia nor melena. She describes a good appetite without any significant heartburn or dysphagia. She denies any nausea, vomiting, nor early satiety. She has been having a long-standing history of a right upper quadrant pain that is very tender when she palpates it. She has had a cholecystectomy many years ago. She has had MRCP's in the past, with the most recent one in 2016 negative for any sign of choledocholithiasis. She denies any jaundice, fevers, nor weight loss. She denies any worsening nor improvement with eating. Her only activity that exacerbates it is bending over or laying on that right side. She was seen in the ER last month for this right upper quadrant pain. The ER exam described some tenderness to palpation in that area. The workup that day with ultrasound, CT scan, and laboratories was all nonrevealing. Specifically, LFTs and lipase were normal. The ultrasound showed a common bile duct of 1.1 cm, although the CT scan described no evidence of any biliary dilatation nor any other significant abnormalities in that regard. Again, previous MRCP's were negative in regard to choledocholithiasis. She has tried some Tylenol without much improvement in her right upper quadrant pain. She describes that it is currently fairly constant although again will be exacerbated by bending over or laying on that side. Of note, she does describe a lot of aches and pains throughout her body in relation to arthritis. Examination Category Sub-Category Detail Notes Category Not es General Examination GENERAL APPEARANCE: pleasant , well nourished, well developed, in no acute distress EYES: sclera non-icteric NECK/THYROID: no cervical lymphade nopathy, neck supple HEART: S1, S2 normal LUNGS: clear to auscultatio n bilaterally ABDOMEN: Normal bowel sounds, no guarding or rigidity,no hepatosplenomegaly,no masses palpable,soft, nondistended. She does have some very superficial and what seems to be some significant tenderness along the right upper quadrant but when I am able to do a deep palpation it does not seem to worsen that. NEUROLOGIC: alert and oriented SKIN: nonjaundiced, no spi inder angiomata. EXTREMITIES: no edema ORAL CAVITY: mucosa moist
--- OUTSIDE RECORDS SUMMARY | 2024-08-27 10:20 | XMS_ITS | Clinical Summary ---
Author Organization [employer] Address [address] [facility] [address] [place] [address] Care Team Providers Care Reconciliation Analyst Name Role Phone Bobbi Barillas MD Primary Care Provider [phone] Allergies Active Allergy Reactions Criticality Noted Date Comments Fish Allergy 08/15/2022 Other reaction(s): white fish Tramadol 10/31/2021 Medications Fluticasone-Salm eterol 250-50 MCG/ACT aerosol powder INHALE 1 PUFF BY MOUTH TWICE DAILY RINSE MOUTH AFTER USING. 023 Active hydrocortisone 1 % cream Apply topically 2 times daily. Apply topically thin layer to the affected area on face. 30 g 3 023 Active ketoconazole (NIZOral) 2 % shampoo Apply 5 to 10 mL to wet scalp, lather, leave on 3 to 5 minutes, and rinse; apply twice weekly for 2 to 4 weeks. 120 mL 2 023 Active Diclofenac Sodium 1 % gel APPLY 2 GRAMS TOPICALLY TO AFFECTED AREA(S) TWICE DAILY 022 Active loperamide (Imodium A-D) 2 MG tablet TAKE 2 TABLETS BY MOUTH AFTER FIRST LOOSE STOOL AND 1 TABLET AFTER EACH LOOSE STOOL. NO MORE THAN 8 TABLETS PER 24 HOURS. 30 tablet 1 023 Active amLODIPine (Norvasc) 5 MG tablet TAKE 1 TABLET BY MOUTH EVERY MORNING 023 Active piroxicam (Feldene) 10 MG capsule TAKE 1 TO 2 CAPSULES BY MOUTH EVERY DAY IN THE MORNING 023 Active lidocaine (Lidoderm) 5 % patch Apply 1 patch topically in the morning. Remove & discard patch within 12 hours or as directed by . 30 patch 11 Active albuterol (2.5 MG/3ML) 0.083% nebulizer solution INHALE 1 AMPULE USING A NEBULIZER EVERY 4 TO 6 HOURS NEEDED DIFFICULTY BREATHING. NO MORE THAN FOUR TIMES DAILY 75 mL 1 024 Active glucose blood (OneTouch Ultra) test stripIndications :Type 2 diabetes mellitus with hyperglycemia (CMS/HCC) TEST BLOOD SUGAR ONCE DAILY 50 strip 11 Active Multiple Vitamin (Multivitamin) tablet TAKE 1 TABLET BY MOUTH EVERY MORNING WITH FOOD 90 tablet 3 Active cholecalciferol (Vitamin D-3) 25 MCG (1000 UT) tablet Take 1 tablet (25 mcg) by mouth Once per day. 90 tablet 3 024 Active metFORMIN XR (Glucophage-XR) 500 MG 24 hr tablet TAKE 2 TABLETS BY MOUTH TWICE DAILY IN THE MORNING AND EVENING WITH MEALS 360 tablet 3 Active pantoprazole (ProtoNix) 40 MG EC tablet TAKE 1 TABLET BY MOUTH EVERY DAY 90 tablet 3 Active clotrimazole-bet amethasone (Lotrisone) creamIndications :Rash Apply to rash on buttocks two times daily 45 g Active montelukast (Singulair) 10 MG tablet TAKE 1 TABLET BY MOUTH EVERY EVENING 90 tablet 3 Active aspirin (Aspirin Low Dose) 81 MG EC tabletIndication s:Coronary artery disease involving [place] coronary artery of [place] heart without angina pectoris TAKE 1 TABLET BY MOUTH AT BEDTIME 90 tablet 3 Active atorvastatin (Lipitor) 40 MG tablet TAKE 1 TABLET BY MOUTH AT BEDTIME 90 tablet 3 024 Active cetirizine (ZyrTEC) 5 MG tablet Take 1 tablet (5 mg) by mouth in the morning. 90 tablet 3 Active TRUEplus Lancets 33G miscIndications: Type 2 diabetes mellitus with hyperglycemia (CMS/HCC) TEST BLOOD SUGAR EVERY DAY DIRECTED 100 each 5 Active Dextromethorphan -guaiFENesin (Mucinex DM) 30-600 MG tablet sustained-releas e 12 hour Use 1 tab TID 28 tablet Active melatonin 3 MG tabletIndication s:Insomnia, unspecified type TAKE 1 TABLET BY MOUTH AT BEDTIME 30 tablet 3 024 Active repaglinide (Prandin) 2 MG tablet TAKE 1 AND 1/2 TABLETS BY MOUTH THREE TIMES DAILY BEFORE MEALS 405 tablet 3 024 Active magnesium oxide (Mag-Ox) 400 MG tabletIndication s:Vitamin deficiency TAKE 1 TABLET BY MOUTH EVERY OTHER DAY IN THE EVENING 45 tablet 3 024 Active Alcohol Swabs (Alcohol Prep) 70 % pads USE DIRECTED TWICE DAILY 100 each 11 024 Active metoprolol tartrate (Lopressor) 25 MG tablet take 1 tablet by oral route 2 times every day 180 tablet 1 025 Active Ventolin HFA 108 (90 Base) MCG/ACT inhaler INHALE 2 PUFFS BY MOUTH EVERY 4 TO 6 HOURS NEEDED SHORTNESS OF BREATH NO MORE THAN 4 PUFFS DAILY 18 g 1 025 Active Acetaminophen Extra Strength 500 MG tabletIndication s:Pain TAKE 2 TABLETS BY MOUTH EVERY 8 HOURS NEEDED 60 tablet 1 025 Active Lancets (OneTouch Delica) lancets 30G 1 each by Other route Once per day. Use to check blood sugar daily 50 each 11 025 2025 Active senna (Senokot) 8.6 MG tablet TAKE 1 TABLET BY MOUTH TWICE DAILY IN THE MORNING AND AT BEDTIME NEEDED FOR CONSTIPATION 60 tablet 3 025 Active levothyroxine (Synthroid, Levoxyl) 88 MCG tablet TAKE 1 TABLET BY MOUTH EVERY MORNING 90 tablet 025 Active senna (Senokot) 8.6 MG tablet TAKE 1 TABLET BY MOUTH TWICE DAILY IN THE MORNING AND AT BEDTIME NEEDED FOR CONSTIPATION 60 tablet 3 024 2024 Discontinued levothyroxine (Synthroid, Levoxyl) 88 MCG tablet Take 1 tablet (88 mcg) by mouth in the morning. 90 tablet 025 2024 Discontinued Active Problems Problem Noted Date Diagnosed Date Numbness of feet 07/21/2024 Assessment & Plan (07/21/2024 8:24 PM EDT): - left worse than right - optimize diabetes management - stretching exercise - wear comfortable shoes Vitamin D deficiency 10/06/2023 Assessment & Plan (10/06/2023 7:58 AM EDT): - will switch MVI to vitamin D as patient's request Hypercalcemia 03/01/2023 Screening for malignant neoplasm of colon 202202/14/2023 Family history of malignant neoplasm of colon 02/14/2023 Acute biliary pancreatitis without infection or necrosis 02/14/2023 02/14/[address] of the abdomen 02/14/202302/14 History of cholecystectomy 08/15/2022 Irritable bowel syndrome 08/15/2022 Ischemic heart disease 08/15/2022 Assessment & Plan (07/21/2024 5:54 PM EDT): -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 L CFV incompetence. 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 L CFV incompetence. -07/03/16 Cardiac cath 50% LAD and 65% diagonal -04/07/22 TTE Normal LV function with EF 55-60% - 12/25/23 nuclear stress test/MPI normal Assessment & Plan (06/05/2023 12:15 PM EST): -Certified Nursing Attendant: [facility] [employer], last seen in May 2022 -Current medications: metoprolol tartrate 25 mg bid; atorvastatin 40 mg daily; ASA 81 mg daily -Previously on losartan 50 mg daily, which was discontinued in Apr 2019 due to hyperkalemia -Previously on Imdur which was discontinued due to ROBERTO -07/30/17 venous study R GSV and SSV incompetence. L CFV incompetence. 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 L CFV incompetence. -07/03/16 Cardiac cath 50% LAD and 65% diagonal -04/07/22 TTE Normal LV function with EF 55-60% Mixed stress and urge urinary incontinence 08/15 Assessment & Plan (10/06/2023 7:54 AM EDT): Urologist: Dr. Gallo, last seen on 11/03/21 -tried anticholinergics, mirabegron, -s/p Botox injection in 09/07/21, no significant improvement. -s/p InterStim since Mar 2017 for urge incontinence and bladder hypertonicity -s/p IC rescue solution and Fesoterodine 4mg daily. -s/p reposition of implantable pulse generator on 02/03/20 -s/p InterStim removal on 01/31/21. Prescribed Mirabegron and Tolterodine on 01/14/21. -Pt prescribed an IC rescue solution and Fesoterodine 4mg daily since 11/03/21. -UTI on 01/04/22 treated with Macrobid. klebsiella pneumoniae, resisitant to penicillin and sensitive for all other antibiotics -UTI in Feb 2022. Klebsiella resistant to penicillin-group, beta-lactam, cephalosporin. Treated with levofloxacin Assessment & Plan (12/10/2022 6:16 AM EDT): Urologist: Dr. Gallo, last seen on 11/03/21 -tried anticholinergics, mirabegron, -s/p Botox injection in 09/07/21, no significant improvement. -s/p InterStim since Mar 2017 for urge incontinence and bladder hypertonicity -s/p IC rescue solution and Fesoterodine 4mg daily. -s/p reposition of implantable pulse generator on 02/03/20 -s/p InterStim removal on 01/31/21. Prescribed Mirabegron and Tolterodine on 01/14/21. -Pt prescribed an IC rescue solution and Fesoterodine 4mg daily since 11/03/21. -UTI on 01/04/22 treated with Macrobid. klebsiella pneumoniae, resisitant to penicillin and sensitive for all other antibiotics -UTI in Feb 2022. Klebsiella resistant to penicillin-group, beta-lactam, cephalosporin. 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 L CFV incompetence. -07/03/16 Cardiac cath 50% LAD and 65% diagonal -04/07/22 TTE Normal LV function with EF 55-60% -05/29/23 transthoracic echocardiogram showed EF 55-60% -Nuclear stress test / MPI on 12/25/23 showed normal myocardial perfusion, gated LVEF 59%, and no transient ischemic dilatation. EKG non-Dx for ischemia. Assessment & Plan (01/04/2024 3:46 PM EDT): -Certified Nursing Attendant: [employer] [facility] [employer], last seen in August 2023 -Current medications: metoprolol tartrate 25 mg bid; atorvastatin 40 mg daily; ASA 81 mg daily -Previously on losartan 50 mg daily, which was discontinued in Apr 2019 due to hyperkalemia -Previously on Imdur which was discontinued due to ROBERTO -07/30/17 venous study R GSV and SSV incompetence. L CFV incompetence. -07/03/16 Cardiac cath 50% LAD and 65% diagonal -04/07/22 TTE Normal LV function with EF 55-60% -05/29/23 transthoracic echocardiogram showed EF 55-60% -Nuclear stress test / MPI on 12/25/23 showed normal myocardial perfusion, gated LVEF 59%, and no transient ischemic dilatation. EKG non-Dx for ischemia. Assessment & Plan (10/06/2023 7:54 AM EDT): -Certified Nursing Attendant: [employer] [facility] [employer], last seen in August 2023 -Current medications: metoprolol tartrate 25 mg bid; atorvastatin 40 mg daily; ASA 81 mg daily -Previously on losartan 50 mg daily, which was discontinued in Apr 2019 due to hyperkalemia -Previously on Imdur which was discontinued due to -07/30/17 venous study R GSV and SSV incompetence. L CFV incompetence. -07/03/16 Cardiac cath 50% LAD and 65% diagonal -04/07/22 TTE Normal LV function with EF 55-60% -05/29/23 transthoracic echocardiogram showed EF 55-60% -Being scheduled for nuclear stress test Assessment & Plan (12/10/2022 6:02 AM EDT): -Certified Nursing Attendant: [employer] [facility] [employer], last seen in May 2022 -Current medications: metoprolol tartrate 25 mg bid; atorvastatin 40 mg daily; ASA 81 mg daily -Previously on losartan 50 mg daily, which was discontinued in Apr 2019 due to hyperkalemia -Previously on Imdur which was discontinued due to ROBERTO -07/30/17 venous study R GSV and SSV incompetence. L CFV incompetence. 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 L CFV incompetence. -07/03/16 Cardiac cath 50% LAD and 65% diagonal -04/07/22 TTE Normal LV function with EF 55-60% Chronic heart failure with preserved ejection fr action 08/15/2022 Assessment & Plan (01/03/2024 12:26 PM EDT): -Certified Nursing Attendant: [facility] [facility] [employer], last seen in August 2023 -Current medications: metoprolol tartrate 25 mg bid; atorvastatin 40 mg daily; ASA 81 mg daily -Previously on losartan 50 mg daily, which was discontinued in Apr 2019 due to hyperkalemia -Previously on Imdur which was discontinued due to 07/30/17 venous study R GSV and SSV incompetence. L CFV incompetence. 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 L CFV incompetence. -07/03/16 Cardiac cath 50% LAD and 65% diagonal -04/07/22 TTE Normal LV function with EF 55-60% -05/29/23 transthoracic echocardiogram showed EF 55-60% -Being scheduled for pharmacological stress test Assessment & Plan (06/05/2023 12:14 PM EST): -Certified Nursing Attendant: [employer] [facility] [employer], last seen in Dec 2022 -Current medications: metoprolol tartrate 25 mg bid; atorvastatin 40 mg daily; ASA 81 mg daily -Previously on losartan 50 mg daily, which was discontinued in Apr 2019 due to hyperkalemia -Previously on Imdur which was discontinued due to -07/30/17 venous study R GSV and SSV incompetence. L CFV incompetence. 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 L CFV incompetence. 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 L CFV incompetence. -07/03/16 Cardiac cath 50% LAD and 65% diagonal -04/07/22 TTE Normal LV function with EF 55-60% History of intracranial aneurysm 08/15/2022 Assessment & Plan (12/10/2022 5:50 AM EDT): - s/p cerebellar aneurysm repair in 2006 - most recent CT head / CTA head / neck in 2019 - evaluate with CT Chronic headache 08/15/2022 Assessment & Plan (07/21/2024 5:50 PM EDT): Hx intracranial aneurysm left PCOM s/p repair in 2006. -Previously followed by neurosurgeon, discharged due to stability, unable to resume care due to insurance -Previously followed by neurologist, Dr. Valdes, last seen in September 2018 -Previously followed by neurologist, Dr. Costa, since Feb 2023. Dx post- surgical headache. Rx piroxicam. If no improvement, Dr. Costa is entertaining about trial of indomethacin and Botox. Last seen by Dr. Costa on 10/11/23. Discontinued piroxicam and neuropathy cream. Rx duloexetine (Cymbalta) 30 mg qhs x 1 week, then [address] Costa has retired and patient requests a referral to a new neurologist. - Currently following with neurologist at [facility]. Last seen on 05/27/24. Receiving Botox. Entertaining Ubrelvy trial. Upcoming appointment in August 2024. -Pt has tried amitriptyline, topiramate, verapamil, and Airmog which were all ineffective as prophylactic medication and pt developed possible PABLO. -Pt has taken tramadol, Fioricet, and Percocet for short-term pain management. -Pt has even tried CBD, and it was ineffective. -Consulted neurologist in Dec 2019, and was recommended to try CGRP. -CGRP was ineffective and was discontinued -Piroxicam, neuropathy cream, and duloxetine were prescribed by Dr. Costa. They were discontinued by the patient due to ineffectiveness. -Pt tried PT for neck pain. -Currently receiving Botox -Continue APAP prn -Imaging Hx 8/22/20 --CT head: No intracranial hemorrhage or large acute infarction. Chronic encephalomalacic and gliotic changes seen in the left inferior frontal lobe and anterior temporal lobe. --CTA neck: No hemodynamically significant stenosis in the major arteries of the neck. 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 --CTA head: No large vessel occlusion or significant stenosis within the intracranial circulation. Postoperative findings related to pterional craniotomy for aneurysm clipping -Head CT on 01/26/23: No acute intracranial pathology. Postoperative changes, status post prior left parasellar aneurysm clipping. Chronic encephalomalacia in the left frontotemporal lobes. Perceived disproportionate prominence of the lateral and third ventricles relative to the sulcal spaces with a narrow callosal angle and a mildly increased Gage' index. -Head CT on 11/26/23 No acute intracranial pathology. Age-indeterminate right nasal bone fracture. Assessment & Plan (01/04/2024 3:45 PM EDT): Hx intracranial aneurysm left PCOM s/p repair in 2006. -Previously followed by neurosurgeon, discharged due to stability, unable to resume care due to insurance -Previously followed by neurologist, Dr. Valdes, last seen in September 2018 -Currently following with neurologist, Dr. Costa, since Feb 2023. Dx post- surgical headache. Rx piroxicam. If no improvement, Dr. Costa is entertaining about trial of indomethacin and Botox. Last seen by Dr. Costa on 10/11/23. Discontinued piroxicam and neuropathy cream. Rx duloexetine (Cymbalta) 30 mg qhs x 1 week, then [address] Costa has retired and patient requests a referral to a new neurologist. -Pt has tried amitriptyline, topiramate, verapamil, and Airmog which were all ineffective as prophylactic medication and pt developed possible PABLO. -Pt has taken tramadol, Fioricet, and Percocet for short-term pain management. -Pt has even tried CBD, and it was ineffective. -Consulted neurologist in Dec 2019, and was recommended to try CGRP. -CGRP was ineffective and was discontinued -Piroxicam, neuropathy cream, and duloxetine were prescribed by Dr. Costa. They were discontinued by the patient due to ineffectiveness. -Pt tried PT for neck pain. -Continue APAP prn -Imaging Hx 12/27/19 --CT head: No intracranial hemorrhage or large acute infarction. Chronic encephalomalacic and gliotic changes seen in the left inferior frontal lobe and anterior temporal lobe. --CTA neck: No hemodynamically significant stenosis in the major arteries of the neck. 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 --CTA head: No large vessel occlusion or significant stenosis within the intracranial circulation. Postoperative findings related to pterional craniotomy for aneurysm clipping -Head CT on 01/26/23: No acute intracranial pathology. Postoperative changes, status post prior left parasellar aneurysm clipping. Chronic encephalomalacia in the left frontotemporal lobes. Perceived disproportionate prominence of the lateral and third ventricles relative to the sulcal spaces with a narrow callosal angle and a mildly increased Gage' index. -Head CT on 11/26/23 No acute intracranial pathology. Age-indeterminate right nasal bone fracture. Assessment & Plan (09/30/2023 10:28 PM EDT): Hx intracranial aneurysm left PCOM s/p repair in 2006. -Previously followed by neurosurgeon, discharged due to stability, unable to resume care due to insurance -Previously followed by neurologist, Dr. Valdes, last seen in September 2018 -Pt has tried amitriptyline, topiramate, verapamil, and Airmog which were all ineffective as prophylactic medication and pt developed possible PABLO. -Pt has taken tramadol, Fioricet, and Percocet for short-term pain management. -Pt has even tried CBD, and it was ineffective. -Imaging Hx - 12/27/19 --CT head: No intracranial hemorrhage or large acute infarction. Chronic encephalomalacic and gliotic changes seen in the left inferior frontal lobe and anterior temporal lobe. --CTA neck: No hemodynamically significant stenosis in the major arteries of the neck. 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 --CTA head: No large vessel occlusion or significant stenosis within the intracranial circulation. Postoperative findings related to pterional craniotomy for aneurysm clipping -Head CT on 01/26/23: No acute intracranial pathology. Postoperative changes, status post prior left parasellar aneurysm clipping. Chronic encephalomalacia in the left frontotemporal lobes. Perceived disproportionate prominence of the lateral and third ventricles relative to the sulcal spaces with a narrow callosal angle and a mildly increased Gage' index. -Consulted neurologist in Dec 2019, and was recommended to try CGRP. -CGRP was ineffective and was discontinued -Pt tried PT for neck pain. -Continue APAP prn -02/13/[address] Vila, neurologist for headache. Dx post-surgical headache. Rx piroxicam. If no improvement, Dr. Costa is entertaining about trial of indomethacin and Botox. Assessment & Plan (03/31/2023 6:56 PM EST): Hx intracranial aneurysm left PCOM s/p repair in 2006. -Previously followed by neurosurgeon, discharged due to stability, unable to resume care due to insurance -Previously followed by neurologist, Dr. Valdes, last seen in September 2018 -Pt has tried amitriptyline, topiramate, verapamil, and Airmog which were all ineffective as prophylactic medication and pt developed possible PABLO. -Pt has taken tramadol, Fioricet, and Percocet for short-term pain management. -Pt has even tried CBD, and it was ineffective. -Imaging Hx - 12/27/19 --CT head: No intracranial hemorrhage or large acute infarction. Chronic encephalomalacic and gliotic changes seen in the left inferior frontal lobe and anterior temporal lobe. --CTA neck: No hemodynamically significant stenosis in the major arteries of the neck. 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 --CTA head: No large vessel occlusion or significant stenosis within the intracranial circulation. Postoperative findings related to pterional craniotomy for aneurysm clipping -Head CT on 01/26/23: No acute intracranial pathology. Postoperative changes, status post prior left parasellar aneurysm clipping. Chronic encephalomalacia in the left frontotemporal lobes. Perceived disproportionate prominence of the lateral and third ventricles relative to the sulcal spaces with a narrow callosal angle and a mildly increased Gage' index. -Consulted neurologist in Dec 2019, and was recommended to try CGRP. -CGRP was ineffective and was discontinued -Pt tried PT for neck pain. -Continue APAP prn -02/13/23 Seen by Dr. Vila, neurologist for headache. Dx post-surgical headache. Rx piroxicam. If no improvement, Dr. Costa is entertaining about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 have chani guerra 07/21/[address] you li ve. Do you have problems with any of the following? None of the above 07/21/2024 Food Insecurity Answer Date Recorded Within the past 12 months, y ou worried that your food would run out before you got money to buy more: Never True 07/21/2024 Within the past 12 months,th e food you bought just didn't last and you didn't have enough money to get more: Never True Transportation Answer Date Recorded In the past 12 months, has l ack of transportation kept you from medical appts, meetings, work or from getting things needed for daily living? No 07/21/2024 Utilities Answer Date Recorded In the past 12 months, has t he electric, gas, oil or water company threatened to shut off services in your home? No 07/21/2024 Depression Answer Date Recorded Patient Health Questionnaire-2 Score 0 09/27/2023 Internet Access Answer Date Recorded Internet Access Q1 Yes 07/21/2024 Internet Access Q2 Not on file 07/21/2024 Comments Unknown Sex and Gender Information Value Date Recorded Sex Assigned at Female 03/06/2022 10:17 AM EDT Legal Sex Female 10:17 AM EDT Gender Identity Female 03/06/2022 10:17 AM EDT Sexual Orientation Choose not to disclose 2021 10:17 AM EDT Last Filed Vital Signs Vital Sign Reading Time Taken Comments Blood Pressure 115/70 07/21/2024 10:06 AM EDT Pulse 76 07/21/2024 10:06 AM EDT Temperature 35.7 ??C (96.2 ??F) 07/21/2024 10:06 AM E DT Respiratory Rate 21 07/21/2024 10:06 AM EDT Oxygen Saturation 95% 07/21/2024 10:06 AM EDT Inhaled Oxygen Concentration - - Weight 73.8 kg (162 lb 9.6 oz) 07/21/2024 10:06 AM EDT Height 152.4 cm (5') 07/21/2024 10:06 AM EDT Body Mass Index 31.76 07/21/2024 10:06 AM EDT Plan of Treatment Health Maintenance Due Date Last Done Comments Alcohol/Substance Use Screening 01[birth year]28/1957 Hepatitis C Screening 01/28/1963 RSV Patients and Patients Aged 60 years or older (1 - 1-dose 75+ series) 01/29/2020 Diabetes: Urine Protein Screening 04/02/2024 04/02/2023, 12/04/2022, 07/11/2021, Additional history exists Lipid Panel 04/12/2024 04/12/2023, 11/06, 07/11/2021, Additional history exists Depression Screening 09/26/2024 09/27/2023, 09/27/19 Diabetes: Hemoglobin A1C 10/21/2024 025, 04/22/2024, 01/03/2024, Additional history exists Tobacco Screening 03/21/2025 03/21/2024 Diabetes: Foot Exam 07/21/2025 07/21/2024, 07/21/2024, 07/21/2024, Additional history exists SDOH Screening 07/21/2025 07/21/2024 Eye Exam 11/21/2025 11/22/2023 DTaP/Tdap/Td Vaccines (2 - Td or Tdap) 08/28/2026 08/28/2016, 06/19/2011, 02/15/2006 Pneumococcal Vaccine: 50+ Years Completed 07/31/2014, 12/29/2013, 03/17/2005 Hepatitis B Vaccines Completed 07/12/2015, 03/12/2014, 12/29/2013 Zoster Vaccines Completed 02/19/2020, 04/08, 07/31/2014 COVID-19 Vaccine Completed 07/21/2024, , 11/21/2021, Additional history exists Influenza Vaccine Completed 07/22/2024, , 03/18/2020, Additional history exists HIB Vaccines Aged Out [...] patient's age to complete this topic Meningococcal Vaccine Aged Out No elle scott eligible based on patient's age to complete this topic RSV under 20 months Aged Out No longe r eligible based on patient's age to complete this topic Rotavirus Vaccines Aged Out No longer eligible based on patient's age to complete this topic Goals Goal Patient Goal Type Associated Problems Recent Progress Patient-Stated? Author Blood Pressure < 140/90 Blood Pressure 115/70(2024 10:06 AM EDT) No Howie Larry PharmD Hemoglobin A1c < 7 Result Component 7.7( 10:10 AM EDT) No Howie Larry PharmD Procedures Procedure Name Priority Date/Time Associated Diagnosis Comments XR CHEST 2 VIEWS Routine 07/28/2024 10:1 7 AM EDT POCT GLYCOSYLATED HEMOGLOBIN (HGB A1C) Routine 07/21/2024 10:10 AM EDT Type 2 diabetes mellitus without complication, without long-term current use of insulin ([facility]) POCT GLUCOSE Routine 07/21/2024 10:09 AM EDT Type 2 diabetes mellitus without complication, without long-term current use of insulin ([facility]) HM DIABETES EYE EXAM Routine 11/22/2023 LIPID PANEL WITH REFLEX TO DIRECT LDL Routine 04/12/2023 10:43 AM EST Mixed hyperlipidemia ALBUMIN, RANDOM URINE W/CREATININE Routine 04/02/2023 1:46 PM EST Type 2 diabetes mellitus without complication, without long-term current use of insulin ([facility]) from Last 3 Months or Most Recently Relevant to Health Maintenance Results * XR Chest 2 Views (07/28/2024 10:17 AM EDT) Anatomical Region Laterality Modality Chest Radiographic Jenn ging 07/28/2024 10:1 7 AM EDT Narrative 07/28/2024 3:58 PM EDT ? [facility] ?[address] ?[place] [address] ?XRay Report ? Signed ? Patient: Sy Jimenez,Dnaisha I ?MR#: ?? [id number] ? : 1945 ?Acct:[id number] ? Age/Sex: 79 / F ?ADM Date: 03/24/25 ? Loc: HO.XRAY ? Attending Dr: Kurt Galeas MD ? Ordering Physician: Kurt Galeas MD ?? Date of Service: 07/28/24 ?? Procedure(s): XR chest 2V ?? Accession Number(s): [id number] ? cc: Kurt Galeas MD; Bobbi Barillas MD ? EXAMINATION: ??XR CHEST 2 VIEWS ? HISTORY: R06.00 - Dyspnea, unspecified ? COMPARISON: Comparison is made with the prior examination dated ?? 07/11/2023. ? FINDINGS: ??PA and lateral views of the chest are submitted. There is ?? prominence of the pulmonary vasculature, consistent with congestion. ? There is no pleural effusion or pneumothorax. ??The heart remains ?? enlarged. ??There is dextroscoliosis and degenerative disc disease of ?? the spine. ? XR/XR chest 2V ?? IMPRESSION: ?? Cardiomegaly and pulmonary vascular congestion. ? Electronically signed by: ??Roman Guerrero MD ??07/28/2024 03:55 PM EDT ? Dictated By: ?Roman Guerrero MD ? Signed By: ?<Electronically signed by Roman Guerrero MD in OV> ?07/28/24 1555 ? DD/ 1017 ? TD/TT: 07/28/24 1030 ? High Pressure Operator: ? Procedure Note Dongisselter, Image - 07/28/2024 [place] [address] XRay Report Signed Patient: Danisha Bland IMR#: [id number] : 5Acct:[id number] Age/Sex: 79 / FADM Date: 07/28/24 Loc: [facility] Attending Dr: Kurt Galeas MD Ordering Physician: Kurt Galeas MD Date of Service: 07/28/24 Procedure(s): XR chest 2V Accession Number(s): [id number] cc: Kurt Galeas MD; Bobbi Barillas MD EXAMINATION: XR CHEST 2 VIEWS HISTORY: R06.00 - Dyspnea, unspecified COMPARISON: Comparison is made with the prior examination dated 07/11/2023. FINDINGS: PA and lateral views of the chest are submitted. There is prominence of the pulmonary vasculature, consistent with congestion. There is no pleural effusion or pneumothorax. The heart remains enlarged. There is dextroscoliosis and degenerative disc disease of the spine. XR/XR chest 2V IMPRESSION: Cardiomegaly and pulmonary vascular congestion. Electronically signed by: Roman Guerrero MD 07/28/2024 03:55 PM EDT RP Dictated By: Roman Guerrero MD Signed By: <Electronically signed by Roman Guerrero MD in OV> 07/28/24 1555 DD/ 1017 TD/TT: 07/28/24 1030 High Pressure Operator: [facility] External Provider IMG XR PROCEDURES Final Result * (ABNORMAL) POCT glycosylated hemoglobin (Hgb A1c) (07/21/2024 10:10 AM EDT) Hemoglobin A1C 7.7(A) 4.0 - 6.0 % QC Media Lot # [id number] Lot# Expiration Date 82 Blood Capillary blood specimen / Unknown 07/21/2024 10:10 AM EDT Bobbi Barillas MD POINT OF CARE TEST ENTER/EDIT OR DERABLES Final Result * POCT glucose manually resulted (07/21/2024 10:09 AM EDT) Glucose Blood, POC 107 60 - 200 mg/dL QC Media Lot # [id number] Lot# Expiration Date Blood Capillary blood specimen / Unknown 07/21/2024 10:09 AM EDT Bobbi Barillas MD POINT OF CARE TEST ENTER/EDIT OR DERABLES Final Result * Hm Diabetes Eye Exam (11/22/2023) Eye Exam Normal Normal us Historical Provider HEALTH MAINTENANCE Final Result * (ABNORMAL) Lipid Panel with Reflex to Direct LDL (04/12/2023 10:43 AM EST) Triglycerides 135 <150 mg/dL [facility] Comment:Desirable Triglyceri de: less than 150 mg/dLBorderline High Triglyceride 150-199 mg/dLHigh Triglyceride: 200-499 mg/dLVery High Triglyceride: greater than or equal to 5OO mg/dL Cholesterol 141 <200 mg/dL [facility] Comment:Desirable Cholestero l: less than 200 mg/dLBorderline High Cholesterol: 200-239 mg/dLHigh Cholesterol: greater than 239 mg/dL LDL Cholesterol Calculated 77 <100 mg/dL [facility] Comment:Desirable LDL: less than 100 mg/dLNear Optimal/Above Optimal LDL: 110- 129 mg/dLBorderline High LDL: 130-159 mg/dLHigh LDL: 160-189 mg/dLVery High LDL: greater than or equal to 190 mg/dL HDL Cholesterol 37(L) >40 mg/dL [facility] Comment:Desirable HDL: great er than 40 mg/dL Note: This HDL assay may give artificially low results in patients with liver disease. Blood 04/12/2023 10:4 3 AM EST 04/12/2023 10:45 AM EST Bobbi Barillas MD LAB BLOOD ORDERABLES Final Resul t [facility] [address] [place] [phone] [phone] * (ABNORMAL) Albumin, Random Urine W/Creatinine (04/02/2023 1:46 PM EST) Creatinine, Urine 52.99 mg/dL [facility] Microalbumin Urine 23.0 mg/L [facility] Microalbum Creatinine Ratio Ur 43.4(H) <30 ug/mg cr [facility] Comment:Albumin/Creatinine R atio Reference Ranges: Normal: < 30 ug/mg creatinine Microalbuminuria: 30 - 300 ug/mg creatinineClinical Albuminuria: > 300 ug/mg creatinine Urine 04/02/2023 1:46 PM EST 04/02/2023 2:51 PM EST Bobbi Barillas MD LAB URINE ORDERABLES Final Resul t [facility] [address] [place] [phone] [phone] from Last 3 Months or Most Recently Relevant to Health Maintenance Insurance [facility] DUAL COMPLETE Care Teams Reconciliation Analyst Relationship Specialty Start Date End Date Bobbi Barillas MD [address] [place] [address] PCP - General Family Medicine 05/07/18
--- OUTSIDE RECORDS SUMMARY | 2024-08-27 10:20 | XMS_ITS | Encounter Summary ---
Author Organization [facility], Address [address] [place] [address] Phone Care Team Providers Care Manager Equipment Name Role Phone Bryan Fontanez MD Primary Care Provider [phone] Encounter Details Date Type Department Care Team ([facility] st Contact Info) Description 08/29/2023 Documentation Only [facility], [address] [place] [address] Osorio Burgos, [address] [place] [address] Social History Tobacco Use Types [...] on filedocumented in this encounter Care Teams Manager Equipment Relationship Specialty Start Date End Date Bryan Fontanez MD [address] [place] [address] PCP - General 05/17/20 documented as of this encounter
--- OUTSIDE RECORDS SUMMARY | 2024-08-27 10:20 | XMS_ITS | Clinical Summary ---
Author Organization [address] Address [address] [place] [phone] Phone Care Team Providers Care Conduit Mechanic Name Role Phone Aroldo Morgan MD Primary Care Provider [phone] Social History Tobacco Use Types Packs/Day Years [...] (2 of 3) 06/06/2011 04/11/2011 RSV Immunization Adult Patients (1 - 1-dose 75+ series) 02/03/2020 COVID-19 Vaccine ( season) 2024 02/22/2021, 07/02/2020, 06/11/2020 Cholesterol Screening (Lipid Panel) 03/31/2024 Depression Screening 03/31/2024 Diabetes: Annual Urine Albumin-Creatinine Ratio (uACR) 03/31/2024 Falls Risk Assessment 03/31/2024 Hepatitis C Screening 03/31/2024 Osteoporosis Screening (Bone Density Screening) 03/31/2024 Social Influencers of Health Screening 03/31/2024 Diabetes: Blood Sugar Control Test (HGBA1C) 09/28/2024 03/31/2024, 05/12/2019 Influenza Vaccine (Season Ended) 2025 04/24/2023, 02/14/2022, 02/22/2021, Additional history exists Diabetes: Annual GFR (Glomerular Filtration Rate) 04/14/2025 [...] age to complete this topic Meningococcal B Vaccine Aged Out No l onger eligible based on patient's age to complete [...] Type 2 diabetes mellitus without complications ([facility]) from Last 3 Months or Most Recently Relevant to Health Maintenance Results * (ABNORMAL) Basic metabolic panel (04/14/2024 5:23 AM EST) Sodium 139 133 - 145 mmol/L LAB CHEMISTRY METHOD 04/14/2024 10:07 AM EST [facility] Potassium 4.5 3.5 - 5.5 mmol/L LAB CHEMISTRY METHOD 04/14/2024 10:[address] [facility] Chloride 102 96 - 110 mmol/L LAB CHEMISTRY METHOD 04/14/2024 10:[address] [facility] CO2 31 21 - 32 mmol/L LAB CHEMISTRY METHOD 04/14/2024 10:[address] [facility] Anion Gap 6 3 - 11 LAB CHEMISTRY METHOD 04/14/2024 10:[address] [facility] Glucose 230(H) 70 - 100 mg/dL LAB CHEMISTRY METHOD 04/14/2024 10:[address] [facility] BUN 53(H) 5 - 25 mg/dL LAB CHEMISTRY METHOD 04/14/2024 10:[address] [facility] Creatinine 1.69(H) 0.50 - 1.10 mg/dL LAB CHEMISTRY METHOD 04/14/2024 10:[address] [facility] eGFR 31(L) >=60 mL/min/1. 73m2 LAB CHEMISTRY METHOD 04/14/2024 10:[address] [facility] Comment:Calculation based on the??Chronic Kidney Disease Epidemiology Collaboration (CKD-EPI) equation refit??without adjustment for race. BUN/Creatinine Ratio 31.4 LAB CHEMISTRY METHOD 04/14/2024 10:[address] [facility] Calcium 9.6 8.5 - 10.5 mg/dL LAB CHEMISTRY METHOD 04/14/2024 10:[address] [facility] Blood Venous blood specimen / Unknown Venipuncture / Unknown 04/14/2024 5:23 AM EST 04/14/2024 9:12 AM EST us Aroldo Morgan MD LAB BLOOD ORDERABLES Final Resul t [facility] [address] [place] [address], * (ABNORMAL) Hemoglobin A1c (03/31/2024 6:29 AM EST) Hemoglobin A1C 6.5(H) <6.5 % LAB CHEMISTRY METHOD 03/31/2024 1:59 PM EST [facility] Mean Bld Glu Estim. 140 mg/dL LAB CHEMISTRY METHOD 03/31/2024 1:59 PM EST [facility] Blood Venous blood specimen / Unknown Venipuncture / Unknown 03/31/2024 6:29 AM EST 03/31/2024 9:47 AM EST us Aroldo Morgan MD LAB BLOOD ORDERABLES Final Resul t [facility] [address] [place] [address], [place] [phone] from Last 3 Months or Most Recently Relevant to Health Maintenance Insurance [facility] Member Subscriber Plan / Payer (Ef fective 2014-Present) Name:Danisha Dan Relation to Subscriber:Self Name:Danisha Dan Payer ID:[id number] Group ID:[id number] Type:Not on file Address: [place] [address] [address] [address] Care Teams Conduit Mechanic Relationship Specialty Start Date End Date Aroldo Morgan MD [address] [facility] [address] [place], [phone] PCP - General Family Medicine 03/31/24
--- OUTSIDE RECORDS SUMMARY | 2024-08-27 10:20 | XMS_ITS | Encounter Summary ---
Author Organization [facility] Address [address] [place] [address] Care Team Providers Care Gunite Mixer Name Role Phone Aroldo Morgan MD Primary Care Provider [phone] Encounter Details Date Type Department Care Team (Late st Contact Info) Description 04/18/2024 Lab Requisition [facility] - Main Lab [address] [facility] [employer] [place] [address] Aroldo Morgan MD [address] [place] [address] [address] [facility] [phone] Chronic kidney disease, unspecified; Anemia, unspecified Social [...] unspecified documented in this encounter Care Teams Gunite Mixer Relationship Specialty Start Date End Date Aroldo Morgan MD [address] [facility] [address] [place], [phone] PCP - General Family Medicine 03/31/24 documented as of this encounter
--- OUTSIDE RECORDS SUMMARY | 2024-08-27 10:20 | XMS_ITS | Encounter Summary ---
Author Organization [employer] Address [address] [facility] 7t [place] [address] Care Team Providers Care Wallpaper Scraper Name Role Phone Bobbi Barillas MD Primary Care Provider [phone] Encounter Details Date Type Department Care Team ([facility] st Contact Info) Description 04/24/2024 Abstract [facility] [address] [place], [place] [phone] Cara Kaur MA Social History Tobacco Use Types Packs/Day Years [...] Larry PharmD documented as of this encounter Procedures Procedure Name Priority Date/Time Associated Diagnosis Comments DIABETES EYE EXAM Routine 11/22/2023 documented in this encounter Results * Diabetes Eye Exam (11/22/2023) Eye Exam Normal Normal us Historical Provider HEALTH MAINTENANCE Final Result documented in this encounter Visit Diagnoses Not on filedocumented in this encounter Additional Health Concerns Assessment Noted Time PHQ-9 Depression Total Score: 0 09/27/19 24 11:13 AM EDT documented as of this encounter Care Teams Wallpaper Scraper Relationship Specialty Start Date End Date Bobbi Barillas MD [address] [place] [phone] PCP - General Family Medicine 05/07/18 documented as of this encounter
--- OUTSIDE RECORDS SUMMARY | 2024-08-27 10:21 | XMS_ITS | Encounter Summary ---
Author Organization [employer] Address [address] [facility] 7t [place] [address] Care Team Providers Care Basting Machine Operator Name Role Phone Bobbi Barillas MD Primary Care Provider [phone] Encounter Details Date Type Department Care Team ([facility] st Contact Info) Description 03/01/2023 Orders Only [facility] [address] [place], [place] [phone] Sol Benoit MD [address] [place], [place] [phone] Hypercalcemia (Primary Dx) Social History Tobacco Use Types Packs/Day Years [...] as of this encounter Plan of Treatment Scheduled Orders Name Type Priority Associated Diagnoses Orde r Schedule Albumin Lab Routine Hypercalcemia Expected: 03/01/2023 (Approximate), Expires: 03/01/2024 Alkaline Phosphatase Lab Routine Hypercalcemia Expected: 03/01/2023, Expires: 03/01/2024 documented as of this encounter Goals Goal Patient Goal Type Associated Problems Recent Progress Patient-Stated? Author Blood Pressure < 140/90 Blood Pressure 115/70(2024 10:06 AM EDT) No Howie Larry, PharmD Hemoglobin A1c < 7 Result Component 7.7( 10:10 AM EDT) No Howie Larry, PharmD documented as of this encounter Procedures Procedure Name Priority Date/Time Associated Diagnosis Comments VITAMIN D,25-OH,TOTAL,IA Routine 03/14/2023 11:57 AM EST Hypercalcemia PTH, INTACT WITHOUT CALCIUM Routine 03/14/2023 11:57 AM EST Hypercalcemia CALCIUM Routine 03/14/2023 11:57 AM EST Hypercalcemia HEPATIC FUNCTION PANEL Routine 03/14/2023 11:57 AM EST Hypercalcemia documented in this encounter Results * Hepatic Function Panel (03/14/2023 11:57 AM EST) Bilirubin, Total 0.8 0.0 - 1.0 mg/dL [facility] Bilirubin, Direct 0.2 0.0 - 0.5 mg/dL [facility] Aspartate Amino Transferase 29 5 - 31 U/L [facility] Alanine Aminotransferase 23 0 - 31 U/L [facility] Total Protein 8.0 6.5 - 8.0 g/dL [facility] Albumin Level 4.4 3.5 - 5.0 g/dL [facility] Alkaline Phosphatase 71 39 - 117 U/L [facility] Blood Venous blood specimen / Unknown 03/14/2023 11:57 AM EST 03/14/2023 11:59 AM EST Sol Benoit MD LAB BLOOD ORDERABLES Final Result Performing Organization Address [facility] Co de Phone Number [facility] [address] [place] [phone] * Vitamin D, 25-Hydroxy, Total, Immunoassay (03/14/2023 11:57 AM EST) Vitamin D 25-OH Total 33.2 >30 ng/mL [facility] Comment:Health Based Referen ce Values*< 20 ng/mL Elxxkpgby60-98 ng/mL Insufficient> 30 ng/mL Sufficient*Nelli MIRELES. N Engl J Med. 2007;357:266-280Care must be taken in interpreting Vitamin D results fromdifferent laboratories and methodologies. Published datademonstrated that results from patients undergoinghemodialysis may show a negative bias when tested withvarious automated 25-OH vitamin D assays when compared toLC-MS/MS.When testing samples from patients whose predominant form ofVitamin D is Vitamin D2, such as patients receiving VitaminD2 supplementation, results that are subtherapeutic shouldbe confirmed with another method such as LC-MS/MS. Blood Venous blood specimen / Unknown 03/14/2023 11:57 AM EST 03/14/2023 11:59 AM EST Sol Benoit MD LAB BLOOD ORDERABLES Final Result Performing Organization Address [facility] de Phone Number [facility] [address] [place] [phone] * (ABNORMAL) Calcium (03/14/2023 11:57 AM EST) Calcium 10.7(H) 8.4 - 10.2 mg/dL [facility] Blood Venous blood specimen / Unknown 03/14/2023 11:57 AM EST 03/14/2023 11:59 AM EST Sol Benoit MD LAB BLOOD ORDERABLES Final Result Performing Organization Address [facility] Co de Phone Number [facility] [address] [place] [address] [phone] * (ABNORMAL) PTH, Intact Without Calcium (03/14/2023 11:57 AM EST) PTHI 11(A) 16 - 77 pg/mL [facility] Comment:Interpretive Guide I ntact PTH Calcium -------Normal Parathyroid Normal NormalHypoparathyroidism Low or Low Normal LowHyperparathyroidism Primary Normal or High High Secondary High Normal or Low Tertiary High HighNon-Parathyroid Hypercalcemia Low or Low Normal High Calcium (PTHI) 10.7(A) 8.6 - 10.4 mg/dL [facility] Comment:THIS TEST WAS PERFOR MED AT:[facility] [place] [phone] ODELL MD Blood Venous blood specimen / Unknown 03/14/2023 11:57 AM EST 03/14/2023 11:59 AM EST Sol Benoit MD LAB BLOOD ORDERABLES Final Result Performing Organization Address [facility] Co de Phone Number [facility] [address] [place] [address] [phone] documented in this encounter Visit Diagnoses Diagnosis Hypercalcemia- Primary documented in this encounter Care Teams Basting Machine Operator Relationship Specialty Start Date End Date Bobbi Barillas MD [address] [place] [phone] PCP - General Family Medicine 05/07/18 documented as of this encounter
--- OUTSIDE RECORDS SUMMARY | 2024-08-27 10:21 | XMS_ITS | Encounter Summary ---
Author Organization [employer] Address [address] [facility] 7t [place] [address] Care Team Providers Care Ada Accommodation Consultant Name Role Phone Bobbi Barillas MD Primary Care Provider [phone] Reason for Visit * Reason Comments Med Refill Encounter Details Date Type Department Care Team (Late st Contact Info) Description 05/13/2023 Refill [facility] [address] [place], [place] [phone] Bobbi Barillas MD [address] [place], [place] [phone] Pain Social History Tobacco Use Types Packs/Day Years [...] 115/70(2024 10:06 AM EDT) No Howie Larry, [place] Hemoglobin A1c < 7 Result Component 7.7( 10:10 AM EDT) No Howie Larry PharmD documented as of this encounter Visit Diagnoses Diagnosis Pain Generalized pain documented in this encounter Care Teams Ada Accommodation Consultant Relationship Specialty Start Date End Date Bobbi Barillas MD [address] [place] [phone] PCP - General Family Medicine 05/07/18 documented as of this encounter
--- OUTSIDE RECORDS SUMMARY | 2024-08-27 10:21 | XMS_ITS | Encounter Summary ---
Author Organization [employer] Address 75 [facility] 7t [place] [address] Care Team Providers Care Manager R D Name Role Phone Bobbi Barillas MD Primary Care Provider [phone] Encounter Details Date Type Department Care Team (Late st Contact Info) Description 07/19/2022 Orders Only [facility] MED & PEDS [address] [place], [place] [phone] Patricia Mace LPN Social History Tobacco Use [...] filedocumented in this encounter Care Teams Manager R D Relationship Specialty Start Date End Date Bobbi Barillas MD [address] [place] [address] PCP - General Family Medicine 05/07/18 documented as of this encounter
--- OUTSIDE RECORDS SUMMARY | 2024-08-27 10:21 | XMS_ITS | Encounter Summary ---
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
--- OUTSIDE RECORDS SUMMARY | 2024-08-27 10:21 | XMS_ITS | Encounter Summary ---
Author Organization [employer] Address 75 [facility] 7t [place] [address] Care Team Providers Care Quality Liaison Name Role Phone Bobbi Barillas MD Primary Care Provider [phone] Encounter Details Date Type Department Care Team (Late st Contact Info) Description 04/17/2023 Orders Only [facility] MEDICINE [address] [place], [place] [phone] Bobbi Barillas MD [address] [place], [place] [phone] Abdominal pain, unspecified abdominal location (Primary Dx); Constipation, unspecified constipation type Social History Tobacco Use Types Packs/Day Years [...] t he electric, gas, oil or water [employer] threatened to shut off services in your [...] as of this encounter Visit Diagnoses Diagnosis Abdominal pain, unspecified abdominal location- Primary Constipation, unspecified constipation type documented in this encounter Care Teams Quality Liaison Relationship Specialty Start Date End Date Bobbi Barillas MD [address] [place] [address] PCP - General Family Medicine 05/07/18 documented as of this encounter
--- OUTSIDE RECORDS SUMMARY | 2024-08-27 10:21 | XMS_ITS | Encounter Summary ---
Author Organization [employer] Address 75 [facility] 7t [place] [address] Care Team Providers Care Media/Instructional Designer Name Role Phone Bobbi Barillas MD Primary Care Provider [phone] Reason for Visit * Reason Onset Date Comments Reschedule 05/02/2023 Encounter Details Date Type Department Care Team ([facility] st Contact Info) Description 05/02/2023 Telephone [facility] MEDICINE [address] [place], [place] [phone] Bobbi Barillas MD [address] [place], [place] [phone] Reschedule Social History Tobacco Use Types Packs/Day [...] t he electric, gas, oil or water [employer] threatened to shut off services in your [...] * Telephone Encounter - Jessica Juárez - 05/02/2023 2:43 PM EST Tc from pt requesting r/s appt with PCP , pt is requesting afternoon appt. documented in this encounter Plan of Treatment [...] on filedocumented in this encounter Care Teams Media/Instructional Designer Relationship Specialty Start Date End Date Bobbi Barillas MD [address] [place] [address] PCP - General Family Medicine 05/07/18 documented as of this encounter
--- OUTSIDE RECORDS SUMMARY | 2024-08-27 10:21 | XMS_ITS ---
Author Organization [facility] Address [address] [place] [address] Care Team Providers Care Waste Removalist Name Role Phone Eran MARQUEZ, Bobbi Primary Care Provider Roman Morel [phone] REASON FOR VISIT patches Encounters Encounter Location Date Provider Diagnosis [facility] [address] [place] [address] 05/15/2023 Roman Nobles Plan Of Treatment No Information Progress Notes * YECENIA MURPHY IDOB:[birth year] (78 yo F)Acc No.[id number]:05/15/2023 Patient:?YECENIA MURPHY I :1945???Age:78 Y???Sex:Female Address:[address] [place] [address] * true * Date:? Generated for Claudia lubin/Florina/eTransmitting on:?08/27/2024 10:21 AM EDT
--- OUTSIDE RECORDS SUMMARY | 2024-08-27 10:21 | XMS_ITS | Encounter Summary ---
Author Organization [facility], Address [address] [place] [address] Phone Care Team Providers Care Lasting Room Machine Operator Name Role Phone Bryan Fontanez MD Primary Care Provider [phone] Encounter Details Date Type Department Care Team (Late st Contact Info) Description 08/08/2022 Documentation Only [facility], [address] [place] [address] Bryan Fontanez MD [address] [place] [address] Social History Tobacco Use Types Packs/Day Years [...] on filedocumented in this encounter Care Teams Lasting Room Machine Operator Relationship Specialty Start Date End Date Bryan Fontanez MD [address] [place] [address] PCP - General 05/17/20 documented as of this encounter
--- OUTSIDE RECORDS SUMMARY | 2024-08-27 10:21 | XMS_ITS | Encounter Summary ---
Author Organization [facility] Address [address] [place] [address] Care Team Providers Care Cat Hooker Name Role Phone Aroldo Morgan MD Primary Care Provider [phone] Encounter Details Date Type Department Care Team (Late st Contact Info) Description 04/04/2024 Lab Requisition [facility] - Main Lab [address] [place] [address] Aroldo Morgan MD [address] [facility] 204 [facility] [address] Chronic [...] LAB CHEMISTRY METHOD 04/07/2024 9:18 AM EST [facility] ([facility]) [facility] LAB Potassium 4.5 3.5 - 5.5 mmol/L LAB CHEMISTRY METHOD 04/07/2024 9:18 AM [facility] LAB Chloride 103 96 - 110 mmol/L LAB CHEMISTRY METHOD 04/07/2024 9:18 AM [facility] LAB CO2 30 21 - 32 mmol/L LAB CHEMISTRY METHOD 04/07/2024 9:18 AM [facility] LAB Anion Gap 5 3 - 11 LAB CHEMISTRY METHOD 04/07/2024 9:18 AM [facility] LAB Glucose 235(H) 70 - 100 mg/dL LAB CHEMISTRY METHOD 04/07/2024 9:18 AM [facility] LAB BUN 57(H) 5 - 25 mg/dL LAB CHEMISTRY METHOD 04/07/2024 9:18 AM [facility] LAB Creatinine 1.66(H) 0.50 - 1.10 mg/dL LAB CHEMISTRY METHOD 04/07/2024 9:18 AM [facility] LAB eGFR 31(L) >=60 mL/min/1. 73m2 LAB CHEMISTRY METHOD 04/07/2024 9:18 AM [facility] LAB Comment:Calculation based on the??Chronic Kidney Disease Epidemiology Collaboration (CKD-EPI) equation refit??without adjustment for race. BUN/Creatinine Ratio 34.3 LAB CHEMISTRY METHOD 04/07/2024 9:18 AM [facility] LAB Calcium 9.2 8.5 - 10.5 mg/dL LAB CHEMISTRY METHOD 04/07/2024 9:18 AM [facility] LAB Blood Venous blood specimen / Unknown Venipuncture / Unknown 04/07/2024 4:55 AM EST 04/07/2024 8:09 AM EST us Aroldo Morgan MD LAB BLOOD ORDERABLES Final Resul t [facility] LAB [address] [place] [address], * (ABNORMAL) Complete blood count (04/07/2024 4:55 AM EST) [facility] WBC 5.9 4.8 - 10.8 K/mcL LAB HEMETOLOGY METHOD 04/07/2024 8:34 AM [facility] LAB RBC 4.20 3.80 - 4.80 M/mcL LAB HEMETOLOGY METHOD 04/07/2024 8:34 AM [facility] LAB Hemoglobin 11.0(L) 11.5 - 16.0 g/dL LAB HEMETOLOGY METHOD 04/07/2024 8:34 AM [facility] LAB Hematocrit 38.0 35.0 - 47.0 % LAB HEMETOLOGY METHOD 04/07/2024 8:34 AM [facility] LAB MCV 90.7 79.0 - 98.0 FL LAB HEMETOLOGY METHOD 04/07/2024 8:34 AM [facility] LAB MCH 26.3(L) 27.0 - 32.0 pcg LAB HEMETOLOGY METHOD 04/07/2024 8:34 AM [facility] LAB MCHC 28.9(L) 32.0 - 37.0 g/dL LAB HEMETOLOGY METHOD 04/07/2024 8:34 AM [facility] LAB RDW 17.4(H) 11.0 - 15.0 % LAB HEMETOLOGY METHOD 04/07/2024 8:34 AM [facility] LAB Platelets 305 130 - 400 K/mcL LAB HEMETOLOGY METHOD 04/07/2024 8:34 AM [facility] LAB MPV 11.5(H) 7.0 - 11.0 FL LAB HEMETOLOGY METHOD 04/07/2024 8:34 AM [facility] LAB NRBC 0.0 <1.0 % LAB HEMETOLOGY METHOD 04/07/2024 8:34 AM [facility] LAB NRBC Absolute 0.00 <0.10 K/mcL LAB HEMETOLOGY METHOD 04/07/2024 8:34 AM EST [facility] LAB Blood Venous blood specimen / Unknown Venipuncture / Unknown 04/07/2024 4:55 AM EST 04/07/2024 8:09 AM EST us Aroldo Morgan MD LAB BLOOD ORDERABLES Final Resul t [facility] LAB [address] [place] [address], documented in this encounter Visit Diagnoses Diagnosis Chronic kidney disease, unspecified Anemia, unspecified documented in this encounter Care Teams Cat Hooker Relationship Specialty Start Date End Date Aroldo Morgan MD [address] [place] [address], [phone] PCP - General Family Medicine 03/31/24 documented as of this encounter
--- OUTSIDE RECORDS SUMMARY | 2024-08-27 10:21 | XMS_ITS | Encounter Summary ---
Author Organization [employer] Address 75 [facility] 7t [place] [address] Care Team Providers Care Rental Car Deliverer Name Role Phone Bobbi Barillas MD Primary Care Provider [phone] Reason for Visit * Reason Onset Date Comments HDF 08/18/2022 Encounter Details Date Type Department Care Team ([facility] st Contact Info) Description 08/18/2022 Telephone [facility] MEDICINE [address] [place], [place] [phone] Bobbi Barillas MD [address] [place], [place] [phone] HDF Social History Tobacco Use Types Packs/Day Years [...] encounter Miscellaneous Notes * Telephone Encounter - Aby Diaz RN - 08/18/2022 12:20 PM EDT Triage call Pt reports being in the hospital recently due to pneumonia. Pt has reported headache, Pt reports that a surgery in 2006 for brain aneurysm occurred and since that time Pt has had headaches . Pt reports woke up with headache today and took tylenol with good effect, headache is subsiding.Pt agrees with disposition of home care at this time. Pt does have HDF with PCP 5/4 and prefers to speak only with PCP. Protocol Used: Headache (Adult) Protocol-Based Disposition: Home Care Positive Triage Question: * Mild-moderate headache * All higher-acuity triage questions were negative Care Advice Discussed: * Pain Medicines * Rest * Apply Cold to the Area * Stretching * Reasons To Call Back - Headache lasts longer than 24 hours - You become worse * Telephone Encounter - Julianne Simms - 08/18/2022 9:29 AM EDT HDF F/U (no symptoms) Patient hospitalized at [facility]. Patient was admitted on 08/15/2022 and discharged on 08/17/2022 . The patient was diagnosed with Pulmonary. Patient advised will forward to [facility] Clinical Coordinators for follow up and appointment scheduling. Please contact pt at [phone] yi Speaker documented in this encounter Plan of Treatment Not on file documented as of this encounter Visit Diagnoses Not on filedocumented in this encounter Care Teams Rental Car Deliverer Relationship Specialty Start Date End Date Bobbi Barillas MD [address] [place] [address] PCP - General Family Medicine 05/07/18 documented as of this encounter
--- OUTSIDE RECORDS SUMMARY | 2024-08-27 10:21 | XMS_ITS | Clinical Summary ---
Author Organization [facility] Address [address] [phone] Care Team Providers Care Freight Team Associate Name Role Phone Unavailable Primary Care Provider Unavailabl e Allergies Active Allergy Reactions Criticality Noted Date Comments Fish 08/15/2022 Other reaction(s): white fish Fish Allergy 08/15/2022 Other reaction(s): white fish Tramadol 10/31/2021 Medications Medication Sig Dispensed Refills Start Date End Date Status acetaminophen (TYLENOL EXTRA STRENGTH) 500 MG tablet TAKE 2 TABLETS BY MOUTH EVERY 8 HOURS NEEDED 0 07/02/2023 Active albuterol (Ventolin HFA) 108 (90 Base) MCG/ACT inhaler INHALE 2 PUFFS BY MOUTH EVERY 4 TO 6 HOURS NEEDED FOR DIFFICULTY BREATHING, NO MORE THAN FOUR TIMES DAILY 0 08/06/2023 Active amLODIPine (NORVASC) tablet 5 mg Take 1 tablet (5 mg total) by mouth. 0 12/25/2022 Active aspirin 81 MG EC tablet Take 1 tablet (81 mg total) by mouth every night at bedtime. 0 01/08/2024 Active atorvastatin (LIPITOR) tablet 40 mg Take 1 tablet (40 mg total) by mouth every night at bedtime. 0 02/25/2024 Active cetirizine (ZyrTEC) 5 MG tablet Take 1 tablet (5 mg total) by mouth. 0 02/25/2024 Active fluticasone-salmeter ol (ADVAIR) 250-50 MCG/ACT DISKUS INHALE 1 PUFF BY MOUTH TWICE DAILY RINSE MOUTH AFTER USING. 0 07/25/2022 Active magnesium oxide (MAG-OX) 400 MG tablet TAKE 1 TABLET BY MOUTH EVERY OTHER DAY IN THE EVENING 0 11/20/2023 Active metFORMIN (GLUCOPHAGE-XR) ER 24 hr tablet 500 mg TAKE 2 TABLETS BY MOUTH TWICE DAILY IN THE MORNING AND EVENING WITH MEALS 0 11/13/2023 Active metoprolol tartrate (LOPRESSOR) 25 MG tablet Take 1 tablet (25 mg total) by mouth. 0 08/09/2022 Active montelukast (SINGULAIR) 10 MG tablet Take 1 tablet (10 mg total) by mouth every evening. 0 12/11/2023 Active pantoprazole (PROTONIX) 40 MG tablet Take 1 tablet (40 mg total) by mouth daily. 0 11/13/2023 Active repaglinide (PRANDIN) 2 MG tablet Take 1 tablet (2 mg total) by mouth. 0 03/26/2023 Active Social History Tobacco Use Types Packs/Day Years Used Date Smoking Tobacco: Never Assessed Sex and Gender Information Value Date Recorded Sex Assigned at Not on file Gender Identity Not on file Sexual Orientation Not on file Job Start Date Occupation Industry Not on file Not on file Not on file Last Filed Vital Signs Vital Sign Reading Time Taken Comments Blood Pressure 128/71 03/04/2024 1:11 PM EDT Pulse 80 03/04/2024 1:11 PM EDT Temperature 35.9 ??C (96.7 ??F) 03/04/2024 1:11 PM ED T Respiratory Rate - - Oxygen Saturation - - Inhaled Oxygen Concentration - - Weight - - Height - - Body Mass Index - - Plan of Treatment Health Maintenance Due Date Last Done Comments Hepatitis C Screening 1945 COVID-19 Vaccine (#1) 1945 Depression Screening 01/28/1957 Preventative Health Evaluation 01/28/1963 Fall Risk Assessment 01/28/2010 Osteoporosis Screening (DEXA Scan) 01/28/2010 RSV Adult > 60+ Yrs or (1 - 1-dose 75+ series) 01/29/2020 Influenza Vaccine (#1) 2024 3, 03/18/2020, 02/18/2020, Additional history exists DTap / Tdap / Td (2 - Td or Tdap) 08/28/2026 08/28/2016 Pneumococcal Vaccine Completed 07/31/2014, 12/29/2013, 03/17/2005 Hepatitis B Vaccines Completed 07/12/2015, 03/12/2014, 12/29/2013 Shingrix-Zoster Vaccine Completed 02/19/2020, 05/05 RSV Ped < 20 months Aged Out No longe r eligible based on patient's age to complete this topic
--- OUTSIDE RECORDS SUMMARY | 2024-08-27 10:21 | XMS_ITS | Encounter Summary ---
Author Organization [facility] Address [address] [place] [address] Care Team Providers Care Phone Manager Name Role Phone Aroldo Morgan MD Primary Care Provider [phone] Encounter Details Date Type Department Care Team (Late st Contact Info) Description 03/31/2024 Lab Requisition [facility] - Main Lab 299 [facility] [place] [address] Aroldo Morgan MD 38 [facility] 204 [facility] [address] Type 2 diabetes mellitus without complications (CMS/HCC V24, CMS/HCC V28) Social History Tobacco Use Types Packs/Day Years [...] % LAB CHEMISTRY METHOD 03/31/2024 1:59 PM [facility] LAB Mean Bld Glu Estim. 140 mg/dL LAB CHEMISTRY METHOD 03/31/2024 1:59 PM [facility] Blood Venous blood specimen / Unknown Venipuncture / Unknown 03/31/2024 6:29 AM EST 03/31/2024 9:47 AM EST us Aroldo Morgan MD LAB BLOOD ORDERABLES Final Resul t [facility] LAB [address] [place] [address], [place] [phone] * (ABNORMAL) Comprehensive metabolic panel (03/31/2024 6:29 AM EST) [facility] Sodium 140 133 - 145 mmol/L LAB CHEMISTRY METHOD 03/31/2024 12:08 PM [facility] Potassium 5.0 3.5 - 5.5 mmol/L LAB CHEMISTRY METHOD 03/31/2024 12:08 PM [facility] Chloride 104 96 - 110 mmol/L LAB CHEMISTRY METHOD 03/31/2024 12:08 PM [facility] CO2 30 21 - 32 mmol/L LAB CHEMISTRY METHOD 03/31/2024 12:08 PM [facility] Anion Gap 6 3 - 11 LAB CHEMISTRY METHOD 03/31/2024 12:08 PM [facility] Glucose 137(H) 70 - 100 mg/dL LAB CHEMISTRY METHOD 03/31/2024 12:08 PM [facility] BUN 37(H) 5 - 25 mg/dL LAB CHEMISTRY METHOD 03/31/2024 12:08 PM [facility] Creatinine 1.33(H) 0.50 - 1.10 mg/dL LAB CHEMISTRY METHOD 03/31/2024 12:08 PM [facility] eGFR 41(L) >=60 mL/min/1. 73m2 LAB CHEMISTRY METHOD 03/31/2024 12:08 PM [facility] Comment:Calculation based on the??Chronic Kidney Disease Epidemiology Collaboration (CKD-EPI) equation refit??without adjustment for race. BUN/Creatinine Ratio 27.8 LAB CHEMISTRY METHOD 03/31/2024 12:08 PM [facility] Calcium 9.8 8.5 - 10.5 mg/dL LAB CHEMISTRY METHOD 03/31/2024 12:08 PM [facility] AST (SGOT) 21 10 - 42 unit/L LAB CHEMISTRY METHOD 03/31/2024 12:08 PM [facility] ALT (SGPT) 11 10 - 60 unit/L LAB CHEMISTRY METHOD 03/31/2024 12:08 PM [facility] Alkaline Phosphatase 110 42 - 121 unit/L LAB CHEMISTRY METHOD 03/31/2024 12:08 PM [facility] Total Protein 6.7 6.0 - 8.0 g/dL LAB CHEMISTRY METHOD 03/31/2024 12:08 PM [facility] Albumin 2.8(L) 3.2 - 5.0 g/dL LAB CHEMISTRY METHOD 03/31/2024 12:08 PM [facility] Total Bilirubin 0.6 0.0 - 1.4 mg/dL LAB CHEMISTRY METHOD 03/31/2024 12:08 PM [facility] Blood Venous blood specimen / Unknown Venipuncture / Unknown 03/31/2024 6:29 AM EST 03/31/2024 9:47 AM EST us Aroldo Morgan MD LAB BLOOD ORDERABLES Final Resul t [facility] LAB [address] [place] [address], * (ABNORMAL) Complete blood count (03/31/2024 6:29 AM EST) [facility] WBC 6.6 4.8 - 10.8 K/mcL LAB HEMETOLOGY METHOD 03/31/2024 10:40 AM [facility] RBC 4.60 3.80 - 4.80 M/mcL LAB HEMETOLOGY METHOD 03/31/2024 10:40 AM [facility] Hemoglobin 11.9 11.5 - 16.0 g/dL LAB HEMETOLOGY METHOD 03/31/2024 10:40 AM [facility] Hematocrit 41.5 35.0 - 47.0 % LAB HEMETOLOGY METHOD 03/31/2024 10:40 AM [facility] MCV 91.0 79.0 - 98.0 FL LAB HEMETOLOGY METHOD 03/31/2024 10:40 AM [facility] MCH 26.1(L) 27.0 - 32.0 pcg LAB HEMETOLOGY METHOD 03/31/2024 10:40 AM [facility] MCHC 28.7(L) 32.0 - 37.0 g/dL LAB HEMETOLOGY METHOD 03/31/2024 10:40 AM [facility] RDW 18.0(H) 11.0 - 15.0 % LAB HEMETOLOGY METHOD 03/31/2024 10:40 AM [facility] Platelets 309 130 - 400 K/[facility] LAB HEMETOLOGY METHOD 03/31/2024 10:40 AM [facility] MPV 11.6(H) 7.0 - 11.0 FL LAB HEMETOLOGY METHOD 03/31/2024 10:40 AM [facility] NRBC 0.0 <1.0 % LAB HEMETOLOGY METHOD 03/31/2024 10:40 AM [facility] NRBC Absolute 0.00 <0.10 K/[facility] LAB HEMETOLOGY METHOD 03/31/2024 10:40 AM EST [facility] Blood Venous blood specimen / Unknown Venipuncture / Unknown 03/31/2024 6:29 AM EST 03/31/2024 9:47 AM EST us Aroldo Morgan MD LAB BLOOD ORDERABLES Final Resul t [facility] LAB [address] [place] [address], documented in this encounter Visit Diagnoses Diagnosis Type 2 diabetes mellitus without complications (CMS/HCC V24, CMS/HCC V28) documented in this encounter Care Teams Phone Manager Relationship Specialty Start Date End Date Aroldo Morgan MD [address] [place] [address], [phone] PCP - General Family Medicine 03/31/24 documented as of this encounter
--- OUTSIDE RECORDS SUMMARY | 2024-08-27 10:21 | XMS_ITS | Encounter Summary ---
Author Organization [employer] Address 75 [facility] 7t [place] [address] Care Team Providers Care Planting Material Carrier Name Role Phone Bobbi Barillas MD Primary Care Provider [phone] Encounter Details Date Type Department Care Team (Late st Contact Info) Description 12/22/2022 Orders Only [facility] MEDICINE [address] [place], [place] [phone] Bobbi Barillas MD [address] [place], [place] [phone] Right arm pain (Primary Dx); Right elbow pain; Acute pain of right shoulder Social History Tobacco Use Types Packs/Day Years [...] as of this encounter Visit Diagnoses Diagnosis Right arm pain- Primary Pain in soft tissues of limb Right elbow pain Pain in joint, upper arm Acute pain of right shoulder documented in this encounter Care Teams Planting Material Carrier Relationship Specialty Start Date End Date Bobbi Barillas MD [address] [place], [place] [phone] PCP - General Family Medicine 05/07/18 documented as of this encounter
--- OUTSIDE RECORDS SUMMARY | 2024-08-27 10:21 | XMS_ITS | Encounter Summary ---
Author Organization [employer] Address [address] [facility] 7t [place] [address] Care Team Providers Care Early Childhood Associate Name Role Phone Bobbi Barillas MD Primary Care Provider [phone] Encounter Details Date Type Department Care Team (Late st Contact Info) Description 01/26/2023 Orders Only [facility] [address] [place], [place] [phone] Bobbi Barillas MD [address] [place], [place] [phone] Chronic intractable headache, unspecified headache type (Primary Dx); Female stress incontinence; Primary hypertension; Type 2 diabetes mellitus without complication, without long-term current use of insulin (CMS/HCC); Weight loss; Postoperative hypothyroidism Social History Tobacco Use Types Packs/Day Years [...] Type Priority Associated Diagnoses Orde r Schedule Vitamin B12/Folate, Serum Panel Lab Routine Type 2 diabetes mellitus without complication, without long-term current use of insulin (CMS/HCC) Expected: 01/26/2023 (Approximate), Expires: 01/27/2024 Albumin, Random Urine W/Creatinine Lab Routine Type 2 diabetes mellitus without complication, without long-term current use of insulin ([facility]) Expected: 01/26/2023 (Approximate), Expires: 01/27/2024 Hemoglobin A1c Lab Routine Type 2 diabetes mellitus without complication, without long-term current use of insulin ([facility]) Expected: 01/26/2023 (Approximate), Expires: 01/27/2024 Comprehensive Metabolic Panel Lab Routine Type 2 diabetes mellitus without complication, without long-term current use of insulin ([facility]) Expected: 01/26/2023 (Approximate), Expires: 01/27/2024 Lipid Panel with Reflex to Direct LDL Lab Routine Type 2 diabetes mellitus without complication, without long-term current use of insulin ([facility]) Expected: 01/26/2023 (Approximate), Expires: 01/27/2024 TSH W/Reflex to FT4 Lab Routine Weight loss Postoperative hypothyroidism Expected: 01/26/2023 (Approximate), Expires: 01/27/2024 CBC auto differential Lab Routine Weight loss Expected: 01/26/2023 (Approximate), Expires: 01/27/2024 Culture, Urine, Routine Microbiology Routine Female stress incontinence Expected: 01/26/2023 (Approximate), Expires: 01/27/2024 Urinalysis Complete Lab Routine Female stress incontinence Expected: 01/26/2023, Expires: 01/27/2024 documented as of this encounter Procedures Procedure Name Priority Date/Time Associated Diagnosis Comments XR DEXA AXIAL SKELETON Routine 02/07/2023 10:55 AM EDT documented in this encounter Results * XR DEXA AXIAL SKELETON (02/07/2023 10:55 AM EDT) Anatomical Region Laterality Modality Abdomen Radiographic Jenn ging 02/07/2023 10:5 5 AM EDT Narrative 02/08/2023 11:33 AM EDT ? [facility] ? [address] ?[place] [address] ? Mammography Report ? Signed ? Patient: Sy Jimenez,Danisha I ?MR#: ?? [id number] ? : 1945 ?Acct:[id number] ? Age/Sex: 78 / F ?ADM Date: 10/04/23 ? Loc: HO.MAMMO ? Attending Dr: Bobbi Barillas MD ? Ordering Physician: Bobbi Barillas MD ?Results: ? Date of Service: 02/07/23 ?Follow Up: ? Procedure(s): XR DEXA axial skeleton ?? Accession Number(s): [id number] ? cc: Bobbi Barillas MD ? EXAMINATION: ?? BONE DENSITOMETRY ? CLINICAL INDICATION: ?? Osteopenia. Bisphosphonate treatment. ? COMPARISON: ?? Previous BD dated 10/21/2020 and baseline BD dated 03/15/2007. ? TECHNIQUE: Using a Therio DXA System (software version: ?? 13.1) manufactured by [place] [employer], dual-energy x-ray absorptiometry ?? was performed of the lumbar spine and left hip. The images are of good ?? technical quality. Summary results are attached. ? FINDINGS: ?? LEFT FEMUR, NECK: ?? Current: BMD 0.629 g/cm2, Z-score -1.1, T-score -2.9, osteoporosis. ?? Prior: BMD 0.729 g/cm2. ?? Baseline: BMD 0.747 g/cm2. ? LEFT FEMUR, TOTAL: ?? Current: BMD 0.770 g/cm2, Z-score -0.2, T-score -1.9, osteopenia, 12.9% ?? decrease from previous, 15.0% decrease from baseline (<5% change is not ?? significant). ?? Prior: BMD 0.884 g/cm2. ?? Baseline: BMD 0.906 g/cm2. ? AP SPINE L1-L4: ?? Current: BMD 1.397 g/cm2, Z-score 3.3, T-score 1.8, normal, 5.6% ?? increase from previous, 38.6% increase from baseline (<5% change is not ?? significant). ?? Prior: BMD 1.323 g/cm2. ?? Baseline: BMD 1.008 g/cm2. ? IDENTIFIED RISK FACTORS: ?? Family history (parent hip fracture), history of fracture (adult), ?? menopause, osteoporosis. ? HISTORY OF FRACTURE: ?? Shoulder. ? MEDICATIONS: ?? Multivitamin, vitamin D, bisphosphonate. ? MM/XR DEXA axial skeleton ?? IMPRESSION: ?? 1. DIAGNOSIS: Severe osteoporosis based on the lowest T-score value of ?? -2.9 in the femoral neck, and the history of a shoulder fracture, ?? applying World Health Organization criteria. ? 2. 10-YEAR FRACTURE RISK PREDICTION, FRAX: According to the guidelines, ?? FRAX calculation should only be performed on patients in the osteopenia ?? bone density category. Therefore, FRAX was not performed on this ?? patient. ?? 3. Treatment Recommendations: NOF guidelines recommend consideration ?? for treatment in postmenopausal women and men age 50 and older ?? presenting with the following: ?? -A hip or vertebral (clinical or morphometric) fracture. ?? -T-score less than or equal to -2.5 at the femoral neck or spine after ?? appropriate evaluation to exclude secondary causes. ?? -Low bone mass at the hip or spine and a 10-year fracture probability ?? by FRAX of greater than or equal to 3% for hip fracture or greater than ?? or equal to 20% for major osteoporotic fracture based on the [place] adapted ?? WHO algorithm. ?? 4. Other Recommendations: All treatment decisions require clinical ?? judgment and consideration of individual patient factors, including ?? patient preferences, comorbidities, previous drug use, risk factors not ?? captured in the FRAX model (e.g. frailty, falls, vitamin D deficiency, ?? increased bone turnover, interval significant decline in bone density) ?? and possible under or overestimation of fracture risk by FRAX. ?? Additional medical evaluation for secondary cause of low bone mineral ?? density may be appropriate. ? FUTURE SCAN RECOMMENDATION: ?? People with diagnosed cases of osteoporosis or at high risk for ?? fracture should have regular bone mineral density tests. For patients ?? eligible for Medicare, routine testing is allowed once every 2 years. ?? The testing frequency can be increased to one year for patients who ?? have rapidly progressing disease, those who are receiving or ?? discontinuing medical therapy to restore bone mass, or have additional ?? risk factors. ? Dictated By: ?Hliario Lomeli MD ? Signed By: ?<Electronically signed by Hilario Lomeli MD in OV> ?10/23 1129 ? DD/ 1055 ? TD/TT: ? Assistant Account Manager: DB ? Procedure Note Donotkatieinterpreter, Image - 02/08/2023 [facility] [address] [place], [place] [address] Mammography Report Signed Patient: Danisha Bland IMR#: [id number] : 5Acct:[id number] Age/Sex: 78 / FADM Date: 02/07/23 Loc: [facility] Attending Dr: Bobbi Barillas MD Ordering Physician: Bobbi Barillas MDResults: Date of Service: 02/07/23Follow Up: Procedure(s): XR DEXA axial skeleton Accession Number(s): [id number] cc: Bobbi Barillas MD EXAMINATION: BONE DENSITOMETRY CLINICAL INDICATION: Osteopenia. Bisphosphonate treatment. COMPARISON: Previous BD dated 10/21/2020 and baseline BD dated 03/15/2007. TECHNIQUE: Using a Therio DXA System (software version: 13.1) manufactured by [place] [employer], dual-energy x-ray absorptiometry was performed of the lumbar spine and left hip. The images are of good technical quality. Summary results are attached. FINDINGS: LEFT FEMUR, NECK: Current: BMD 0.629 g/cm2, Z-score -1.1, T-score -2.9, osteoporosis. Prior: BMD 0.729 g/cm2. Baseline: BMD 0.747 g/cm2. LEFT FEMUR, TOTAL: Current: BMD 0.770 g/cm2, Z-score -0.2, T-score -1.9, osteopenia, 12.9% decrease from previous, 15.0% decrease from baseline (<5% change is not significant). Prior: BMD 0.884 g/cm2. Baseline: BMD 0.906 g/cm2. AP SPINE L1-L4: Current: BMD 1.397 g/cm2, Z-score 3.3, T-score 1.8, normal, 5.6% increase from previous, 38.6% increase from baseline (<5% change is not significant). Prior: BMD 1.323 g/cm2. Baseline: BMD 1.008 g/cm2. IDENTIFIED RISK FACTORS: Family history (parent hip fracture), history of fracture (adult), menopause, osteoporosis. HISTORY OF FRACTURE: Shoulder. MEDICATIONS: Multivitamin, vitamin D, bisphosphonate. MM/XR DEXA axial skeleton IMPRESSION: 1. DIAGNOSIS: Severe osteoporosis based on the lowest T-score value of -2.9 in the femoral neck, and the history of a shoulder fracture, applying World Health Organization criteria. 2. 10-YEAR FRACTURE RISK PREDICTION, FRAX: According to the guidelines, FRAX calculation should only be performed on patients in the osteopenia bone density category. Therefore, FRAX was not performed on this patient. 3. Treatment Recommendations: NOF guidelines recommend consideration for treatment in postmenopausal women and men age 50 and older presenting with the following: -A hip or vertebral (clinical or morphometric) fracture. -T-score less than or equal to -2.5 at the femoral neck or spine after appropriate evaluation to exclude secondary causes. -Low bone mass at the hip or spine and a 10-year fracture probability by FRAX of greater than or equal to 3% for hip fracture or greater than or equal to 20% for major osteoporotic fracture based on the [place] adapted WHO algorithm. 4. Other Recommendations: All treatment decisions require clinical judgment and consideration of individual patient factors, including patient preferences, comorbidities, previous drug use, risk factors not captured in the FRAX model (e.g. frailty, falls, vitamin D deficiency, increased bone turnover, interval significant decline in bone density) and possible under or overestimation of fracture risk by FRAX. Additional medical evaluation for secondary cause of low bone mineral density may be appropriate. FUTURE SCAN RECOMMENDATION: People with diagnosed cases of osteoporosis or at high risk for fracture should have regular bone mineral density tests. For patients eligible for Medicare, routine testing is allowed once every 2 years. The testing frequency can be increased to one year for patients who have rapidly progressing disease, those who are receiving or discontinuing medical therapy to restore bone mass, or have additional risk factors. Dictated By: Hilario Lomeli MD Signed By: <Electronically signed by Hilario Lomeli MD in OV> 02/08/23 1129 DD/ 1055 TD/TT: Assistant Account Manager: NEMO Bobbi Barillas MD IMG XR PROCEDURES Edited Result - Final documented in this encounter Visit Diagnoses Diagnosis Chronic intractable headache, unspecified headache type- Primary Female stress incontinence Primary hypertension Unspecified essential hypertension Type 2 diabetes mellitus without complication, without long-term current use of insulin ([facility]) Weight loss Loss of weight Postoperative hypothyroidism Postsurgical hypothyroidism documented in this encounter Care Teams Early Childhood Associate Relationship Specialty Start Date End Date Bobbi Barillas MD [address] [place] [id number] PCP - General Family Medicine 05/07/18 documented as of this encounter
--- OUTSIDE RECORDS SUMMARY | 2024-08-27 10:21 | XMS_ITS | Encounter Summary ---
Author Organization [facility] Address [address] [place] [address] Care Team Providers Care Meat Process Worker Name Role Phone Aroldo Morgan MD Primary Care Provider [phone] Encounter Details Date Type Department Care Team (Late st Contact Info) Description 04/12/2024 Lab Requisition [facility] - Main Lab [address] [place] [address] Aroldo Morgan MD 38 [facility] [address] [facility] [address] Chronic kidney disease, unspecified; Anemia, [...] LAB CHEMISTRY METHOD 04/14/2024 10:07 AM EST [facility]) [facility] Potassium 4.5 3.5 - [...] MD LAB BLOOD ORDERABLES Final Resul t [facility] [address] [place] [address], * (ABNORMAL) Complete blood count (04/14/2024 5:23 AM EST) [facility] WBC 6.2 4.8 - 10.8 K/mcL LAB [...] LAB HEMETOLOGY METHOD 04/14/2024 9:43 AM EST [facility] Blood Venous blood specimen / Unknown Venipuncture / Unknown 04/14/2024 5:23 AM EST 04/14/2024 9:14 AM EST us Aroldo Morgan MD LAB BLOOD ORDERABLES Final Resul t [facility] [address] [place] [address], documented in this encounter Visit Diagnoses Diagnosis Chronic kidney disease, unspecified Anemia, unspecified documented in this encounter Care Teams Meat Process Worker Relationship Specialty Start Date End Date Aroldo Morgan MD [address] [place] [address], [phone] PCP - General Family Medicine 03/31/24 documented as of this encounter
--- OUTSIDE RECORDS SUMMARY | 2024-08-27 10:21 | XMS_ITS | Patient Health Record ---
Author Organization [facility] Address [address] [place] [address] Care Team Providers Care Double Corner Cutter Name Role Phone Eran MARQUEZ, Bobbi Primary Care Provider Roman Morel Unavailable [phone] Allergies No Known Allergies Reason For Referral No Information Medications Medication SIG (Take, Route, Frequency, Duration) Notes Start Date End Date Status Montelukast Sodium 10 MG 1 tablet in the evening Orally Once a day Active Aspir-81 81 MG 1 tablet Orally Once a day Active Multi Vitamin/Minerals - as directed Ora lly once a day Active SM Anti-Diarrheal 2 MG angeles 2 tabletas con la primera escreta blanda y angeles 1 tableta despues de cada movimiento instestinal. no angeles mas de 8 tabletas en 24 ho Oral for 3 Active Flovent HFA 220 MCG/ACT 1 puff Inhalatio n Twice a day PRN Active amLODIPine Besylate 2.5 MG 1 tablet Oral ly Once a day for 30 day(s) Active Magnesium Oxide 400 MG TAKE 1 TABLET BY MOUTH TWICE DAILY Oral for 15 Active metFORMIN HCl 1000 MG 1 tablet with meal s Orally Twice a day Active Cholestyramine Activ e Metoprolol Tartrate 25 MG 1 tablet with food Orally Twice a day for 30 day(s) Active Atorvastatin Calcium 40 MG 1 tablet Oral ly Once a day Active Lidoderm 5 % 1 patch on the right upper abdomen for the pain and then remove after 12 hours Externally Once a day for 30 days 05/10/2023 Active Levothyroxine Sodium 88 MCG 1 tablet Ora lly Once a day Active Immunizations Vaccine Route Administration Date Status Comme nts Influenza Unknown 03/07/2018 Administered Influenza Unknown 02/04/2019 Administered Influenza Unknown 02/18/2020 Administered Problems Problem Type SNOMED Code ICD Code Onset Dates Problem Status W/U Status Risk Notes Problem Irritable bowel syndrome (26594811) Irritable bowel syndrome (K58.9) Active confirmed Problem Screening for malignant neoplasm of colon (799386618) Encounter for screening for malignant neoplasm of colon (Z12.11) Active confirmed Problem 23409763 Irritable bowel syndrome without diarrhea (K58.9) Active confirmed Problem Family History of Cancer of Colon (Situation) (722933057) Family history of colon cancer (Z80.0) Active confirmed Problem 995500460 Abdominal pain, right upper quadrant (R10.11) Active confirmed Problem 006319071 Abnormal CT of the abdomen (R93.5) Active confirmed Problem 85788219 Irritable bowel syndrome with both constipation and diarrhea (K58.2) Active confirmed Problem 808133708 RUQ pain (R10.11) Active confirmed Problem 224442677 Acute biliary pancreatitis without infection or necrosis (K85.10) Active confirmed Problem 917099231 Abdominal wall pain in right upper quadrant (R10.11) Active confirmed Plan Of Treatment Pending Test Test Name Order Date BUN 05/12/2015 CREATININE 05/12/2015 LIVER PROFILE 05/12/2015 Future Test Test Name Order Date COLONOSCOPY 08/25/2014 COLONOSCOPY 06/02/2020 Insurance Providers Payer Name Payer Address Payer Phone Subscriber Number Group Number Insured Name Patient Relationship to Insured Coverage Start Date Coverage End Date [facility] [address] [address] [place] [address] [id number] YECENIA MURPHY Self - patient is the insured Medical (General) History Medical History History ICD Code Colonoscopies in 2003 and 05-13-2009--both negative for polyps-did have diverticulosis and hemorrhoids Osteoporosis Back pain Depression Denies PA,CVA,renal disease COPD NIDDM Neuropathy GERD Hypothroidism Negative colonoscopy in November 2014, other than some sigmoid diverticulosis and internal hemorrhoids Abnormal CAT scan of her efrain st and abdomen in March and April of 2015, with the finding of a subdiaphragmatic lesion above the liver capsule--however, it was not felt to be related to a primary liver lesion nor liver disease Chronic sinusitis Pancreatitis in 12/2015--? passed CBD sto ne--MRCP was negative Aneurysm - 2006 IBS with intermittent diarrh ea as of the 05/2020 office visit, although in the past has had issues with constipation Negative colonoscopy in 06/2020--biopsies negative for mcroscopic colitis Chronic right upper quadrant pain with negative MRCP's in the past in regard to choledocholithiasis; negative CT scan, ultrasound, and laboratories in April of 2023 during an ER visit Surgical History Surgery Date(Month/Year) brain aneurysm 2006 left knee replacement-2013 right knee replacement shoulder surgery oral surgery-implants cholecystectomy-Dr. Miner Hemorrhoids in 2011-Dr. Nuñez Bladder stimulator from Dr. French, III
--- OUTSIDE RECORDS SUMMARY | 2024-08-27 10:21 | XMS_ITS | Encounter Summary ---
Author Organization [employer] Address [address] [facility] 7t [place] [address] Care Team Providers Care Migrant Leader Name Role Phone Bobbi Barillas MD Primary Care Provider [phone] Encounter Details Date Type Department Care Team ([facility] st Contact Info) Description 03/16/2023 Orders Only [facility] [address] [place], [place] [phone] Risa Laurent MD [address] [place], [place] [phone] Social History Tobacco Use Types Packs/Day Years [...] on filedocumented in this encounter Care Teams Migrant Leader Relationship Specialty Start Date End Date Bobbi Barillas MD [address] [place] [phone] PCP - General Family Medicine 05/07/18 documented as of this encounter
--- OUTSIDE RECORDS SUMMARY | 2024-08-27 10:21 | XMS_ITS | Encounter Summary ---
Author Organization [facility] Address [address] [place] [address] Care Team Providers Care Casket Upholsterer Name Role Phone Aroldo Morgan MD Primary Care Provider [phone] Encounter Details Date Type Department Care Team (Late st Contact Info) Description 04/16/2024 Lab Requisition [facility] - Main Lab [address] [facility] [place] [address] Aroldo Morgan MD [address] [facility] [address] [facility] [address] Urinary tract infection, site not [...] Tube Hold for add-ons. 04/16/2024 1:01 PM [facility] Comment:Auto resulted. Urine Urine specimen obtained by clean catch procedure / Unknown 04/16/2024 1:00 AM EST 04/16/2024 11:03 AM EST us Aroldo Morgan MD LAB URINE ORDERABLES Final Resul t [facility] [address] [place] [address], * (ABNORMAL) Urinalysis with reflex microscopic (04/16/2024 1:00 AM EST) Specific [place] Urine 1.009 1.003 - 1.030 LAB URINALYSIS - AUTOMATED METHOD 04/16/2024 11:29 AM [facility] pH, Urine 5.5 5.0 - 8.0 pH LAB URINALYSIS - AUTOMATED METHOD 04/16/2024 11:29 AM [facility] Leukocytes, Urine Large(A) Negative LAB URINALYSIS - AUTOMATED METHOD 04/16/2024 11:29 AM [facility] Nitrite, Urine Negative Negative LAB URINALYSIS - AUTOMATED METHOD 04/16/2024 11:29 AM [facility] Protein, Urine Negative <=Trace mg/dL LAB URINALYSIS - AUTOMATED METHOD 04/16/2024 11:29 AM [facility] Glucose, Urine Negative Negative mg/dL LAB URINALYSIS - AUTOMATED METHOD 04/16/2024 11:29 AM [facility] Ketones, Urine Negative Negative mg/dL LAB URINALYSIS - AUTOMATED METHOD 04/16/2024 11:29 AM [facility] Urobilinogen, Urine 0.2 0.2 - 1.0 mg/dL LAB URINALYSIS - AUTOMATED METHOD 04/16/2024 11:29 AM [facility] Bilirubin, Urine Negative Negative LAB URINALYSIS - AUTOMATED METHOD 04/16/2024 11:29 AM [facility] Blood, Urine Negative Negative LAB URINALYSIS - AUTOMATED METHOD 04/16/2024 11:29 AM [facility] RBC, Urine 1.0 0 - 4 /HPF LAB URINALYSIS - AUTOMATED METHOD 04/16/2024 11:29 AM [facility] WBC, Urine 152.9(H) 0 - 4 /HPF LAB URINALYSIS - AUTOMATED METHOD 04/16/2024 11:29 AM [facility] Squamous Epithelial, Urine 8 0 - 60 /LPF LAB URINALYSIS - AUTOMATED METHOD 04/16/2024 11:29 AM [facility] Bacteria, Urine Few(A) Negative /HPF LAB URINALYSIS - AUTOMATED METHOD 04/16/2024 11:29 AM [facility] Hyaline Casts, Urine 2.5 0 - 3 /LPF LAB URINALYSIS - AUTOMATED METHOD 04/16/2024 11:29 AM [facility] Urine Urine specimen obtained by clean catch procedure / Unknown Non-blood Collection / Unknown 04/16/2024 1:00 AM EST 04/16/2024 11:02 AM EST us Aroldo Morgan MD LAB URINE ORDERABLES Final Resul t [facility] [address] [place] [address], documented in this encounter Visit Diagnoses Diagnosis Urinary tract infection, site not specified documented in this encounter Care Teams Casket Upholsterer Relationship Specialty Start Date End Date Aroldo Morgan MD [address] [place] [address], [phone] PCP - General Family Medicine 03/31/24 documented as of this encounter
--- OUTSIDE RECORDS SUMMARY | 2024-08-27 10:21 | XMS_ITS | Encounter Summary ---
Author Organization [employer] Address [address] [facility] 7t [place] [address] Care Team Providers Care Verification Engineer Name Role Phone Bobbi Barillas MD Primary Care Provider [phone] Encounter Details Date Type Department Care Team ([facility] st Contact Info) Description 04/13/2023 Orders Only [facility] MEDICINE [address] [place], [place] [phone] Bobbi Barillas MD [address] [place], [place] [phone] Social History Tobacco Use Types Packs/Day Years [...] on filedocumented in this encounter Care Teams Verification Engineer Relationship Specialty Start Date End Date Bobbi Barillas MD [address] [place] [address] PCP - General Family Medicine 05/07/18 documented as of this encounter
--- OUTSIDE RECORDS SUMMARY | 2024-08-27 10:21 | XMS_ITS | Encounter Summary ---
Author Organization [employer] Address [address] [facility] 7t [place] [address] Care Team Providers Care Certified Personal Finance Counselor Name Role Phone Bobbi Barillas MD Primary Care Provider [phone] Encounter Details Date Type Department Care Team ([facility] st Contact Info) Description 02/15/2023 Orders Only [facility] [address] [place], [place] [phone] Bobbi Barillas MD [address] [place], [place] [phone] Osteoporosis without current pathological fracture, unspecified osteoporosis type (Primary Dx) Social History Tobacco Use Types [...] as of this encounter Visit Diagnoses Diagnosis Osteoporosis without current pathological fracture, unspecified osteoporosis type- Primary documented in this encounter Care Teams Certified Personal Finance Counselor Relationship Specialty Start Date End Date Bobbi Barillas MD [address] [place] [phone] PCP - General Family Medicine 05/07/18 documented as of this encounter
== END 2024-08-27 09:20 | disposition home or self-care (01) ==
LOC: HO.HOSX 09:19
DX: Z13.89 Encounter for screening for other disorder (principal)